=== PATIENT | male | born 1945 | race American Indian/Alaskan Native ===

== ENCOUNTER 2022-01-20 10:45 | Inpatient (IN) | payer MEDICARE ==
[2022-01-20] MEDS ORDERED: SODIUM CHLORIDE 0.9% 1000 ML 1,000 ML IV ONE ×2 (11:03→13:26)
[2022-01-20 11:51] LABS: Hematocrit 35.3 % (35.5-45.6); Hemoglobin 11.6 gm/dl (11.8-15.2); Mean Corpuscular HGB Conc 33 % (32-34); Mean Corpuscular Volume 98 fl (84-94); Red Blood Count 3.62 M/mm3 (3.65-5.03); Red Cell Distribution Width 15.1 % (13.2-15.2)
[2022-01-20 11:57] LABS: Platelet Count 82 K/mm3 (140-440)
--- NOTE | 2022-01-20 12:04 | Cat Scan Report ---
CT head/brain wo con INDICATION: altered mental status. TECHNIQUE: Routine CT head. All CT scans at this location are performed using CT dose reduction for A DIANE by means of automated exposure control. COMPARISON: None. FINDINGS: Intracranial: Cardenas-white matter differentiation is maintained. No intracranial hemorrhage. No extra a xial collection. No hydrocephalus. No herniation. Periventricular hypoattenuation, most likely relate d to sequela of chronic microvascular disease. Sinuses: Paranasal sinuses and mastoid air cells are essentially clear. Orbits: Globes are intact. Calvarium: No acute fracture. IMPRESSION: 1. No acute intracranial abnormality. Signer Name: Hiren Segura MD Signed: 01/20/2022 11:59 AM Workstation Name: [id number]
[2022-01-20 12:07] LABS: Albumin 3.5 g/dL (3.9-5); Calcium 8.5 mg/dL (8.4-10.2)
[2022-01-20 12:31] LABS: Basophils % (Manual) 0 % (0.0-1.8); Eosinophils % (Manual) 0 % (0.0-4.3); Total Cells Counted 100
[2022-01-20 12:32] LABS: Anisocytosis 1+; Burr Cells 1+; Platelet Estimate Consistent w Auto; Poikilocytosis 1+
--- NOTE | 2022-01-20 12:57 | XRay Report ---
CHEST 1 VIEW 01/20/2022 11:51 AM INDICATION / CLINICAL INFORMATION: weakness. COMPARISON: None available. FINDINGS: SUPPORT DEVICES: None. HEART / MEDIASTINUM: No significant abnormality. LUNGS / PLEURA: No significant pulmonary or pleural abnormality. No pneumothorax. ADDITIONAL FINDINGS: No significant additional findings. IMPRESSION: 1. No acute findings. Signer Name: Duc Anne DO Signed: 01/20/2022 12:53 PM Workstation Name: [id number]
--- NOTE | 2022-01-20 13:27 | Emergency Department Report ---
- General Chief complaint: Altered Mental Status Stated complaint: WEAKNESS Time Seen by Provider: 01/20/22 11:01 Source: patient, EMS Mode of arrival: Stretcher Limitations: Altered Mental Status - History of Present Illness Initial comments: Chief complaint: Weakness failure to thrive HPI: This 76-year-old male with unknown medical history who presents via EMS after roommate called. Patient has had decline over the last 2 weeks. He has not eaten food over the last several days. He has decreased responsiveness. He only said a few words to EMS. Right lower extremity swelling noted. History otherwise limited due to altered mental status. MD Complaint: generalized weakness -: week(s) (2 weeks) Location: generalized Severity: severe Severity scale (0 -10): 0 Consistency: constant Improves with: none Worsens with: none Associated Symptoms: other (Leg swelling) - Related Data Allergies Allergy/AdvReac Type Severity Reaction Status Date / Time No Known Allergies Allergy Unverified 01/20/22 10:47 ED Review of Systems ROS: Stated complaint: WEAKNESS Other details as noted in HPI Comment: Unobtainable due to pts medical conditions (Nonverbal altered) ED Past Medical Hx - Past Medical History Additional medical history: Unable to obtain - Surgical History Additional Surgical History: Unable to obtain - Family History Family history: other (Unable to obtain) - Social History Smoking Status: Unknown if ever smoked Substance Use Type: Other (Unable to obtain) ED Physical Exam - General Limitations: Altered Mental Status General appearance: in no apparent distress, lethargic - Head Head exam: Present: atraumatic, normocephalic - Eye Eye exam: Absent: scleral icterus, conjunctival injection - ENT ENT exam: Present: mucous membranes dry - Neck Neck exam: Present: normal inspection, full ROM - Respiratory Respiratory exam: Present: normal lung sounds bilaterally. Absent: respiratory distress, wheezes, rales, rhonchi - Cardiovascular Cardiovascular Exam: Present: regular rate, normal rhythm, normal heart sounds. Absent: systolic murmur, diastolic murmur, rubs, gallop - GI/Abdominal GI/Abdominal exam: Present: soft, distended, normal bowel sounds, other (Suprapubic distention). Absent: tenderness, guarding, rebound - Rectal Rectal exam: Present: deferred - Extremities Exam Extremities exam: Present: other (Right lower extremity swelling: Hyperpigmented flaky skin on both lower extremities) - Back Exam Back exam: Present: normal inspection - Neurological Exam Neurological exam: Present: altered - Psychiatric Psychiatric exam: Present: flat affect ED Course Vital Signs 01/20/22 10:47 Temperature 98.3 F Pulse Rate 56 L Respiratory 16 Rate Blood Pressure 142/88 [Left] O2 Sat by Pulse 99 Oximetry ED Medical Decision Making - Lab Data Result diagrams: 01/20/22 11:31 01/20/22 11:31 Laboratory Results - last 24 hr 01/20/22 01/20/22 01/20/22 11:31 11:31 11:31 WBC 2.6 L RBC 3.62 L Hgb 11.6 L Hct 35.3 L MCV 98 H MCH 32 MCHC 33 RDW 15.1 Plt Count 82 L Add Manual Diff Complete Total Counted 100 Seg Neutrophils % Manager Product Seg Neuts % (Manual) 96.0 H Band Neutrophils % 1.0 Lymphocytes % (Manual) 0 L Reactive Lymphs % (Man) 0 Monocytes % (Manual) 3.0 Eosinophils % (Manual) 0 Basophils % (Manual) 0 Metamyelocytes % 0 Myelocytes % 0 Promyelocytes % 0 Blast Cells % 0 Nucleated RBC % Not Reportable Seg Neutrophils # Man 2.5 Band Neutrophils # 0.0 Lymphocytes # (Manual) 0.0 L Abs React Lymphs (Man) 0.0 Monocytes # (Manual) 0.1 Eosinophils # (Manual) 0.0 Basophils # (Manual) 0.0 Metamyelocytes # 0.0 Myelocytes # 0.0 Promyelocytes # 0.0 Blast Cells # 0.0 WBC Morphology Not Reportable Hypersegmented Neuts Not Reportable Hyposegmented Neuts Not Reportable Hypogranular Neuts Not Reportable Smudge Cells Not Reportable Toxic Granulation Not Reportable Toxic Vacuolation Not Reportable Dohle Bodies Not Reportable Pelger-Huet Anomaly Not Reportable Giovana Rods Not Reportable Platelet Estimate Consistent w auto Clumped Platelets Not Reportable Plt Clumps, EDTA Not Reportable Large Platelets Not Reportable Giant Platelets Not Reportable Platelet Satelliting Not Reportable Plt Morphology Comment Not Reportable RBC Morphology Not Reportable Dimorphic RBCs Not Reportable Polychromasia Not Reportable Hypochromasia Not Reportable Poikilocytosis 1+ Anisocytosis 1+ Microcytosis Not Reportable Macrocytosis Not Reportable Spherocytes Not Reportable Pappenheimer Bodies Not Reportable Sickle Cells Not Reportable Target Cells Not Reportable Tear Drop Cells Not Reportable Ovalocytes Not Reportable Helmet Cells Not Reportable Ferris-Sims Bodies Not Reportable Dumas Rings Not Reportable Zenaida Cells 1+ Bite Cells Not Reportable Crenated Cell Not Reportable Elliptocytes Not Reportable Acanthocytes (Spur) Not Reportable Rouleaux Not Reportable Hemoglobin C Crystals Not Reportable Schistocytes Not Reportable Malaria parasites Not Reportable Kana Bodies Not Reportable Hem Pathologist Commnt No Sodium 140 Potassium 5.0 Chloride 110.3 H Carbon Dioxide 15 L Anion Gap 20 BUN 123 H Creatinine 5.1 H Estimated GFR 13 BUN/Creatinine Ratio 23 Glucose 84 Calcium 8.5 Phosphorus 5.30 H Magnesium 2.60 H Total Bilirubin 0.40 AST 147 H ALT 90 H Alkaline Phosphatase 107 Ammonia 10.0 L Total Protein 6.9 Albumin 3.5 L Albumin/Globulin Ratio 1.0 TSH 01/20/22 11:31 WBC RBC Hgb Hct MCV MCH MCHC RDW Plt Count Add Manual Diff Total Counted Seg Neutrophils % Seg Neuts % (Manual) Band Neutrophils % Lymphocytes % (Manual) Reactive Lymphs % (Man) Monocytes % (Manual) Eosinophils % (Manual) Basophils % (Manual) Metamyelocytes % Myelocytes % Promyelocytes % Blast Cells % Nucleated RBC % Seg Neutrophils # Man Band Neutrophils # Lymphocytes # (Manual) Abs React Lymphs (Man) Monocytes # (Manual) Eosinophils # (Manual) Basophils # (Manual) Metamyelocytes # Myelocytes # Promyelocytes # Blast Cells # WBC Morphology Hypersegmented Neuts Hyposegmented Neuts Hypogranular Neuts Smudge Cells Toxic Granulation Toxic Vacuolation Dohle Bodies Pelger-Huet Anomaly Giovana Rods Platelet Estimate Clumped Platelets Plt Clumps, EDTA Large Platelets Giant Platelets Platelet Satelliting Plt Morphology Comment RBC Morphology Dimorphic RBCs Polychromasia Hypochromasia Poikilocytosis Anisocytosis Microcytosis Macrocytosis Spherocytes Pappenheimer Bodies Sickle Cells Target Cells Tear Drop Cells Ovalocytes Helmet Cells Ferris-Sims Bodies Dumas Rings Zenaida Cells Bite Cells Crenated Cell Elliptocytes Acanthocytes (Spur) Rouleaux Hemoglobin C Crystals Schistocytes Malaria parasites Kana Bodies Hem Pathologist Commnt Sodium Potassium Chloride Carbon Dioxide Anion Gap BUN Creatinine Estimated GFR BUN/Creatinine Ratio Glucose Calcium Phosphorus Magnesium Total Bilirubin AST ALT Alkaline Phosphatase Ammonia Total Protein Albumin Albumin/Globulin Ratio TSH 2.730 - EKG Data -: EKG Interpreted by Me - EKG Data 01/20/22 13:45 EKG obtained 1113 EKG interpreted by me Sinus bradycardia rate 55 bpm normal axis normal intervals no ST elevation nonspecific T wave pattern QS complexes in anterior leads - Radiology Data Radiology results: report reviewed Patient Name: FABIAN CHAPARRO Gender: Male Date of : 1945 Referring Provider: FADUMO MCDONALD Organization: [facility] Accession Number: [id number] Requested Date: January 20, 2022 13:18 Report Status: Final Requested Procedure: 1 Procedure Description: VL venous duplex LE BILAT Modality: VL Findings Reporting MD: Laci Brown Dictation Time: January 20, 2022 13:28 Gambreler Helper: Not available Orthotic Practitioner Date: DUPLEX DOPPLER LOWER EXTREMITY VEINS, BILATERAL INDICATION: immobile right leg swelling. TECHNIQUE: Duplex doppler imaging was performed through the veins of both lower extremities using venous compression and other maneuvers. COMPARISON: No relevant prior imaging study available. FINDINGS: Right Common femoral vein: Negative. Right Superficial femoral vein: Negative. Right Popliteal vein: Negative. Right Calf veins: Negative. Left Common femoral vein: Negative. Left Superficial femoral vein: Negative. Left Popliteal vein: Negative. Left Calf veins: Negative. Additional findings: None. IMPRESSION: No sonographic evidence for DVT in either lower extremity. Signer Name: Laci Brown Jr, MD Signed: 01/20/2022 1:28 PM Workstation Name: [id number] Patient Name: FABIAN CHAPARRO Gender: Male Date of : 1945 Referring Provider: FADUMO MCDONALD Organization: [facility] Accession Number: [id number] Requested Date: January 20, 2022 11:04 Report Status: Final Requested Procedure: 1 Procedure Description: CT head/brain wo con Modality: CT Findings Reporting MD: Hiren Segura Dictation Time: January 20, 2022 10:59 Gambreler Helper: Not available Orthotic Practitioner Date: CT head/brain wo con INDICATION: altered mental status. TECHNIQUE: Routine CT head. All CT scans at this location are performed using CT dose reduction for ALARA by means of automated exposure control. COMPARISON: None. FINDINGS: Intracranial: Cardenas-white matter differentiation is maintained. No intracranial hemorrhage. No extra axial collection. No hydrocephalus. No herniation. Periventricular hypoattenuation, most likely related to sequela of chronic microvascular disease. Sinuses: Paranasal sinuses and mastoid air cells are essentially clear. Orbits: Globes are intact. Calvarium: No acute fracture. IMPRESSION: 1. No acute intracranial abnormality. Signer Name: Hiren Segura MD Signed: 01/20/2022 10:59 AM Workstation Name: [id number] Findings Reporting MD: Willi Law Dictation Time: January 20, 2022 13:53 Gambreler Helper: Not available Orthotic Practitioner Date: . CT ABDOMEN AND PELVIS WITHOUT CONTRAST HISTORY: Acute kidney injury altered mental status. COMPARISON: None. TECHNIQUE: CT images of the abdomen and pelvis were obtained without administration of intravenous contrast. All CT scans at this location are performed using CT dose reduction for ALARA by means of autom ated exposure control. FINDINGS: Lungs/bones: There is patchy airspace disease in the lungs greatest in the right lower lobe as well as superimposed tree-inbud airspace disease in all 3 lobes and the right lung. Minimal patchy left basilar airspace disease is also present. There are degenerative changes in the spine and the pelvis with no acute osseous abnormality identified. Abdomen/pelvis: The urinary bladder is grossly distended and there is a dependent stone measuring 1.5 cm on image 144 of series 2. The prostate is enlarged and indents the bladder base. No obvious bladder wall mass identified. Mild bilateral hydronephrosis is present in the kidneys likely related to the grossly distended urinary bladder. Simple bilateral renal cysts are present. No radiopaque stone disease. Multiple hypodensities are present throughout the liver which have the appearance of simple cysts although some are subcentimeter and therefore technically indeterminate. The gallbladder is mildly distended with tiny stones lying dependently. There is mild surrounding haziness and trace fluid. No biliary ductal dilatation. The spleen, pancreas, adrenals, and proximal GI tract appear unremarkable. No pelvic free fluid. There is colonic diverticulosis with no acute inflammatory change. IMPRESSION: 1. Grossly distended urinary bladder with internal stone disease suggesting urine stasis. Mild to moderate bilateral reflux hydronephrosis is present in the kidneys. 2. Pneumonia greatest in the right lung base with superimposed tree-in-bud airspace disease which may be seen with an atypical etiology such as mycobacterial disease. 3. Innumerable hypodensities in the liver, some of which have the appearance of cysts but others are indeterminate given subcentimeter size. 4. Distended gallbladder with surrounding haziness/trace fluid and questionable mild wall thickening. A few tiny layering stones are present but otherwise no gross obstructive stone disease. Correlate with exam findings. Signer Name: Willi Law MD Signed: 01/20/2022 1:53 PM Workstation Name: [id number] - Medical Decision Making 1. Acute metabolic encephalopathy due to uremia with acute kidney injury. CT abdomen pelvis revealed grossly distended bladder with bilateral hydronephrosis. Caregiver in room he was able to tell me that patient did have back pain. 2. Multifocal pneumonia with leukopenia. Concerning for COVID-19. Coronavirus PCR test ordered. IV dexamethasone IV ceftriaxone and IV azithromycin ordered. 3. Hepatic masses: Will need outpatient evaluation cyst versus tumor 4. Distended gallbladder without fever or leukocytosis. Will need observation with serial exams. Patient admitted to the hospital service. Critical care attestation.: If time is entered above; I have spent that time in minutes in the direct care of this critically ill patient, excluding procedure time. ED Disposition Clinical Impression: Acute metabolic encephalopathy, Acute kidney injury, Uremic encephalopathy, Acute urinary retention Disposition: ADMITTED INPATIENT Is pt being admited?: Yes Does the pt Need Aspirin: No Condition: Stable
--- NOTE | 2022-01-20 14:32 | Vascular Lab Report ---
DUPLEX DOPPLER LOWER EXTREMITY VEINS, BILATERAL INDICATION: immobile right leg swelling. TECHNIQUE: Duplex doppler imaging was performed through the veins of both lower extremities using ve nous compression and other maneuvers. COMPARISON: No relevant prior imaging study available. FINDINGS: Right Common femoral vein: Negative. Right Superficial femoral vein: Negative. Right Popliteal vein: Negative. Right Calf veins: Negative. Left Common femoral vein: Negative. Left Superficial femoral vein: Negative. Left Popliteal vein: Negative. Left Calf veins: Negative. Additional findings: None. IMPRESSION: No sonographic evidence for DVT in either lower extremity. Signer Name: Laci Brown Jr, MD Signed: 01/20/2022 2:28 PM Workstation Name: [id number]
--- NOTE | 2022-01-20 14:57 | Cat Scan Report ---
. CT ABDOMEN AND PELVIS WITHOUT CONTRAST HISTORY: Acute kidney injury altered mental status. COMPARISON: None. TECHNIQUE: CT images of the abdomen and pelvis were obtained without administration of intravenous co ntrast. All CT scans at this location are performed using CT dose reduction for ALARA by means of au tomated exposure control. FINDINGS: Lungs/bones: There is patchy airspace disease in the lungs greatest in the right lower lobe as well as superimposed tree-in-bud airspace disease in all 3 lobes and the right lung. Minimal patchy left b asilar airspace disease is also present. There are degenerative changes in the spine and the pelvis w ith no acute osseous abnormality identified. Abdomen/pelvis: The urinary bladder is grossly distended and there is a dependent stone measuring 1. 5 cm on image 144 of series 2. The prostate is enlarged and indents the bladder base. No obvious blad rosa wall mass identified. Mild bilateral hydronephrosis is present in the kidneys likely related to t he grossly distended urinary bladder. Simple bilateral renal cysts are present. No radiopaque stone d isease. Multiple hypodensities are present throughout the liver which have the appearance of simple cysts alt breezy some are subcentimeter and therefore technically indeterminate. The gallbladder is mildly diste nded with tiny stones lying dependently. There is mild surrounding haziness and trace fluid. No bilia ry ductal dilatation. The spleen, pancreas, adrenals, and proximal GI tract appear unremarkable. No pelvic free fluid. There is colonic diverticulosis with no acute inflammatory change. IMPRESSION: 1. Grossly distended urinary bladder with internal stone disease suggesting urine stasis. Mild to mod erate bilateral reflux hydronephrosis is present in the kidneys. 2. Pneumonia greatest in the right lung base with superimposed tree-in-bud airspace disease which may be seen with an atypical etiology such as mycobacterial disease. 3. Innumerable hypodensities in the liver, some of which have the appearance of cysts but others are indeterminate given subcentimeter size. 4. Distended gallbladder with surrounding haziness/trace fluid and questionable mild wall thickening. A few tiny layering stones are present but otherwise no gross obstructive stone disease. Correlate w ith exam findings. Signer Name: Willi Law MD Signed: 01/20/2022 2:53 PM Workstation Name: [id number]
[2022-01-20] MEDS ORDERED: AZITHROMYCIN/NS 500 MG/250 ML 500 MG/250 ML BAG IV ONE (15:02)
[2022-01-20] MEDS ORDERED: cefTRIAXone/NS 1 GM/50 ML 1 GM/50 ML BAG IV ONE (15:02)
[2022-01-20] MEDS ORDERED: dexAMETHasone 4 MG/ML VIAL IV STA (15:02)
[2022-01-20] MEDS ORDERED: ACETAMINOPHEN 325 MG TAB PO PRN (18:24)
[2022-01-20] MEDS ORDERED: ONDANSETRON 4 MG/2 ML INJ IV PRN (18:24)
[2022-01-20] MEDS ORDERED: MORPHINE 2 MG/1 ML INJ IV PRN (18:24)
--- NOTE | 2022-01-20 18:33 | History and Physical Report ---
History of Present Illness Date of examination: 01/20/22 Date of admission: January 20, 2022 Chief complaint: No p.o. intake for more than 1 week History of present illness: 76-year-old male sent by EMS by his roommate for 41 intake and decline in mental status for the last 2 weeks. Apparently patient is not in any food drinking fluids for the last 2 weeks. Decreased responsiveness. Patient is lethargic. Right lower extremity swelling. No fever or chills. Vaccination status not known. In summary patientfailure to thrive No p.o. intake. - Past Medical History Additional medical history: Unable to obtain - Surgical History Additional Surgical History: Unable to obtain - Family History Family history: other (Unable to obtain) - Social History Smoking Status: Unknown if ever smoked Substance Use Type: Other (Unable to obtain Review of Systems ROS: Stated complaint: WEAKNESS Other details as noted in HPI Comment: Unobtainable due to pts medical conditions (Nonverbal altered) ) Medications and Allergies Allergies Allergy/AdvReac Type Severity Reaction Status Date / Time No Known Allergies Allergy Unverified 01/20/22 10:47 Active Meds: Active Medications Acetaminophen (Acetaminophen 325 Mg Tab) 650 mg PO Q4H PRN PRN Reason: Pain MILD(1-3)/Fever >100.5/STODDARD Heparin Sodium (Porcine) (Heparin 5,000 Unit/1 Ml Vial) 5,000 unit SUB-Q Q12HR [facility] Sodium Chloride (Nacl 0.45% 1000 Ml) 1,000 mls @ 125 mls/hr IV DIRECT [facility] Morphine Sulfate (Morphine 2 Mg/1 Ml Inj) 2 mg IV Q4H PRN PRN Reason: Pain, Moderate (4-6) Ondansetron HCl (Ondansetron 4 Mg/2 Ml Inj) 4 mg IV Q8H PRN PRN Reason: Nausea And Vomiting Sodium Chloride (Sodium Chloride 0.9% 10 Ml Flush Syringe) 10 ml IV BID [facility] Sodium Chloride (Sodium Chloride 0.9% 10 Ml Flush Syringe) 10 ml IV PRN PRN PRN Reason: LINE FLUSH Exam - Constitutional Vitals: Temp Pulse Resp BP Pulse Ox 98.3 F 56 L 16 142/88 99 01/20/22 10:47 01/20/22 10:47 01/20/22 10:47 01/20/22 10:47 01/20/22 10:47 General appearance: Present: no acute distress, cachectic, other (Lethargic) - EENT Eyes: Present: PERRL ENT: hearing intact, clear oral mucosa - Neck Neck: Present: supple, normal ROM - Respiratory Respiratory effort: normal Respiratory: bilateral: CTA - Cardiovascular Heart rate: 78 Rhythm: regular Heart Sounds: Present: S1 & S2. Absent: rub, click - Extremities Extremities: pulses symmetrical, No edema Peripheral Pulses: within normal limits - Abdominal General gastrointestinal: Present: soft, non-tender, non-distended, normal bowel sounds Male genitourinary: Present: normal - Integumentary Integumentary: Present: clear, warm, dry - Musculoskeletal Musculoskeletal: generalized weakness - Psychiatric Psychiatric: depressed - Neurologic Neurologic: CNII-XII intact, other (Generalized weakness) - Allied Health Allied health notes reviewed: nursing, case management Results - Labs CBC & Chem 7: 01/21/22 04:00 01/21/22 04:00 Labs: Laboratory Last Values WBC 2.6 K/mm3 (4.5-11.0) L 01/20/22 11:31 RBC 3.62 M/mm3 (3.65-5.03) L 01/20/22 11:31 Hgb 11.6 gm/dl (11.8-15.2) L 01/20/22 11:31 Hct 35.3 % (35.5-45.6) L 01/20/22 11:31 MCV 98 fl (84-94) H 01/20/22 11:31 MCH 32 pg (28-32) 01/20/22 11:31 MCHC 33 % (32-34) 01/20/22 11:31 RDW 15.1 % (13.2-15.2) 01/20/22 11:31 Plt Count 82 K/mm3 (140-440) L 01/20/22 11:31 Add Manual Diff Complete 01/20/22 11:31 Total Counted 100 01/20/22 11:31 Seg Neutrophils % Contact Lens Curve Grinder 01/20/22 11:31 Seg Neuts % (Manual) 96.0 % (40.0-70.0) H 01/20/22 11:31 Band Neutrophils % 1.0 % 01/20/22 11:31 Lymphocytes % (Manual) 0 % (13.4-35.0) L 01/20/22 11:31 Reactive Lymphs % (Man) 0 % 01/20/22 11:31 Monocytes % (Manual) 3.0 % (0.0-7.3) 01/20/22 11:31 Eosinophils % (Manual) 0 % (0.0-4.3) 01/20/22 11:31 Basophils % (Manual) 0 % (0.0-1.8) 01/20/22 11:31 Metamyelocytes % 0 % 01/20/22 11:31 Myelocytes % 0 % 01/20/22 11:31 Promyelocytes % 0 % 01/20/22 11:31 Blast Cells % 0 % 01/20/22 11:31 Nucleated RBC % Not Reportable 01/20/22 11:31 Seg Neutrophils # Man 2.5 K/mm3 (1.8-7.7) 01/20/22 11:31 Band Neutrophils # 0.0 K/mm3 01/20/22 11:31 Lymphocytes # (Manual) 0.0 K/mm3 (1.2-5.4) L 01/20/22 11:31 Abs React Lymphs (Man) 0.0 K/mm3 01/20/22 11:31 Monocytes # (Manual) 0.1 K/mm3 (0.0-0.8) 01/20/22 11:31 Eosinophils # (Manual) 0.0 K/mm3 (0.0-0.4) 01/20/22 11:31 Basophils # (Manual) 0.0 K/mm3 (0.0-0.1) 01/20/22 11:31 Metamyelocytes # 0.0 K/mm3 01/20/22 11:31 Myelocytes # 0.0 K/mm3 01/20/22 11:31 Promyelocytes # 0.0 K/mm3 01/20/22 11:31 Blast Cells # 0.0 K/mm3 01/20/22 11:31 WBC Morphology Not Reportable 01/20/22 11:31 Hypersegmented Neuts Not Reportable 01/20/22 11:31 Hyposegmented Neuts Not Reportable 01/20/22 11:31 Hypogranular Neuts Not Reportable 01/20/22 11:31 Smudge Cells Not Reportable 01/20/22 11:31 Toxic Granulation Not Reportable 01/20/22 11:31 Toxic Vacuolation Not Reportable 01/20/22 11:31 Dohle Bodies Not Reportable 01/20/22 11:31 Pelger-Huet Anomaly Not Reportable 01/20/22 11:31 Giovana Rods Not Reportable 01/20/22 11:31 Platelet Estimate Consistent w auto 01/20/22 11:31 Clumped Platelets Not Reportable 01/20/22 11:31 Plt Clumps, EDTA Not Reportable 01/20/22 11:31 Large Platelets Not Reportable 01/20/22 11:31 Giant Platelets Not Reportable 01/20/22 11:31 Platelet Satelliting Not Reportable 01/20/22 11:31 Plt Morphology Comment Not Reportable 01/20/22 11:31 RBC Morphology Not Reportable 01/20/22 11:31 Dimorphic RBCs Not Reportable 01/20/22 11:31 Polychromasia Not Reportable 01/20/22 11:31 Hypochromasia Not Reportable 01/20/22 11:31 Poikilocytosis 1+ 01/20/22 11:31 Anisocytosis 1+ 01/20/22 11:31 Microcytosis Not Reportable 01/20/22 11:31 Macrocytosis Not Reportable 01/20/22 11:31 Spherocytes Not Reportable 01/20/22 11:31 Pappenheimer Bodies Not Reportable 01/20/22 11:31 Sickle Cells Not Reportable 01/20/22 11:31 Target Cells Not Reportable 01/20/22 11:31 Tear Drop Cells Not Reportable 01/20/22 11:31 Ovalocytes Not Reportable 01/20/22 11:31 Helmet Cells Not Reportable 01/20/22 11:31 [place] Bodies Not Reportable 01/20/22 11:31 [place] Rings Not Reportable 01/20/22 11:31 [place] Cells 1+ 01/20/22 11:31 Bite Cells Not Reportable 01/20/22 11:31 Crenated Cell Not Reportable 01/20/22 11:31 Elliptocytes Not Reportable 01/20/22 11:31 Acanthocytes (Spur) Not Reportable 01/20/22 11:31 Rouleaux Not Reportable 01/20/22 11:31 Hemoglobin C Crystals Not Reportable 01/20/22 11:31 Schistocytes Not Reportable 01/20/22 11:31 Malaria parasites Not Reportable 01/20/22 11:31 Kana Bodies Not Reportable 01/20/22 11:31 Hem Pathologist Commnt No 01/20/22 11:31 Sodium 140 mmol/L (137-145) 01/20/22 11:31 Potassium 5.0 mmol/L (3.6-5.0) 01/20/22 11:31 Chloride 110.3 mmol/L (98-107) H 01/20/22 11:31 Carbon Dioxide 15 mmol/L (22-30) L 01/20/22 11:31 Anion Gap 20 mmol/L 01/20/22 11:31 BUN 123 mg/dL (9-20) H 01/20/22 11:31 Creatinine 5.1 mg/dL (0.8-1.3) H 01/20/22 11:31 Estimated GFR 13 ml/min 01/20/22 11:31 BUN/Creatinine Ratio 23 % 01/20/22 11:31 Glucose 84 mg/dL (75-100) 01/20/22 11:31 Calcium 8.5 mg/dL (8.4-10.2) 01/20/22 11:31 Phosphorus 5.30 mg/dL (2.5-4.5) H 01/20/22 11:31 Magnesium 2.60 mg/dL (1.7-2.3) H 01/20/22 11:31 Total Bilirubin 0.40 mg/dL (0.1-1.2) 01/20/22 11:31 AST 147 units/L (5-40) H 01/20/22 11:31 ALT 90 units/L (7-56) H 01/20/22 11:31 Alkaline Phosphatase 107 units/L (35-129) 01/20/22 11:31 Ammonia 10.0 umol/L (25-60) L 01/20/22 11:31 Total Protein 6.9 g/dL (6.3-8.2) 01/20/22 11:31 Albumin 3.5 g/dL (3.9-5) L 01/20/22 11:31 Albumin/Globulin Ratio 1.0 % 01/20/22 11:31 TSH 2.730 mlU/mL (0.270-4.200) 01/20/22 11:31 Short CBC 01/20/22 01/21/22 Range/Units 11:31 04:00 WBC 2.6 L 2.8 L (4.5-11.0) K/mm3 Hgb 11.6 L 11.7 L (11.8-15.2) gm/dl Hct 35.3 L 35.7 (35.5-45.6) % Plt Count 82 L 43 L (140-440) K/mm3 BMP 01/20/22 01/21/22 11:31 04:00 Sodium 140 142 Potassium 5.0 5.5 H Chloride 110.3 H 113.3 H Carbon Dioxide 15 L 13 L BUN 123 H 104 H Creatinine 5.1 H 4.2 H Glucose 84 84 Calcium 8.5 8.1 L Liver Function 01/20/22 01/21/22 Range/Units 11:31 04:00 Total Bilirubin 0.40 0.30 (0.1-1.2) mg/dL AST 147 H 176 H (5-40) units/L ALT 90 H 109 H (7-56) units/L Alkaline Phosphatase 107 110 (35-129) units/L Albumin 3.5 L 3.3 L (3.9-5) g/dL - Imaging and Cardiology CT scan - abdomen: report reviewed Imaging and Cardiology: Head CT No acute intracranial abnormality Chest x-ray No acute findings duplex scan lower extremity Duplex scan both lower extremities No sonographic evidence for DVT in either lower extremity CT of the abdomen and pelvis Grossly distended urinary bladder with internal stone disease suggesting urine stasis Mild to moderate bilateral reflux hydronephrosis present on the kidneys Pneumonia greatest in the right lung base with superimposed tree-in-bud airspace disease which may be seen with atypical etiologies such as mycobacterial disease Innumerable hypodensities in the liver, some of which have the appearance of cysts but others are indeterminate given the subcentimeter size. Assessment and Plan Advance Directives: Yes (Full code) VTE prophylaxis?: Chemical Plan of care discussed with patient/family: Yes - Patient Problems (1) Acute metabolic encephalopathy Current Visit: Yes Status: Acute Plan to address problem: Secondary to uremia Secondary to dehydration IV fluids for now (2) Acute kidney injury Current Visit: Yes Status: Acute Plan to address problem: Secondary to obstructive uropathy and hydronephrosis Nephrology and urology consulted IV fluids for now (3) Acute urinary retention Current Visit: Yes Status: Acute Plan to address problem: Leal in place (4) Transaminitis Current Visit: Yes Status: Acute Plan to address problem: AST of 147 and ALT of 90 Etiology unclear Acute hepatitis profile requested (5) DVT prophylaxis Current Visit: Yes Status: Acute Plan to address problem: On anticoagulation GI prophylaxis (6) Advance care planning Current Visit: Yes Status: Acute Plan to address problem: Could not be done because of the patient's condition and no family member of a arrival
[2022-01-20] MEDS: HEPARIN 5,000 UNIT/1 ML VIAL SUB-Q SCH (22:24)
[2022-01-21 04:46] LABS: Hematocrit 35.7 % (35.5-45.6); Hemoglobin 11.7 gm/dl (11.8-15.2); Mean Corpuscular HGB Conc 33 % (32-34); Mean Corpuscular Volume 99 fl (84-94); Red Blood Count 3.63 M/mm3 (3.65-5.03); Red Cell Distribution Width 14.9 % (13.2-15.2)
[2022-01-21 04:58] LABS: Platelet Count 43 K/mm3 (140-440)
[2022-01-21 05:07] LABS: Albumin 3.3 g/dL (3.9-5); Calcium 8.1 mg/dL (8.4-10.2)
[2022-01-21 07:01] LABS: Basophils % (Manual) 0 % (0.0-1.8); Eosinophils % (Manual) 0 % (0.0-4.3); Total Cells Counted 100
[2022-01-21 07:02] LABS: Anisocytosis 1+; Burr Cells 1+; Platelet Estimate Consistent w Auto
--- NOTE | 2022-01-21 07:45 | Consultation ---
History of Present Illness - Reason for Consult Consult date: 01/21/22 acute renal failure - History of Present Illness 76-year-old man presents with decreased po intake, lethargy. Patient remains altered at time of consult and unable to provide any additional information. Denies any kidney issues but unclear if he comprehends questions. - Past Medical History Additional medical history: Unable to obtain - Surgical History Additional Surgical History: Unable to obtain - Family History Family history: other (Unable to obtain) - Social History Smoking Status: Unknown if ever smoked Substance Use Type: Other (Unable to obtain Medications and Allergies Allergies Allergy/AdvReac Type Severity Reaction Status Date / Time No Known Allergies Allergy Unverified 01/20/22 10:47 Home Medications Medication Instructions Recorded Confirmed Last Taken Type Unobtainable 01/21/22 01/21/22 Unknown History Active Meds: Active Medications Acetaminophen (Acetaminophen 325 Mg Tab) 650 mg PO Q4H PRN PRN Reason: Pain MILD(1-3)/Fever >100.5/STODDARD Heparin Sodium (Porcine) (Heparin 5,000 Unit/1 Ml Vial) 5,000 unit SUB-Q Q12HR [facility] Last Admin: 01/20/22 22:24 Dose: 5,000 unit Sodium Chloride (Nacl 0.45% 1000 Ml) 1,000 mls @ 125 mls/hr IV DIRECT [facility] Morphine Sulfate (Morphine 2 Mg/1 Ml Inj) 2 mg IV Q4H PRN PRN Reason: Pain, Moderate (4-6) Ondansetron HCl (Ondansetron 4 Mg/2 Ml Inj) 4 mg IV Q8H PRN PRN Reason: Nausea And Vomiting Pneumococcal Polyvalent Vaccine (Pneumococcal 23 Valent 0.5 Ml Vial) 0.5 ml IM .ONCE ONE Stop: 01/21/22 12:01 Sodium Chloride (Sodium Chloride 0.9% 10 Ml Flush Syringe) 10 ml IV BID [facility] Last Admin: 01/20/22 22:25 Dose: 10 ml Sodium Chloride (Sodium Chloride 0.9% 10 Ml Flush Syringe) 10 ml IV PRN PRN PRN Reason: LINE FLUSH Review of Systems ROS unobtainable: due to mental status Exam - Vital Signs Vital signs: Vital Signs Temp Pulse Resp BP Pulse Ox 98.3 F 56 L 16 142/88 99 01/20/22 10:47 01/20/22 10:47 01/20/22 10:47 01/20/22 10:47 01/20/22 10:47 - Physical Exam Narrative exam: General appearance: Present: no acute distress, cachectic, other (Lethargic) - EENT Eyes: Present: PERRL ENT: hearing intact, clear oral mucosa - Neck Neck: Present: supple, normal ROM - Respiratory Respiratory: bilateral: CTA - Cardiovascular Rhythm: regular - Extremities Extremities: pulses symmetrical, No edema Peripheral Pulses: within normal limits - Abdominal General gastrointestinal: Present: soft, non-tender, non-distended, normal bowel sounds Male genitourinary: Present: normal - Integumentary Integumentary: Present: clear, warm, dry - Musculoskeletal Musculoskeletal: generalized weakness - Psychiatric Psychiatric: depressed - Neurologic Neurologic: CNII-XII intact, other (Generalized weakness) Results - Lab Results 01/21/22 04:00 01/21/22 04:00 Most recent lab results Calcium 8.1 mg/dL (8.4-10.2) L 01/21/22 04:00 Phosphorus 5.30 mg/dL (2.5-4.5) H 01/20/22 11:31 Magnesium 2.60 mg/dL (1.7-2.3) H 01/20/22 11:31 Assessment and Plan # Acute Kidney Injury: JESSIKA likely related to obstructive uropathy, hydronephrosis and pre-renal injury given limited PO intake. Creatinine improving 5.1->4.2 with do placement - recommend IVF prn to match urine output, encourage po hydration - strict Is/Os - avoid nephrotoxins - renally dose medications - appreciate urology - imaging reviewed - maintain MAP>70 - hold further JESSIKA workup for now including urine, serologies - no immediate need for renal replacement therapy, renal prognosis guarded but hopeful given urine output # Acute Metabolic Encephalopathy: unclear baseline, continue IVF given azotemia, dehydration # Hyperkalemia, Metabolic Acidosis: start po NaHCO3 in setting of JESSIKA # Acute Urinary Retention # Hypotension: BP now stable # Transaminitis # Thrombocytopenia, Leukopenia
--- NOTE | 2022-01-21 08:01 | Event Note ---
Date: 01/21/22 After Leal catheter was inserted 2000 cc of urine was drained Possible urethral obstruction
--- NOTE | 2022-01-21 08:09 | Electrocardiograph Report ---
[facility] Test Date: 2022-01-20 Test Time: 11:13:08 Pat Name: FABIAN CHAPARRO Department: Room: A456 Gender: M Hand Candy Dipper: JENNIE : 1945 Requested By: FADUMO MCDONALD Order Number: [id number] Reading MD: Liang Bermudez Measurements Intervals [place] Rate: 56 P: 72 MD: 181 QRS: 68 QRSD: 147 T: 97 QT: 473 QTc: 459 Interpretive Statements Sinus bradycardia Nonspecific intraventricular conduction delay Anteroseptal infarct, old No previous ECG available for comparison Electronically Signed On 01-21-2022 8:09:02 EDT by Liang Bermudez
[2022-01-21] MEDS: HEPARIN 5,000 UNIT/1 ML VIAL SUB-Q SCH ×2 (09:50→21:12)
[2022-01-21] MEDS ORDERED: PNEUMOCOCCAL 23 Valent 0.5 ML VIAL IM ONE (12:00)
[2022-01-21] MEDS ORDERED: FLU VACC QUAD 2021-22(6MOS UP)/PF 60 MCG/0.5 ML SYRINGE IM ONE (12:00)
--- NOTE | 2022-01-21 12:06 | Consultation ---
History of Present Illness - Reason for Consult Consult date: 01/21/22 JESSIKA and urinary retention - History of Present Illness The patient presented with JESSIKA and a distended bladder. A Leal catheter was placed and drained 2000 ml of urine. Urine is clear. Serum Cr was 5.2. CT scan shows bilateral hydronephrosis and debris in bladder. Patient is poor historian and also has altered mental status. Past History Past Medical History: other (Patient is poor historian.) Social history: no significant social history Family history: no significant family history Medications and Allergies Allergies Allergy/AdvReac Type Severity Reaction Status Date / Time No Known Allergies Allergy Unverified 01/20/22 10:47 Home Medications Medication Instructions Recorded Confirmed Last Taken Type Unobtainable 01/21/22 01/21/22 Unknown History Active Meds: Active Medications Acetaminophen (Acetaminophen 325 Mg Tab) 650 mg PO Q4H PRN PRN Reason: Pain MILD(1-3)/Fever >100.5/STODDARD Heparin Sodium (Porcine) (Heparin 5,000 Unit/1 Ml Vial) 5,000 unit SUB-Q Q12HR [facility] Last Admin: 01/21/22 09:50 Dose: 5,000 unit Sodium Chloride (Nacl 0.45% 1000 Ml) 1,000 mls @ 125 mls/hr IV DIRECT [facility]ON Morphine Sulfate (Morphine 2 Mg/1 Ml Inj) 2 mg IV Q4H PRN PRN Reason: Pain, Moderate (4-6) Ondansetron HCl (Ondansetron 4 Mg/2 Ml Inj) 4 mg IV Q8H PRN PRN Reason: Nausea And Vomiting Sodium Chloride (Sodium Chloride 0.9% 10 Ml Flush Syringe) 10 ml IV BID [facility] Last Admin: 01/21/22 09:50 Dose: 10 ml Sodium Chloride (Sodium Chloride 0.9% 10 Ml Flush Syringe) 10 ml IV PRN PRN PRN Reason: LINE FLUSH Review of Systems All systems: negative Exam - Constitutional Vitals: Temp Pulse Resp BP Pulse Ox 98.6 F 56 L 16 150/94 98 01/21/22 07:54 01/21/22 07:54 01/21/22 07:54 01/21/22 07:54 01/21/22 07:54 General appearance: Present: no acute distress - EENT Eyes: Present: PERRL, EOM intact ENT: hearing intact - Neck Neck: Present: supple, normal ROM - Respiratory Respiratory effort: normal - Cardiovascular Rhythm: regular Heart Sounds: Present: S1 & S2 - Extremities Extremities: no ischemia - Abdominal General gastrointestinal: Present: soft Male genitourinary: Present: normal (Catheter in place draining clear urine.) - Rectal Rectal Exam: deferred - Integumentary Integumentary: Present: clear, warm, dry - Musculoskeletal Musculoskeletal: strength equal bilaterally - Psychiatric Psychiatric: other (Confused) Results - Labs CBC & Chem 7: 01/21/22 04:00 01/21/22 04:00 Labs: Abnormal lab results 01/20/22 01/20/22 01/20/22 Range/Units 11:31 11:31 11:31 WBC (4.5-11.0) K/mm3 RBC (3.65-5.03) M/mm3 Hgb (11.8-15.2) gm/dl MCV (84-94) fl Plt Count (140-440) K/mm3 Seg Neuts % (Manual) 96.0 H (40.0-70.0) % Lymphocytes % (Manual) 0 L (13.4-35.0) % Lymphocytes # (Manual) 0.0 L (1.2-5.4) K/mm3 Potassium (3.6-5.0) mmol/L Chloride 110.3 H (98-107) mmol/L Carbon Dioxide 15 L (22-30) mmol/L BUN 123 H (9-20) mg/dL Creatinine 5.1 H (0.8-1.3) mg/dL Calcium (8.4-10.2) mg/dL Phosphorus 5.30 H (2.5-4.5) mg/dL Magnesium 2.60 H (1.7-2.3) mg/dL AST 147 H (5-40) units/L ALT 90 H (7-56) units/L Ammonia 10.0 L (25-60) umol/L Albumin 3.5 L (3.9-5) g/dL 01/21/22 01/21/22 Range/Units 04:00 04:00 WBC 2.8 L (4.5-11.0) K/mm3 RBC 3.63 L (3.65-5.03) M/mm3 Hgb 11.7 L (11.8-15.2) gm/dl MCV 99 H (84-94) fl Plt Count 43 L (140-440) K/mm3 Seg Neuts % (Manual) 98.0 H (40.0-70.0) % Lymphocytes % (Manual) 1.0 L (13.4-35.0) % Lymphocytes # (Manual) 0.0 L (1.2-5.4) K/mm3 Potassium 5.5 H (3.6-5.0) mmol/L Chloride 113.3 H (98-107) mmol/L Carbon Dioxide 13 L (22-30) mmol/L BUN 104 H (9-20) mg/dL Creatinine 4.2 H (0.8-1.3) mg/dL Calcium 8.1 L (8.4-10.2) mg/dL Phosphorus (2.5-4.5) mg/dL Magnesium (1.7-2.3) mg/dL AST 176 H (5-40) units/L ALT 109 H (7-56) units/L Ammonia (25-60) umol/L Albumin 3.3 L (3.9-5) g/dL - Imaging and Cardiology CT scan - abdomen: report reviewed, image reviewed Assessment and Plan - Patient Problems (1) Acute urinary retention Current Visit: Yes Status: Acute Plan to address problem: Maintain catheter drainage until serum Cr nadirs and then perform renal ultrasound to reassess hydronephrosis. Plan for outpatient cystoscopy to determine need for outlet reduction and stone removal. (2) Acute kidney injury Current Visit: Yes Status: Acute Plan to address problem: Maintain catheter drainage and trend serum Creatinine.
[2022-01-21 17:27] LABS: Hepatitis B Surface Antigen Non-Reactive (Negative); Hepatitis C Virus Antibody Non-Reactive (NonReactive)
[2022-01-21] MEDS: SODIUM CHLORIDE 0.45% 1000 ML 1,000 ML IV SCH (21:14)
[2022-01-22] MEDS: SODIUM CHLORIDE 0.45% 1000 ML 1,000 ML IV SCH ×2 (04:35→20:49)
--- NOTE | 2022-01-22 05:52 | Progress Note ---
Assessment and Plan - Patient Problems (1) Acute metabolic encephalopathy Current Visit: Yes Status: Acute Plan to address problem: Secondary to uremia Secondary to dehydration IV fluids for now (2) Acute kidney injury Current Visit: Yes Status: Acute Plan to address problem: Secondary to obstructive uropathy and hydronephrosis Nephrology and urology consulted IV fluids for now (3) Acute urinary retention Current Visit: Yes Status: Acute Plan to address problem: Leal in place (4) Transaminitis Current Visit: Yes Status: Acute Plan to address problem: AST of 147 and ALT of 90 Etiology unclear Acute hepatitis profile requested (5) DVT prophylaxis Current Visit: Yes Status: Acute Plan to address problem: On anticoagulation GI prophylaxis (6) Advance care planning Current Visit: Yes Status: Acute Plan to address problem: Could not be done because of the patient's condition and no family member of a arrival Subjective Date of service: 01/21/22 Objective - Constitutional Vitals: Vital Signs - 12hr 01/21/22 01/21/22 01/21/22 19:15 20:00 20:24 Temperature 98.0 F Pulse Rate 59 L 52 L Respiratory 16 Rate Blood Pressure 130/76 O2 Sat by Pulse 99 98 Oximetry 01/21/22 01/22/22 23:43 04:29 Temperature 98.2 F 98.0 F Pulse Rate 58 L 67 Respiratory 16 16 Rate Blood Pressure 144/83 143/86 O2 Sat by Pulse 98 95 Oximetry General appearance: Present: no acute distress, well-nourished - EENT Eyes: PERRL, EOM intact ENT: hearing intact, clear oral mucosa Ears: bilateral: normal - Neck Neck: supple, normal ROM - Respiratory Respiratory effort: normal Respiratory: bilateral: CTA - Breasts Breasts: normal - Cardiovascular Rhythm: regular Heart Sounds: Present: S1 & S2. Absent: gallop, rub Extremities: pulses intact, No edema, normal color, Full ROM - Gastrointestinal General gastrointestinal: Present: soft, non-tender, non-distended, normal bowel sounds - Genitourinary Male genitourinary: normal - Integumentary Integumentary: clear, warm, dry - Musculoskeletal Musculoskeletal: 1, strength equal bilaterally - Neurologic Neurologic: moves all extremities - Psychiatric Psychiatric: memory intact, appropriate mood/affect, intact judgment & insight - Labs CBC & Chem 7: 01/21/22 04:00 01/21/22 04:00 Labs: Abnormal lab results 01/21/22 Range/Units 04:00 Seg Neuts % (Manual) 98.0 H (40.0-70.0) % Lymphocytes % (Manual) 1.0 L (13.4-35.0) % Lymphocytes # (Manual) 0.0 L (1.2-5.4) K/mm3
[2022-01-22 06:08] LABS: Hematocrit 32.7 % (35.5-45.6); Hemoglobin 10.8 gm/dl (11.8-15.2); Mean Corpuscular HGB Conc 33 % (32-34); Mean Corpuscular Volume 97 fl (84-94); Red Blood Count 3.36 M/mm3 (3.65-5.03); Red Cell Distribution Width 15.1 % (13.2-15.2)
[2022-01-22 06:10] LABS: Platelet Count 41 K/mm3 (140-440)
[2022-01-22] MEDS: HEPARIN 5,000 UNIT/1 ML VIAL SUB-Q SCH ×2 (09:54→21:24)
--- NOTE | 2022-01-22 13:02 | Progress Note ---
Assessment and Plan Impression: * Acute kidney injury secondary to obstructive uropathy/urinary retention * Urinary retention * Azotemia * Hyperkalemia, mild * Metabolic acidosis * Anemia Plan: * BMP not available for review today. SCr has been trending down * Start NaBicarb 1300mg TID * Continue IVF * Continue current management * Dose medications for renal function * Avoid potential nephrotoxins * BMP ordered for AM Subjective Date of service: 01/22/22 Interval history: Patient has on complaints. Reports decline in appetite. Objective - Vital Signs Vital signs: Vital Signs - 12hr 01/22/22 01/22/22 01/22/22 04:29 07:37 11:53 Temperature 98.0 F 98.4 F Pulse Rate 67 70 Respiratory 16 16 Rate Blood Pressure 143/86 112/64 O2 Sat by Pulse 95 97 97 Oximetry - General Appearance General appearance: well-developed, well-nourished EENT: ATNC Respiratory: Present: Clear to Ascultation Cardiology: regular, S1S2 Gastrointestinal: normal, no tenderness, no distended Integumentary: no rash, warm and dry Psychiatric: cooperative - Lab 01/22/22 05:27 01/21/22 04:00 Most recent lab results Calcium 8.1 mg/dL (8.4-10.2) L 01/21/22 04:00 Phosphorus 5.30 mg/dL (2.5-4.5) H 01/20/22 11:31 Magnesium 2.60 mg/dL (1.7-2.3) H 01/20/22 11:31 Medications & Allergies - Medications Allergies/Adverse Reactions: Allergies No Known Allergies Allergy (Unverified 01/20/22 10:47) Home Medications: Home Medications Medication Instructions Recorded Confirmed Last Taken Type Unobtainable 01/21/22 01/21/22 Unknown History Active Medications: Generic Name Dose Route Start Last Admin Trade Name Freq PRN Reason Stop Dose Admin Acetaminophen 650 mg 01/20/22 18:24 Acetaminophen 325 Mg Tab PO Q4H PRN Pain MILD(1-3)/Fever >100.5/STODDARD Heparin Sodium (Porcine) 5,000 unit 01/20/22 22:00 01/22/22 09:54 Heparin 5,000 Unit/1 Ml Vial SUB-Q 5,000 unit Q12HR [facility]ON Administration Sodium Chloride 1,000 mls @ 125 mls/hr 01/20/22 19:00 01/22/22 04:35 Nacl 0.45% 1000 Ml IV 125 mls/hr DIRECT MARLON Administration Morphine Sulfate 2 mg 01/20/22 18:24 Morphine 2 Mg/1 Ml Inj IV Q4H PRN Pain, Moderate (4-6) Ondansetron HCl 4 mg 01/20/22 18:24 Ondansetron 4 Mg/2 Ml Inj IV Q8H PRN Nausea And Vomiting Sodium Chloride 10 ml 01/20/22 22:00 01/22/22 09:54 Sodium Chloride 0.9% 10 Ml Flush Syringe IV 10 ml BID MAR[facility]ON Administration Sodium Chloride 10 ml 01/20/22 18:24 Sodium Chloride 0.9% 10 Ml Flush Syringe IV PRN PRN LINE FLUSH
[2022-01-22 20:35] LABS: Calcium 7.9 mg/dL (8.4-10.2)
[2022-01-22] MEDS: SODIUM BICARBONATE 650 MG TAB PO SCH (21:24)
--- NOTE | 2022-01-23 00:03 | Progress Note ---
Assessment and Plan - Patient Problems (1) Acute metabolic encephalopathy Current Visit: Yes Status: Acute Plan to address problem: Secondary to uremia Secondary to dehydration IV fluids for now (2) Acute kidney injury Current Visit: Yes Status: Acute Plan to address problem: Secondary to obstructive uropathy and hydronephrosis Nephrology and urology consulted IV fluids for now (3) Acute urinary retention Current Visit: Yes Status: Acute Plan to address problem: Leal in place (4) Transaminitis Current Visit: Yes Status: Acute Plan to address problem: AST of 147 and ALT of 90 Etiology unclear Acute hepatitis profile requested (5) DVT prophylaxis Current Visit: Yes Status: Acute Plan to address problem: On anticoagulation GI prophylaxis (6) Advance care planning Current Visit: Yes Status: Acute Subjective Date of service: 01/22/22 Objective - Constitutional Vitals: Vital Signs - 12hr 01/22/22 01/22/22 01/22/22 14:00 16:00 19:37 Temperature 98.0 F 97.7 F Pulse Rate 65 60 64 Respiratory 16 16 Rate Blood Pressure 116/64 138/77 O2 Sat by Pulse 97 99 Oximetry 01/22/22 01/22/22 01/22/22 20:34 22:00 23:24 Temperature 98.0 F Pulse Rate 61 62 Respiratory 16 Rate Blood Pressure 144/79 O2 Sat by Pulse 98 99 Oximetry General appearance: Present: no acute distress, well-nourished - EENT Eyes: PERRL, EOM intact ENT: hearing intact, clear oral mucosa Ears: bilateral: normal - Neck Neck: supple, normal ROM - Respiratory Respiratory effort: normal Respiratory: bilateral: CTA - Breasts Breasts: normal - Cardiovascular Rhythm: regular Heart Sounds: Present: S1 & S2. Absent: gallop, rub Extremities: pulses intact, No edema, normal color, Full ROM - Gastrointestinal General gastrointestinal: Present: soft, non-tender, non-distended, normal bowel sounds - Genitourinary Male genitourinary: normal - Integumentary Integumentary: clear, warm, dry - Musculoskeletal Musculoskeletal: 1, strength equal bilaterally - Neurologic Neurologic: moves all extremities - Psychiatric Psychiatric: memory intact, appropriate mood/affect, intact judgment & insight - Labs CBC & Chem 7: 01/22/22 05:27 01/22/22 19:47 Labs: Abnormal lab results 01/22/22 01/22/22 Range/Units 05:27 19:47 WBC 2.9 L (4.5-11.0) K/mm3 RBC 3.36 L (3.65-5.03) M/mm3 Hgb 10.8 L (11.8-15.2) gm/dl Hct 32.7 L (35.5-45.6) % MCV 97 H (84-94) fl Plt Count 41 L (140-440) K/mm3 Chloride 115.6 H (98-107) mmol/L Carbon Dioxide 14 L (22-30) mmol/L BUN 83 H (9-20) mg/dL Creatinine 3.2 H (0.8-1.3) mg/dL Glucose 60 L (75-100) mg/dL Calcium 7.9 L (8.4-10.2) mg/dL
[2022-01-23 06:33] LABS: Hematocrit 32.2 % (35.5-45.6); Hemoglobin 10.4 gm/dl (11.8-15.2); Mean Corpuscular HGB Conc 33 % (32-34); Mean Corpuscular Volume 98 fl (84-94); Red Blood Count 3.27 M/mm3 (3.65-5.03); Red Cell Distribution Width 15.3 % (13.2-15.2)
[2022-01-23 06:44] LABS: Platelet Count 36 K/mm3 (140-440)
[2022-01-23] MEDS: SODIUM BICARBONATE 650 MG TAB PO SCH ×3 (09:49→22:24)
[2022-01-23] MEDS: HEPARIN 5,000 UNIT/1 ML VIAL SUB-Q SCH ×2 (09:50→22:24)
[2022-01-23] MEDS: SODIUM CHLORIDE 0.45% 1000 ML 1,000 ML IV SCH ×2 (09:51→17:18)
[2022-01-23 13:23] LABS: Basophils % (Manual) 0 % (0.0-1.8); Burr Cells Few; Eosinophils % (Manual) 0 % (0.0-4.3); Total Cells Counted 100
[2022-01-23 13:24] LABS: Platelet Estimate Consistent w Auto
--- NOTE | 2022-01-23 17:02 | Progress Note ---
Assessment and Plan Impression: * Acute kidney injury secondary to obstructive uropathy/urinary retention * Urinary retention * Azotemia * Hyperkalemia, mild * Metabolic acidosis * Anemia * Hypertension Plan: * Renal function is stable - SCr plateaued * Continue NaBicarb 1300mg TID * Continue IVF * Start Amlodipine 5mg daily * Continue current management * Dose medications for renal function * Avoid potential nephrotoxins * BMP ordered for AM Subjective Date of service: 01/23/22 Objective - Vital Signs Vital signs: Vital Signs - 12hr 01/23/22 01/23/22 07:46 11:57 Temperature 98.0 F 98.6 F Pulse Rate 68 65 Respiratory 18 Rate Blood Pressure 167/92 146/81 O2 Sat by Pulse 97 99 Oximetry - Lab 01/23/22 05:07 01/23/22 05:07 Most recent lab results Calcium 8.0 mg/dL (8.4-10.2) L 01/23/22 05:07 Phosphorus 5.30 mg/dL (2.5-4.5) H 01/20/22 11:31 Magnesium 2.60 mg/dL (1.7-2.3) H 01/20/22 11:31 Medications & Allergies - Medications Allergies/Adverse Reactions: Allergies No Known Allergies Allergy (Unverified 01/20/22 10:47) Home Medications: Home Medications Medication Instructions Recorded Confirmed Last Taken Type Unobtainable 01/21/22 01/21/22 Unknown History Active Medications: Generic Name Dose Route Start Last Admin Trade Name Freq PRN Reason Stop Dose Admin Acetaminophen 650 mg 01/20/22 18:24 Acetaminophen 325 Mg Tab PO Q4H PRN Pain MILD(1-3)/Fever >100.5/STODDARD Heparin Sodium (Porcine) 5,000 unit 01/20/22 22:00 01/23/22 09:50 Heparin 5,000 Unit/1 Ml Vial SUB-Q 5,000 unit Q12HR MARLON Administration Sodium Chloride 1,000 mls @ 125 mls/hr 01/20/22 19:00 01/23/22 09:51 Nacl 0.45% 1000 Ml IV 125 mls/hr DIRECT MARLON Administration Morphine Sulfate 2 mg 01/20/22 18:24 Morphine 2 Mg/1 Ml Inj IV Q4H PRN Pain, Moderate (4-6) Ondansetron HCl 4 mg 01/20/22 18:24 Ondansetron 4 Mg/2 Ml Inj IV Q8H PRN Nausea And Vomiting Sodium Bicarbonate 1,300 mg 01/22/22 20:00 01/23/22 09:49 Sodium Bicarbonate 650 Mg Tab PO 1,300 mg TID MARLON Administration Sodium Chloride 10 ml 01/20/22 22:00 01/23/22 09:52 Sodium Chloride 0.9% 10 Ml Flush Syringe IV 10 ml BID MARLON Administration Sodium Chloride 10 ml 01/20/22 18:24 Sodium Chloride 0.9% 10 Ml Flush Syringe IV PRN PRN LINE FLUSH
--- NOTE | 2022-01-23 22:09 | Progress Note ---
Assessment and Plan - Patient Problems (1) Acute metabolic encephalopathy Current Visit: Yes Status: Acute Plan to address problem: Secondary to uremia Secondary to dehydration IV fluids for now (2) Acute kidney injury Current Visit: Yes Status: Acute Plan to address problem: Secondary to obstructive uropathy and hydronephrosis Nephrology and urology consulted IV fluids for now (3) Acute urinary retention Current Visit: Yes Status: Acute Plan to address problem: Leal in place (4) Transaminitis Current Visit: Yes Status: Acute Plan to address problem: AST of 147 and ALT of 90 Etiology unclear Acute hepatitis profile requested (5) DVT prophylaxis Current Visit: Yes Status: Acute Plan to address problem: On anticoagulation GI prophylaxis (6) Advance care planning Current Visit: Yes Status: Acute Plan to address problem: Could not be done because of the patient's condition and no family member of a arrival Subjective Date of service: 01/23/22 Objective - Constitutional Vitals: Vital Signs - 12hr 01/23/22 01/23/22 01/23/22 11:57 12:00 14:00 Temperature 98.6 F Pulse Rate 65 62 Respiratory 18 Rate Blood Pressure 146/81 O2 Sat by Pulse 99 98 Oximetry 01/23/22 01/23/22 01/23/22 15:48 18:00 19:28 Temperature 98.7 F 98.0 F Pulse Rate 63 67 69 Respiratory 20 18 Rate Blood Pressure 163/82 163/93 O2 Sat by Pulse 99 99 Oximetry General appearance: Present: no acute distress, well-nourished - EENT Eyes: PERRL, EOM intact ENT: hearing intact, clear oral mucosa Ears: bilateral: normal - Neck Neck: supple, normal ROM - Respiratory Respiratory effort: normal Respiratory: bilateral: CTA - Breasts Breasts: normal - Cardiovascular Rhythm: regular Heart Sounds: Present: S1 & S2. Absent: gallop, rub Extremities: pulses intact, No edema, normal color, Full ROM - Gastrointestinal General gastrointestinal: Present: soft, non-tender, non-distended, normal bowel sounds - Genitourinary Male genitourinary: normal - Integumentary Integumentary: clear, warm, dry - Musculoskeletal Musculoskeletal: 1, strength equal bilaterally - Neurologic Neurologic: moves all extremities - Psychiatric Psychiatric: memory intact, appropriate mood/affect, intact judgment & insight - Labs CBC & Chem 7: 01/23/22 05:07 01/23/22 05:07 Labs: Abnormal lab results 01/23/22 01/23/22 Range/Units 05:07 05:07 WBC 2.3 L (4.5-11.0) K/mm3 RBC 3.27 L (3.65-5.03) M/mm3 Hgb 10.4 L (11.8-15.2) gm/dl Hct 32.2 L (35.5-45.6) % MCV 98 H (84-94) fl RDW 15.3 H (13.2-15.2) % Plt Count 36 L (140-440) K/mm3 Seg Neuts % (Manual) 89.0 H (40.0-70.0) % Lymphocytes % (Manual) 2.0 L (13.4-35.0) % Lymphocytes # (Manual) 0.0 L (1.2-5.4) K/mm3 Chloride 114.9 H (98-107) mmol/L Carbon Dioxide 15 L (22-30) mmol/L BUN 75 H (9-20) mg/dL Creatinine 3.2 H (0.8-1.3) mg/dL Glucose 54 L (75-100) mg/dL Calcium 8.0 L (8.4-10.2) mg/dL
[2022-01-24 05:32] LABS: Calcium 8.3 mg/dL (8.4-10.2)
[2022-01-24] MEDS ORDERED: DEXTROSE 50% IN WATER (25GM) 50 ML SYRINGE IV ONE (06:02)
[2022-01-24] MEDS ORDERED: DEXTROSE 10% *Hypoglycemia IV ONE (06:15)
--- NOTE | 2022-01-24 09:36 | Progress Note ---
Assessment and Plan Impression: * Acute kidney injury secondary to obstructive uropathy/urinary retention * Urinary retention * Azotemia * Hyperkalemia, mild * Metabolic acidosis * Anemia * Hypertension Plan: * Renal function is stable -serum creatinine is slowly improving * Continue NaBicarb 1300mg TID * Continue IVF half-normal saline * Blood pressure still elevated. Increase amlodipine to 10 mg daily * Continue current management * Dose medications for renal function * Avoid potential nephrotoxins Subjective Date of service: 01/24/22 Interval history: Patient is comfortable today. Denies any shortness of breath. No nausea or vomiting. Indwelling Leal catheter in place. Objective - Vital Signs Vital signs: Vital Signs - 12hr 01/23/22 01/24/22 01/24/22 23:54 00:00 04:36 Temperature 97.8 F 97.5 F L Pulse Rate 64 69 Respiratory 16 16 Rate Blood Pressure 171/94 195/99 O2 Sat by Pulse 99 98 99 Oximetry 01/24/22 08:30 Temperature 98.0 F Pulse Rate 72 Respiratory 16 Rate Blood Pressure 184/97 O2 Sat by Pulse 99 Oximetry - General Appearance General appearance: other (Medium build pleasant -[place]ian male) EENT: ATNC, PERRL Neck: no JVD, no thyromegaly Respiratory: Present: Clear to Ascultation Cardiology: regular, normal heart rate Gastrointestinal: normal, normoactive bowel sounds Integumentary: other (1+ pitting edema especially around the ankles) - Lab 01/23/22 05:07 01/24/22 04:13 Most recent lab results Calcium 8.3 mg/dL (8.4-10.2) L 01/24/22 04:13 Phosphorus 5.30 mg/dL (2.5-4.5) H 01/20/22 11:31 Magnesium 2.60 mg/dL (1.7-2.3) H 01/20/22 11:31 Medications & Allergies - Medications Allergies/Adverse Reactions: Allergies No Known Allergies Allergy (Unverified 01/20/22 10:47) Home Medications: Home Medications Medication Instructions Recorded Confirmed Last Taken Type Unobtainable 01/21/22 01/21/22 Unknown History Active Medications: Generic Name Dose Route Start Last Admin Trade Name Freq PRN Reason Stop Dose Admin Acetaminophen 650 mg 01/20/22 18:24 Acetaminophen 325 Mg Tab PO Q4H PRN Pain MILD(1-3)/Fever >100.5/STODDARD Amlodipine Besylate 5 mg 01/24/22 10:00 Amlodipine 5 Mg Tab PO QDAY MARLON Heparin Sodium (Porcine) 5,000 unit 01/20/22 22:00 01/23/22 22:24 Heparin 5,000 Unit/1 Ml Vial SUB-Q 5,000 unit Q12HR MARLON Administration Sodium Chloride 1,000 mls @ 125 mls/hr 01/20/22 19:00 01/24/22 05:06 Nacl 0.45% 1000 Ml IV Infused DIRECT MARLON Infusion Morphine Sulfate 2 mg 01/20/22 18:24 Morphine 2 Mg/1 Ml Inj IV Q4H PRN Pain, Moderate (4-6) Ondansetron HCl 4 mg 01/20/22 18:24 Ondansetron 4 Mg/2 Ml Inj IV Q8H PRN Nausea And Vomiting Sodium Bicarbonate 1,300 mg 01/22/22 20:00 01/23/22 22:24 Sodium Bicarbonate 650 Mg Tab PO 1,300 mg TID MARLON Administration Sodium Chloride 10 ml 01/20/22 22:00 01/24/22 05:16 Sodium Chloride 0.9% 10 Ml Flush Syringe IV 10 ml BID MARLON Administration Sodium Chloride 10 ml 01/20/22 18:24 Sodium Chloride 0.9% 10 Ml Flush Syringe IV PRN PRN LINE FLUSH
[2022-01-24] MEDS: SODIUM BICARBONATE 650 MG TAB PO SCH ×3 (09:49→20:53)
[2022-01-24] MEDS: HEPARIN 5,000 UNIT/1 ML VIAL SUB-Q SCH (09:57)
[2022-01-24] MEDS ORDERED: amLODIPine 5 MG TAB PO SCH (10:00)
[2022-01-24] MEDS: amLODIPine 10 MG TAB PO SCH (11:45)
[2022-01-24] MEDS ORDERED: GLUCAGON (HUMAN RECOMBINANT) 1 MG/ML INJ IV ONE (12:58)
[2022-01-25 05:28] LABS: Calcium 8.6 mg/dL (8.4-10.2)
--- NOTE | 2022-01-25 06:24 | Progress Note ---
Assessment and Plan - Patient Problems (1) Acute metabolic encephalopathy Current Visit: Yes Status: Acute Plan to address problem: Secondary to uremia Secondary to dehydration IV fluids for now (2) Acute kidney injury Current Visit: Yes Status: Acute Plan to address problem: Secondary to obstructive uropathy and hydronephrosis Nephrology and urology consulted IV fluids for now (3) Acute urinary retention Current Visit: Yes Status: Acute Plan to address problem: Leal in place (4) Transaminitis Current Visit: Yes Status: Acute Plan to address problem: AST of 147 and ALT of 90 Etiology unclear Acute hepatitis profile requested (5) DVT prophylaxis Current Visit: Yes Status: Acute Plan to address problem: On anticoagulation GI prophylaxis (6) Advance care planning Current Visit: Yes Status: Acute Plan to address problem: Could not be done because of the patient's condition and no family member of a arrival Subjective Date of service: 01/24/22 Objective - Constitutional Vitals: Vital Signs - 12hr 01/24/22 01/24/22 01/25/22 19:48 23:40 04:04 Temperature 98.0 F 98.5 F 98.6 F Pulse Rate 77 76 75 Respiratory 18 18 18 Rate Blood Pressure 148/85 150/83 138/83 O2 Sat by Pulse 99 100 99 Oximetry General appearance: Present: no acute distress, well-nourished - EENT Eyes: PERRL, EOM intact ENT: hearing intact, clear oral mucosa Ears: bilateral: normal - Neck Neck: supple, normal ROM - Respiratory Respiratory effort: normal Respiratory: bilateral: CTA - Breasts Breasts: normal - Cardiovascular Rhythm: regular Heart Sounds: Present: S1 & S2. Absent: gallop, rub Extremities: pulses intact, No edema, normal color, Full ROM - Gastrointestinal General gastrointestinal: Present: soft, non-tender, non-distended, normal bowel sounds - Genitourinary Male genitourinary: normal - Integumentary Integumentary: clear, warm, dry - Musculoskeletal Musculoskeletal: 1, strength equal bilaterally - Neurologic Neurologic: moves all extremities - Psychiatric Psychiatric: memory intact, appropriate mood/affect, intact judgment & insight - Labs CBC & Chem 7: 01/23/22 05:07 01/25/22 04:31 Labs: Abnormal lab results 01/24/22 01/24/22 01/24/22 Range/Units 10:06 11:19 14:18 Chloride (98-107) mmol/L Carbon Dioxide (22-30) mmol/L BUN (9-20) mg/dL Creatinine (0.8-1.3) mg/dL POC Glucose 52 L 34 L 50 L (70-105) mg/dL 01/24/22 01/24/22 01/25/22 Range/Units 17:08 21:44 04:31 Chloride 112.8 H (98-107) mmol/L Carbon Dioxide 19 L (22-30) mmol/L BUN 48 H (9-20) mg/dL Creatinine 2.4 H (0.8-1.3) mg/dL POC Glucose 52 L 120 H (70-105) mg/dL
[2022-01-25] MEDS: SODIUM BICARBONATE 650 MG TAB PO SCH (08:50)
--- NOTE | 2022-01-25 09:15 | Progress Note ---
Assessment and Plan Impression: * Acute kidney injury secondary to obstructive uropathy/urinary retention * Urinary retention * Azotemia * Hyperkalemia, mild * Metabolic acidosis * Anemia * Hypertension Plan: * Renal function is stable -serum creatinine is slowly improving * Continue NaBicarb 1300mg TID * Patient does have some peripheral edema. Discontinue IV fluid for now * Blood pressure is better this morning. Continue current antihypertensive medications * Continue current management * Dose medications for renal function * Avoid potential nephrotoxins * Continue Leal catheter for now. Add tamsulosin. Further plan as per urology services Subjective Date of service: 01/25/22 Interval history: Patient is comfortable today. Denies any shortness of breath. No nausea or vomiting. Indwelling Leal catheter in place Objective - Vital Signs Vital signs: Vital Signs - 12hr 01/24/22 01/25/22 23:40 04:04 Temperature 98.5 F 98.6 F Pulse Rate 76 75 Respiratory 18 18 Rate Blood Pressure 150/83 138/83 O2 Sat by Pulse 100 99 Oximetry - General Appearance General appearance: well-developed, well-nourished, appears stated age EENT: PERRL, mucous membranes moist Neck: no JVD, no thyromegaly, no carotid bruit, supple Respiratory: Present: Clear to Ascultation Cardiology: regular, normal heart rate, S1S2, no murmurs Gastrointestinal: normal, normoactive bowel sounds Integumentary: other (1+ pitting edema) - Lab 01/23/22 05:07 01/25/22 04:31 Most recent lab results Calcium 8.6 mg/dL (8.4-10.2) 01/25/22 04:31 Phosphorus 5.30 mg/dL (2.5-4.5) H 01/20/22 11:31 Magnesium 2.60 mg/dL (1.7-2.3) H 01/20/22 11:31 Medications & Allergies - Medications Allergies/Adverse Reactions: Allergies No Known Allergies Allergy (Unverified 01/20/22 10:47) Home Medications: Home Medications Medication Instructions Recorded Confirmed Last Taken Type Unobtainable 01/21/22 01/21/22 Unknown History Active Medications: Generic Name Dose Route Start Last Admin Trade Name Freq PRN Reason Stop Dose Admin Acetaminophen 650 mg 01/20/22 18:24 Acetaminophen 325 Mg Tab PO Q4H PRN Pain MILD(1-3)/Fever >100.5/STODDARD Amlodipine Besylate 10 mg 01/24/22 10:00 01/24/22 11:45 Amlodipine 10 Mg Tab PO 10 mg QDAY MARLON Administration Sodium Chloride 1,000 mls @ 125 mls/hr 01/20/22 19:00 01/24/22 05:06 Nacl 0.45% 1000 Ml IV Infused DIRECT MARLON Infusion Morphine Sulfate 2 mg 01/20/22 18:24 Morphine 2 Mg/1 Ml Inj IV Q4H PRN Pain, Moderate (4-6) Ondansetron HCl 4 mg 01/20/22 18:24 Ondansetron 4 Mg/2 Ml Inj IV Q8H PRN Nausea And Vomiting Sodium Bicarbonate 1,300 mg 01/22/22 20:00 01/24/22 20:53 Sodium Bicarbonate 650 Mg Tab PO 1,300 mg TID AMRLON Administration Sodium Chloride 10 ml 01/20/22 22:00 01/24/22 21:23 Sodium Chloride 0.9% 10 Ml Flush Syringe IV 10 ml BID MARLON Administration Sodium Chloride 10 ml 01/20/22 18:24 Sodium Chloride 0.9% 10 Ml Flush Syringe IV PRN PRN LINE FLUSH
[2022-01-25] MEDS ORDERED: TAMSULOSIN 0.4 MG CAP PO SCH (10:00)
[2022-01-25] MEDS: amLODIPine 10 MG TAB PO SCH (10:50)
--- NOTE | 2022-01-25 14:54 | Discharge Summary ---
Providers - Providers Date of Admission: 01/20/22 18:24 Date of discharge: 01/25/22 Attending physician: EDIN REA 01/20/22 18:24 Consult to Physician [CONS] Routine Comment: Consulting Provider: RADHA WILD Physician Instructions: Reason For Exam: JESSIKA 01/21/22 07:20 Consult to Physician [CONS] Routine Comment: Consulting Provider: CAROLANN CARDENAS Physician Instructions: Reason For Exam: Acute hydronephrosis, urinary retention 01/21/22 17:36 Physical Therapy Evaluation and Treat [CONS] Routine Comment: Reason For Exam: Eval and treat 01/23/22 19:50 Speech Therapy Evaluation and Treat [CONS] Urgent Reason For Exam: speech eval Primary care physician: YOUTH PASTOR Hospitalization Condition: Stable Disposition: 01 HOME / SELF CARE / HOMELESS - Discharge Diagnoses (1) Acute metabolic encephalopathy Status: Acute (2) Acute kidney injury Status: Acute (3) Acute urinary retention Status: Acute (4) Transaminitis Status: Acute (5) DVT prophylaxis Status: Acute (6) Advance care planning Status: Acute Exam - Constitutional Vitals: Temp Pulse Resp BP Pulse Ox 98.4 F 78 16 145/85 100 01/25/22 11:51 01/25/22 11:51 01/25/22 11:51 01/25/22 11:51 01/25/22 11:51 Plan Follow up with: CAIO WICK MD [Primary Care Provider] - 7 Days RADHA WILD MD [Staff Physician] - 7 Days COCO GREGORIO MD [Staff Physician] - 7 Days
[2022-01-25 16:12] VITALS: BP 140/84
== END 2022-01-25 18:00 | disposition home health service (06) | DRG 682 ==
LOC: ED 10:45 → 3A 18:24 → 4A 20:40
PROVIDERS: ADMIT Internal Medicine; ATTEND Internal Medicine
DX: N17.9 Acute kidney failure, unspecified (principal); G93.41 Metabolic encephalopathy; N13.30 Unspecified hydronephrosis; R33.9 Retention of urine, unspecified; I10 Essential (primary) hypertension; D64.9 Anemia, unspecified; E87.5 Hyperkalemia; I95.9 Hypotension, unspecified; D69.6 Thrombocytopenia, unspecified; Z20.822 Contact with and (suspected) exposure to COVID-19
CPT/HCPCS: 36415; 70450; 71045; 74176; 80048; 80053; 80074; 82140; 82962; 83735; 84100; 84443; 85007; 85025; 85027; 90686; 90732; 93005; 93970; G0378; J3490; Q0162; J0456; J0696; J1100; J1610; J1644; J7030; U0003

== ENCOUNTER 2022-01-25 19:48 | Inpatient (IN) | payer MEDICARE ==
--- NOTE | 2022-01-25 20:09 | Emergency Department Report ---
ED General Adult HPI - General Chief complaint: Altered Mental Status Stated complaint: mental status changes Time Seen by Provider: 01/25/22 20:03 Source: patient, RN notes reviewed, old records reviewed Mode of arrival: Stretcher Limitations: Altered Mental Status, Physical Limitation - History of Present Illness Initial comments: The patient is a 76-year-old gentleman. Patient is recently admitted to this hospital for obstructive uropathy, urinary retention, anemia, metabolic acidosis, found to have thrombocytopenia, and leukopenia. He is reportedly discharged from the hospital at or around 19: 39 this afternoon. It is documented that he is discharged with mental status. He is brought to the hospital sometime later, apparently for altered mental status. Patient is altered and not able to describe the qualitative nature of symptoms, exa cerbating factors relieving factors or aggravating factors. Nursing staff endorses normal Accu-Chek. Patient is awake and breathing spontaneously. Code stroke is called overhead. Noncontrast CT scan of the brain shows no bleed. CT angiogram head and neck demonstrates nonspecific findings. Patient's mental status improves here in the emergency room. He is now awake but confused. He is seen in conjunction with stroke neurology, who advises that TPA is not indicated or appropriate given improvement in mental status. In addition, CT angiograms are reviewed by Dr. Melo, acute stroke attending at [facility], who advises that this patient does not meet criteria for transfer for endovascular therapy or intervention. She does advise work-up and evaluation of leukopenia and thrombocytopenia, for possible vasculitis, including MRI. She also advises medical work-up for chronic medical conditions such as hyperlipidemia, and diabetes. Patient currently awake, moving 4 extremities and is confused. -: This afternoon - Related Data Previous Rx's Medication Instructions Recorded Last Taken Type Sodium Bicarbonate 1,300 mg PO TID #90 tablet 01/25/22 Unknown Rx Tamsulosin [Flomax] 0.4 mg PO QDAY #30 capsule 01/25/22 Unknown Rx amLODIPine 10 mg PO QDAY #30 tablet 01/25/22 Unknown Rx Allergies Allergy/AdvReac Type Severity Reaction Status Date / Time No Known Allergies Allergy Unverified 01/20/22 10:47 ED Review of Systems ROS: Stated complaint: HYPOGLYCEMIC Other details as noted in HPI Comment: Unobtainable due to pts medical conditions ED Past Medical Hx - Past Medical History Additional medical history: Unable to obtain - Surgical History Additional Surgical History: Unable to obtain - Social History Smoking Status: Never Smoker - Medications Home Medications: Home Medications Medication Instructions Recorded Confirmed Last Taken Type Sodium Bicarbonate 1,300 mg PO TID #90 tablet 01/25/22 Unknown Rx Tamsulosin [Flomax] 0.4 mg PO QDAY #30 capsule 01/25/22 Unknown Rx amLODIPine 10 mg PO QDAY #30 tablet 01/25/22 Unknown Rx ED Physical Exam - General Limitations: Altered Mental Status, Physical Limitation General appearance: lethargic - Head Head exam: Present: atraumatic, normocephalic - Eye Eye exam: Present: normal appearance, PERRL, EOMI - ENT ENT exam: Present: normal exam, normal orophraynx, mucous membranes moist, normal external ear exam - Neck Neck exam: Present: normal inspection, full ROM. Absent: tenderness, meningismus - Respiratory Respiratory exam: Present: normal lung sounds bilaterally. Absent: respiratory distress, wheezes, rales, rhonchi, stridor, decreased breath sounds - Cardiovascular Cardiovascular Exam: Present: regular rate, normal rhythm, normal heart sounds. Absent: bradycardia, tachycardia, irregular rhythm, systolic murmur, diastolic murmur, rubs, gallop - GI/Abdominal GI/Abdominal exam: Present: soft. Absent: distended, tenderness, guarding, rebound, rigid, pulsatile mass - Rectal Rectal exam: Present: deferred - exam: Present: normal inspection External exam: Present: normal external exam, other (There is a Leal catheter in place draining clear yellow urine) - Extremities Exam Extremities exam: Present: normal inspection, full ROM, pedal edema, other (2+ pulses noted in the bilateral upper and lower extremities. There is no palpable cord. negative Homans sign. Muscular compartments are soft. The pelvis is stable.). Absent: calf tenderness - Back Exam Back exam: Present: normal inspection. Absent: tenderness, CVA tenderness (R), CVA tenderness (L), paraspinal tenderness, vertebral tenderness - Neurological Exam Neurological exam: Present: altered (Patient is initially awake but altered. He is not talking. Shortly thereafter, he starts moving 4 extremities) - Psychiatric Psychiatric exam: Present: flat affect - Skin Skin exam: Present: warm, dry, intact, normal color. Absent: rash ED Course Vital Signs 01/25/22 01/25/22 01/25/22 20:34 20:40 20:43 Temperature 97.9 F 97.9 F Pulse Rate 150 H 76 Respiratory 12 16 Rate Blood Pressure Blood Pressure 110/67 [Left] O2 Sat by Pulse 100 99 Oximetry 01/25/22 01/25/22 01/25/22 20:45 20:46 21:01 Temperature Pulse Rate 75 79 Respiratory 14 12 12 Rate Blood Pressure 110/67 111/64 Blood Pressure [Left] O2 Sat by Pulse 100 99 99 Oximetry 01/25/22 01/25/22 01/25/22 21:15 21:31 21:45 Temperature Pulse Rate 79 80 77 Respiratory 13 14 14 Rate Blood Pressure 127/64 118/64 110/68 Blood Pressure [Left] O2 Sat by Pulse 100 99 100 Oximetry 01/25/22 01/25/22 22:01 22:06 Temperature 97.9 F Pulse Rate 76 Respiratory 11 L Rate Blood Pressure 107/61 Blood Pressure [Left] O2 Sat by Pulse 99 Oximetry - Reevaluation(s) Reevaluation #1: 01/25/22 22:31 Differential diagnosis, including but not limited to: Toxic encephalopathy, metabolic encephalopathy, intracranial hemorrhage, pneumonia, urinary tract infection, stroke Assessment and plan: 76-year-old gentleman with acute alteration in mental status. His mental status has improved, and he is moving 4 extremities but he is still confused. He has no nuchal rigidity or meningeal signs. He is deemed not to be a TPA candidate by myself and consulting stroke neurology, please reference their note. His CT angiograms are reviewed and appreciated, they are specifically evaluated by [facility] stroke neurology attending, who advises that transfer for endovascular intervention is not indicated at this time. Contacted covering nephrology, Dr. Deluna, whose group has followed this patient in consultation previously. They will follow in consultation given familiarity with the patient, and recommend half-normal saline, at 75 cc/h. On patient's initial presentation, he was encephalopathic and not moving 4 extremities, code stroke was activated, and requires emergent CT angiogram to evaluate for potential large vessel occlusion, dissection, or time sensitive vascular emergency that require emergent endovascular intervention. Patient therefore emergently and administratively consented by myself for emergent CT angiogram head and neck. The patient's mental status and neurologic exam did not improve until after his CT angiogram. Neurology recommendations reviewed and appreciated. Nephrology will follow in consultation. Currently awaiting urinalysis. 01/25/22 22:34 urinalysis demonstrates 1+ bacteriuria. X-ray the chest suggestive of bibasilar pneumonia. Anemia is chronic. Antibiotics ordered. Hospital physician, Dr. Mohit Zuñiga to admit to IMS We will defer to inpatient team to further work-up manage and evaluate thrombocytopenia, and leukopenia Of note, bibasilar pneumonia reviewed and appreciated. Appropriate antibiotics ordered. Transaminitis is chronic, although worsening. Patient recently had a negative hepatitis panel. He had a CT scan of his abdomen pelvis a few days ago, which demonstrated nonspecific findings. He is not tender in his right upper quadrant. I will defer to the inpatient team to further evaluate manage his thrombocytopenia, leukopenia, and transaminitis. 01/25/22 23:14 Reevaluation #2: 01/25/22 23:16 Aspirin is held given thrombocytopenia and leukopenia. 01/25/22 23:17 Elevated troponin is likely a type II troponin leak ED Medical Decision Making - Lab Data Result diagrams: 01/25/22 20:12 01/25/22 20:12 Vital Signs 01/25/22 01/25/22 01/25/22 20:34 20:40 20:43 Temperature 97.9 F 97.9 F Pulse Rate 150 H 76 Respiratory 12 16 Rate Blood Pressure Blood Pressure 110/67 [Left] O2 Sat by Pulse 100 99 Oximetry 01/25/22 01/25/22 20:45 20:46 Temperature Pulse Rate 75 Respiratory 14 12 Rate Blood Pressure 110/67 Blood Pressure [Left] O2 Sat by Pulse 100 99 Oximetry Lab Results 01/25/22 01/25/22 01/25/22 Range/Units 20:12 20:12 20:12 WBC 2.0 L (4.5-11.0) K/mm3 RBC 2.72 L (3.65-5.03) M/mm3 Hgb 8.7 L (11.8-15.2) gm/dl Hct 26.5 L (35.5-45.6) % MCV 98 H (84-94) fl MCH 32 (28-32) pg MCHC 33 (32-34) % RDW 15.3 H (13.2-15.2) % Plt Count 32 L (140-440) K/mm3 PT 13.6 (12.2-14.9) Sec. INR 0.94 (0.87-1.13) APTT 41.1 H (24.2-36.6) Sec. Thrombin Time 17.5 (15.1-19.6) Sec. Sodium 142 (137-145) mmol/L Potassium 4.2 (3.6-5.0) mmol/L Chloride 113.0 H (98-107) mmol/L Carbon Dioxide 18 L (22-30) mmol/L Anion Gap 15 mmol/L BUN 40 H (9-20) mg/dL Creatinine 2.3 H (0.8-1.3) mg/dL Estimated GFR 34 ml/min BUN/Creatinine Ratio 17 % Glucose 113 H (75-100) mg/dL Calcium 8.5 (8.4-10.2) mg/dL Magnesium (1.7-2.3) mg/dL Total Bilirubin 0.60 (0.1-1.2) mg/dL AST 565 H (5-40) units/L ALT 379 H (7-56) units/L Alkaline Phosphatase 246 H (35-129) units/L Total Creatine Kinase 242 H (55-170) units/L CK-MB (CK-2) 10.0 H (0.0-4.0) ng/mL CK-MB (CK-2) Rel Index 4.1 H (0-4) Troponin T 0.094 H (0.00-0.029) ng/mL Total Protein 5.6 L (6.3-8.2) g/dL Albumin 2.6 L (3.9-5) g/dL Albumin/Globulin Ratio 0.9 % TSH (0.270-4.200) mlU/mL Salicylates (2.8-20.0) mg/dL Acetaminophen (10.0-30.0) ug/mL Plasma/Serum Alcohol (0-0.07) % 01/25/22 01/25/22 01/25/22 Range/Units 20:12 20:12 20:12 WBC (4.5-11.0) K/mm3 RBC (3.65-5.03) M/mm3 Hgb (11.8-15.2) gm/dl Hct (35.5-45.6) % MCV (84-94) fl MCH (28-32) pg MCHC (32-34) % RDW (13.2-15.2) % Plt Count (140-440) K/mm3 PT (12.2-14.9) Sec. INR (0.87-1.13) APTT (24.2-36.6) Sec. Thrombin Time (15.1-19.6) Sec. Sodium (137-145) mmol/L Potassium (3.6-5.0) mmol/L Chloride (98-107) mmol/L Carbon Dioxide (22-30) mmol/L Anion Gap mmol/L BUN (9-20) mg/dL Creatinine (0.8-1.3) mg/dL Estimated GFR ml/min BUN/Creatinine Ratio % Glucose (75-100) mg/dL Calcium (8.4-10.2) mg/dL Magnesium 1.80 (1.7-2.3) mg/dL Total Bilirubin (0.1-1.2) mg/dL AST (5-40) units/L ALT (7-56) units/L Alkaline Phosphatase (35-129) units/L Total Creatine Kinase (55-170) units/L CK-MB (CK-2) (0.0-4.0) ng/mL CK-MB (CK-2) Rel Index (0-4) Troponin T (0.00-0.029) ng/mL Total Protein (6.3-8.2) g/dL Albumin (3.9-5) g/dL Albumin/Globulin Ratio % TSH 3.180 (0.270-4.200) mlU/mL Salicylates (2.8-20.0) mg/dL Acetaminophen (10.0-30.0) ug/mL Plasma/Serum Alcohol < 0.01 (0-0.07) % 01/25/22 01/25/22 Range/Units 20:12 20:12 WBC (4.5-11.0) K/mm3 RBC (3.65-5.03) M/mm3 Hgb (11.8-15.2) gm/dl Hct (35.5-45.6) % MCV (84-94) fl MCH (28-32) pg MCHC (32-34) % RDW (13.2-15.2) % Plt Count (140-440) K/mm3 PT (12.2-14.9) Sec. INR (0.87-1.13) APTT (24.2-36.6) Sec. Thrombin Time (15.1-19.6) Sec. Sodium (137-145) mmol/L Potassium (3.6-5.0) mmol/L Chloride (98-107) mmol/L Carbon Dioxide (22-30) mmol/L Anion Gap mmol/L BUN (9-20) mg/dL Creatinine (0.8-1.3) mg/dL Estimated GFR ml/min BUN/Creatinine Ratio % Glucose (75-100) mg/dL Calcium (8.4-10.2) mg/dL Magnesium (1.7-2.3) mg/dL Total Bilirubin (0.1-1.2) mg/dL AST (5-40) units/L ALT (7-56) units/L Alkaline Phosphatase (35-129) units/L Total Creatine Kinase (55-170) units/L CK-MB (CK-2) (0.0-4.0) ng/mL CK-MB (CK-2) Rel Index (0-4) Troponin T (0.00-0.029) ng/mL Total Protein (6.3-8.2) g/dL Albumin (3.9-5) g/dL Albumin/Globulin Ratio % TSH (0.270-4.200) mlU/mL Salicylates < 0.3 L (2.8-20.0) mg/dL Acetaminophen 5.0 L (10.0-30.0) ug/mL Plasma/Serum Alcohol (0-0.07) % - EKG Data -: EKG Interpreted by Co EKG shows normal: sinus rhythm Rate: normal - EKG Data 01/25/22 23:17 The EKG is interpreted at 22: 35 Sinus rhythm, rate 76 bpm. Normal axis. Motion artifact. PVC. Normal P wave axis. QTC 4 4 3 ms. Abnormal EKG. Not a STEMI - Radiology Data Radiology results: pending, report reviewed, image reviewed CHEST 1 VIEW INDICATION: ams. COMPARISON: 5 days prior FINDINGS: Support devices: None. Heart: Normal. Lungs/Pleura: Lung volumes are decreased. Given this, mild bibasilar opacities may be atelectatic. No pleural abnormality. Gas- filled mildly dilated loops of colon are seen under the diaphragm. IMPRESSION: 1. Nonspecific bibasilar opacities greater on the right. These could be atelectatic given the low lung volumes; however, on the CT from 01/20/2022 there is patchy bibasilar airspace disease. This likely represents persistent bibasilar pneumonia. Signer Name: Rodrigo Fry MD Signed: 01/25/2022 7:45 PM Workstation Name: [id number] NONENHANCED CT SCAN OF THE HEAD: INDICATION / CLINICAL INFORMATION: 76 years Male; Acute encephalopathy/altered mental status. TECHNIQUE: Routine CT head without contrast. All CT scans at this location are performed using CT dose reduction for ALARA by means of automated exposure control. COMPARISON: CT scan of the head from 01/20/2022 FINDINGS: BRAIN / INTRACRANIAL CONTENTS: No acute hemorrhage, mass effect, midline shift, hydrocephalus, or acute, large territorial infarct. No chronic infarct or focal atrophy. Normal brain volume and ventricular/sulcal size for age. Periventricular low-attenuation areas in both cerebral hemispheres more on the right frontal lobe; unchanged; due to chronic small vessel disease; high convexity cortical sulci are normal; CT findings unchanged CRANIOCERVICAL JUNCTION: No significant abnormality. ORBITS: No significant abnormality of visualized orbits. SINUSES / MASTOIDS: Opacified left maxillary sinus, left anterior ethmoid air cells and left frontal sinus; unchanged ADDITIONAL FINDINGS: None. IMPRESSION: No focal parenchymal lesion CTA NECK WITH CONTRAST TECHNIQUE: Routine CTA of the neck was performed. 3- D/MIP reformats were postprocessed. Percentage stenosis is determined by direct quantitative measurements of diseased internal carotid artery diameter compared with normal distal internal carotid artery reference segments or by criteria similar to NASCET where applicable.All CT scans at this location are performed using CT dose reduction for ALARA by means of automated exposure control CONTRAST: 100 ml of Omnipaque 350 FINDINGS: Less than optimal opacification of the craniocervical arteries Ejection fraction normal Aortic arch: No significant abnormality. Cervical vertebral arteries: No significant abnormality. Left vertebral artery originating from aorta Common carotid arteries: No significant abnormality. Carotid bifurcations: Normal bilaterally Cervical internal carotid arteries: No significant abnormality. Additional findings: None. IMPRESSION: 1. No significant abnormality. CTA HEAD WITH CONTRAST FINDINGS: CTA Head: Less than optimal opacification of the intracranial blood vessels Is ejection fraction normal Intracranial vertebral arteries: No significant abnormality. Basilar artery: No significant abnormality. Posterior cerebral arteries: Right posterior cerebral artery: Normal Left posterior cerebral artery: Left P1 segment is normal; however, stenoses at the junction of P1 and P2 segments; left P2 segment stenotic Intracranial internal carotid arteries: No significant abnormality. Anterior cerebral arteries: No significant abnormality. Middle cerebral arteries: M1 segments are normal; however, middle cerebral artery branches in the sylvian fissures bilaterally appear to be very thin Dural venous sinuses:Not optimally opacified. No significant abnormality. Additional findings: None. IMPRESSION: Phleboliths and middle cerebral artery divisions normal; however, left posterior cerebral artery and its branches and both middle cerebral artery and its branches of the pericallosal artery branches are poorly seen; some of the branches may be occluded Signer Name: Jacqui Kumari MD Signed: 01/25/2022 7:54 PM Workstation Name: [id number] CTA HEAD WITH CONTRAST FINDINGS: CTA Head: Less than optimal opacification of the intracranial blood vessels Is ejection fraction normal Intracranial vertebral arteries: No significant abnormality. Basilar artery: No significant abnormality. Posterior cerebral arteries: Right posterior cerebral artery: Normal Left posterior cerebral artery: Left P1 segment is normal; however, stenoses at the junction of P1 and P2 segments; left P2 segment stenotic Intracranial internal carotid arteries: No significant abnormality. Anterior cerebral arteries: No significant abnormality. Middle cerebral arteries: M1 segments are normal; however, middle cerebral artery branches in the sylvian fissures bilaterally appear to be very thin Dural venous sinuses:Not optimally opacified. No significant abnormality. Additional findings: None. IMPRESSION: Phleboliths and middle cerebral artery divisions normal; however, left posterior cerebral artery and its branches and both middle cerebral artery and its branches of the pericallosal artery branches are poorly seen; some of the branches may be occluded Signer Name: Jacqui Kumari MD Signed: 01/25/2022 7:54 PM Workstation Name: [id number] Critical care attestation.: If time is entered above; I have spent that time in minutes in the direct care of this critically ill patient, excluding procedure time. ED Disposition Clinical Impression: Acute encephalopathy, Renal insufficiency, Transaminitis, Pulmonary infiltrate, Leukopenia, Thrombocytopenia Disposition: 09 ADMITTED INPATIENT Is pt being admited?: Yes Does the pt Need Aspirin: No Condition: Stable Referrals: VICTORINA LEBLANC MD [Primary Care Provider] - 3-5 Days - Level of Consciousness 1a. Level of Consciousness: arousable/minor stimuli - LOC Questions 1b. LOC Questions: answers 1 question correctly - LOC Command 1c. LOC Commands: performs tasks correctly - Best Gaze 2. Best Gaze: normal - Visual 3. Visual: no visual loss - Facial Palsy 4. Facial Palsy: normal symmetrical movement - Motor Arm 5a. Motor Arm Left: drift 5b. Motor Arm Right: drift - Motor Leg 6a. Motor Leg Left: drift 6b. Motor Leg Right: drift - Limb Ataxia 7. Limb Ataxia: absent - Sensory 8. Sensory: normal - Best Language 9. Best Language: no aphasia - Dysarthria 10. Dysarthria: normal - Extinction and Inattention 11. Extinction/Inattention: visual/tactile inattention - Scoring Total Score: 7 Stroke Severity: Moderate Stroke
[2022-01-25 20:29] LABS: Hematocrit 26.5 % (35.5-45.6); Hemoglobin 8.7 gm/dl (11.8-15.2); Mean Corpuscular HGB Conc 33 % (32-34); Mean Corpuscular Volume 98 fl (84-94); Red Blood Count 2.72 M/mm3 (3.65-5.03); Red Cell Distribution Width 15.3 % (13.2-15.2)
[2022-01-25 20:30] LABS: Platelet Count 32 K/mm3 (140-440)
[2022-01-25 20:40] LABS: INR 0.94 (0.87-1.13)
[2022-01-25 20:41] LABS: Partial Thromboplastin Time 41.1 Sec. (24.2-36.6)
[2022-01-25 20:43] LABS: Albumin 2.6 g/dL (3.9-5); Calcium 8.5 mg/dL (8.4-10.2)
[2022-01-25 20:49] LABS: Thrombin Time 17.5 Sec. (15.1-19.6)
--- NOTE | 2022-01-25 20:50 | XRay Report ---
CHEST 1 VIEW INDICATION: ams. COMPARISON: 5 days prior FINDINGS: Support devices: None. Heart: Normal. Lungs/Pleura: Lung volumes are decreased. Given this, mild bibasilar opacities may be atelectatic. No pleural abnormality. Gas-filled mildly dilated loops of colon are seen under the diaphragm. IMPRESSION: 1. Nonspecific bibasilar opacities greater on the right. These could be atelectatic given the low anyi g volumes; however, on the CT from 01/20/2022 there is patchy bibasilar airspace disease. This likely represents persistent bibasilar pneumonia. Signer Name: Rodrigo Fry MD Signed: 01/25/2022 8:45 PM Workstation Name: [id number]
--- NOTE | 2022-01-25 20:58 | Cat Scan Report ---
NONENHANCED CT SCAN OF THE HEAD: INDICATION / CLINICAL INFORMATION: 76 years Male; Acute encephalopathy/altered mental status. TECHNIQUE: Routine CT head without contrast. All CT scans at this location are performed using CT dos e reduction for ALARA by means of automated exposure control. COMPARISON: CT scan of the head from 01/20/2022 FINDINGS: BRAIN / INTRACRANIAL CONTENTS: No acute hemorrhage, mass effect, midline shift, hydrocephalus, or acu te, large territorial infarct. No chronic infarct or focal atrophy. Normal brain volume and ventricul ar/sulcal size for age. Periventricular low-attenuation areas in both cerebral hemispheres more on th e right frontal lobe; unchanged; due to chronic small vessel disease; high convexity cortical sulci a re normal; CT findings unchanged CRANIOCERVICAL JUNCTION: No significant abnormality. ORBITS: No significant abnormality of visualized orbits. SINUSES / MASTOIDS: Opacified left maxillary sinus, left anterior ethmoid air cells and left frontal sinus; unchanged ADDITIONAL FINDINGS: None. IMPRESSION: No focal parenchymal lesion CTA NECK WITH CONTRAST TECHNIQUE: Routine CTA of the neck was performed. 3-D/MIP reformats were postprocessed. Percentage s tenosis is determined by direct quantitative measurements of diseased internal carotid artery diamete r compared with normal distal internal carotid artery reference segments or by criteria similar to NA SCET where applicable.All CT scans at this location are performed using CT dose reduction for ALARA b y means of automated exposure control CONTRAST: 100 ml of Omnipaque 350 FINDINGS: Less than optimal opacification of the craniocervical arteries Ejection fraction normal Aortic arch: No significant abnormality. Cervical vertebral arteries: No significant abnormality. Left vertebral artery originating from aorta Common carotid arteries: No significant abnormality. Carotid bifurcations: Normal bilaterally Cervical internal carotid arteries: No significant abnormality. Additional findings: None. IMPRESSION: 1. No significant abnormality. CTA HEAD WITH CONTRAST FINDINGS: CTA Head: Less than optimal opacification of the intracranial blood vessels Is ejection fraction normal Intracranial vertebral arteries: No significant abnormality. Basilar artery: No significant abnormality. Posterior cerebral arteries: Right posterior cerebral artery: Normal Left posterior cerebral artery: Left P1 segment is normal; however, stenoses at the junction of P1 an d P2 segments; left P2 segment stenotic Intracranial internal carotid arteries: No significant abnormality. Anterior cerebral arteries: No significant abnormality. Middle cerebral arteries: M1 segments are normal; however, middle cerebral artery branches in the roselyn vian fissures bilaterally appear to be very thin Dural venous sinuses:Not optimally opacified. No significant abnormality. Additional findings: None. IMPRESSION: Phleboliths and middle cerebral artery divisions normal; however, left posterior cerebral artery and its branches and both middle cerebral artery and its branches of the pericallosal artery branches are poorly seen; some of the branches may be occluded Signer Name: Jacqui Kumari MD Signed: 01/25/2022 8:54 PM Workstation Name: [id number]
--- NOTE | 2022-01-25 21:37 | Emergency Department Report ---
Blank Doc - Documentation Documentation: [facility] Consult Note # Demographics Consult Type: Acute Stroke Level 1 (0-4.5 hrs) Patient Location: Emergency Room First Name: tyshawn Last Name: kash Date of : 1945 Age: 76 Gender: Male Facility: [facility] Time of Initial Page ( Time): 01/25/2022, 20:22 Time of Return Call ( Time): 01/25/2022, 20:22 # HPI History: 76 yo hx of renal insufficiency, anemia, HTN, metabolic acidosis, leukopenia/thrombocytopenia was being discharged earlier today and then returned to ER with unresponsiveness, patient apparently was pulled out of a car . Patient is now waking up after CT scan and starting to follow commands. # Scores Time of exam and NIHSS (): 01/25/2022, 20:26 Level of Consciousness 1a: [0] = Alert; keenly responsive LOC Questions 1b: [2] = Answers neither correctly LOC Commands 1c: [0] = Performs both tasks correctly Best Gaze 2: [0] = Normal Visual 3: [0] = No visual loss Facial Palsy 4: [0] = Normal symmetrical movements Motor Arm Left 5a: [0] = No drift Motor Arm Right 5b: [0] = No drift Motor Leg Left 6a: [2] = Some effort against gravity Motor Leg Right 6b: [2] = Some effort against gravity Limb Ataxia 7: [0] = Absent Sensory 8: [0] = Normal Best Language 9: [0] = No aphasia Dysarthria 10: [0] = Normal Extinction and Inattention 11: [0] = No abnormality NIHSS Total: 6 # Data Other Labs: multiple lab derangements. Low HGB, low platelets. AST /ALT elevated. Head CT: no bleed per radiologist read CTA Head: left p1/p2 stenosis, left p2 stenosis # Assessment Impression: unresponsiveness Suspect metabolic derangement and syncope. There is also suspicion of seizure. CTA with likely intracranial atherosclerosis Thrombocytopenia, would avoid aspirin for now. # Plan Thrombolytic/Intervention: NOT IV Thrombolysis or IA Intervention candidate Thrombolytic Exclusion: thrombocytopenia Intraarterial Exclusion: clinically not consistent with stroke other NIHSS is zero Target Blood Pressure: SBP < 220 Labs: CBC comprehensive metabolic panel lipid panel TSH ua Other: If patient has any neurological deterioration please call me back immediately I have discussed my recommendations with the referring provider Additional Recommendations: metabolic work up EEG mri brain wo contrast not a tpa candidate. Disposition: admit # Logistics Telemedicine: Interactive 2 way audio and visual telecommunication technology was utilized during this visit
[2022-01-25 21:43] LABS: Bacteria,Urine 1+ /HPF (Negative); Bilirubin,Urine NEG (Negative); Blood,Urine MOD (Negative); Color,Urine Yellow (Yellow); Mucus,Urine FEW /HPF; Urobilinogen,Urine < 2.0 mg/dL (<2.0)
[2022-01-25 21:59] LABS: Basophils % (Manual) 0 % (0.0-1.8); Total Cells Counted 100
[2022-01-25 22:00] LABS: Burr Cells Few; Large Platelets Rare; Platelet Estimate Consistent w Auto
[2022-01-25] MEDS ORDERED: AZITHROMYCIN/NS 500 MG/250 ML 500 MG/250 ML BAG IV ONE (22:34)
[2022-01-25] MEDS ORDERED: cefTRIAXone/NS 1 GM/50 ML 1 GM/50 ML BAG IV ONE (22:34)
[2022-01-25] MEDS ORDERED: LORazepam 2 MG/ML VIAL ONE (22:59)
[2022-01-25] MEDS ORDERED: ACETAMINOPHEN 325 MG TAB PO PRN (23:53)
[2022-01-25] MEDS ORDERED: ONDANSETRON 4 MG/2 ML INJ IV PRN (23:53)
[2022-01-25] MEDS ORDERED: MORPHINE 2 MG/1 ML INJ IV PRN (23:53)
[2022-01-25] MEDS ORDERED: MORPHINE 4 MG/1 ML INJ IV PRN (23:53)
--- NOTE | 2022-01-26 00:03 | History and Physical Report ---
History of Present Illness Date of examination: 01/25/22 Date of admission: 01/25/2022 Chief complaint: Altered Mental Status History of present illness: 76-year-old -Swiss male with known history of obstructive uropathy, urinary retention, metabolic acidosis, anemia with thrombocytopenia and leukopenia will discharge sometime this afternoon but later brought back to the emergency room because of changes in mental status. Patient was accompanied by his roommate who indicates that patient has had change in his mental status and was not able to communicate well since discharge from the hospital. There has been no fever or chills, no nausea vomiting and no abdominal pain. During the course of the stay in the emergency room, he became more alert but slightly confused. Patient was evaluated by the teleneurologist and was not deemed to be a TPA cand idate. Work-up in the emergency room today reveals thrombocytopenia of 32, BUN of 40 and creatinine of 2.3. Elevated AST and ALT of 565 and 379 respectively. Alkaline phos of 246 and creatinine kinase of 242. Troponin was elevated at 0.094. Urinalysis showed trace bacteria and trace leukocyte esterase. CTA head and neck did not show any significant findings. Chest x-ray shows possible persistent bibasilar pneumonia. Past History Past Medical History: other (Unable to obtain) Past Surgical History: Other (Unable to obtain) Social history: other (Unable to obtain) Family history: other (Unable to obtain) Medications and Allergies Allergies Allergy/AdvReac Type Severity Reaction Status Date / Time No Known Allergies Allergy Unverified 01/20/22 10:47 Home Medications Medication Instructions Recorded Confirmed Last Taken Type Sodium Bicarbonate 1,300 mg PO TID #90 tablet 01/25/22 01/26/22 Unknown Rx Tamsulosin [Flomax] 0.4 mg PO QDAY #30 capsule 01/25/22 01/26/22 Unknown Rx amLODIPine 10 mg PO QDAY #30 tablet 01/25/22 01/26/22 Unknown Rx Active Meds: Active Medications Acetaminophen (Acetaminophen 325 Mg Tab) 650 mg PO Q4H PRN PRN Reason: Pain MILD(1-3)/Fever >100.5/STODDARD Dextrose (Dextrose 10% *Hypoglycemia) 75 ml IV PRN PRN PRN Reason: Hypoglycemia Sodium Chloride (Nacl 0.45% 1000 Ml) 1,000 mls @ 75 mls/hr IV DIRECT MARLON Ceftriaxone Sodium (Rocephin/Ns 2 Gm/100 Ml) 2 gm in 100 mls @ 200 mls/hr IV Q24H MARLON; Protocol Morphine Sulfate (Morphine 2 Mg/1 Ml Inj) 2 mg IV Q4H PRN PRN Reason: Pain, Moderate (4-6) Morphine Sulfate (Morphine 4 Mg/1 Ml Inj) 4 mg IV Q4H PRN PRN Reason: Pain , Severe (7-10) Ondansetron HCl (Ondansetron 4 Mg/2 Ml Inj) 4 mg IV Q8H PRN PRN Reason: Nausea And Vomiting Sodium Chloride (Sodium Chloride 0.9% 10 Ml Flush Syringe) 10 ml IV BID MARLON Sodium Chloride (Sodium Chloride 0.9% 10 Ml Flush Syringe) 10 ml IV PRN PRN PRN Reason: LINE FLUSH Review of Systems ROS unobtainable: due to mental status Exam - Constitutional Vitals: Temp Pulse Resp BP Pulse Ox 98.8 F 66 10 L 102/62 99 01/25/22 23:30 01/25/22 23:15 01/25/22 23:15 01/25/22 23:15 01/25/22 23:15 General appearance: Present: no acute distress, cachectic, other (Dry oral mucosa) - EENT Eyes: Present: PERRL, EOM intact ENT: hearing intact, clear oral mucosa, dentition normal - Neck Neck: Present: supple, normal ROM - Respiratory Respiratory effort: normal Respiratory: bilateral: diminished - Cardiovascular Rhythm: regular Heart Sounds: Present: S1 & S2. Absent: gallop, systolic murmur, diastolic murmur, rub, click - Extremities Extremities: no ischemia, pulses intact, pulses symmetrical, No edema, normal temperature, normal color, Full ROM Peripheral Pulses: within normal limits - Abdominal General gastrointestinal: Present: soft, non-tender, non-distended, normal bowel sounds. Absent: mass Male genitourinary: Present: normal (Leal catheter in place) - Integumentary Integumentary: Present: clear, warm, dry, normal turgor. Absent: jaundice, rash - Musculoskeletal Musculoskeletal: strength equal bilaterally - Psychiatric Psychiatric: cooperative - Neurologic Neurologic: no focal deficits, other (Appears confused) HEART Score - HEART Score Troponin: Troponin T 0.094 ng/mL (0.00-0.029) H 01/25/22 20:12 Results - Labs CBC & Chem 7: 01/25/22 20:12 01/25/22 20:12 Labs: Abnormal lab results 01/25/22 01/25/22 01/25/22 Range/Units 19:53 20:12 20:12 WBC 2.0 L (4.5-11.0) K/mm3 RBC 2.72 L (3.65-5.03) M/mm3 Hgb 8.7 L (11.8-15.2) gm/dl Hct 26.5 L (35.5-45.6) % MCV 98 H (84-94) fl RDW 15.3 H (13.2-15.2) % Plt Count 32 L (140-440) K/mm3 Seg Neuts % (Manual) 84.0 H (40.0-70.0) % Nucleated RBC % 3.0 H (0.0-0.9) % Seg Neutrophils # Man 1.7 L (1.8-7.7) K/mm3 Lymphocytes # (Manual) 0.3 L (1.2-5.4) K/mm3 APTT 41.1 H (24.2-36.6) Sec. Chloride (98-107) mmol/L Carbon Dioxide (22-30) mmol/L BUN (9-20) mg/dL Creatinine (0.8-1.3) mg/dL Glucose (75-100) mg/dL POC Glucose 125 H (70-105) mg/dL AST (5-40) units/L ALT (7-56) units/L Alkaline Phosphatase (35-129) units/L Total Creatine Kinase (55-170) units/L CK-MB (CK-2) (0.0-4.0) ng/mL CK-MB (CK-2) Rel Index (0-4) Troponin T (0.00-0.029) ng/mL Total Protein (6.3-8.2) g/dL Albumin (3.9-5) g/dL Salicylates (2.8-20.0) mg/dL Acetaminophen (10.0-30.0) ug/mL 01/25/22 01/25/22 01/25/22 Range/Units 20:12 20:12 20:12 WBC (4.5-11.0) K/mm3 RBC (3.65-5.03) M/mm3 Hgb (11.8-15.2) gm/dl Hct (35.5-45.6) % MCV (84-94) fl RDW (13.2-15.2) % Plt Count (140-440) K/mm3 Seg Neuts % (Manual) (40.0-70.0) % Nucleated RBC % (0.0-0.9) % Seg Neutrophils # Man (1.8-7.7) K/mm3 Lymphocytes # (Manual) (1.2-5.4) K/mm3 APTT (24.2-36.6) Sec. Chloride 113.0 H (98-107) mmol/L Carbon Dioxide 18 L (22-30) mmol/L BUN 40 H (9-20) mg/dL Creatinine 2.3 H (0.8-1.3) mg/dL Glucose 113 H (75-100) mg/dL POC Glucose (70-105) mg/dL AST 565 H (5-40) units/L ALT 379 H (7-56) units/L Alkaline Phosphatase 246 H (35-129) units/L Total Creatine Kinase 242 H (55-170) units/L CK-MB (CK-2) 10.0 H (0.0-4.0) ng/mL CK-MB (CK-2) Rel Index 4.1 H (0-4) Troponin T 0.094 H (0.00-0.029) ng/mL Total Protein 5.6 L (6.3-8.2) g/dL Albumin 2.6 L (3.9-5) g/dL Salicylates < 0.3 L (2.8-20.0) mg/dL Acetaminophen 5.0 L (10.0-30.0) ug/mL Assessment and Plan - Patient Problems (1) Acute encephalopathy Current Visit: Yes Status: Acute Plan to address problem: We will continue to monitor mental status. CT scan of the head, CTA head and neck were nonspecific. (2) Pulmonary infiltrate Current Visit: Yes Status: Acute Plan to address problem: Patient will be placed on empiric IV antibiotics. We will consult infectious disease as needed. (3) Renal insufficiency Current Visit: Yes Status: Acute Plan to address problem: Consult placed to nephrology for evaluation. (4) Thrombocytopenia Current Visit: Yes Status: Acute Plan to address problem: We will monitor CBC. Consult will be placed to heme-onc for evaluation and recommendation. (5) Transaminitis Current Visit: Yes Status: Acute Plan to address problem: We will continue to monitor LFTs. We await gastroenterology evaluation and recommendations. (6) DVT prophylaxis Current Visit: No Status: Acute Plan to address problem: Patient will be placed on sequential compression device. (7) Full code status Current Visit: Yes Status: Acute Plan to address problem: Patient is full code.
[2022-01-26] MEDS: SODIUM CHLORIDE 0.45% 1000 ML 1,000 ML IV SCH (00:22)
[2022-01-26 05:40] LABS: Hematocrit 23.1 % (35.5-45.6); Hemoglobin 7.9 gm/dl (11.8-15.2); Mean Corpuscular HGB Conc 34 % (32-34); Mean Corpuscular Volume 96 fl (84-94); Red Blood Count 2.39 M/mm3 (3.65-5.03); Red Cell Distribution Width 15.5 % (13.2-15.2)
[2022-01-26 05:42] LABS: Platelet Count 27 K/mm3 (140-440)
[2022-01-26 05:54] LABS: Calcium 8.4 mg/dL (8.4-10.2)
[2022-01-26 06:31] LABS: Basophils % (Manual) 0 % (0.0-1.8); Eosinophils % (Manual) 0 % (0.0-4.3); Total Cells Counted 100
[2022-01-26 06:32] LABS: Burr Cells Few; Platelet Estimate Consistent w Auto
[2022-01-26] MEDS: DEXTROSE 10% *Hypoglycemia IV PRN (07:00)
--- NOTE | 2022-01-26 09:09 | Consultation ---
History of Present Illness - Reason for Consult Consult date: 01/26/22 acute renal failure Requesting physician: MIKEL COLLAZO - History of Present Illness The patient is a 76-year-old gentleman. Patient is recently admitted to this hospital for obstructive uropathy, urinary retention, anemia, metabolic acidosis, found to have thrombocytopenia, and leukopenia. He is was discharged from the hospital yesterday. He was fully awake and alert when I saw him yesterday morning. He is brought to the hospital sometime later, apparently for altered mental status. Nursing staff endorses normal Accu-Chek. Patient is awake and breathing spontaneously. Code stroke is called overhead. Noncontrast CT scan of the brain shows no bleed. CT angiogram head and neck de monstrates nonspecific findings. Patient is now admitted to the floor. Not answering any questions or following any commands. Lethargic at this time Past History Past Medical History: other (Unable to obtain) Past Surgical History: Other (Unable to obtain) Social history: other (Unable to obtain) Family history: other (Unable to obtain) Medications and Allergies Allergies Allergy/AdvReac Type Severity Reaction Status Date / Time No Known Allergies Allergy Unverified 01/20/22 10:47 Home Medications Medication Instructions Recorded Confirmed Last Taken Type Sodium Bicarbonate 1,300 mg PO TID #90 tablet 01/25/22 01/26/22 Unknown Rx Tamsulosin [Flomax] 0.4 mg PO QDAY #30 capsule 01/25/22 01/26/22 Unknown Rx amLODIPine 10 mg PO QDAY #30 tablet 01/25/22 01/26/22 Unknown Rx Active Meds: Active Medications Acetaminophen (Acetaminophen 325 Mg Tab) 650 mg PO Q4H PRN PRN Reason: Pain MILD(1-3)/Fever >100.5/STODDARD Dextrose (Dextrose 10% *Hypoglycemia) 75 ml IV PRN PRN PRN Reason: Hypoglycemia Last Admin: 01/26/22 07:00 Dose: 75 ml Sodium Chloride (Nacl 0.45% 1000 Ml) 1,000 mls @ 75 mls/hr IV DIRECT MARLON Last Admin: 01/26/22 00:22 Dose: 75 mls/hr Ceftriaxone Sodium (Rocephin/Ns 2 Gm/100 Ml) 2 gm in 100 mls @ 200 mls/hr IV Q24H MARLON; Protocol Lorazepam (Lorazepam 2 Mg/Ml Vial) 1 mg IV Q4HR PRN PRN Reason: Agitation Morphine Sulfate (Morphine 2 Mg/1 Ml Inj) 2 mg IV Q4H PRN PRN Reason: Pain, Moderate (4-6) Morphine Sulfate (Morphine 4 Mg/1 Ml Inj) 4 mg IV Q4H PRN PRN Reason: Pain , Severe (7-10) Ondansetron HCl (Ondansetron 4 Mg/2 Ml Inj) 4 mg IV Q8H PRN PRN Reason: Nausea And Vomiting Sodium Chloride (Sodium Chloride 0.9% 10 Ml Flush Syringe) 10 ml IV BID MARLON Sodium Chloride (Sodium Chloride 0.9% 10 Ml Flush Syringe) 10 ml IV PRN PRN PRN Reason: LINE FLUSH Review of Systems ROS unobtainable: due to mental status Exam - Vital Signs Vital signs: Vital Signs Temp 97.9 F 01/25/22 20:34 - General Appearance General appearance: other (Medium build pleasant -[place] male) EENT: PERRL, mucous membranes dry Neck: Present: neck supple, trachea midline. Absent: JVD/HJR, Masses Respiratory: Clear to Ascultation Heart: regular, normal heart rate Gastrointestinal: Present: normal, normoactive bowel sounds Integumentary: other (1+ edema. Leal catheter in place) Results - Lab Results 01/26/22 04:45 01/26/22 04:45 Most recent lab results Calcium 8.4 mg/dL (8.4-10.2) 01/26/22 04:45 Magnesium 1.80 mg/dL (1.7-2.3) 01/25/22 20:12 Assessment and Plan Impression: * Altered mental status * acute kidney injury secondary to obstructive uropathy/urinary retention * Urinary retention * Azotemia * Hyperkalemia, mild * Metabolic acidosis * Anemia * Hypertension * Pancytopenia * Proteinuria Plan: * Renal function is stable . No evidence of contrast nephropathy at this time * Continue NaBicarb * Blood pressure is under control. Continue current antihypertensive medications * Continue current management * Dose medications for renal function * Avoid potential nephrotoxins * Continue Leal catheter for now. Continue tamsulosin. Further plan as per urology services * Work-up for pancytopenia as per primary team * Continue gentle hydration * His urine shows 2+ dipstick protein and a few red cells and white cells. Patient however does have a indwelling Leal catheter in place. Shall check urine protein creatinine ratio * Thank you very much for the consultation. Shall follow along with you
--- NOTE | 2022-01-26 13:05 | Ultrasound Report ---
ULTRASOUND ABDOMEN, LIMITED (RIGHT UPPER QUADRANT) INDICATION / CLINICAL INFORMATION: Elevated liver function tests. COMPARISON: CT abdomen pelvis 01/20/22. FINDINGS: PANCREAS: Obscured by bowel gas. LIVER: 15.2 cm in length with mild generalized increased echogenicity and coarsening of the echotextu re. Scattered small cysts. Normal hepatopedal blood flow in the main portal vein. GALLBLADDER: Mildly distended with mild to moderate sludge. No visible gallstones. There is mild gall bladder wall thickening. There is a negative sonographic Whitten sign. BILE DUCTS: No significant abnormality. Common bile duct measures 5.6 mm. FREE FLUID: None. ADDITIONAL FINDINGS: 3.9 cm simple cyst in the upper pole of the right kidney. IMPRESSION: 1. Mild diffuse hepatocellular disease is most commonly related to fatty infiltration. 2. Mildly distended gallbladder with sludge and mild wall thickening. The findings may be related to acute cholecystitis, but are nonspecific. Signer Name: Bill Love MD Signed: 01/26/2022 1:00 PM Workstation Name: [email or web address]
--- NOTE | 2022-01-26 13:20 | Hem/Onc Consultation ---
History of Present Illness - Reason for Consult Consult date: 01/26/22 Thrombocytopenia, leukopenia - History of Present Illness Heme consult note Televisit via tsrd [id number] [id number] Dx thrombocytopenia, leukopenia This is a 76yo AA male with known history of obstructive uropathy, urinary retention, metabolic acidosis, anemia with thrombocytopenia and leukopenia Recent admission to [facility] and discharged yesterday 01/25/22; brought back to the ER because of changes in mental status Teleneurologist following. CTA head and neck did not show any significant findings. Chest x-ray shows possible persistent bibasilar pneumonia. Hematology was consulted for evaluation of low wbw and thrombocytopenia Previous admission, platelets trended between 82 on 01/20/22 - now 27 Patient examined at bedside, noted lethargic. As per RN, received Ativan in ER due to agitation. No bleeding noted or reported. 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 Liver dysfunction Heme malignancy is possible, although doubt PLAN: Labs to include spep with MORAIMA, pf4 ab, hgep, fibrinogen, vitamin B12, iron studies, retic, LDH Monitor CBC and plt count trend Transfuse 1 unit whenever hct <23 Transfuse 1 dose of plts whenever plt <20 Liver u/s Laboratory Last Values WBC 1.7 K/mm3 (4.5-11.0) L* 01/26/22 04:45 Hgb 7.9 gm/dl (11.8-15.2) L 01/26/22 04:45 Hct 23.1 % (35.5-45.6) L 01/26/22 04:45 MCV 96 fl (84-94) H 01/26/22 04:45 Plt Count 27 K/mm3 (140-440) L 01/26/22 04:45 Add Manual Diff Complete 01/26/22 04:45 Total Counted 100 01/26/22 04:45 Seg Neuts % (Manual) 95.0 % (40.0-70.0) H 01/26/22 04:45 Band Neutrophils % 0 % 01/26/22 04:45 Lymphocytes % (Manual) 4.0 % (13.4-35.0) L 01/26/22 04:45 Reactive Lymphs % (Man) 0 % 01/26/22 04:45 Monocytes % (Manual) 1.0 % (0.0-7.3) 01/26/22 04:45 Eosinophils % (Manual) 0 % (0.0-4.3) 01/26/22 04:45 Basophils % (Manual) 0 % (0.0-1.8) 01/26/22 04:45 Metamyelocytes % 0 % 01/26/22 04:45 Myelocytes % 0 % 01/26/22 04:45 Promyelocytes % 0 % 01/26/22 04:45 Blast Cells % 0 % 01/26/22 04:45 Nucleated RBC % 1.0 % (0.0-0.9) H 01/26/22 04:45 Seg Neutrophils # Man 1.6 K/mm3 (1.8-7.7) L 01/26/22 04:45 Band Neutrophils # 0.0 K/mm3 01/26/22 04:45 Lymphocytes # (Manual) 0.1 K/mm3 (1.2-5.4) L 01/26/22 04:45 Abs React Lymphs (Man) 0.0 K/mm3 01/26/22 04:45 Monocytes # (Manual) 0.0 K/mm3 (0.0-0.8) 01/26/22 04:45 Eosinophils # (Manual) 0.0 K/mm3 (0.0-0.4) 01/26/22 04:45 Basophils # (Manual) 0.0 K/mm3 (0.0-0.1) 01/26/22 04:45 Metamyelocytes # 0.0 K/mm3 01/26/22 04:45 Myelocytes # 0.0 K/mm3 01/26/22 04:45 Promyelocytes # 0.0 K/mm3 01/26/22 04:45 Blast Cells # 0.0 K/mm3 01/26/22 04:45 WBC Morphology Not Reportable 01/26/22 04:45 Hypersegmented Neuts Not Reportable 01/26/22 04:45 Hyposegmented Neuts Not Reportable 01/26/22 04:45 Hypogranular Neuts Not Reportable 01/26/22 04:45 Smudge Cells Not Reportable 01/26/22 04:45 Toxic Granulation Not Reportable 01/26/22 04:45 Toxic Vacuolation Not Reportable 01/26/22 04:45 Dohle Bodies Not Reportable 01/26/22 04:45 Pelger-Huet Anomaly Not Reportable 01/26/22 04:45 Giovana Rods Not Reportable 01/26/22 04:45 Platelet Estimate Consistent w auto 01/26/22 04:45 Clumped Platelets Not Reportable 01/26/22 04:45 Plt Clumps, EDTA Not Reportable 01/26/22 04:45 Large Platelets Not Reportable 01/26/22 04:45 Giant Platelets Not Reportable 01/26/22 04:45 Platelet Satelliting Not Reportable 01/26/22 04:45 Plt Morphology Comment Not Reportable 01/26/22 04:45 RBC Morphology Not Reportable 01/26/22 04:45 Dimorphic RBCs Not Reportable 01/26/22 04:45 Polychromasia Not Reportable 01/26/22 04:45 Hypochromasia Not Reportable 01/26/22 04:45 Poikilocytosis Not Reportable 01/26/22 04:45 Anisocytosis Not Reportable 01/26/22 04:45 Microcytosis Not Reportable 01/26/22 04:45 Macrocytosis Not Reportable 01/26/22 04:45 Spherocytes Not Reportable 01/26/22 04:45 Pappenheimer Bodies Not Reportable 01/26/22 04:45 Sickle Cells Not Reportable 01/26/22 04:45 Target Cells Not Reportable 01/26/22 04:45 Tear Drop Cells Not Reportable 01/26/22 04:45 Ovalocytes Not Reportable 01/26/22 04:45 Helmet Cells Not Reportable 01/26/22 04:45 Ferris-Duran Bodies Not Reportable 01/26/22 04:45 [place] Rings Not Reportable 01/26/22 04:45 [place] Cells Few 01/26/22 04:45 Bite Cells Not Reportable 01/26/22 04:45 Crenated Cell Not Reportable 01/26/22 04:45 Elliptocytes Not Reportable 01/26/22 04:45 Acanthocytes (Spur) Few 01/26/22 04:45 Rouleaux Not Reportable 01/26/22 04:45 Hemoglobin C Crystals Not Reportable 01/26/22 04:45 Schistocytes Not Reportable 01/26/22 04:45 Malaria parasites Not Reportable 01/26/22 04:45 Kana Bodies Not Reportable 01/26/22 04:45 Hem Pathologist Commnt No 01/26/22 04:45 PT 13.6 Sec. (12.2-14.9) 01/25/22 20:12 INR 0.94 (0.87-1.13) 01/25/22 20:12 APTT 41.1 Sec. (24.2-36.6) H 01/25/22 20:12 Thrombin Time 17.5 Sec. (15.1-19.6) 01/25/22 20:12 Creatinine 2.2 mg/dL (0.8-1.3) H 01/26/22 04:45 Ferritin 943.7 ng/mL (30.0-300.0) H 01/26/22 07:44 Total Bilirubin 0.60 mg/dL (0.1-1.2) 01/25/22 20:12 AST 565 units/L (5-40) H 01/25/22 20:12 ALT 379 units/L (7-56) H 01/25/22 20:12 Alkaline Phosphatase 246 units/L (35-129) H 01/25/22 20:12 Total Creatine Kinase 242 units/L (55-170) H 01/25/22 20:12 CK-MB (CK-2) 10.0 ng/mL (0.0-4.0) H 01/25/22 20:12 CK-MB (CK-2) Rel Index 4.1 (0-4) H 01/25/22 20:12 Past History Past Medical History: other (Unable to obtain) Past Surgical History: Other (Unable to obtain) Social history: other (Unable to obtain) Family history: other (Unable to obtain) Medications and Allergies Allergies Allergy/AdvReac Type Severity Reaction Status Date / Time No Known Allergies Allergy Unverified 01/20/22 10:47 Home Medications Medication Instructions Recorded Confirmed Last Taken Type Sodium Bicarbonate 1,300 mg PO TID #90 tablet 01/25/22 01/26/22 Unknown Rx Tamsulosin [Flomax] 0.4 mg PO QDAY #30 capsule 01/25/22 01/26/22 Unknown Rx amLODIPine 10 mg PO QDAY #30 tablet 01/25/22 01/26/22 Unknown Rx Active Meds: Active Medications Acetaminophen (Acetaminophen 325 Mg Tab) 650 mg PO Q4H PRN PRN Reason: Pain MILD(1-3)/Fever >100.5/STODDARD Azithromycin (Azithromycin 250 Mg Tab) 500 mg PO QDAY MARLON; Protocol Stop: 01/29/22 10:01 Dextrose (Dextrose 10% *Hypoglycemia) 75 ml IV PRN PRN PRN Reason: Hypoglycemia Last Admin: 01/26/22 07:00 Dose: 75 ml Sodium Chloride (Nacl 0.45% 1000 Ml) 1,000 mls @ 75 mls/hr IV DIRECT MARLON Last Admin: 01/26/22 00:22 Dose: 75 mls/hr Ceftriaxone Sodium (Rocephin/Ns 2 Gm/100 Ml) 2 gm in 100 mls @ 200 mls/hr IV Q24H MARLON; Protocol Lorazepam (Lorazepam 2 Mg/Ml Vial) 1 mg IV Q4HR PRN PRN Reason: Agitation Morphine Sulfate (Morphine 2 Mg/1 Ml Inj) 2 mg IV Q4H PRN PRN Reason: Pain, Moderate (4-6) Morphine Sulfate (Morphine 4 Mg/1 Ml Inj) 4 mg IV Q4H PRN PRN Reason: Pain , Severe (7-10) Ondansetron HCl (Ondansetron 4 Mg/2 Ml Inj) 4 mg IV Q8H PRN PRN Reason: Nausea And Vomiting Sodium Chloride (Sodium Chloride 0.9% 10 Ml Flush Syringe) 10 ml IV BID MARLON Sodium Chloride (Sodium Chloride 0.9% 10 Ml Flush Syringe) 10 ml IV PRN PRN PRN Reason: LINE FLUSH Exam - Constitutional Vitals: Last Vital Signs Temp 97.2 F L 01/26/22 08:34 Pulse 49 L 01/26/22 08:34 Resp 18 01/26/22 08:34 BP 144/79 01/26/22 08:34 Pulse Ox 100 01/26/22 08:36 Results - Labs lab Results: Laboratory Results - last 24 hr 01/25/22 01/25/22 01/25/22 19:53 20:12 20:12 WBC 2.0 L RBC 2.72 L Hgb 8.7 L Hct 26.5 L MCV 98 H MCH 32 MCHC 33 RDW 15.3 H Plt Count 32 L Add Manual Diff Complete Total Counted 100 Seg Neuts % (Manual) 84.0 H Band Neutrophils % 0 Lymphocytes % (Manual) 14.0 Reactive Lymphs % (Man) 0 Monocytes % (Manual) 1.0 Eosinophils % (Manual) 1.0 Basophils % (Manual) 0 Metamyelocytes % 0 Myelocytes % 0 Promyelocytes % 0 Blast Cells % 0 Nucleated RBC % 3.0 H Seg Neutrophils # Man 1.7 L Band Neutrophils # 0.0 Lymphocytes # (Manual) 0.3 L Abs React Lymphs (Man) 0.0 Monocytes # (Manual) 0.0 Eosinophils # (Manual) 0.0 Basophils # (Manual) 0.0 Metamyelocytes # 0.0 Myelocytes # 0.0 Promyelocytes # 0.0 Blast Cells # 0.0 WBC Morphology Not Reportable Hypersegmented Neuts Not Reportable Hyposegmented Neuts Not Reportable Hypogranular Neuts Not Reportable Smudge Cells Not Reportable Toxic Granulation Not Reportable Toxic Vacuolation Not Reportable Dohle Bodies Not Reportable Pelger-Huet Anomaly Not Reportable Giovana Rods Not Reportable Platelet Estimate Consistent w auto Clumped Platelets Not Reportable Plt Clumps, EDTA Not Reportable Large Platelets Rare Giant Platelets Not Reportable Platelet Satelliting Not Reportable Plt Morphology Comment Not Reportable RBC Morphology Not Reportable Dimorphic RBCs Not Reportable Polychromasia Not Reportable Hypochromasia Not Reportable Poikilocytosis Not Reportable Anisocytosis Not Reportable Microcytosis Not Reportable Macrocytosis Not Reportable Spherocytes Not Reportable Pappenheimer Bodies Not Reportable Sickle Cells Not Reportable Target Cells Not Reportable Tear Drop Cells Not Reportable Ovalocytes Not Reportable Helmet Cells Not Reportable Ferris-Duran Bodies Not Reportable [place] Rings Not Reportable Zenaida Cells Few Bite Cells Not Reportable Crenated Cell Not Reportable Elliptocytes Not Reportable Acanthocytes (Spur) Few Rouleaux Not Reportable Hemoglobin C Crystals Not Reportable Schistocytes Not Reportable Malaria parasites Not Reportable Kana Bodies Not Reportable Hem Pathologist Commnt No PT 13.6 INR 0.94 APTT 41.1 H Thrombin Time 17.5 Sodium Potassium Chloride Carbon Dioxide Anion Gap BUN Creatinine Estimated GFR BUN/Creatinine Ratio Glucose POC Glucose 125 H Calcium Magnesium Ferritin Total Bilirubin AST ALT Alkaline Phosphatase Total Creatine Kinase CK-MB (CK-2) CK-MB (CK-2) Rel Index Troponin T Total Protein Albumin Albumin/Globulin Ratio TSH Urine Color Urine Turbidity Urine pH Ur Specific [place] Urine Protein Urine Glucose (UA) Urine Ketones Urine Blood Urine Nitrite Urine Bilirubin Urine Urobilinogen Ur Leukocyte Esterase Urine WBC (Auto) Urine RBC (Auto) U Epithel Cells (Auto) Urine Bacteria (Auto) Urine Mucus Urine Yeast (Budding) Salicylates Acetaminophen Plasma/Serum Alcohol 01/25/22 01/25/22 01/25/22 20:12 20:12 20:12 WBC RBC Hgb Hct MCV MCH MCHC RDW Plt Count Add Manual Diff Total Counted Seg Neuts % (Manual) Band Neutrophils % Lymphocytes % (Manual) Reactive Lymphs % (Man) Monocytes % (Manual) Eosinophils % (Manual) Basophils % (Manual) Metamyelocytes % Myelocytes % Promyelocytes % Blast Cells % Nucleated RBC % Seg Neutrophils # Man Band Neutrophils # Lymphocytes # (Manual) Abs React Lymphs (Man) Monocytes # (Manual) Eosinophils # (Manual) Basophils # (Manual) Metamyelocytes # Myelocytes # Promyelocytes # Blast Cells # WBC Morphology Hypersegmented Neuts Hyposegmented Neuts Hypogranular Neuts Smudge Cells Toxic Granulation Toxic Vacuolation Dohle Bodies Pelger-Huet Anomaly Giovana Rods Platelet Estimate Clumped Platelets Plt Clumps, EDTA Large Platelets Giant Platelets Platelet Satelliting Plt Morphology Comment RBC Morphology Dimorphic RBCs Polychromasia Hypochromasia Poikilocytosis Anisocytosis Microcytosis Macrocytosis Spherocytes Pappenheimer Bodies Sickle Cells Target Cells Tear Drop Cells Ovalocytes Helmet Cells Ferris-Duran Bodies [place] Rings [place] Cells Bite Cells Crenated Cell Elliptocytes Acanthocytes (Spur) Rouleaux Hemoglobin C Crystals Schistocytes Malaria parasites Kana Bodies Hem Pathologist Commnt PT INR APTT Thrombin Time Sodium 142 Potassium 4.2 Chloride 113.0 H Carbon Dioxide 18 L Anion Gap 15 BUN 40 H Creatinine 2.3 H Estimated GFR 34 BUN/Creatinine Ratio 17 Glucose 113 H POC Glucose Calcium 8.5 Magnesium 1.80 Ferritin Total Bilirubin 0.60 AST 565 H ALT 379 H Alkaline Phosphatase 246 H Total Creatine Kinase 242 H CK-MB (CK-2) 10.0 H CK-MB (CK-2) Rel Index 4.1 H Troponin T 0.094 H Total Protein 5.6 L Albumin 2.6 L Albumin/Globulin Ratio 0.9 TSH Urine Color Urine Turbidity Urine pH Ur Specific [place] Urine Protein Urine Glucose (UA) Urine Ketones Urine Blood Urine Nitrite Urine Bilirubin Urine Urobilinogen Ur Leukocyte Esterase Urine WBC (Auto) Urine RBC (Auto) U Epithel Cells (Auto) Urine Bacteria (Auto) Urine Mucus Urine Yeast (Budding) Salicylates Acetaminophen Plasma/Serum Alcohol < 0.01 01/25/22 01/25/22 01/25/22 20:12 20:12 20:12 WBC RBC Hgb Hct MCV MCH MCHC RDW Plt Count Add Manual Diff Total Counted Seg Neuts % (Manual) Band Neutrophils % Lymphocytes % (Manual) Reactive Lymphs % (Man) Monocytes % (Manual) Eosinophils % (Manual) Basophils % (Manual) Metamyelocytes % Myelocytes % Promyelocytes % Blast Cells % Nucleated RBC % Seg Neutrophils # Man Band Neutrophils # Lymphocytes # (Manual) Abs React Lymphs (Man) Monocytes # (Manual) Eosinophils # (Manual) Basophils # (Manual) Metamyelocytes # Myelocytes # Promyelocytes # Blast Cells # WBC Morphology Hypersegmented Neuts Hyposegmented Neuts Hypogranular Neuts Smudge Cells Toxic Granulation Toxic Vacuolation Dohle Bodies Pelger-Huet Anomaly Giovana Rods Platelet Estimate Clumped Platelets Plt Clumps, EDTA Large Platelets Giant Platelets Platelet Satelliting Plt Morphology Comment RBC Morphology Dimorphic RBCs Polychromasia Hypochromasia Poikilocytosis Anisocytosis Microcytosis Macrocytosis Spherocytes Pappenheimer Bodies Sickle Cells Target Cells Tear Drop Cells Ovalocytes Helmet Cells Ferris-Duran Bodies [place] Rings [place] Cells Bite Cells Crenated Cell Elliptocytes Acanthocytes (Spur) Rouleaux Hemoglobin C Crystals Schistocytes Malaria parasites Kana Bodies Hem Pathologist Commnt PT INR APTT Thrombin Time Sodium Potassium Chloride Carbon Dioxide Anion Gap BUN Creatinine Estimated GFR BUN/Creatinine Ratio Glucose POC Glucose Calcium Magnesium Ferritin Total Bilirubin AST ALT Alkaline Phosphatase Total Creatine Kinase CK-MB (CK-2) CK-MB (CK-2) Rel Index Troponin T Total Protein Albumin Albumin/Globulin Ratio TSH 3.180 Urine Color Urine Turbidity Urine pH Ur Specific [place] Urine Protein Urine Glucose (UA) Urine Ketones Urine Blood Urine Nitrite Urine Bilirubin Urine Urobilinogen Ur Leukocyte Esterase Urine WBC (Auto) Urine RBC (Auto) U Epithel Cells (Auto) Urine Bacteria (Auto) Urine Mucus Urine Yeast (Budding) Salicylates < 0.3 L Acetaminophen 5.0 L Plasma/Serum Alcohol 01/25/22 01/26/22 01/26/22 21:26 02:09 04:45 WBC 1.7 L* RBC 2.39 L Hgb 7.9 L Hct 23.1 L MCV 96 H MCH 33 H MCHC 34 RDW 15.5 H Plt Count 27 L Add Manual Diff Complete Total Counted 100 Seg Neuts % (Manual) 95.0 H Band Neutrophils % 0 Lymphocytes % (Manual) 4.0 L Reactive Lymphs % (Man) 0 Monocytes % (Manual) 1.0 Eosinophils % (Manual) 0 Basophils % (Manual) 0 Metamyelocytes % 0 Myelocytes % 0 Promyelocytes % 0 Blast Cells % 0 Nucleated RBC % 1.0 H Seg Neutrophils # Man 1.6 L Band Neutrophils # 0.0 Lymphocytes # (Manual) 0.1 L Abs React Lymphs (Man) 0.0 Monocytes # (Manual) 0.0 Eosinophils # (Manual) 0.0 Basophils # (Manual) 0.0 Metamyelocytes # 0.0 Myelocytes # 0.0 Promyelocytes # 0.0 Blast Cells # 0.0 WBC Morphology Not Reportable Hypersegmented Neuts Not Reportable Hyposegmented Neuts Not Reportable Hypogranular Neuts Not Reportable Smudge Cells Not Reportable Toxic Granulation Not Reportable Toxic Vacuolation Not Reportable Dohle Bodies Not Reportable Pelger-Huet Anomaly Not Reportable Giovana Rods Not Reportable Platelet Estimate Consistent w auto Clumped Platelets Not Reportable Plt Clumps, EDTA Not Reportable Large Platelets Not Reportable Giant Platelets Not Reportable Platelet Satelliting Not Reportable Plt Morphology Comment Not Reportable RBC Morphology Not Reportable Dimorphic RBCs Not Reportable Polychromasia Not Reportable Hypochromasia Not Reportable Poikilocytosis Not Reportable Anisocytosis Not Reportable Microcytosis Not Reportable Macrocytosis Not Reportable Spherocytes Not Reportable Pappenheimer Bodies Not Reportable Sickle Cells Not Reportable Target Cells Not Reportable Tear Drop Cells Not Reportable Ovalocytes Not Reportable Helmet Cells Not Reportable Ferris-Duran Bodies Not Reportable [place] Rings Not Reportable Zenaida Cells Few Bite Cells Not Reportable Crenated Cell Not Reportable Elliptocytes Not Reportable Acanthocytes (Spur) Few Rouleaux Not Reportable Hemoglobin C Crystals Not Reportable Schistocytes Not Reportable Malaria parasites Not Reportable Kana Bodies Not Reportable Hem Pathologist Commnt No PT INR APTT Thrombin Time Sodium Potassium Chloride Carbon Dioxide Anion Gap BUN Creatinine Estimated GFR BUN/Creatinine Ratio Glucose POC Glucose 69 L Calcium Magnesium Ferritin Total Bilirubin AST ALT Alkaline Phosphatase Total Creatine Kinase CK-MB (CK-2) CK-MB (CK-2) Rel Index Troponin T Total Protein Albumin Albumin/Globulin Ratio TSH Urine Color Yellow Urine Turbidity Slightly-cloudy Urine pH 5.0 Ur Specific [place] 1.028 Urine Protein 100 mg/dl Urine Glucose (UA) Neg Urine Ketones Neg Urine Blood Mod Urine Nitrite Neg Urine Bilirubin Neg Urine Urobilinogen < 2.0 Ur Leukocyte Esterase Tr Urine WBC (Auto) 4.0 Urine RBC (Auto) 5.0 U Epithel Cells (Auto) < 1.0 Urine Bacteria (Auto) 1+ Urine Mucus Few Urine Yeast (Budding) 1+ Salicylates Acetaminophen Plasma/Serum Alcohol 01/26/22 01/26/22 01/26/22 04:45 07:44 07:44 WBC RBC Hgb Hct MCV MCH MCHC RDW Plt Count Add Manual Diff Total Counted Seg Neuts % (Manual) Band Neutrophils % Lymphocytes % (Manual) Reactive Lymphs % (Man) Monocytes % (Manual) Eosinophils % (Manual) Basophils % (Manual) Metamyelocytes % Myelocytes % Promyelocytes % Blast Cells % Nucleated RBC % Seg Neutrophils # Man Band Neutrophils # Lymphocytes # (Manual) Abs React Lymphs (Man) Monocytes # (Manual) Eosinophils # (Manual) Basophils # (Manual) Metamyelocytes # Myelocytes # Promyelocytes # Blast Cells # WBC Morphology Hypersegmented Neuts Hyposegmented Neuts Hypogranular Neuts Smudge Cells Toxic Granulation Toxic Vacuolation Dohle Bodies Pelger-Huet Anomaly Giovana Rods Platelet Estimate Clumped Platelets Plt Clumps, EDTA Large Platelets Giant Platelets Platelet Satelliting Plt Morphology Comment RBC Morphology Dimorphic RBCs Polychromasia Hypochromasia Poikilocytosis Anisocytosis Microcytosis Macrocytosis Spherocytes Pappenheimer Bodies Sickle Cells Target Cells Tear Drop Cells Ovalocytes Helmet Cells Ferris-Duran Bodies [place] Rings Zenaida Cells Bite Cells Crenated Cell Elliptocytes Acanthocytes (Spur) Rouleaux Hemoglobin C Crystals Schistocytes Malaria parasites Kana Bodies Hem Pathologist Commnt PT INR APTT Thrombin Time Sodium 144 Potassium 4.5 Chloride 116.0 H Carbon Dioxide 20 L Anion Gap 13 BUN 38 H Creatinine 2.2 H Estimated GFR 35 BUN/Creatinine Ratio 17 Glucose 73 L POC Glucose Calcium 8.4 Magnesium Ferritin 943.7 H Total Bilirubin AST ALT Alkaline Phosphatase Total Creatine Kinase CK-MB (CK-2) CK-MB (CK-2) Rel Index Troponin T Total Protein Albumin Albumin/Globulin Ratio TSH 2.670 Urine Color Urine Turbidity Urine pH Ur Specific [place] Urine Protein Urine Glucose (UA) Urine Ketones Urine Blood Urine Nitrite Urine Bilirubin Urine Urobilinogen Ur Leukocyte Esterase Urine WBC (Auto) Urine RBC (Auto) U Epithel Cells (Auto) Urine Bacteria (Auto) Urine Mucus Urine Yeast (Budding) Salicylates Acetaminophen Plasma/Serum Alcohol
--- NOTE | 2022-01-26 14:28 | Electrocardiograph Report ---
[facility] Test Date: 2022-01-25 Test Time: 22:34:06 Pat Name: FABIAN CHAPARRO Department: Room: A456 1 Gender: M Varnish Blender: YUN[birth year] : 1945 Requested By: MIKEL COLLAZO Order Number: [id number] Reading MD: Raffy Jain Measurements Intervals [place] Rate: 77 P: 48 MI: 195 QRS: -2 QRSD: 92 T: 109 QT: 406 QTc: 461 Interpretive Statements Sinus rhythm Consider old anterior infarct Nonspecific T abnormalities, lateral leads Compared to ECG 01/20/2022 11:13:08 No significant change Electronically Signed On 01-26-2022 14:28:19 EDT by Raffy Jain
[2022-01-26] MEDS: AZITHROMYCIN 250 MG TAB PO SCH (15:19)
[2022-01-26 15:57] LABS: Iron 127 ug/dL (49-181); Total Iron Binding Capacity 147 mcg/dL (250-450)
--- NOTE | 2022-01-26 16:26 | Progress Note ---
Assessment and Plan 76-year-old -Maldivian male with known history of obstructive uropathy, urinary retention, metabolic acidosis, anemia with thrombocytopenia and leukopenia who was discharge sometime in the afternoon but later brought back to the emergency room same day because of changes in mental status. Patient was accompanied by his roommate who indicates that patient has had change in his mental status and was not able to communicate well since discharge from the hospital.Patient was evaluated by the teleneurologist and was not deemed to be a TPA candidate. Work-up in the emergency room reveals thrombocytopenia of 32, BUN of 40 and creatinine of 2.3. Elevated AST and ALT of 565 and 379 respectively. Alkaline phos of 246 and creatinine kinase of 242. Troponin was elevated at 0.094. Urinalysis showed trace bacteria and trace leukocyte esterase. CTA head and neck did not show any significant findings. Chest x-ray shows possible persistent bibasilar pneumonia. Patient was admitted for further evaluation management Assessment and plan: --Acute metabolic encephalopathy We will continue to monitor mental status. CT scan of the head, CTA head and neck were nonspecific. Follow clinically with frequent neuro exam -- Pulmonary infiltrate/possible aspiration pneumonia Patient will be placed on empiric IV antibiotics. We will consult infectious disease as needed. --Renal insufficiency/JESSIKA on possible CKD Continue IV fluid Consult placed to nephrology for evaluation. --Thrombocytopenia We will monitor CBC. Consult will be placed to heme-onc for evaluation and recommendation. -- Transaminitis, likely shock liver We will continue to monitor LFTs. We await gastroenterology evaluation and recommendations. -- DVT prophylaxis Patient will be placed on sequential compression device. -- Full code status Disposition: Follow renal function, follow LFT., Wait for consultants recommen dation. Subjective Date of service: 01/26/22 Interval history: Patient seen and examined. Medical records and medication list reviewed. No acute event overnight noted by the RN. Patient patient appears very lethargic on the bed Discussed plan of care at bedside with patient's RN. Objective - Exam Narrative Exam: General appearance: Present: no acute distress, cachectic, other (Dry oral mucosa) - EENT Eyes: Present: PERRL, EOM intact ENT: hearing intact, clear oral mucosa, dentition normal - Neck Neck: Present: supple, normal ROM - Respiratory Respiratory effort: normal Respiratory: bilateral: diminished - Cardiovascular Rhythm: regular Heart Sounds: Present: S1 & S2. Absent: gallop, systolic murmur, diastolic murmur, rub, click - Extremities Extremities: no ischemia, pulses intact, pulses symmetrical, No edema, normal temperature, normal color, Full ROM Peripheral Pulses: within normal limits - Abdominal General gastrointestinal: Present: soft, non-tender, non-distended, normal bowel sounds. Absent: mass Male genitourinary: Present: normal (Leal catheter in place) - Integumentary Integumentary: Present: clear, warm, dry, normal turgor. Absent: jaundice, rash - Musculoskeletal Musculoskeletal: strength equal bilaterally - Psychiatric Psychiatric: cooperative - Neurologic Neurologic: no focal deficits, other (Appears confused) - Constitutional Vitals: Vital Signs - 12hr 01/26/22 01/26/22 01/26/22 08:34 08:36 15:17 Temperature 97.2 F L 98.6 F Pulse Rate 49 L 48 L Respiratory 18 Rate Blood Pressure 144/79 137/57 O2 Sat by Pulse 100 100 100 Oximetry - Labs CBC & Chem 7: 01/28/22 08:08 01/28/22 08:08 Labs: Abnormal lab results 01/25/22 01/25/22 01/25/22 Range/Units 19:53 20:12 20:12 WBC 2.0 L (4.5-11.0) K/mm3 RBC 2.72 L (3.65-5.03) M/mm3 Hgb 8.7 L (11.8-15.2) gm/dl Hct 26.5 L (35.5-45.6) % MCV 98 H (84-94) fl MCH (28-32) pg RDW 15.3 H (13.2-15.2) % Plt Count 32 L (140-440) K/mm3 Seg Neuts % (Manual) 84.0 H (40.0-70.0) % Lymphocytes % (Manual) (13.4-35.0) % Nucleated RBC % 3.0 H (0.0-0.9) % Seg Neutrophils # Man 1.7 L (1.8-7.7) K/mm3 Lymphocytes # (Manual) 0.3 L (1.2-5.4) K/mm3 Percent Retic (0.78-2.58) % APTT 41.1 H (24.2-36.6) Sec. Fibrinogen (211-480) mg/dl Chloride (98-107) mmol/L Carbon Dioxide (22-30) mmol/L BUN (9-20) mg/dL Creatinine (0.8-1.3) mg/dL Glucose (75-100) mg/dL POC Glucose 125 H (70-105) mg/dL TIBC (250-450) mcg/dL Ferritin (30.0-300.0) ng/mL AST (5-40) units/L ALT (7-56) units/L Alkaline Phosphatase (35-129) units/L Lactate Dehydrogenase (91-180) units/L Total Creatine Kinase (55-170) units/L CK-MB (CK-2) (0.0-4.0) ng/mL CK-MB (CK-2) Rel Index (0-4) Troponin T (0.00-0.029) ng/mL Total Protein (6.3-8.2) g/dL Albumin (3.9-5) g/dL Folate (7.3-26.0) ng/mL Salicylates (2.8-20.0) mg/dL Acetaminophen (10.0-30.0) ug/mL 01/25/22 01/25/22 01/25/22 Range/Units 20:12 20:12 20:12 WBC (4.5-11.0) K/mm3 RBC (3.65-5.03) M/mm3 Hgb (11.8-15.2) gm/dl Hct (35.5-45.6) % MCV (84-94) fl MCH (28-32) pg RDW (13.2-15.2) % Plt Count (140-440) K/mm3 Seg Neuts % (Manual) (40.0-70.0) % Lymphocytes % (Manual) (13.4-35.0) % Nucleated RBC % (0.0-0.9) % Seg Neutrophils # Man (1.8-7.7) K/mm3 Lymphocytes # (Manual) (1.2-5.4) K/mm3 Percent Retic (0.78-2.58) % APTT (24.2-36.6) Sec. Fibrinogen (211-480) mg/dl Chloride 113.0 H (98-107) mmol/L Carbon Dioxide 18 L (22-30) mmol/L BUN 40 H (9-20) mg/dL Creatinine 2.3 H (0.8-1.3) mg/dL Glucose 113 H (75-100) mg/dL POC Glucose (70-105) mg/dL TIBC (250-450) mcg/dL Ferritin (30.0-300.0) ng/mL AST 565 H (5-40) units/L ALT 379 H (7-56) units/L Alkaline Phosphatase 246 H (35-129) units/L Lactate Dehydrogenase (91-180) units/L Total Creatine Kinase 242 H (55-170) units/L CK-MB (CK-2) 10.0 H (0.0-4.0) ng/mL CK-MB (CK-2) Rel Index 4.1 H (0-4) Troponin T 0.094 H (0.00-0.029) ng/mL Total Protein 5.6 L (6.3-8.2) g/dL Albumin 2.6 L (3.9-5) g/dL Folate (7.3-26.0) ng/mL Salicylates < 0.3 L (2.8-20.0) mg/dL Acetaminophen 5.0 L (10.0-30.0) ug/mL 01/26/22 01/26/22 01/26/22 Range/Units 02:09 04:45 04:45 WBC 1.7 L* (4.5-11.0) K/mm3 RBC 2.39 L (3.65-5.03) M/mm3 Hgb 7.9 L (11.8-15.2) gm/dl Hct 23.1 L (35.5-45.6) % MCV 96 H (84-94) fl MCH 33 H (28-32) pg RDW 15.5 H (13.2-15.2) % Plt Count 27 L (140-440) K/mm3 Seg Neuts % (Manual) 95.0 H (40.0-70.0) % Lymphocytes % (Manual) 4.0 L (13.4-35.0) % Nucleated RBC % 1.0 H (0.0-0.9) % Seg Neutrophils # Man 1.6 L (1.8-7.7) K/mm3 Lymphocytes # (Manual) 0.1 L (1.2-5.4) K/mm3 Percent Retic (0.78-2.58) % APTT (24.2-36.6) Sec. Fibrinogen (211-480) mg/dl Chloride 116.0 H (98-107) mmol/L Carbon Dioxide 20 L (22-30) mmol/L BUN 38 H (9-20) mg/dL Creatinine 2.2 H (0.8-1.3) mg/dL Glucose 73 L (75-100) mg/dL POC Glucose 69 L (70-105) mg/dL TIBC (250-450) mcg/dL Ferritin (30.0-300.0) ng/mL AST (5-40) units/L ALT (7-56) units/L Alkaline Phosphatase (35-129) units/L Lactate Dehydrogenase (91-180) units/L Total Creatine Kinase (55-170) units/L CK-MB (CK-2) (0.0-4.0) ng/mL CK-MB (CK-2) Rel Index (0-4) Troponin T (0.00-0.029) ng/mL Total Protein (6.3-8.2) g/dL Albumin (3.9-5) g/dL Folate (7.3-26.0) ng/mL Salicylates (2.8-20.0) mg/dL Acetaminophen (10.0-30.0) ug/mL 01/26/22 01/26/22 01/26/22 Range/Units 07:44 14:35 14:35 WBC (4.5-11.0) K/mm3 RBC (3.65-5.03) M/mm3 Hgb (11.8-15.2) gm/dl Hct (35.5-45.6) % MCV (84-94) fl MCH (28-32) pg RDW (13.2-15.2) % Plt Count (140-440) K/mm3 Seg Neuts % (Manual) (40.0-70.0) % Lymphocytes % (Manual) (13.4-35.0) % Nucleated RBC % (0.0-0.9) % Seg Neutrophils # Man (1.8-7.7) K/mm3 Lymphocytes # (Manual) (1.2-5.4) K/mm3 Percent Retic 0.22 L (0.78-2.58) % APTT (24.2-36.6) Sec. Fibrinogen 665 H (211-480) mg/dl Chloride (98-107) mmol/L Carbon Dioxide (22-30) mmol/L BUN (9-20) mg/dL Creatinine (0.8-1.3) mg/dL Glucose (75-100) mg/dL POC Glucose (70-105) mg/dL TIBC (250-450) mcg/dL Ferritin 943.7 H (30.0-300.0) ng/mL AST (5-40) units/L ALT (7-56) units/L Alkaline Phosphatase (35-129) units/L Lactate Dehydrogenase (91-180) units/L Total Creatine Kinase (55-170) units/L CK-MB (CK-2) (0.0-4.0) ng/mL CK-MB (CK-2) Rel Index (0-4) Troponin T (0.00-0.029) ng/mL Total Protein (6.3-8.2) g/dL Albumin (3.9-5) g/dL Folate (7.3-26.0) ng/mL Salicylates (2.8-20.0) mg/dL Acetaminophen (10.0-30.0) ug/mL 01/26/22 01/26/22 Range/Units 14:35 14:35 WBC (4.5-11.0) K/mm3 RBC (3.65-5.03) M/mm3 Hgb (11.8-15.2) gm/dl Hct (35.5-45.6) % MCV (84-94) fl MCH (28-32) pg RDW (13.2-15.2) % Plt Count (140-440) K/mm3 Seg Neuts % (Manual) (40.0-70.0) % Lymphocytes % (Manual) (13.4-35.0) % Nucleated RBC % (0.0-0.9) % Seg Neutrophils # Man (1.8-7.7) K/mm3 Lymphocytes # (Manual) (1.2-5.4) K/mm3 Percent Retic (0.78-2.58) % APTT (24.2-36.6) Sec. Fibrinogen (211-480) mg/dl Chloride (98-107) mmol/L Carbon Dioxide (22-30) mmol/L BUN (9-20) mg/dL Creatinine (0.8-1.3) mg/dL Glucose (75-100) mg/dL POC Glucose (70-105) mg/dL TIBC 147 L (250-450) mcg/dL Ferritin (30.0-300.0) ng/mL AST (5-40) units/L ALT (7-56) units/L Alkaline Phosphatase (35-129) units/L Lactate Dehydrogenase 529 H (91-180) units/L Total Creatine Kinase (55-170) units/L CK-MB (CK-2) (0.0-4.0) ng/mL CK-MB (CK-2) Rel Index (0-4) Troponin T (0.00-0.029) ng/mL Total Protein (6.3-8.2) g/dL Albumin (3.9-5) g/dL Folate 4.90 L (7.3-26.0) ng/mL Salicylates (2.8-20.0) mg/dL Acetaminophen (10.0-30.0) ug/mL HEART Score - HEART Score Troponin: Troponin T 0.094 ng/mL (0.00-0.029) H 01/25/22 20:12
[2022-01-26 19:51] LABS: Creatinine,Urine 49.1 mg/dL (0.1-20.0); Protein/Creatinine Ratio,Urine 0.49
[2022-01-26] MEDS: cefTRIAXone/NS 2 GM/100 ML 2 GM/100 ML BAG IV SCH (23:12)
[2022-01-27] MEDS: DEXTROSE 10% *Hypoglycemia IV PRN (04:14)
[2022-01-27] MEDS: SODIUM CHLORIDE 0.45% 1000 ML 1,000 ML IV SCH (04:15)
[2022-01-27 06:42] LABS: Calcium 8.5 mg/dL (8.4-10.2)
--- NOTE | 2022-01-27 07:08 | Consultation ---
DATE OF CONSULTATION: 01/26/2022 REFERRING PHYSICIAN: Dr. Janee Schmidt INDICATION: Increased liver function tests. HISTORY OF PRESENT ILLNESS: The patient is a 76-year-old black male with history of urinary retention and anemia as well as thrombocytopenia, being seen for increased liver function test. The patient was recently discharged earlier today, the day of admission, which was yesterday, but then represented after he was noted by his roommate to have mental status change. The patient was unable to communicate since he has been discharged. Some reported weakness. No other specific complaints including nausea, vomiting, diarrhea, constipation. The patient subsequently was brought to the Emergency Room where he was noted to have increased liver function tests and GI consulted. No other specific known history of liver disease in the past. No other specific complaints. PAST MEDICAL HISTORY: 1. Hypertension. 2. Urinary retention. MEDICATIONS: Reviewed and updated in chart. ALLERGIES: No known drug allergies. SOCIAL HISTORY: No alcohol, tobacco or drug abuse. FAMILY HISTORY: Negative for colon cancer, IBD, or liver disease. REVIEW OF SYSTEMS: GENERAL: Reports some weakness. HEENT: Denies visual complaints or tinnitus. PULMONARY: No shortness of breath, chest pain. GASTROINTESTINAL: No specific diarrhea, constipation. All points of 13-point review of system otherwise negative. PHYSICAL EXAMINATION: VITAL SIGNS: Temperature of 97.2, pulse 109, respirations 18, blood pressure 144/79. GENERAL: Fairly thin, in no acute distress. HEENT: Pupils round, reactive. PULMONARY: Rhonchi. CARDIOVASCULAR: Regular rate and rhythm. Normal S1, S2. ABDOMEN: Positive bowel sounds, soft. SKIN: No obvious rashes. LABORATORY DATA: Pertinent for white count of 1.7, hemoglobin and hematocrit of 7.9 and 23.1, platelet count of 27. Chem-7: Sodium of 144, potassium 4.5, chloride 116, CO2 of 20, BUN and creatinine of 38 and 2.2, AST and ALT of 565 and 379 with a total bilirubin of 0.6 and an alkaline phosphatase of 246. ASSESSMENT: A 76-year-old male with past medical history noted above, who was recently discharged with some urinary retention, now presented with mental status change, was noted to have increased liver function test with no history of liver disease in the past. Possibility of shock liver versus acute hepatitis versus other. PLAN: 1. We will get liver ultrasound for liver evaluation. 2. Acute hepatitis and other liver labs. 3. Avoid hepatotoxic drugs. 4. Follow LFTs. 5. Suspect most likely etiology of shock liver and so hemodynamic stability best treatment. 6. No need for liver biopsy or other invasive interventions. 7. We will follow further recommendation based on progress. TID: [id number] RECEIPT: [id number] [facility]
[2022-01-27 09:11] LABS: Alanine Aminotransferase 400 units/L (7-56); Albumin 2.4 g/dL (3.9-5)
[2022-01-27 09:12] LABS: Bilirubin,Direct < 0.2 mg/dL (0-0.2)
--- NOTE | 2022-01-27 09:35 | Progress Note ---
Assessment and Plan Impression: * Altered mental status * acute kidney injury secondary to obstructive uropathy/urinary retention * Urinary retention * Azotemia * Hyperkalemia, mild * Metabolic acidosis * Anemia * Hypertension * Pancytopenia * Proteinuria * Abnormal LFT Plan: * Renal function is stable . Serum creatinine is trending down. No evidence of contrast nephropathy at this time * Continue NaBicarb * Blood pressure is under control. Continue current antihypertensive medications * Continue current management * Dose medications for renal function * Avoid potential nephrotoxins * Continue Leal catheter for now. Continue tamsulosin. Further plan as per urology services * Work-up for pancytopenia as per primary team * Discontinue IV fluid for now * Hematology consultation appreciated. * His urine shows 2+ dipstick protein and a few red cells and white cells. Urine protein creatinine ratio is approximately 0.5 g/g. Hold off on adding MAXI or ARB at this time until his renal function stabilizes * Check ammonia level as well Subjective Date of service: 01/27/22 Interval history: Patient appears more alert today. Denies any shortness of breath. No nausea or vomiting. Objective - Vital Signs Vital signs: Vital Signs - 12hr 01/26/22 01/26/22 01/27/22 22:52 23:30 04:07 Temperature 97.6 F 97.8 F Pulse Rate 52 L 63 Respiratory 16 16 Rate Blood Pressure 170/93 150/86 O2 Sat by Pulse 99 100 100 Oximetry 01/27/22 07:33 Temperature 98.3 F Pulse Rate 62 Respiratory 18 Rate Blood Pressure 143/83 O2 Sat by Pulse 99 Oximetry - General Appearance General appearance: other (Medium build pleasant -Japanese male) EENT: PERRL, mucous membranes moist Neck: no JVD, no thyromegaly, no carotid bruit, supple Respiratory: Present: Clear to Ascultation Cardiology: regular, normal heart rate, S1S2, no murmurs Gastrointestinal: normal, normoactive bowel sounds Integumentary: no rash, other (1+ edema) - Lab 01/26/22 04:45 01/27/22 05:46 Most recent lab results Calcium 8.5 mg/dL (8.4-10.2) 01/27/22 05:46 Magnesium 1.80 mg/dL (1.7-2.3) 01/25/22 20:12 Urine Creatinine 49.1 mg/dL (0.1-20.0) H 01/26/22 09:17 Urine Total Protein 24 mg/dL (5-11.8) H 01/26/22 09:17 Medications & Allergies - Medications Allergies/Adverse Reactions: Allergies No Known Allergies Allergy (Unverified 01/20/22 10:47) Home Medications: Home Medications Medication Instructions Recorded Confirmed Last Taken Type Sodium Bicarbonate 1,300 mg PO TID #90 tablet 01/25/22 01/26/22 Unknown Rx Tamsulosin [Flomax] 0.4 mg PO QDAY #30 capsule 01/25/22 01/26/22 Unknown Rx amLODIPine 10 mg PO QDAY #30 tablet 01/25/22 01/26/22 Unknown Rx Active Medications: Generic Name Dose Route Start Last Admin Trade Name Freq PRN Reason Stop Dose Admin Acetaminophen 650 mg 01/25/22 23:53 Acetaminophen 325 Mg Tab PO Q4H PRN Pain MILD(1-3)/Fever >100.5/STODDARD Azithromycin 500 mg 01/26/22 12:00 01/26/22 15:19 Azithromycin 250 Mg Tab PO 01/29/22 10:01 500 mg QDAY MARLON Administration Protocol Dextrose 75 ml 01/25/22 20:36 01/27/22 04:14 Dextrose 10% *Hypoglycemia IV 75 ml PRN PRN Administration Hypoglycemia Sodium Chloride 1,000 mls @ 75 mls/hr 01/25/22 22:00 01/27/22 04:15 Nacl 0.45% 1000 Ml IV 75 mls/hr DIRECT MARLON Administration Ceftriaxone Sodium 2 gm in 100 mls @ 200 mls/hr 01/26/22 22:00 01/27/22 04:12 Rocephin/Ns 2 Gm/100 Ml IV Infused Q24H MARLON Infusion Protocol Lorazepam 1 mg 01/26/22 00:23 Lorazepam 2 Mg/Ml Vial IV Q4HR PRN Agitation Morphine Sulfate 2 mg 01/25/22 23:53 Morphine 2 Mg/1 Ml Inj IV Q4H PRN Pain, Moderate (4-6) Morphine Sulfate 4 mg 01/25/22 23:53 Morphine 4 Mg/1 Ml Inj IV Q4H PRN Pain , Severe (7-10) Ondansetron HCl 4 mg 01/25/22 23:53 Ondansetron 4 Mg/2 Ml Inj IV Q8H PRN Nausea And Vomiting Sodium Chloride 10 ml 01/26/22 10:00 01/27/22 04:13 Sodium Chloride 0.9% 10 Ml Flush Syringe IV 10 ml BID MARLON Administration Sodium Chloride 10 ml 01/25/22 23:53 Sodium Chloride 0.9% 10 Ml Flush Syringe IV PRN PRN LINE FLUSH
[2022-01-27] MEDS: AZITHROMYCIN 250 MG TAB PO SCH (09:51)
[2022-01-27 10:34] LABS: Hematocrit 28.1 % (35.5-45.6); Hemoglobin 9.5 gm/dl (11.8-15.2); Mean Corpuscular HGB Conc 34 % (32-34); Mean Corpuscular Volume 97 fl (84-94); Red Blood Count 2.91 M/mm3 (3.65-5.03); Red Cell Distribution Width 15.2 % (13.2-15.2)
[2022-01-27 10:35] LABS: Platelet Count 29 K/mm3 (140-440)
[2022-01-27 11:10] LABS: Basophils % (Manual) 0 % (0.0-1.8); Total Cells Counted 100
[2022-01-27 11:11] LABS: Burr Cells 1+; Platelet Estimate Consistent w Auto; Poikilocytosis 1+
--- NOTE | 2022-01-27 12:32 | Gastroenterology Progress Note ---
Assessment and Plan 1. Liver: pt presented w/ acute increased in transaminases most likely due to shock liver - pt labs improving - hepatitis serologies negative today - liver ultrasound benign - continue to follow labs - avoid hepatotoxic drugs - other issues per primary team - will follow Subjective Date of service: 01/27/22 Interval history: - no GI or liver complaints overnight Objective - Constitutional Vitals: Temp Pulse Resp BP Pulse Ox 98.3 F 60 18 156/86 100 01/27/22 11:10 01/27/22 11:10 01/27/22 07:33 01/27/22 11:10 01/27/22 11:10 General appearance: no acute distress - EENT Eyes: PERRL - Respiratory Respiratory: bilateral: CTA - Cardiovascular Rhythm: regular Heart Sounds: Present: S1 & S2 - Gastrointestinal General gastrointestinal: Present: soft, non-tender, non-distended - Labs CBC & Chem 7: 01/27/22 09:52 01/27/22 05:46 Labs: Laboratory Results - last 24 hr 01/26/22 01/26/22 01/26/22 06:03 07:28 09:17 WBC RBC Hgb Hct MCV MCH MCHC RDW Plt Count Add Manual Diff Total Counted Seg Neuts % (Manual) Band Neutrophils % Lymphocytes % (Manual) Reactive Lymphs % (Man) Monocytes % (Manual) Eosinophils % (Manual) Basophils % (Manual) Metamyelocytes % Myelocytes % Promyelocytes % Blast Cells % Nucleated RBC % Seg Neutrophils # Man Band Neutrophils # Lymphocytes # (Manual) Abs React Lymphs (Man) Monocytes # (Manual) Eosinophils # (Manual) Basophils # (Manual) Metamyelocytes # Myelocytes # Promyelocytes # Blast Cells # WBC Morphology Hypersegmented Neuts Hyposegmented Neuts Hypogranular Neuts Smudge Cells Toxic Granulation Toxic Vacuolation Dohle Bodies Pelger-Huet Anomaly Giovana Rods Platelet Estimate Clumped Platelets Plt Clumps, EDTA Large Platelets Giant Platelets Platelet Satelliting Plt Morphology Comment RBC Morphology Dimorphic RBCs Polychromasia Hypochromasia Poikilocytosis Anisocytosis Microcytosis Macrocytosis Spherocytes Pappenheimer Bodies Sickle Cells Target Cells Tear Drop Cells Ovalocytes Helmet Cells [place] Bodies [place] Rings [place] Cells Bite Cells Crenated Cell Elliptocytes Acanthocytes (Spur) Rouleaux Hemoglobin C Crystals Schistocytes Malaria parasites Percent Retic Kana Bodies Hem Pathologist Commnt Fibrinogen Sodium Potassium Chloride Carbon Dioxide Anion Gap BUN Creatinine Estimated GFR BUN/Creatinine Ratio Glucose POC Glucose 66 L 96 Calcium Iron TIBC Total Bilirubin Direct Bilirubin Indirect Bilirubin AST ALT Alkaline Phosphatase Ammonia Lactate Dehydrogenase Total Protein Albumin Albumin/Globulin Ratio Vitamin B12 Folate Urine Creatinine 49.1 H Protein/Creatinin Ratio 0.49 Urine Total Protein 24 H 01/26/22 01/26/22 01/26/22 11:33 14:35 14:35 WBC RBC Hgb Hct MCV MCH MCHC RDW Plt Count Add Manual Diff Total Counted Seg Neuts % (Manual) Band Neutrophils % Lymphocytes % (Manual) Reactive Lymphs % (Man) Monocytes % (Manual) Eosinophils % (Manual) Basophils % (Manual) Metamyelocytes % Myelocytes % Promyelocytes % Blast Cells % Nucleated RBC % Seg Neutrophils # Man Band Neutrophils # Lymphocytes # (Manual) Abs React Lymphs (Man) Monocytes # (Manual) Eosinophils # (Manual) Basophils # (Manual) Metamyelocytes # Myelocytes # Promyelocytes # Blast Cells # WBC Morphology Hypersegmented Neuts Hyposegmented Neuts Hypogranular Neuts Smudge Cells Toxic Granulation Toxic Vacuolation Dohle Bodies Pelger-Huet Anomaly Giovana Rods Platelet Estimate Clumped Platelets Plt Clumps, EDTA Large Platelets Giant Platelets Platelet Satelliting Plt Morphology Comment RBC Morphology Dimorphic RBCs Polychromasia Hypochromasia Poikilocytosis Anisocytosis Microcytosis Macrocytosis Spherocytes Pappenheimer Bodies Sickle Cells Target Cells Tear Drop Cells Ovalocytes Helmet Cells [place] Bodies [place] Rings [place] Cells Bite Cells Crenated Cell Elliptocytes Acanthocytes (Spur) Rouleaux Hemoglobin C Crystals Schistocytes Malaria parasites Percent Retic 0.22 L Kana Bodies Hem Pathologist Commnt Fibrinogen 665 H Sodium Potassium Chloride Carbon Dioxide Anion Gap BUN Creatinine Estimated GFR BUN/Creatinine Ratio Glucose POC Glucose 76 Calcium Iron TIBC Total Bilirubin Direct Bilirubin Indirect Bilirubin AST ALT Alkaline Phosphatase Ammonia Lactate Dehydrogenase Total Protein Albumin Albumin/Globulin Ratio Vitamin B12 Folate Urine Creatinine Protein/Creatinin Ratio Urine Total Protein 01/26/22 01/26/22 01/26/22 14:35 14:35 14:35 WBC RBC Hgb Hct MCV MCH MCHC RDW Plt Count Add Manual Diff Total Counted Seg Neuts % (Manual) Band Neutrophils % Lymphocytes % (Manual) Reactive Lymphs % (Man) Monocytes % (Manual) Eosinophils % (Manual) Basophils % (Manual) Metamyelocytes % Myelocytes % Promyelocytes % Blast Cells % Nucleated RBC % Seg Neutrophils # Man Band Neutrophils # Lymphocytes # (Manual) Abs React Lymphs (Man) Monocytes # (Manual) Eosinophils # (Manual) Basophils # (Manual) Metamyelocytes # Myelocytes # Promyelocytes # Blast Cells # WBC Morphology Hypersegmented Neuts Hyposegmented Neuts Hypogranular Neuts Smudge Cells Toxic Granulation Toxic Vacuolation Dohle Bodies Pelger-Huet Anomaly Giovana Rods Platelet Estimate Clumped Platelets Plt Clumps, EDTA Large Platelets Giant Platelets Platelet Satelliting Plt Morphology Comment RBC Morphology Dimorphic RBCs Polychromasia Hypochromasia Poikilocytosis Anisocytosis Microcytosis Macrocytosis Spherocytes Pappenheimer Bodies Sickle Cells Target Cells Tear Drop Cells Ovalocytes Helmet Cells [place] Bodies [place] Rings [place] Cells Bite Cells Crenated Cell Elliptocytes Acanthocytes (Spur) Rouleaux Hemoglobin C Crystals Schistocytes Malaria parasites Percent Retic Kana Bodies Hem Pathologist Commnt Fibrinogen Sodium Potassium Chloride Carbon Dioxide Anion Gap BUN Creatinine Estimated GFR BUN/Creatinine Ratio Glucose POC Glucose Calcium Iron 127 TIBC 147 L Total Bilirubin Direct Bilirubin Indirect Bilirubin AST ALT Alkaline Phosphatase Ammonia Lactate Dehydrogenase 529 H Total Protein Albumin Albumin/Globulin Ratio Vitamin B12 > 2000 H Folate 4.90 L Urine Creatinine Protein/Creatinin Ratio Urine Total Protein 01/26/22 01/26/22 01/27/22 16:57 20:32 05:46 WBC RBC Hgb Hct MCV MCH MCHC RDW Plt Count Add Manual Diff Total Counted Seg Neuts % (Manual) Band Neutrophils % Lymphocytes % (Manual) Reactive Lymphs % (Man) Monocytes % (Manual) Eosinophils % (Manual) Basophils % (Manual) Metamyelocytes % Myelocytes % Promyelocytes % Blast Cells % Nucleated RBC % Seg Neutrophils # Man Band Neutrophils # Lymphocytes # (Manual) Abs React Lymphs (Man) Monocytes # (Manual) Eosinophils # (Manual) Basophils # (Manual) Metamyelocytes # Myelocytes # Promyelocytes # Blast Cells # WBC Morphology Hypersegmented Neuts Hyposegmented Neuts Hypogranular Neuts Smudge Cells Toxic Granulation Toxic Vacuolation Dohle Bodies Pelger-Huet Anomaly Giovana Rods Platelet Estimate Clumped Platelets Plt Clumps, EDTA Large Platelets Giant Platelets Platelet Satelliting Plt Morphology Comment RBC Morphology Dimorphic RBCs Polychromasia Hypochromasia Poikilocytosis Anisocytosis Microcytosis Macrocytosis Spherocytes Pappenheimer Bodies Sickle Cells Target Cells Tear Drop Cells Ovalocytes Helmet Cells [place] Bodies [place] Rings [place] Cells Bite Cells Crenated Cell Elliptocytes Acanthocytes (Spur) Rouleaux Hemoglobin C Crystals Schistocytes Malaria parasites Percent Retic Kana Bodies Hem Pathologist Commnt Fibrinogen Sodium 142 Potassium 4.7 Chloride 114.2 H Carbon Dioxide 19 L Anion Gap 14 BUN 30 H Creatinine 1.8 H Estimated GFR 45 BUN/Creatinine Ratio 17 Glucose 103 H POC Glucose 87 68 L Calcium 8.5 Iron TIBC Total Bilirubin Direct Bilirubin Indirect Bilirubin AST ALT Alkaline Phosphatase Ammonia Lactate Dehydrogenase Total Protein Albumin Albumin/Globulin Ratio Vitamin B12 Folate Urine Creatinine Protein/Creatinin Ratio Urine Total Protein 01/27/22 01/27/22 01/27/22 05:46 09:52 09:52 WBC 2.1 L RBC 2.91 L Hgb 9.5 L Hct 28.1 L MCV 97 H MCH 33 H MCHC 34 RDW 15.2 Plt Count 29 L Add Manual Diff Complete Total Counted 100 Seg Neuts % (Manual) 92.0 H Band Neutrophils % 0 Lymphocytes % (Manual) 1.0 L Reactive Lymphs % (Man) 0 Monocytes % (Manual) 4.0 Eosinophils % (Manual) 3.0 Basophils % (Manual) 0 Metamyelocytes % 0 Myelocytes % 0 Promyelocytes % 0 Blast Cells % 0 Nucleated RBC % 2.0 H Seg Neutrophils # Man 1.9 Band Neutrophils # 0.0 Lymphocytes # (Manual) 0.0 L Abs React Lymphs (Man) 0.0 Monocytes # (Manual) 0.1 Eosinophils # (Manual) 0.1 Basophils # (Manual) 0.0 Metamyelocytes # 0.0 Myelocytes # 0.0 Promyelocytes # 0.0 Blast Cells # 0.0 WBC Morphology Not Reportable Hypersegmented Neuts Not Reportable Hyposegmented Neuts Not Reportable Hypogranular Neuts Not Reportable Smudge Cells Not Reportable Toxic Granulation Not Reportable Toxic Vacuolation Not Reportable Dohle Bodies Not Reportable Pelger-Huet Anomaly Not Reportable Giovana Rods Not Reportable Platelet Estimate Consistent w auto Clumped Platelets Not Reportable Plt Clumps, EDTA Not Reportable Large Platelets Not Reportable Giant Platelets Not Reportable Platelet Satelliting Not Reportable Plt Morphology Comment Not Reportable RBC Morphology Not Reportable Dimorphic RBCs Not Reportable Polychromasia Not Reportable Hypochromasia Not Reportable Poikilocytosis 1+ Anisocytosis Not Reportable Microcytosis Not Reportable Macrocytosis Not Reportable Spherocytes Not Reportable Pappenheimer Bodies Not Reportable Sickle Cells Not Reportable Target Cells Not Reportable Tear Drop Cells Not Reportable Ovalocytes Not Reportable Helmet Cells Not Reportable [place] Bodies Not Reportable [place] Rings Not Reportable [place] Cells 1+ Bite Cells Not Reportable Crenated Cell Not Reportable Elliptocytes Not Reportable Acanthocytes (Spur) Few Rouleaux Not Reportable Hemoglobin C Crystals Not Reportable Schistocytes Not Reportable Malaria parasites Not Reportable Percent Retic Kana Bodies Not Reportable Hem Pathologist Commnt No Fibrinogen Sodium Potassium Chloride Carbon Dioxide Anion Gap BUN Creatinine Estimated GFR BUN/Creatinine Ratio Glucose POC Glucose Calcium Iron TIBC Total Bilirubin 0.30 Direct Bilirubin < 0.2 Indirect Bilirubin 0.1 AST 560 H ALT 400 H Alkaline Phosphatase 226 H Ammonia 25.0 Lactate Dehydrogenase Total Protein 5.2 L Albumin 2.4 L Albumin/Globulin Ratio 0.9 Vitamin B12 Folate Urine Creatinine Protein/Creatinin Ratio Urine Total Protein
--- NOTE | 2022-01-27 15:34 | Hem/Onc Progress Note ---
<JULES MCMULLEN - Last Filed: 01/27/22 16:49> Subjective Date of service: 01/27/22 Interval history: Heme progress note Televisit via [facility] [place] [id number] Dx thrombocytopenia, leukopenia This is a 76yo AA male with known history of obstructive uropathy, urinary retention, metabolic acidosis, anemia with thrombocytopenia and leukopenia Recent admission to [facility] and discharged yesterday 01/25/22; brought back to the ER because of changes in mental status Teleneurologist following. CTA head and neck did not show any significant findings. Chest x-ray shows possible persistent bibasilar pneumonia. 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 Heme malignancy is possible, although doubt PLAN: Labs to include soheila Pending spep with MORAIMA, pf4 ab, hgep Monitor CBC and plt count trend Transfuse 1 unit whenever hct <23 Transfuse 1 dose of plts whenever plt <20 Laboratory Last Values WBC 2.1 K/mm3 (4.5-11.0) L 01/27/22 09:52 Hgb 9.5 gm/dl (11.8-15.2) L 01/27/22 09:52 Hct 28.1 % (35.5-45.6) L 01/27/22 09:52 MCV 97 fl (84-94) H 01/27/22 09:52 Plt Count 29 K/mm3 (140-440) L 01/27/22 09:52 Add Manual Diff Complete 01/27/22 09:52 Total Counted 100 01/27/22 09:52 Seg Neuts % (Manual) 92.0 % (40.0-70.0) H 01/27/22 09:52 Band Neutrophils % 0 % 01/27/22 09:52 Lymphocytes % (Manual) 1.0 % (13.4-35.0) L 01/27/22 09:52 Reactive Lymphs % (Man) 0 % 01/27/22 09:52 Monocytes % (Manual) 4.0 % (0.0-7.3) 01/27/22 09:52 Eosinophils % (Manual) 3.0 % (0.0-4.3) 01/27/22 09:52 Basophils % (Manual) 0 % (0.0-1.8) 01/27/22 09:52 Metamyelocytes % 0 % 01/27/22 09:52 Myelocytes % 0 % 01/27/22 09:52 Promyelocytes % 0 % 01/27/22 09:52 Blast Cells % 0 % 01/27/22 09:52 Nucleated RBC % 2.0 % (0.0-0.9) H 01/27/22 09:52 Seg Neutrophils # Man 1.9 K/mm3 (1.8-7.7) 01/27/22 09:52 Band Neutrophils # 0.0 K/mm3 01/27/22 09:52 Lymphocytes # (Manual) 0.0 K/mm3 (1.2-5.4) L 01/27/22 09:52 Abs React Lymphs (Man) 0.0 K/mm3 01/27/22 09:52 Monocytes # (Manual) 0.1 K/mm3 (0.0-0.8) 01/27/22 09:52 Eosinophils # (Manual) 0.1 K/mm3 (0.0-0.4) 01/27/22 09:52 Basophils # (Manual) 0.0 K/mm3 (0.0-0.1) 01/27/22 09:52 Metamyelocytes # 0.0 K/mm3 01/27/22 09:52 Myelocytes # 0.0 K/mm3 01/27/22 09:52 Promyelocytes # 0.0 K/mm3 01/27/22 09:52 Blast Cells # 0.0 K/mm3 01/27/22 09:52 WBC Morphology Not Reportable 01/27/22 09:52 Hypersegmented Neuts Not Reportable 01/27/22 09:52 Hyposegmented Neuts Not Reportable 01/27/22 09:52 Hypogranular Neuts Not Reportable 01/27/22 09:52 Smudge Cells Not Reportable 01/27/22 09:52 Toxic Granulation Not Reportable 01/27/22 09:52 Toxic Vacuolation Not Reportable 01/27/22 09:52 Dohle Bodies Not Reportable 01/27/22 09:52 Pelger-Huet Anomaly Not Reportable 01/27/22 09:52 Giovana Rods Not Reportable 01/27/22 09:52 Platelet Estimate Consistent w auto 01/27/22 09:52 Clumped Platelets Not Reportable 01/27/22 09:52 Plt Clumps, EDTA Not Reportable 01/27/22 09:52 Large Platelets Not Reportable 01/27/22 09:52 Giant Platelets Not Reportable 01/27/22 09:52 Platelet Satelliting Not Reportable 01/27/22 09:52 Plt Morphology Comment Not Reportable 01/27/22 09:52 RBC Morphology Not Reportable 01/27/22 09:52 Dimorphic RBCs Not Reportable 01/27/22 09:52 Polychromasia Not Reportable 01/27/22 09:52 Hypochromasia Not Reportable 01/27/22 09:52 Poikilocytosis 1+ 01/27/22 09:52 Anisocytosis Not Reportable 01/27/22 09:52 Microcytosis Not Reportable 01/27/22 09:52 Macrocytosis Not Reportable 01/27/22 09:52 Spherocytes Not Reportable 01/27/22 09:52 Pappenheimer Bodies Not Reportable 01/27/22 09:52 Sickle Cells Not Reportable 01/27/22 09:52 Target Cells Not Reportable 01/27/22 09:52 Tear Drop Cells Not Reportable 01/27/22 09:52 Ovalocytes Not Reportable 01/27/22 09:52 Helmet Cells Not Reportable 01/27/22 09:52 [place] Bodies Not Reportable 01/27/22 09:52 [place] Rings Not Reportable 01/27/22 09:52 Zenaida Cells 1+ 01/27/22 09:52 Bite Cells Not Reportable 01/27/22 09:52 Crenated Cell Not Reportable 01/27/22 09:52 Elliptocytes Not Reportable 01/27/22 09:52 Acanthocytes (Spur) Few 01/27/22 09:52 Rouleaux Not Reportable 01/27/22 09:52 Hemoglobin C Crystals Not Reportable 01/27/22 09:52 Schistocytes Not Reportable 01/27/22 09:52 Malaria parasites Not Reportable 01/27/22 09:52 Percent Retic 0.22 % (0.78-2.58) L 01/26/22 14:35 Kana Bodies Not Reportable 01/27/22 09:52 Hem Pathologist Commnt No 01/27/22 09:52 PT 13.6 Sec. (12.2-14.9) 01/25/22 20:12 INR 0.94 (0.87-1.13) 01/25/22 20:12 APTT 41.1 Sec. (24.2-36.6) H 01/25/22 20:12 Thrombin Time 17.5 Sec. (15.1-19.6) 01/25/22 20:12 Fibrinogen 665 mg/dl (211-480) H 01/26/22 14:35 Creatinine 1.8 mg/dL (0.8-1.3) H 01/27/22 05:46 Iron 127 ug/dL (49-181) 01/26/22 14:35 TIBC 147 mcg/dL (250-450) L 01/26/22 14:35 Ferritin 943.7 ng/mL (30.0-300.0) H 01/26/22 07:44 AST 560 units/L (5-40) H 01/27/22 05:46 ALT 400 units/L (7-56) H 01/27/22 05:46 Alkaline Phosphatase 226 units/L (35-129) H 01/27/22 05:46 Ammonia 25.0 umol/L (25-60) 01/27/22 09:52 Lactate Dehydrogenase 529 units/L (91-180) H 01/26/22 14:35 Vitamin B12 > 2000 pg/mL (211-911) H 01/26/22 14:35 Folate 4.90 ng/mL (7.3-26.0) L 01/26/22 14:35 TSH 2.670 mlU/mL (0.270-4.200) 01/26/22 07:44 Objective - Constitutional Vitals: Last Vital Signs Temp 98.3 F 01/27/22 11:10 Pulse 60 01/27/22 11:10 Resp 18 01/27/22 07:33 BP 156/86 01/27/22 11:10 Pulse Ox 100 01/27/22 11:10 - Labs Lab Results: Laboratory Results - last 24 hr 01/26/22 01/26/22 01/26/22 06:03 07:28 09:17 WBC RBC Hgb Hct MCV MCH MCHC RDW Plt Count Add Manual Diff Total Counted Seg Neuts % (Manual) Band Neutrophils % Lymphocytes % (Manual) Reactive Lymphs % (Man) Monocytes % (Manual) Eosinophils % (Manual) Basophils % (Manual) Metamyelocytes % Myelocytes % Promyelocytes % Blast Cells % Nucleated RBC % Seg Neutrophils # Man Band Neutrophils # Lymphocytes # (Manual) Abs React Lymphs (Man) Monocytes # (Manual) Eosinophils # (Manual) Basophils # (Manual) Metamyelocytes # Myelocytes # Promyelocytes # Blast Cells # WBC Morphology Hypersegmented Neuts Hyposegmented Neuts Hypogranular Neuts Smudge Cells Toxic Granulation Toxic Vacuolation Dohle Bodies Pelger-Huet Anomaly Giovana Rods Platelet Estimate Clumped Platelets Plt Clumps, EDTA Large Platelets Giant Platelets Platelet Satelliting Plt Morphology Comment RBC Morphology Dimorphic RBCs Polychromasia Hypochromasia Poikilocytosis Anisocytosis Microcytosis Macrocytosis Spherocytes Pappenheimer Bodies Sickle Cells Target Cells Tear Drop Cells Ovalocytes Helmet Cells [place] Bodies [place] Rings Zenaida Cells Bite Cells Crenated Cell Elliptocytes Acanthocytes (Spur) Rouleaux Hemoglobin C Crystals Schistocytes Malaria parasites Kana Bodies Hem Pathologist Commnt Fibrinogen Sodium Potassium Chloride Carbon Dioxide Anion Gap BUN Creatinine Estimated GFR BUN/Creatinine Ratio Glucose POC Glucose 66 L 96 Calcium Iron TIBC Total Bilirubin Direct Bilirubin Indirect Bilirubin AST ALT Alkaline Phosphatase Ammonia Lactate Dehydrogenase Total Protein Albumin Albumin/Globulin Ratio Vitamin B12 Folate Urine Creatinine 49.1 H Protein/Creatinin Ratio 0.49 Urine Total Protein 24 H 01/26/22 01/26/22 01/26/22 11:33 14:35 14:35 WBC RBC Hgb Hct MCV MCH MCHC RDW Plt Count Add Manual Diff Total Counted Seg Neuts % (Manual) Band Neutrophils % Lymphocytes % (Manual) Reactive Lymphs % (Man) Monocytes % (Manual) Eosinophils % (Manual) Basophils % (Manual) Metamyelocytes % Myelocytes % Promyelocytes % Blast Cells % Nucleated RBC % Seg Neutrophils # Man Band Neutrophils # Lymphocytes # (Manual) Abs React Lymphs (Man) Monocytes # (Manual) Eosinophils # (Manual) Basophils # (Manual) Metamyelocytes # Myelocytes # Promyelocytes # Blast Cells # WBC Morphology Hypersegmented Neuts Hyposegmented Neuts Hypogranular Neuts Smudge Cells Toxic Granulation Toxic Vacuolation Dohle Bodies Pelger-Huet Anomaly Giovana Rods Platelet Estimate Clumped Platelets Plt Clumps, EDTA Large Platelets Giant Platelets Platelet Satelliting Plt Morphology Comment RBC Morphology Dimorphic RBCs Polychromasia Hypochromasia Poikilocytosis Anisocytosis Microcytosis Macrocytosis Spherocytes Pappenheimer Bodies Sickle Cells Target Cells Tear Drop Cells Ovalocytes Helmet Cells [place] Bodies [place] Cells Bite Cells Crenated Cell Elliptocytes Acanthocytes (Spur) Rouleaux Hemoglobin C Crystals Schistocytes Malaria parasites Kana Bodies Hem Pathologist Commnt Fibrinogen 665 H Sodium Potassium Chloride Carbon Dioxide Anion Gap BUN Creatinine Estimated GFR BUN/Creatinine Ratio Glucose POC Glucose 76 Calcium Iron 127 TIBC 147 L Total Bilirubin Direct Bilirubin Indirect Bilirubin AST ALT Alkaline Phosphatase Ammonia Lactate Dehydrogenase 529 H Total Protein Albumin Albumin/Globulin Ratio Vitamin B12 Folate Urine Creatinine Protein/Creatinin Ratio Urine Total Protein 01/26/22 01/26/22 01/26/22 14:35 14:35 16:57 WBC RBC Hgb Hct MCV MCH MCHC RDW Plt Count Add Manual Diff Total Counted Seg Neuts % (Manual) Band Neutrophils % Lymphocytes % (Manual) Reactive Lymphs % (Man) Monocytes % (Manual) Eosinophils % (Manual) Basophils % (Manual) Metamyelocytes % Myelocytes % Promyelocytes % Blast Cells % Nucleated RBC % Seg Neutrophils # Man Band Neutrophils # Lymphocytes # (Manual) Abs React Lymphs (Man) Monocytes # (Manual) Eosinophils # (Manual) Basophils # (Manual) Metamyelocytes # Myelocytes # Promyelocytes # Blast Cells # WBC Morphology Hypersegmented Neuts Hyposegmented Neuts Hypogranular Neuts Smudge Cells Toxic Granulation Toxic Vacuolation Dohle Bodies Pelger-Huet Anomaly Giovana Rods Platelet Estimate Clumped Platelets Plt Clumps, EDTA Large Platelets Giant Platelets Platelet Satelliting Plt Morphology Comment RBC Morphology Dimorphic RBCs Polychromasia Hypochromasia Poikilocytosis Anisocytosis Microcytosis Macrocytosis Spherocytes Pappenheimer Bodies Sickle Cells Target Cells Tear Drop Cells Ovalocytes Helmet Cells [place] Bodies [place] Cells Bite Cells Crenated Cell Elliptocytes Acanthocytes (Spur) Rouleaux Hemoglobin C Crystals Schistocytes Malaria parasites Kana Bodies Hem Pathologist Commnt Fibrinogen Sodium Potassium Chloride Carbon Dioxide Anion Gap BUN Creatinine Estimated GFR BUN/Creatinine Ratio Glucose POC Glucose 87 Calcium Iron TIBC Total Bilirubin Direct Bilirubin Indirect Bilirubin AST ALT Alkaline Phosphatase Ammonia Lactate Dehydrogenase Total Protein Albumin Albumin/Globulin Ratio Vitamin B12 > 2000 H Folate 4.90 L Urine Creatinine Protein/Creatinin Ratio Urine Total Protein 01/26/22 01/27/22 01/27/22 20:32 05:46 05:46 WBC RBC Hgb Hct MCV MCH MCHC RDW Plt Count Add Manual Diff Total Counted Seg Neuts % (Manual) Band Neutrophils % Lymphocytes % (Manual) Reactive Lymphs % (Man) Monocytes % (Manual) Eosinophils % (Manual) Basophils % (Manual) Metamyelocytes % Myelocytes % Promyelocytes % Blast Cells % Nucleated RBC % Seg Neutrophils # Man Band Neutrophils # Lymphocytes # (Manual) Abs React Lymphs (Man) Monocytes # (Manual) Eosinophils # (Manual) Basophils # (Manual) Metamyelocytes # Myelocytes # Promyelocytes # Blast Cells # WBC Morphology Hypersegmented Neuts Hyposegmented Neuts Hypogranular Neuts Smudge Cells Toxic Granulation Toxic Vacuolation Dohle Bodies Pelger-Huet Anomaly Giovana Rods Platelet Estimate Clumped Platelets Plt Clumps, EDTA Large Platelets Giant Platelets Platelet Satelliting Plt Morphology Comment RBC Morphology Dimorphic RBCs Polychromasia Hypochromasia Poikilocytosis Anisocytosis Microcytosis Macrocytosis Spherocytes Pappenheimer Bodies Sickle Cells Target Cells Tear Drop Cells Ovalocytes Helmet Cells [place] Bodies [place] Rings Zenaida Cells Bite Cells Crenated Cell Elliptocytes Acanthocytes (Spur) Rouleaux Hemoglobin C Crystals Schistocytes Malaria parasites Kana Bodies Hem Pathologist Commnt Fibrinogen Sodium 142 Potassium 4.7 Chloride 114.2 H Carbon Dioxide 19 L Anion Gap 14 BUN 30 H Creatinine 1.8 H Estimated GFR 45 BUN/Creatinine Ratio 17 Glucose 103 H POC Glucose 68 L Calcium 8.5 Iron TIBC Total Bilirubin 0.30 Direct Bilirubin < 0.2 Indirect Bilirubin 0.1 AST 560 H ALT 400 H Alkaline Phosphatase 226 H Ammonia Lactate Dehydrogenase Total Protein 5.2 L Albumin 2.4 L Albumin/Globulin Ratio 0.9 Vitamin B12 Folate Urine Creatinine Protein/Creatinin Ratio Urine Total Protein 01/27/22 01/27/22 09:52 09:52 WBC 2.1 L RBC 2.91 L Hgb 9.5 L Hct 28.1 L MCV 97 H MCH 33 H MCHC 34 RDW 15.2 Plt Count 29 L Add Manual Diff Complete Total Counted 100 Seg Neuts % (Manual) 92.0 H Band Neutrophils % 0 Lymphocytes % (Manual) 1.0 L Reactive Lymphs % (Man) 0 Monocytes % (Manual) 4.0 Eosinophils % (Manual) 3.0 Basophils % (Manual) 0 Metamyelocytes % 0 Myelocytes % 0 Promyelocytes % 0 Blast Cells % 0 Nucleated RBC % 2.0 H Seg Neutrophils # Man 1.9 Band Neutrophils # 0.0 Lymphocytes # (Manual) 0.0 L Abs React Lymphs (Man) 0.0 Monocytes # (Manual) 0.1 Eosinophils # (Manual) 0.1 Basophils # (Manual) 0.0 Metamyelocytes # 0.0 Myelocytes # 0.0 Promyelocytes # 0.0 Blast Cells # 0.0 WBC Morphology Not Reportable Hypersegmented Neuts Not Reportable Hyposegmented Neuts Not Reportable Hypogranular Neuts Not Reportable Smudge Cells Not Reportable Toxic Granulation Not Reportable Toxic Vacuolation Not Reportable Dohle Bodies Not Reportable Pelger-Huet Anomaly Not Reportable Giovana Rods Not Reportable Platelet Estimate Consistent w auto Clumped Platelets Not Reportable Plt Clumps, EDTA Not Reportable Large Platelets Not Reportable Giant Platelets Not Reportable Platelet Satelliting Not Reportable Plt Morphology Comment Not Reportable RBC Morphology Not Reportable Dimorphic RBCs Not Reportable Polychromasia Not Reportable Hypochromasia Not Reportable Poikilocytosis 1+ Anisocytosis Not Reportable Microcytosis Not Reportable Macrocytosis Not Reportable Spherocytes Not Reportable Pappenheimer Bodies Not Reportable Sickle Cells Not Reportable Target Cells Not Reportable Tear Drop Cells Not Reportable Ovalocytes Not Reportable Helmet Cells Not Reportable [place] Bodies Not Reportable [place] Rings Not Reportable [place] Cells 1+ Bite Cells Not Reportable Crenated Cell Not Reportable Elliptocytes Not Reportable Acanthocytes (Spur) Few Rouleaux Not Reportable Hemoglobin C Crystals Not Reportable Schistocytes Not Reportable Malaria parasites Not Reportable Kana Bodies Not Reportable Hem Pathologist Commnt No Fibrinogen Sodium Potassium Chloride Carbon Dioxide Anion Gap BUN Creatinine Estimated GFR BUN/Creatinine Ratio Glucose POC Glucose Calcium Iron TIBC Total Bilirubin Direct Bilirubin Indirect Bilirubin AST ALT Alkaline Phosphatase Ammonia 25.0 Lactate Dehydrogenase Total Protein Albumin Albumin/Globulin Ratio Vitamin B12 Folate Urine Creatinine Protein/Creatinin Ratio Urine Total Protein Medications & Allergies - Medications Allergies/Adverse Reactions: Allergies No Known Allergies Allergy (Unverified 01/20/22 10:47) Home Medications: Home Medications Medication Instructions Recorded Confirmed Last Taken Type Sodium Bicarbonate 1,300 mg PO TID #90 tablet 01/25/22 01/26/22 Unknown Rx Tamsulosin [Flomax] 0.4 mg PO QDAY #30 capsule 01/25/22 01/26/22 Unknown Rx amLODIPine 10 mg PO QDAY #30 tablet 01/25/22 01/26/22 Unknown Rx Active Medications: Generic Name Dose Route Start Last Admin Trade Name Freq PRN Reason Stop Dose Admin Acetaminophen 650 mg 01/25/22 23:53 Acetaminophen 325 Mg Tab PO Q4H PRN Pain MILD(1-3)/Fever >100.5/STODDARD Amlodipine Besylate 10 mg 01/27/22 11:00 Amlodipine 10 Mg Tab PO QDAY MARLON Azithromycin 500 mg 01/26/22 12:00 01/27/22 09:51 Azithromycin 250 Mg Tab PO 01/29/22 10:01 500 mg QDAY MARLON Administration Protocol Dextrose 75 ml 01/25/22 20:36 01/27/22 04:14 Dextrose 10% *Hypoglycemia IV 75 ml PRN PRN Administration Hypoglycemia Folic Acid 1 mg 01/27/22 11:00 Folic Acid 1 Mg Tab PO QDAY MARLON Sodium Chloride 1,000 mls @ 75 mls/hr 01/25/22 22:00 01/27/22 04:15 Nacl 0.45% 1000 Ml IV 75 mls/hr DIRECT MARLON Administration Ceftriaxone Sodium 2 gm in 100 mls @ 200 mls/hr 01/26/22 22:00 01/27/22 04:12 Rocephin/Ns 2 Gm/100 Ml IV Infused Q24H MARLON Infusion Protocol Lorazepam 1 mg 01/26/22 00:23 Lorazepam 2 Mg/Ml Vial IV Q4HR PRN Agitation Morphine Sulfate 2 mg 01/25/22 23:53 Morphine 2 Mg/1 Ml Inj IV Q4H PRN Pain, Moderate (4-6) Morphine Sulfate 4 mg 01/25/22 23:53 Morphine 4 Mg/1 Ml Inj IV Q4H PRN Pain , Severe (7-10) Ondansetron HCl 4 mg 01/25/22 23:53 Ondansetron 4 Mg/2 Ml Inj IV Q8H PRN Nausea And Vomiting Sodium Bicarbonate 1,300 mg 01/27/22 14:00 Sodium Bicarbonate 650 Mg Tab PO TID MARLON Sodium Chloride 10 ml 01/26/22 10:00 01/27/22 09:45 Sodium Chloride 0.9% 10 Ml Flush Syringe IV 10 ml BID MARLON Administration Sodium Chloride 10 ml 01/25/22 23:53 Sodium Chloride 0.9% 10 Ml Flush Syringe IV PRN PRN LINE FLUSH Tamsulosin HCl 0.4 mg 01/27/22 11:00 Tamsulosin 0.4 Mg Cap PO QDAY [facility] <JOSELUIS DURHAM - Last Filed: 01/31/22 23:21> Subjective Date of service: 01/27/22 Objective - Constitutional Vitals: Last Vital Signs Temp 97.9 F 01/28/22 04:23 Pulse 61 01/28/22 04:23 Resp 17 01/28/22 04:23 BP 133/79 01/28/22 04:23 Pulse Ox 96 01/28/22 04:23 - Labs Lab Results: Laboratory Results - last 24 hr 01/27/22 01/27/22 01/27/22 05:46 07:33 09:52 WBC 2.1 L RBC 2.91 L Hgb 9.5 L Hct 28.1 L MCV 97 H MCH 33 H MCHC 34 RDW 15.2 Plt Count 29 L Add Manual Diff Complete Total Counted 100 Seg Neuts % (Manual) 92.0 H Band Neutrophils % 0 Lymphocytes % (Manual) 1.0 L Reactive Lymphs % (Man) 0 Monocytes % (Manual) 4.0 Eosinophils % (Manual) 3.0 Basophils % (Manual) 0 Metamyelocytes % 0 Myelocytes % 0 Promyelocytes % 0 Blast Cells % 0 Nucleated RBC % 2.0 H Seg Neutrophils # Man 1.9 Band Neutrophils # 0.0 Lymphocytes # (Manual) 0.0 L Abs React Lymphs (Man) 0.0 Monocytes # (Manual) 0.1 Eosinophils # (Manual) 0.1 Basophils # (Manual) 0.0 Metamyelocytes # 0.0 Myelocytes # 0.0 Promyelocytes # 0.0 Blast Cells # 0.0 WBC Morphology Not Reportable Hypersegmented Neuts Not Reportable Hyposegmented Neuts Not Reportable Hypogranular Neuts Not Reportable Smudge Cells Not Reportable Toxic Granulation Not Reportable Toxic Vacuolation Not Reportable Dohle Bodies Not Reportable Pelger-Huet Anomaly Not Reportable Giovana Rods Not Reportable Platelet Estimate Consistent w auto Clumped Platelets Not Reportable Plt Clumps, EDTA Not Reportable Large Platelets Not Reportable Giant Platelets Not Reportable Platelet Satelliting Not Reportable Plt Morphology Comment Not Reportable RBC Morphology Not Reportable Dimorphic RBCs Not Reportable Polychromasia Not Reportable Hypochromasia Not Reportable Poikilocytosis 1+ Anisocytosis Not Reportable Microcytosis Not Reportable Macrocytosis Not Reportable Spherocytes Not Reportable Pappenheimer Bodies Not Reportable Sickle Cells Not Reportable Target Cells Not Reportable Tear Drop Cells Not Reportable Ovalocytes Not Reportable Helmet Cells Not Reportable [place] Bodies Not Reportable [place] Rings Not Reportable Zenaida Cells 1+ Bite Cells Not Reportable Crenated Cell Not Reportable Elliptocytes Not Reportable Acanthocytes (Spur) Few Rouleaux Not Reportable Hemoglobin C Crystals Not Reportable Schistocytes Not Reportable Malaria parasites Not Reportable Kana Bodies Not Reportable Hem Pathologist Commnt No POC Glucose 93 Total Bilirubin 0.30 Direct Bilirubin < 0.2 Indirect Bilirubin 0.1 AST 560 H ALT 400 H Alkaline Phosphatase 226 H Ammonia Total Protein 5.2 L Albumin 2.4 L Albumin/Globulin Ratio 0.9 01/27/22 01/27/22 01/27/22 09:52 11:34 16:22 WBC RBC Hgb Hct MCV MCH MCHC RDW Plt Count Add Manual Diff Total Counted Seg Neuts % (Manual) Band Neutrophils % Lymphocytes % (Manual) Reactive Lymphs % (Man) Monocytes % (Manual) Eosinophils % (Manual) Basophils % (Manual) Metamyelocytes % Myelocytes % Promyelocytes % Blast Cells % Nucleated RBC % Seg Neutrophils # Man Band Neutrophils # Lymphocytes # (Manual) Abs React Lymphs (Man) Monocytes # (Manual) Eosinophils # (Manual) Basophils # (Manual) Metamyelocytes # Myelocytes # Promyelocytes # Blast Cells # WBC Morphology Hypersegmented Neuts Hyposegmented Neuts Hypogranular Neuts Smudge Cells Toxic Granulation Toxic Vacuolation Dohle Bodies Pelger-Huet Anomaly Giovana Rods Platelet Estimate Clumped Platelets Plt Clumps, EDTA Large Platelets Giant Platelets Platelet Satelliting Plt Morphology Comment RBC Morphology Dimorphic RBCs Polychromasia Hypochromasia Poikilocytosis Anisocytosis Microcytosis Macrocytosis Spherocytes Pappenheimer Bodies Sickle Cells Target Cells Tear Drop Cells Ovalocytes Helmet Cells [place] Bodies [place] Cells Bite Cells Crenated Cell Elliptocytes Acanthocytes (Spur) Rouleaux Hemoglobin C Crystals Schistocytes Malaria parasites Kana Bodies Hem Pathologist Commnt POC Glucose 76 89 Total Bilirubin Direct Bilirubin Indirect Bilirubin AST ALT Alkaline Phosphatase Ammonia 25.0 Total Protein Albumin Albumin/Globulin Ratio Medications & Allergies - Medications Active Medications: Generic Name Dose Route Start Last Admin Trade Name Freq PRN Reason Stop Dose Admin Acetaminophen 650 mg 01/25/22 23:53 Acetaminophen 325 Mg Tab PO Q4H PRN Pain MILD(1-3)/Fever >100.5/STODDARD Amlodipine Besylate 10 mg 01/27/22 11:00 01/27/22 21:07 Amlodipine 10 Mg Tab PO Not Given QDAY MARLON Azithromycin 500 mg 01/26/22 12:00 01/27/22 09:51 Azithromycin 250 Mg Tab PO 01/29/22 10:01 500 mg QDAY MARLON Administration Protocol Dextrose 75 ml 01/25/22 20:36 01/28/22 06:13 Dextrose 10% *Hypoglycemia IV 75 ml PRN PRN Administration Hypoglycemia Folic Acid 1 mg 01/27/22 11:00 01/27/22 21:08 Folic Acid 1 Mg Tab PO Not Given QDAY MARLON Sodium Chloride 1,000 mls @ 75 mls/hr 01/25/22 22:00 01/27/22 21:06 Nacl 0.45% 1000 Ml IV Infused DIRECT MARLON Infusion Ceftriaxone Sodium 2 gm in 100 mls @ 200 mls/hr 01/26/22 22:00 01/27/22 22:02 Rocephin/Ns 2 Gm/100 Ml IV 200 mls/hr Q24H MARLON Administration Protocol Lorazepam 1 mg 01/26/22 00:23 01/27/22 22:03 Lorazepam 2 Mg/Ml Vial IV 1 mg Q4HR PRN Administration Agitation Morphine Sulfate 2 mg 01/25/22 23:53 Morphine 2 Mg/1 Ml Inj IV Q4H PRN Pain, Moderate (4-6) Morphine Sulfate 4 mg 01/25/22 23:53 Morphine 4 Mg/1 Ml Inj IV Q4H PRN Pain , Severe (7-10) Ondansetron HCl 4 mg 01/25/22 23:53 Ondansetron 4 Mg/2 Ml Inj IV Q8H PRN Nausea And Vomiting Sodium Bicarbonate 1,300 mg 01/27/22 14:00 01/27/22 22:02 Sodium Bicarbonate 650 Mg Tab PO 1,300 mg TID MARLON Administration Sodium Chloride 10 ml 01/26/22 10:00 01/27/22 22:03 Sodium Chloride 0.9% 10 Ml Flush Syringe IV 10 ml BID MARLON Administration Sodium Chloride 10 ml 01/25/22 23:53 Sodium Chloride 0.9% 10 Ml Flush Syringe IV PRN PRN LINE FLUSH Tamsulosin HCl 0.4 mg 01/27/22 11:00 01/27/22 21:07 Tamsulosin 0.4 Mg Cap PO Not Given QDAY MARLON - Addendum Note: reviewed by me This could be heme malignancy will consider requesting BMBx
--- NOTE | 2022-01-27 17:57 | Progress Note ---
Assessment and Plan 76-year-old -[place] male with known history of obstructive uropathy, urinary retention, metabolic acidosis, anemia with thrombocytopenia and leukopenia who was discharge sometime in the afternoon but later brought back to the emergency room same day because of changes in mental status. Patient was accompanied by his roommate who indicates that patient has had change in his mental status and was not able to communicate well since discharge from the hospital.Patient was evaluated by the teleneurologist and was not deemed to be a TPA candidate. Work-up in the emergency room reveals thrombocytopenia of 32, BUN of 40 and creatinine of 2.3. Elevated AST and ALT of 565 and 379 respectively. Alkaline phos of 246 and creatinine kinase of 242. Troponin was elevated at 0.094. Urinalysis showed trace bacteria and trace leukocyte esterase. CTA head and neck did not show any significant findings. Chest x-ray shows possible persistent bibasilar pneumonia. Patient was admitted for further evaluation management Assessment and plan: --Acute metabolic encephalopathy We will continue to monitor mental status. CT scan of the head, CTA head and neck were nonspecific. Follow clinically with frequent neuro exam -- Pulmonary infiltrate/possible aspiration pneumonia Patient will be placed on empiric IV antibiotics. We will consult infectious disease as needed. --Renal insufficiency/JESSIKA on possible CKD Continue IV fluid Consult placed to nephrology for evaluation. --Thrombocytopenia and leukopenia We will monitor CBC. Consult will be placed to heme-onc for evaluation and recommendation. Pending BM biopsy results Monitor CBC Labs to include cardiolipin ab and PTT mixing study Pending spep with MORAIMA, pf4 ab, hgep, soheila Transfuse 1 unit whenever hct <23 Transfuse 1 dose of plts whenever plt <20 -- Transaminitis, likely shock liver We will continue to monitor LFTs. We await gastroenterology evaluation and recommendations. -- DVT prophylaxis Patient will be placed on sequential compression device. -- Full code status Disposition: Medically not stable for discharge 01/26: Patient remains confused, continue antibiotics. follow renal function, follow LFT., Wait for consultants recommendation. 01/27: Creatinine slightly improved, patient mental status improving, tolerating diet. Hematology nephrology and GI following. Hematology recommended bone marrow biopsy for leukopenia and thrombocytopenia. Subjective Date of service: 01/27/22 Interval history: Patient seen and examined. Medical records and medication list reviewed. No acute event overnight noted by the RN. Patient appears more alert and oriented today Patient tolerating diet, renal function improving Discussed plan of care at bedside with patient's RN. Objective - Exam Narrative Exam: General appearance: Present: no acute distress, cachectic, other (Dry oral mucosa) - EENT Eyes: Present: PERRL, EOM intact ENT: hearing intact, clear oral mucosa, dentition normal - Neck Neck: Present: supple, normal ROM - Respiratory Respiratory effort: normal Respiratory: bilateral: diminished - Cardiovascular Rhythm: regular Heart Sounds: Present: S1 & S2. Absent: gallop, systolic murmur, diastolic murmur, rub, click - Extremities Extremities: no ischemia, pulses intact, pulses symmetrical, No edema, normal temperature, normal color, Full ROM Peripheral Pulses: within normal limits - Abdominal General gastrointestinal: Present: soft, non-tender, non-distended, normal bowel sounds. Absent: mass Male genitourinary: Present: normal (Leal catheter in place) - Integumentary Integumentary: Present: clear, warm, dry, normal turgor. Absent: jaundice, rash - Musculoskeletal Musculoskeletal: strength equal bilaterally - Psychiatric Psychiatric: cooperative - Neurologic Neurologic: no focal deficits, follow commands - Constitutional Vitals: Vital Signs - 12hr 01/27/22 01/27/22 01/27/22 07:33 10:00 11:10 Temperature 98.3 F 98.3 F Pulse Rate 62 60 Respiratory 18 Rate Blood Pressure 143/83 156/86 O2 Sat by Pulse 99 98 100 Oximetry 01/27/22 16:18 Temperature 98.3 F Pulse Rate 73 Respiratory 18 Rate Blood Pressure 131/77 O2 Sat by Pulse 100 Oximetry - Labs CBC & Chem 7: 01/28/22 08:08 01/28/22 08:08 Labs: Abnormal lab results 01/26/22 01/26/22 01/26/22 Range/Units 06:03 09:17 20:32 WBC (4.5-11.0) K/mm3 RBC (3.65-5.03) M/mm3 Hgb (11.8-15.2) gm/dl Hct (35.5-45.6) % MCV (84-94) fl MCH (28-32) pg Plt Count (140-440) K/mm3 Seg Neuts % (Manual) (40.0-70.0) % Lymphocytes % (Manual) (13.4-35.0) % Nucleated RBC % (0.0-0.9) % Lymphocytes # (Manual) (1.2-5.4) K/mm3 Chloride (98-107) mmol/L Carbon Dioxide (22-30) mmol/L BUN (9-20) mg/dL Creatinine (0.8-1.3) mg/dL Glucose (75-100) mg/dL POC Glucose 66 L 68 L (70-105) mg/dL AST (5-40) units/L ALT (7-56) units/L Alkaline Phosphatase (35-129) units/L Total Protein (6.3-8.2) g/dL Albumin (3.9-5) g/dL Urine Creatinine 49.1 H (0.1-20.0) mg/dL Urine Total Protein 24 H (5-11.8) mg/dL 01/27/22 01/27/22 01/27/22 Range/Units 05:46 05:46 09:52 WBC 2.1 L (4.5-11.0) K/mm3 RBC 2.91 L (3.65-5.03) M/mm3 Hgb 9.5 L (11.8-15.2) gm/dl Hct 28.1 L (35.5-45.6) % MCV 97 H (84-94) fl MCH 33 H (28-32) pg Plt Count 29 L (140-440) K/mm3 Seg Neuts % (Manual) 92.0 H (40.0-70.0) % Lymphocytes % (Manual) 1.0 L (13.4-35.0) % Nucleated RBC % 2.0 H (0.0-0.9) % Lymphocytes # (Manual) 0.0 L (1.2-5.4) K/mm3 Chloride 114.2 H (98-107) mmol/L Carbon Dioxide 19 L (22-30) mmol/L BUN 30 H (9-20) mg/dL Creatinine 1.8 H (0.8-1.3) mg/dL Glucose 103 H (75-100) mg/dL POC Glucose (70-105) mg/dL AST 560 H (5-40) units/L ALT 400 H (7-56) units/L Alkaline Phosphatase 226 H (35-129) units/L Total Protein 5.2 L (6.3-8.2) g/dL Albumin 2.4 L (3.9-5) g/dL Urine Creatinine (0.1-20.0) mg/dL Urine Total Protein (5-11.8) mg/dL HEART Score - HEART Score Troponin: Troponin T 0.094 ng/mL (0.00-0.029) H 01/25/22 20:12
[2022-01-27] MEDS: amLODIPine 10 MG TAB PO SCH (21:07)
[2022-01-27] MEDS: TAMSULOSIN 0.4 MG CAP PO SCH (21:07)
[2022-01-27] MEDS: SODIUM BICARBONATE 650 MG TAB PO SCH ×2 (21:08→22:02)
[2022-01-27] MEDS: FOLIC ACID 1 MG TAB PO SCH (21:08)
[2022-01-27] MEDS: cefTRIAXone/NS 2 GM/100 ML 2 GM/100 ML BAG IV SCH (22:02)
[2022-01-27] MEDS: LORazepam 2 MG/ML VIAL IV PRN (22:03)
[2022-01-28] MEDS: DEXTROSE 10% *Hypoglycemia IV PRN (06:13)
[2022-01-28] MEDS: SODIUM BICARBONATE 650 MG TAB PO SCH ×3 (08:00→20:40)
[2022-01-28] MEDS ORDERED: ONDANSETRON 4 MG/2 ML INJ IV NR (08:42)
[2022-01-28] MEDS ORDERED: HYDROmorphone 1 MG/1 ML INJ ONE (08:47)
[2022-01-28] MEDS ORDERED: SODIUM CHLORIDE 0.9% 500 ML 0 ML ONE (08:50)
[2022-01-28 08:51] LABS: Hematocrit 26.5 % (35.5-45.6); Mean Corpuscular HGB Conc 34 % (32-34); Mean Corpuscular Volume 96 fl (84-94); Red Blood Count 2.75 M/mm3 (3.65-5.03); Red Cell Distribution Width 15.2 % (13.2-15.2)
[2022-01-28 09:00] LABS: Platelet Count 33 K/mm3 (140-440)
[2022-01-28] MEDS ORDERED: HYDROmorphone 1 MG/1 ML INJ IV PRN (09:00)
--- NOTE | 2022-01-28 09:53 | Hem/Onc Progress Note ---
Subjective Date of service: 01/28/22 Interval history: Heme progress note televisit cart unavailable--discussed with RN CPT 03658 Dx Pancytopenia This is a 76yo AA male with known history of obstructive uropathy, urinary retention, metabolic acidosis, anemia with thrombocytopenia and leukopenia Recent admission to [facility] and discharged yesterday 01/25/22; brought back to the ER because of changes in mental status Teleneurologist following. CTA head and neck did not show any significant findings. Chest x-ray shows possible persistent bibasilar pneumonia. Hematology was consulted for evaluation of low wbc and thrombocytopenia Previous admission, platelets trended between 82 on 01/20/22 - now 33 As per RN, patient is currently having BM biopsy Continues AAOx1 No bleeding reported DATA REVIEWED BELOW retic 0.22 ldh 529 IMP: Pancytopenia, heme malignancy is possible with retic 0.22 ldh 529 BM biopsy today 01/28/22 Thrombocytopenia Cirrhosis, liver dysfunction Elevated PTT, r/o lupus anticoagulant PLAN: Pending BM biopsy results Monitor CBC Labs to include cardiolipin ab and PTT mixing study Pending spep with MORAIMA, pf4 ab, hgep, soheila Transfuse 1 unit whenever hct <23 Transfuse 1 dose of plts whenever plt <20 Laboratory Last Values WBC 2.2 K/mm3 (4.5-11.0) L 01/28/22 08:08 Hgb 9.0 gm/dl (11.8-15.2) L 01/28/22 08:08 Hct 26.5 % (35.5-45.6) L 01/28/22 08:08 MCV 96 fl (84-94) H 01/28/22 08:08 Plt Count 33 K/mm3 (140-440) L 01/28/22 08:08 Add Manual Diff Complete 01/27/22 09:52 Total Counted 100 01/27/22 09:52 Seg Neuts % (Manual) 92.0 % (40.0-70.0) H 01/27/22 09:52 Band Neutrophils % 0 % 01/27/22 09:52 Lymphocytes % (Manual) 1.0 % (13.4-35.0) L 01/27/22 09:52 Reactive Lymphs % (Man) 0 % 01/27/22 09:52 Monocytes % (Manual) 4.0 % (0.0-7.3) 01/27/22 09:52 Eosinophils % (Manual) 3.0 % (0.0-4.3) 01/27/22 09:52 Basophils % (Manual) 0 % (0.0-1.8) 01/27/22 09:52 Metamyelocytes % 0 % 01/27/22 09:52 Myelocytes % 0 % 01/27/22 09:52 Promyelocytes % 0 % 01/27/22 09:52 Blast Cells % 0 % 01/27/22 09:52 Nucleated RBC % 2.0 % (0.0-0.9) H 01/27/22 09:52 Seg Neutrophils # Man 1.9 K/mm3 (1.8-7.7) 01/27/22 09:52 Band Neutrophils # 0.0 K/mm3 01/27/22 09:52 Lymphocytes # (Manual) 0.0 K/mm3 (1.2-5.4) L 01/27/22 09:52 Abs React Lymphs (Man) 0.0 K/mm3 01/27/22 09:52 Monocytes # (Manual) 0.1 K/mm3 (0.0-0.8) 01/27/22 09:52 Eosinophils # (Manual) 0.1 K/mm3 (0.0-0.4) 01/27/22 09:52 Basophils # (Manual) 0.0 K/mm3 (0.0-0.1) 01/27/22 09:52 Metamyelocytes # 0.0 K/mm3 01/27/22 09:52 Myelocytes # 0.0 K/mm3 01/27/22 09:52 Promyelocytes # 0.0 K/mm3 01/27/22 09:52 Blast Cells # 0.0 K/mm3 01/27/22 09:52 WBC Morphology Not Reportable 01/27/22 09:52 Hypersegmented Neuts Not Reportable 01/27/22 09:52 Hyposegmented Neuts Not Reportable 01/27/22 09:52 Hypogranular Neuts Not Reportable 01/27/22 09:52 Smudge Cells Not Reportable 01/27/22 09:52 Toxic Granulation Not Reportable 01/27/22 09:52 Toxic Vacuolation Not Reportable 01/27/22 09:52 Dohle Bodies Not Reportable 01/27/22 09:52 Pelger-Huet Anomaly Not Reportable 01/27/22 09:52 Giovana Rods Not Reportable 01/27/22 09:52 Platelet Estimate Consistent w auto 01/27/22 09:52 Clumped Platelets Not Reportable 01/27/22 09:52 Plt Clumps, EDTA Not Reportable 01/27/22 09:52 Large Platelets Not Reportable 01/27/22 09:52 Giant Platelets Not Reportable 01/27/22 09:52 Platelet Satelliting Not Reportable 01/27/22 09:52 Plt Morphology Comment Not Reportable 01/27/22 09:52 RBC Morphology Not Reportable 01/27/22 09:52 Dimorphic RBCs Not Reportable 01/27/22 09:52 Polychromasia Not Reportable 01/27/22 09:52 Hypochromasia Not Reportable 01/27/22 09:52 Poikilocytosis 1+ 01/27/22 09:52 Anisocytosis Not Reportable 01/27/22 09:52 Microcytosis Not Reportable 01/27/22 09:52 Macrocytosis Not Reportable 01/27/22 09:52 Spherocytes Not Reportable 01/27/22 09:52 Pappenheimer Bodies Not Reportable 01/27/22 09:52 Sickle Cells Not Reportable 01/27/22 09:52 Target Cells Not Reportable 01/27/22 09:52 Tear Drop Cells Not Reportable 01/27/22 09:52 Ovalocytes Not Reportable 01/27/22 09:52 Helmet Cells Not Reportable 01/27/22 09:52 [place] Bodies Not Reportable 01/27/22 09:52 [place] Rings Not Reportable 01/27/22 09:52 Zenaida Cells 1+ 01/27/22 09:52 Bite Cells Not Reportable 01/27/22 09:52 Crenated Cell Not Reportable 01/27/22 09:52 Elliptocytes Not Reportable 01/27/22 09:52 Acanthocytes (Spur) Few 01/27/22 09:52 Rouleaux Not Reportable 01/27/22 09:52 Hemoglobin C Crystals Not Reportable 01/27/22 09:52 Schistocytes Not Reportable 01/27/22 09:52 Malaria parasites Not Reportable 01/27/22 09:52 Percent Retic 0.22 % (0.78-2.58) L 01/26/22 14:35 Kana Bodies Not Reportable 01/27/22 09:52 Hem Pathologist Commnt No 01/27/22 09:52 PT 13.6 Sec. (12.2-14.9) 01/25/22 20:12 INR 0.94 (0.87-1.13) 01/25/22 20:12 APTT 41.1 Sec. (24.2-36.6) H 01/25/22 20:12 Thrombin Time 17.5 Sec. (15.1-19.6) 01/25/22 20:12 Fibrinogen 665 mg/dl (211-480) H 01/26/22 14:35 Creatinine 1.8 mg/dL (0.8-1.3) H 01/27/22 05:46 Uric Acid 7.1 mg/dL (3.5-7.6) 01/28/22 08:08 Calcium 8.5 mg/dL (8.4-10.2) 01/27/22 05:46 Magnesium 1.80 mg/dL (1.7-2.3) 01/25/22 20:12 Iron 127 ug/dL (49-181) 01/26/22 14:35 TIBC 147 mcg/dL (250-450) L 01/26/22 14:35 Ferritin 943.7 ng/mL (30.0-300.0) H 01/26/22 07:44 AST 560 units/L (5-40) H 01/27/22 05:46 ALT 400 units/L (7-56) H 01/27/22 05:46 Alkaline Phosphatase 226 units/L (35-129) H 01/27/22 05:46 Ammonia 25.0 umol/L (25-60) 01/27/22 09:52 Lactate Dehydrogenase 529 units/L (91-180) H 01/26/22 14:35 Total Creatine Kinase 242 units/L (55-170) H 01/25/22 20:12 CK-MB (CK-2) 10.0 ng/mL (0.0-4.0) H 01/25/22 20:12 CK-MB (CK-2) Rel Index 4.1 (0-4) H 01/25/22 20:12 Troponin T 0.094 ng/mL (0.00-0.029) H 01/25/22 20:12 Total Protein 5.2 g/dL (6.3-8.2) L 01/27/22 05:46 Albumin 2.4 g/dL (3.9-5) L 01/27/22 05:46 Albumin/Globulin Ratio 0.9 % 01/27/22 05:46 Vitamin B12 > 2000 pg/mL (211-911) H 01/26/22 14:35 Folate 4.90 ng/mL (7.3-26.0) L 01/26/22 14:35 TSH 2.670 mlU/mL (0.270-4.200) 01/26/22 07:44 Objective - Constitutional Vitals: Last Vital Signs Temp 98.6 F 01/28/22 07:57 Pulse 67 01/28/22 07:57 Resp 18 01/28/22 07:57 BP 154/89 01/28/22 07:57 Pulse Ox 99 01/28/22 07:57 - Labs Lab Results: Laboratory Results - last 24 hr 01/27/22 01/27/22 01/27/22 07:33 09:52 09:52 WBC 2.1 L RBC 2.91 L Hgb 9.5 L Hct 28.1 L MCV 97 H MCH 33 H MCHC 34 RDW 15.2 Plt Count 29 L Add Manual Diff Complete Total Counted 100 Seg Neuts % (Manual) 92.0 H Band Neutrophils % 0 Lymphocytes % (Manual) 1.0 L Reactive Lymphs % (Man) 0 Monocytes % (Manual) 4.0 Eosinophils % (Manual) 3.0 Basophils % (Manual) 0 Metamyelocytes % 0 Myelocytes % 0 Promyelocytes % 0 Blast Cells % 0 Nucleated RBC % 2.0 H Seg Neutrophils # Man 1.9 Band Neutrophils # 0.0 Lymphocytes # (Manual) 0.0 L Abs React Lymphs (Man) 0.0 Monocytes # (Manual) 0.1 Eosinophils # (Manual) 0.1 Basophils # (Manual) 0.0 Metamyelocytes # 0.0 Myelocytes # 0.0 Promyelocytes # 0.0 Blast Cells # 0.0 WBC Morphology Not Reportable Hypersegmented Neuts Not Reportable Hyposegmented Neuts Not Reportable Hypogranular Neuts Not Reportable Smudge Cells Not Reportable Toxic Granulation Not Reportable Toxic Vacuolation Not Reportable Dohle Bodies Not Reportable Pelger-Huet Anomaly Not Reportable Giovana Rods Not Reportable Platelet Estimate Consistent w auto Clumped Platelets Not Reportable Plt Clumps, EDTA Not Reportable Large Platelets Not Reportable Giant Platelets Not Reportable Platelet Satelliting Not Reportable Plt Morphology Comment Not Reportable RBC Morphology Not Reportable Dimorphic RBCs Not Reportable Polychromasia Not Reportable Hypochromasia Not Reportable Poikilocytosis 1+ Anisocytosis Not Reportable Microcytosis Not Reportable Macrocytosis Not Reportable Spherocytes Not Reportable Pappenheimer Bodies Not Reportable Sickle Cells Not Reportable Target Cells Not Reportable Tear Drop Cells Not Reportable Ovalocytes Not Reportable Helmet Cells Not Reportable [place] Bodies Not Reportable [place] Rings Not Reportable [place] Cells 1+ Bite Cells Not Reportable Crenated Cell Not Reportable Elliptocytes Not Reportable Acanthocytes (Spur) Few Rouleaux Not Reportable Hemoglobin C Crystals Not Reportable Schistocytes Not Reportable Malaria parasites Not Reportable Kana Bodies Not Reportable Hem Pathologist Commnt No POC Glucose 93 Uric Acid Ammonia 25.0 01/27/22 01/27/22 01/28/22 11:34 16:22 08:08 WBC RBC Hgb Hct MCV MCH MCHC RDW Plt Count Add Manual Diff Total Counted Seg Neuts % (Manual) Band Neutrophils % Lymphocytes % (Manual) Reactive Lymphs % (Man) Monocytes % (Manual) Eosinophils % (Manual) Basophils % (Manual) Metamyelocytes % Myelocytes % Promyelocytes % Blast Cells % Nucleated RBC % Seg Neutrophils # Man Band Neutrophils # Lymphocytes # (Manual) Abs React Lymphs (Man) Monocytes # (Manual) Eosinophils # (Manual) Basophils # (Manual) Metamyelocytes # Myelocytes # Promyelocytes # Blast Cells # WBC Morphology Hypersegmented Neuts Hyposegmented Neuts Hypogranular Neuts Smudge Cells Toxic Granulation Toxic Vacuolation Dohle Bodies Pelger-Huet Anomaly Giovana Rods Platelet Estimate Clumped Platelets Plt Clumps, EDTA Large Platelets Giant Platelets Platelet Satelliting Plt Morphology Comment RBC Morphology Dimorphic RBCs Polychromasia Hypochromasia Poikilocytosis Anisocytosis Microcytosis Macrocytosis Spherocytes Pappenheimer Bodies Sickle Cells Target Cells Tear Drop Cells Ovalocytes Helmet Cells [place]is-[place] Bodies [place] Rings Zenaida Cells Bite Cells Crenated Cell Elliptocytes Acanthocytes (Spur) Rouleaux Hemoglobin C Crystals Schistocytes Malaria parasites Kana Bodies Hem Pathologist Commnt POC Glucose 76 89 Uric Acid 7.1 Ammonia 01/28/22 08:08 WBC 2.2 L RBC 2.75 L Hgb 9.0 L Hct 26.5 L MCV 96 H MCH 33 H MCHC 34 RDW 15.2 Plt Count 33 L Add Manual Diff Total Counted Seg Neuts % (Manual) Band Neutrophils % Lymphocytes % (Manual) Reactive Lymphs % (Man) Monocytes % (Manual) Eosinophils % (Manual) Basophils % (Manual) Metamyelocytes % Myelocytes % Promyelocytes % Blast Cells % Nucleated RBC % Seg Neutrophils # Man Band Neutrophils # Lymphocytes # (Manual) Abs React Lymphs (Man) Monocytes # (Manual) Eosinophils # (Manual) Basophils # (Manual) Metamyelocytes # Myelocytes # Promyelocytes # Blast Cells # WBC Morphology Hypersegmented Neuts Hyposegmented Neuts Hypogranular Neuts Smudge Cells Toxic Granulation Toxic Vacuolation Dohle Bodies Pelger-Huet Anomaly Giovana Rods Platelet Estimate Clumped Platelets Plt Clumps, EDTA Large Platelets Giant Platelets Platelet Satelliting Plt Morphology Comment RBC Morphology Dimorphic RBCs Polychromasia Hypochromasia Poikilocytosis Anisocytosis Microcytosis Macrocytosis Spherocytes Pappenheimer Bodies Sickle Cells Target Cells Tear Drop Cells Ovalocytes Helmet Cells Ferr[place] Bodies [place] Rings [place] Cells Bite Cells Crenated Cell Elliptocytes Acanthocytes (Spur) Rouleaux Hemoglobin C Crystals Schistocytes Malaria parasites Kana Bodies Hem Pathologist Commnt POC Glucose Uric Acid Ammonia Medications & Allergies - Medications Allergies/Adverse Reactions: Allergies No Known Allergies Allergy (Unverified 01/20/22 10:47) Home Medications: Home Medications Medication Instructions Recorded Confirmed Last Taken Type Sodium Bicarbonate 1,300 mg PO TID #90 tablet 01/25/22 01/26/22 Unknown Rx Tamsulosin [Flomax] 0.4 mg PO QDAY #30 capsule 01/25/22 01/26/22 Unknown Rx amLODIPine 10 mg PO QDAY #30 tablet 01/25/22 01/26/22 Unknown Rx Active Medications: Generic Name Dose Route Start Last Admin Trade Name Freq PRN Reason Stop Dose Admin Acetaminophen 650 mg 01/25/22 23:53 Acetaminophen 325 Mg Tab PO Q4H PRN Pain MILD(1-3)/Fever >100.5/STODDARD Amlodipine Besylate 10 mg 01/27/22 11:00 01/27/22 21:07 Amlodipine 10 Mg Tab PO Not Given QDAY MARLON Azithromycin 500 mg 01/26/22 12:00 01/27/22 09:51 Azithromycin 250 Mg Tab PO 01/29/22 10:01 500 mg QDAY MARLON Administration Protocol Dextrose 75 ml 01/25/22 20:36 01/28/22 06:13 Dextrose 10% *Hypoglycemia IV 75 ml PRN PRN Administration Hypoglycemia Folic Acid 1 mg 01/27/22 11:00 01/27/22 21:08 Folic Acid 1 Mg Tab PO Not Given QDAY MARLON Hydromorphone HCl 1 mg 01/28/22 09:00 Hydromorphone 1 Mg/1 Ml Inj IV 01/28/22 20:00 Q2H PRN Pain , Severe (7-10) Sodium Chloride 1,000 mls @ 75 mls/hr 01/25/22 22:00 01/27/22 21:06 Nacl 0.45% 1000 Ml IV Infused DIRECT MARLON Infusion Ceftriaxone Sodium 2 gm in 100 mls @ 200 mls/hr 01/26/22 22:00 01/27/22 22:02 Rocephin/Ns 2 Gm/100 Ml IV 200 mls/hr Q24H MARLON Administration Protocol Lorazepam 1 mg 01/26/22 00:23 01/27/22 22:03 Lorazepam 2 Mg/Ml Vial IV 1 mg Q4HR PRN Administration Agitation Morphine Sulfate 2 mg 01/25/22 23:53 Morphine 2 Mg/1 Ml Inj IV Q4H PRN Pain, Moderate (4-6) Morphine Sulfate 4 mg 01/25/22 23:53 Morphine 4 Mg/1 Ml Inj IV Q4H PRN Pain , Severe (7-10) Ondansetron HCl 4 mg 01/25/22 23:53 Ondansetron 4 Mg/2 Ml Inj IV Q8H PRN Nausea And Vomiting Sodium Bicarbonate 1,300 mg 01/27/22 14:00 01/27/22 22:02 Sodium Bicarbonate 650 Mg Tab PO 1,300 mg TID MARLON Administration Sodium Chloride 10 ml 01/26/22 10:00 01/27/22 22:03 Sodium Chloride 0.9% 10 Ml Flush Syringe IV 10 ml BID MARLON Administration Sodium Chloride 10 ml 01/25/22 23:53 Sodium Chloride 0.9% 10 Ml Flush Syringe IV PRN PRN LINE FLUSH Tamsulosin HCl 0.4 mg 01/27/22 11:00 01/27/22 21:07 Tamsulosin 0.4 Mg Cap PO Not Given QDAY MARLON
[2022-01-28 10:01] LABS: Albumin 2.6 g/dL (3.9-5); Calcium 8.8 mg/dL (8.4-10.2)
[2022-01-28 11:03] LABS: Basophils % (Manual) 0 % (0.0-1.8); Total Cells Counted 100
[2022-01-28 11:05] LABS: Burr Cells 1+; Poikilocytosis 1+; Schistocytes Rare
[2022-01-28 11:06] LABS: Large Platelets Few; Platelet Estimate Cons; Toxic Granulation Few; Toxic Vacuolation Few
--- NOTE | 2022-01-28 11:47 | Cat Scan Report ---
CT-GUIDED BONE MARROW ASPIRATION AND BIOPSY INDICATION : Pancytopenia PROCEDURE: The risks (including but not limited to bleeding and infection) and benefits were explain ed to the patient's sister and informed consent was obtained. The patient was deemed incompetent. All CT examinations performed at this facility utilize dose modulation, iterative reconstruction or weig ht-based dosing, when appropriate, to reduce radiation dose to as low as reasonably achievable. A ti me out procedure was performed. The procedure site was prepped and draped in the usual sterile fashi on and lidocaine was used for local anesthesia. Under CT guidance, the right posterior iliac wing was selected for biopsy. An 11 gauge needle was ad vanced to the posterior margin of the iliac wing, cortex breached, and 4.5 mL bone marrow aspirate ob tained. The needle was then advanced and a bone marrow biopsy was obtained measuring approximately 2 cm. Samples were given directly to the radiochemical technician who was present during the exam. The patient tolerated the procedure well with no complications. IMPRESSION: Technically successful bone marrow aspirate and biopsy. Signer Name: Laci Brown Jr, MD Signed: 01/28/2022 11:34 AM Workstation Name: [id number]
--- NOTE | 2022-01-28 13:10 | Progress Note ---
Assessment and Plan Impression: * Altered mental status * acute kidney injury secondary to obstructive uropathy/urinary retention * Urinary retention * Azotemia * Hyperkalemia, mild * Metabolic acidosis * Anemia * Hypertension * Pancytopenia * Proteinuria * Abnormal LFT Plan: * Renal function is stable . Serum creatinine seems to be plateauing . No evidence of contrast nephropathy at this time * Continue NaBicarb * Blood pressure is under control. Continue current antihypertensive medications * Continue current management * Dose medications for renal function * Avoid potential nephrotoxins * Continue Leal catheter for now. Continue tamsulosin. Further plan as per urology services * Work-up for pancytopenia as per primary team * Okay to discontinue IV fluid if patient has adequate oral intake * Hematology consultation appreciated. * His urine shows 2+ dipstick protein and a few red cells and white cells. Urine protein creatinine ratio is approximately 0.5 g/g. Hold off on adding MAXI or ARB at this time until his renal function stabilizes * Ammonia level is normal at 25. GI consultation appreciated Subjective Date of service: 01/28/22 Interval history: Patient is comfortable today. Denies any shortness of breath. Objective - Vital Signs Vital signs: Vital Signs - 12hr 01/28/22 01/28/22 01/28/22 04:23 07:57 10:25 Temperature 97.9 F 98.6 F Pulse Rate 61 67 Pulse Rate [ Intra-Procedure ] Pulse Rate [ Post-Procedure] Pulse Rate [Pre 66 -Procedure] Respiratory 17 18 Rate Respiratory Rate [Intra- Procedure] Respiratory Rate [Post- Procedure] Respiratory 11 L Rate [Pre- Procedure] Blood Pressure 133/79 154/89 Blood Pressure [Intra- Procedure] Blood Pressure [Post-Procedure ] Blood Pressure 170/89 [Pre-Procedure] O2 Sat by Pulse 96 99 Oximetry O2 Sat by Pulse Oximetry [Post -Procedure] O2 Sat by Pulse 98 Oximetry [Pre- Procedure] 01/28/22 01/28/22 01/28/22 10:37 10:40 10:45 Temperature Pulse Rate Pulse Rate [ 64 65 Intra-Procedure ] Pulse Rate [ Post-Procedure] Pulse Rate [Pre -Procedure] Respiratory 12 Rate Respiratory 12 12 Rate [Intra- Procedure] Respiratory Rate [Post- Procedure] Respiratory Rate [Pre- Procedure] Blood Pressure Blood Pressure 161/84 166/90 [Intra- Procedure] Blood Pressure [Post-Procedure ] Blood Pressure [Pre-Procedure] O2 Sat by Pulse Oximetry O2 Sat by Pulse Oximetry [Post -Procedure] O2 Sat by Pulse Oximetry [Pre- Procedure] 01/28/22 01/28/22 01/28/22 10:50 10:52 11:59 Temperature 97.5 F L Pulse Rate 61 Pulse Rate [ 64 Intra-Procedure ] Pulse Rate [ 65 Post-Procedure] Pulse Rate [Pre -Procedure] Respiratory 18 Rate Respiratory 12 Rate [Intra- Procedure] Respiratory 13 Rate [Post- Procedure] Respiratory Rate [Pre- Procedure] Blood Pressure 165/98 Blood Pressure 168/90 [Intra- Procedure] Blood Pressure 164/86 [Post-Procedure ] Blood Pressure [Pre-Procedure] O2 Sat by Pulse 100 Oximetry O2 Sat by Pulse 100 Oximetry [Post -Procedure] O2 Sat by Pulse Oximetry [Pre- Procedure] - General Appearance General appearance: well-developed, well-nourished, appears stated age EENT: PERRL, mucous membranes moist Neck: no JVD, no thyromegaly, no carotid bruit, supple Respiratory: Present: Clear to Ascultation Cardiology: regular, normal heart rate, S1S2, no murmurs Gastrointestinal: normal, normoactive bowel sounds Integumentary: other (1+ edema) - Lab 01/28/22 08:08 01/28/22 08:08 Most recent lab results Calcium 8.8 mg/dL (8.4-10.2) 01/28/22 08:08 Magnesium 1.80 mg/dL (1.7-2.3) 01/25/22 20:12 Urine Creatinine 49.1 mg/dL (0.1-20.0) H 01/26/22 09:17 Urine Total Protein 24 mg/dL (5-11.8) H 01/26/22 09:17 Medications & Allergies - Medications Allergies/Adverse Reactions: Allergies No Known Allergies Allergy (Unverified 01/20/22 10:47) Home Medications: Home Medications Medication Instructions Recorded Confirmed Last Taken Type Sodium Bicarbonate 1,300 mg PO TID #90 tablet 01/25/22 01/26/22 Unknown Rx Tamsulosin [Flomax] 0.4 mg PO QDAY #30 capsule 01/25/22 01/26/22 Unknown Rx amLODIPine 10 mg PO QDAY #30 tablet 01/25/22 01/26/22 Unknown Rx Active Medications: Generic Name Dose Route Start Last Admin Trade Name Freq PRN Reason Stop Dose Admin Acetaminophen 650 mg 01/25/22 23:53 Acetaminophen 325 Mg Tab PO Q4H PRN Pain MILD(1-3)/Fever >100.5/STODDARD Amlodipine Besylate 10 mg 01/27/22 11:00 01/27/22 21:07 Amlodipine 10 Mg Tab PO Not Given QDAY MARLON Azithromycin 500 mg 01/26/22 12:00 01/27/22 09:51 Azithromycin 250 Mg Tab PO 01/29/22 10:01 500 mg QDAY MARLON Administration Protocol Dextrose 75 ml 01/25/22 20:36 01/28/22 06:13 Dextrose 10% *Hypoglycemia IV 75 ml PRN PRN Administration Hypoglycemia Folic Acid 1 mg 01/27/22 11:00 01/27/22 21:08 Folic Acid 1 Mg Tab PO Not Given QDAY MARLON Hydromorphone HCl 1 mg 01/28/22 09:00 01/28/22 10:37 Hydromorphone 1 Mg/1 Ml Inj IV 01/28/22 20:00 0.5 mg Q2H PRN Administration Pain , Severe (7-10) Sodium Chloride 1,000 mls @ 75 mls/hr 01/25/22 22:00 01/27/22 21:06 Nacl 0.45% 1000 Ml IV Infused DIRECT MARLON Infusion Ceftriaxone Sodium 2 gm in 100 mls @ 200 mls/hr 01/26/22 22:00 01/27/22 22:02 Rocephin/Ns 2 Gm/100 Ml IV 200 mls/hr Q24H MARLON Administration Protocol Lorazepam 1 mg 01/26/22 00:23 01/27/22 22:03 Lorazepam 2 Mg/Ml Vial IV 1 mg Q4HR PRN Administration Agitation Morphine Sulfate 2 mg 01/25/22 23:53 Morphine 2 Mg/1 Ml Inj IV Q4H PRN Pain, Moderate (4-6) Morphine Sulfate 4 mg 01/25/22 23:53 Morphine 4 Mg/1 Ml Inj IV Q4H PRN Pain , Severe (7-10) Ondansetron HCl 4 mg 01/25/22 23:53 Ondansetron 4 Mg/2 Ml Inj IV Q8H PRN Nausea And Vomiting Sodium Bicarbonate 1,300 mg 01/27/22 14:00 01/27/22 22:02 Sodium Bicarbonate 650 Mg Tab PO 1,300 mg TID MARLON Administration Sodium Chloride 10 ml 01/26/22 10:00 01/27/22 22:03 Sodium Chloride 0.9% 10 Ml Flush Syringe IV 10 ml BID MARLON Administration Sodium Chloride 10 ml 01/25/22 23:53 Sodium Chloride 0.9% 10 Ml Flush Syringe IV PRN PRN LINE FLUSH Tamsulosin HCl 0.4 mg 01/27/22 11:00 01/27/22 21:07 Tamsulosin 0.4 Mg Cap PO Not Given QDAY MARLON
[2022-01-28] MEDS: AZITHROMYCIN 250 MG TAB PO SCH (15:19)
[2022-01-28] MEDS: FOLIC ACID 1 MG TAB PO SCH (15:20)
[2022-01-28] MEDS: TAMSULOSIN 0.4 MG CAP PO SCH (15:20)
[2022-01-28] MEDS: amLODIPine 10 MG TAB PO SCH (15:21)
--- NOTE | 2022-01-28 15:24 | Progress Note ---
Assessment and Plan 76-year-old -[place]iqu[place] male with known history of obstructive uropathy, urinary retention, metabolic acidosis, anemia with thrombocytopenia and leukopenia who was discharge sometime in the afternoon but later brought back to the emergency room same day because of changes in mental status. Patient was accompanied by his roommate who indicates that patient has had change in his mental status and was not able to communicate well since discharge from the hospital.Patient was evaluated by the teleneurologist and was not deemed to be a TPA candidate. Work-up in the emergency room reveals thrombocytopenia of 32, BUN of 40 and creatinine of 2.3. Elevated AST and ALT of 565 and 379 respectively. Alkaline phos of 246 and creatinine kinase of 242. Troponin was elevated at 0.094. Urinalysis showed trace bacteria and trace leukocyte esterase. CTA head and neck did not show any significant findings. Chest x-ray shows possible persistent bibasilar pneumonia. Patient was admitted for further evaluation management Assessment and plan: --Acute metabolic encephalopathy We will continue to monitor mental status. CT scan of the head, CTA head and neck were nonspecific. Follow clinically with frequent neuro exam -- Pulmonary infiltrate/possible aspiration pneumonia Patient will be placed on empiric IV antibiotics. We will consult infectious disease as needed. --Renal insufficiency/JESSIKA on possible CKD Continue IV fluid Consult placed to nephrology for evaluation. --Thrombocytopenia and leukopenia We will monitor CBC. Consult will be placed to heme-onc for evaluation and recommendation. Pending BM biopsy results Monitor CBC Labs to include cardiolipin ab and PTT mixing study Pending spep with MORAIMA, pf4 ab, hgep, soheila Transfuse 1 unit whenever hct <23 Transfuse 1 dose of plts whenever plt <20 -- Transaminitis, likely shock liver We will continue to monitor LFTs. We await gastroenterology evaluation and recommendations. -- DVT prophylaxis Patient will be placed on sequential compression device. -- Full code status Disposition: Medically not stable for discharge 01/26: Patient remains confused, continue antibiotics. follow renal function, follow LFT., Wait for consultants recommendation. 01/27: Creatinine slightly improved, patient mental status improving, tolerating diet. Hematology nephrology and GI following. Hematology recommended bone marrow biopsy for leukopenia and thrombocytopenia. 01/28: s/p bonemarrow biopsy today, follow am labs. Cr still elevated, speech recommended pureed diet. If renal function continues to improve possible DC soon. Subjective Date of service: 01/28/22 Interval history: Patient seen and examined. Medical records and medication list reviewed. No acute event overnight noted by the RN. Patient appears more alert and oriented today Patient tolerating diet, renal function improving Discussed plan of care at bedside with patient's RN. Objective - Exam Narrative Exam: General appearance: Present: no acute distress, cachectic, other (Dry oral mucosa) - EENT Eyes: Present: PERRL, EOM intact ENT: hearing intact, clear oral mucosa, dentition normal - Neck Neck: Present: supple, normal ROM - Respiratory Respiratory effort: normal Respiratory: bilateral: diminished - Cardiovascular Rhythm: regular Heart Sounds: Present: S1 & S2. Absent: gallop, systolic murmur, diastolic murmur, rub, click - Extremities Extremities: no ischemia, pulses intact, pulses symmetrical, No edema, normal temperature, normal color, Full ROM Peripheral Pulses: within normal limits - Abdominal General gastrointestinal: Present: soft, non-tender, non-distended, normal bowel sounds. Absent: mass Male genitourinary: Present: normal (Leal catheter in place) - Integumentary Integumentary: Present: clear, warm, dry, normal turgor. Absent: jaundice, rash - Musculoskeletal Musculoskeletal: strength equal bilaterally - Psychiatric Psychiatric: cooperative - Neurologic Neurologic: no focal deficits, follow commands - Constitutional Vitals: Vital Signs - 12hr 01/28/22 01/28/22 01/28/22 04:23 07:57 09:28 Temperature 97.9 F 98.6 F Pulse Rate 61 67 Pulse Rate [ Intra-Procedure ] Pulse Rate [ Post-Procedure] Pulse Rate [Pre -Procedure] Respiratory 17 18 Rate Respiratory Rate [Intra- Procedure] Respiratory Rate [Post- Procedure] Respiratory Rate [Pre- Procedure] Blood Pressure 133/79 154/89 Blood Pressure [Intra- Procedure] Blood Pressure [Post-Procedure ] Blood Pressure [Pre-Procedure] O2 Sat by Pulse 96 99 97 Oximetry O2 Sat by Pulse Oximetry [Post -Procedure] O2 Sat by Pulse Oximetry [Pre- Procedure] 01/28/22 01/28/22 01/28/22 10:25 10:37 10:40 Temperature Pulse Rate Pulse Rate [ 64 Intra-Procedure ] Pulse Rate [ Post-Procedure] Pulse Rate [Pre 66 -Procedure] Respiratory 12 Rate Respiratory 12 Rate [Intra- Procedure] Respiratory Rate [Post- Procedure] Respiratory 11 L Rate [Pre- Procedure] Blood Pressure Blood Pressure 161/84 [Intra- Procedure] Blood Pressure [Post-Procedure ] Blood Pressure 170/89 [Pre-Procedure] O2 Sat by Pulse Oximetry O2 Sat by Pulse Oximetry [Post -Procedure] O2 Sat by Pulse 98 Oximetry [Pre- Procedure] 01/28/22 01/28/22 01/28/22 10:45 10:50 10:52 Temperature Pulse Rate Pulse Rate [ 65 64 Intra-Procedure ] Pulse Rate [ 65 Post-Procedure] Pulse Rate [Pre -Procedure] Respiratory Rate Respiratory 12 12 Rate [Intra- Procedure] Respiratory 13 Rate [Post- Procedure] Respiratory Rate [Pre- Procedure] Blood Pressure Blood Pressure 166/90 168/90 [Intra- Procedure] Blood Pressure 164/86 [Post-Procedure ] Blood Pressure [Pre-Procedure] O2 Sat by Pulse Oximetry O2 Sat by Pulse 100 Oximetry [Post -Procedure] O2 Sat by Pulse Oximetry [Pre- Procedure] 01/28/22 11:59 Temperature 97.5 F L Pulse Rate 61 Pulse Rate [ Intra-Procedure ] Pulse Rate [ Post-Procedure] Pulse Rate [Pre -Procedure] Respiratory 18 Rate Respiratory Rate [Intra- Procedure] Respiratory Rate [Post- Procedure] Respiratory Rate [Pre- Procedure] Blood Pressure 165/98 Blood Pressure [Intra- Procedure] Blood Pressure [Post-Procedure ] Blood Pressure [Pre-Procedure] O2 Sat by Pulse 100 Oximetry O2 Sat by Pulse Oximetry [Post -Procedure] O2 Sat by Pulse Oximetry [Pre- Procedure] - Labs CBC & Chem 7: 01/31/22 05:04 01/31/22 05:04 Labs: Abnormal lab results 01/28/22 01/28/22 01/28/22 Range/Units 08:08 08:08 11:57 WBC 2.2 L (4.5-11.0) K/mm3 RBC 2.75 L (3.65-5.03) M/mm3 Hgb 9.0 L (11.8-15.2) gm/dl Hct 26.5 L (35.5-45.6) % MCV 96 H (84-94) fl MCH 33 H (28-32) pg Plt Count 33 L (140-440) K/mm3 Seg Neuts % (Manual) 86.0 H (40.0-70.0) % Lymphocytes % (Manual) 4.0 L (13.4-35.0) % Nucleated RBC % 4.0 H (0.0-0.9) % Lymphocytes # (Manual) 0.1 L (1.2-5.4) K/mm3 Chloride 114.4 H (98-107) mmol/L Carbon Dioxide 20 L (22-30) mmol/L BUN 27 H (9-20) mg/dL Creatinine 2.0 H (0.8-1.3) mg/dL POC Glucose 116 H (70-105) mg/dL AST 472 H (5-40) units/L ALT 375 H (7-56) units/L Alkaline Phosphatase 239 H (35-129) units/L Total Protein 5.3 L (6.3-8.2) g/dL Albumin 2.6 L (3.9-5) g/dL HEART Score - HEART Score Troponin: Troponin T 0.094 ng/mL (0.00-0.029) H 01/25/22 20:12
--- NOTE | 2022-01-28 16:04 | Gastroenterology Progress Note ---
Assessment and Plan 1. Liver: increased lft's most likely due to shock liver - liver serologies and ultrasound benign - LFt's improving, continue to follow - no indication for liver bx or other intervention - avoid hepatotoxic drugs - other issues per primary team - will sign off, call if needed Subjective Date of service: 01/28/22 Interval history: - no GI/liver complaints overnight Objective - Constitutional Vitals: Temp Pulse Resp BP Pulse Ox 97.5 F L 61 18 165/98 100 01/28/22 11:59 01/28/22 11:59 01/28/22 11:59 01/28/22 11:59 01/28/22 11:59 General appearance: no acute distress - EENT Eyes: PERRL - Respiratory Respiratory: bilateral: CTA - Cardiovascular Rhythm: regular Heart Sounds: Present: S1 & S2 - Gastrointestinal General gastrointestinal: Present: soft, non-tender, non-distended - Labs CBC & Chem 7: 01/28/22 08:08 01/28/22 08:08 Labs: Laboratory Results - last 24 hr 01/27/22 01/28/22 01/28/22 16:22 07:48 08:08 WBC RBC Hgb Hct MCV MCH MCHC RDW Plt Count Add Manual Diff Total Counted Seg Neuts % (Manual) Band Neutrophils % Lymphocytes % (Manual) Reactive Lymphs % (Man) Monocytes % (Manual) Eosinophils % (Manual) Basophils % (Manual) Metamyelocytes % Myelocytes % Promyelocytes % Blast Cells % Nucleated RBC % Seg Neutrophils # Man Band Neutrophils # Lymphocytes # (Manual) Abs React Lymphs (Man) Monocytes # (Manual) Eosinophils # (Manual) Basophils # (Manual) Metamyelocytes # Myelocytes # Promyelocytes # Blast Cells # WBC Morphology Hypersegmented Neuts Hyposegmented Neuts Hypogranular Neuts Smudge Cells Toxic Granulation Toxic Vacuolation Dohle Bodies Pelger-Huet Anomaly Giovana Rods Platelet Estimate Clumped Platelets Plt Clumps, EDTA Large Platelets Giant Platelets Platelet Satelliting Plt Morphology Comment RBC Morphology Dimorphic RBCs Polychromasia Hypochromasia Poikilocytosis Anisocytosis Microcytosis Macrocytosis Spherocytes Pappenheimer Bodies Sickle Cells Target Cells Tear Drop Cells Ovalocytes Helmet Cells [place] Bodies [place] Cells Bite Cells Crenated Cell Elliptocytes Acanthocytes (Spur) Rouleaux Hemoglobin C Crystals Schistocytes Malaria parasites Kana Bodies Hem Pathologist Commnt APTT Sodium Potassium Chloride Carbon Dioxide Anion Gap BUN Creatinine Estimated GFR BUN/Creatinine Ratio Glucose POC Glucose 89 73 Uric Acid 7.1 Calcium Total Bilirubin AST ALT Alkaline Phosphatase Total Protein Albumin Albumin/Globulin Ratio 01/28/22 01/28/22 01/28/22 08:08 08:08 11:57 WBC 2.2 L RBC 2.75 L Hgb 9.0 L Hct 26.5 L MCV 96 H MCH 33 H MCHC 34 RDW 15.2 Plt Count 33 L Add Manual Diff Complete Total Counted 100 Seg Neuts % (Manual) 86.0 H Band Neutrophils % 2.0 Lymphocytes % (Manual) 4.0 L Reactive Lymphs % (Man) 0 Monocytes % (Manual) 5.0 Eosinophils % (Manual) 1.0 Basophils % (Manual) 0 Metamyelocytes % 0 Myelocytes % 2.0 Promyelocytes % 0 Blast Cells % 0 Nucleated RBC % 4.0 H Seg Neutrophils # Man 1.9 Band Neutrophils # 0.0 Lymphocytes # (Manual) 0.1 L Abs React Lymphs (Man) 0.0 Monocytes # (Manual) 0.1 Eosinophils # (Manual) 0.0 Basophils # (Manual) 0.0 Metamyelocytes # 0.0 Myelocytes # 0.0 Promyelocytes # 0.0 Blast Cells # 0.0 WBC Morphology Not Reportable Hypersegmented Neuts Not Reportable Hyposegmented Neuts Few Hypogranular Neuts Not Reportable Smudge Cells Not Reportable Toxic Granulation Few Toxic Vacuolation Few Dohle Bodies Not Reportable Pelger-Huet Anomaly Not Reportable Giovana Rods Not Reportable Platelet Estimate Cons Clumped Platelets Not Reportable Plt Clumps, EDTA Not Reportable Large Platelets Few Giant Platelets Not Reportable Platelet Satelliting Not Reportable Plt Morphology Comment Not Reportable RBC Morphology Not Reportable Dimorphic RBCs Not Reportable Polychromasia Not Reportable Hypochromasia Not Reportable Poikilocytosis 1+ Anisocytosis Not Reportable Microcytosis Not Reportable Macrocytosis Not Reportable Spherocytes Not Reportable Pappenheimer Bodies Not Reportable Sickle Cells Not Reportable Target Cells Not Reportable Tear Drop Cells Not Reportable Ovalocytes Not Reportable Helmet Cells Not Reportable [place] Bodies Not Reportable [place] Rings Not Reportable [place] Cells 1+ Bite Cells Not Reportable Crenated Cell Not Reportable Elliptocytes 1+ Acanthocytes (Spur) Few Rouleaux Not Reportable Hemoglobin C Crystals Not Reportable Schistocytes Rare Malaria parasites Not Reportable Kana Bodies Not Reportable Hem Pathologist Commnt No APTT Sodium 143 Potassium 4.6 Chloride 114.4 H Carbon Dioxide 20 L Anion Gap 13 BUN 27 H Creatinine 2.0 H Estimated GFR 40 BUN/Creatinine Ratio 14 Glucose 99 POC Glucose 116 H Uric Acid Calcium 8.8 Total Bilirubin 0.30 AST 472 H ALT 375 H Alkaline Phosphatase 239 H Total Protein 5.3 L Albumin 2.6 L Albumin/Globulin Ratio 1.0 01/28/22 14:27 WBC RBC Hgb Hct MCV MCH MCHC RDW Plt Count Add Manual Diff Total Counted Seg Neuts % (Manual) Band Neutrophils % Lymphocytes % (Manual) Reactive Lymphs % (Man) Monocytes % (Manual) Eosinophils % (Manual) Basophils % (Manual) Metamyelocytes % Myelocytes % Promyelocytes % Blast Cells % Nucleated RBC % Seg Neutrophils # Man Band Neutrophils # Lymphocytes # (Manual) Abs React Lymphs (Man) Monocytes # (Manual) Eosinophils # (Manual) Basophils # (Manual) Metamyelocytes # Myelocytes # Promyelocytes # Blast Cells # WBC Morphology Hypersegmented Neuts Hyposegmented Neuts Hypogranular Neuts Smudge Cells Toxic Granulation Toxic Vacuolation Dohle Bodies Pelger-Huet Anomaly Giovana Rods Platelet Estimate Clumped Platelets Plt Clumps, EDTA Large Platelets Giant Platelets Platelet Satelliting Plt Morphology Comment RBC Morphology Dimorphic RBCs Polychromasia Hypochromasia Poikilocytosis Anisocytosis Microcytosis Macrocytosis Spherocytes Pappenheimer Bodies Sickle Cells Target Cells Tear Drop Cells Ovalocytes Helmet Cells [place] Bodies [place] Rings [place] Cells Bite Cells Crenated Cell Elliptocytes Acanthocytes (Spur) Rouleaux Hemoglobin C Crystals Schistocytes Malaria parasites Kana Bodies Hem Pathologist Commnt APTT 34.4 Sodium Potassium Chloride Carbon Dioxide Anion Gap BUN Creatinine Estimated GFR BUN/Creatinine Ratio Glucose POC Glucose Uric Acid Calcium Total Bilirubin AST ALT Alkaline Phosphatase Total Protein Albumin Albumin/Globulin Ratio
[2022-01-28] MEDS: hydrALAZINE 10 MG TAB PO SCH (22:00)
[2022-01-28] MEDS: cefTRIAXone/NS 2 GM/100 ML 2 GM/100 ML BAG IV SCH (22:44)
[2022-01-29] MEDS ORDERED: GLUCAGON (HUMAN RECOMBINANT) 1 MG/ML INJ IV ONE (03:43)
[2022-01-29] MEDS: hydrALAZINE 10 MG TAB PO SCH ×3 (06:30→23:16)
[2022-01-29] MEDS: SODIUM BICARBONATE 650 MG TAB PO SCH ×2 (08:10→15:00)
[2022-01-29 09:12] LABS: Hematocrit 25.5 % (35.5-45.6); Hemoglobin 8.7 gm/dl (11.8-15.2); Mean Corpuscular HGB Conc 34 % (32-34); Mean Corpuscular Volume 96 fl (84-94); Platelet Count 33 K/mm3 (140-440); Red Blood Count 2.65 M/mm3 (3.65-5.03); Red Cell Distribution Width 15.1 % (13.2-15.2)
[2022-01-29 09:34] LABS: Albumin 2.8 g/dL (3.9-5)
[2022-01-29] MEDS: AZITHROMYCIN 250 MG TAB PO SCH (09:38)
[2022-01-29] MEDS: amLODIPine 10 MG TAB PO SCH (09:38)
[2022-01-29] MEDS: TAMSULOSIN 0.4 MG CAP PO SCH (09:38)
[2022-01-29] MEDS: FOLIC ACID 1 MG TAB PO SCH (09:38)
--- NOTE | 2022-01-29 10:59 | Progress Note ---
Assessment and Plan Impression: * Altered mental status * acute kidney injury secondary to obstructive uropathy/urinary retention * Urinary retention * Azotemia * Hyperkalemia, mild * Metabolic acidosis * Anemia * Hypertension * Pancytopenia * Proteinuria * Abnormal LFT Plan: * Renal function is stable . Serum creatinine seems to be plateauing . No evidence of contrast nephropathy at this time * Continue NaBicarb * Blood pressure is under control. Continue current antihypertensive medications * Continue current management * Dose medications for renal function * Avoid potential nephrotoxins * Continue Leal catheter for now. Continue tamsulosin. Further plan as per urology services * Work-up for pancytopenia as per primary team * Okay to discontinue IV fluid if patient has adequate oral intake * Hematology consultation appreciated. * His urine shows 2+ dipstick protein and a few red cells and white cells. Urine protein creatinine ratio is approximately 0.5 g/g. Hold off on adding MAXI or ARB at this time until his renal function stabilizes * Ammonia level is normal at 25. GI consultation appreciated Subjective Date of service: 01/29/22 Interval history: Patient is awake and alert. Denies any shortness of breath. Objective - Vital Signs Vital signs: Vital Signs - 12hr 01/28/22 01/29/22 01/29/22 23:07 04:46 08:20 Temperature 97.9 F 98.2 F 98.0 F Pulse Rate 67 75 71 Respiratory 18 18 16 Rate Blood Pressure 137/80 134/83 142/90 O2 Sat by Pulse 100 100 100 Oximetry - General Appearance General appearance: well-developed, well-nourished, appears stated age EENT: ATNC Neck: no JVD, no thyromegaly, no carotid bruit, supple Respiratory: Present: Clear to Ascultation Cardiology: regular, normal heart rate, S1S2, no murmurs Gastrointestinal: normal, normoactive bowel sounds Integumentary: no rash, other (1+ edema) - Lab 01/29/22 08:36 01/29/22 08:36 Most recent lab results Calcium 9.0 mg/dL (8.4-10.2) 01/29/22 08:36 Magnesium 1.80 mg/dL (1.7-2.3) 01/25/22 20:12 Urine Creatinine 49.1 mg/dL (0.1-20.0) H 01/26/22 09:17 Urine Total Protein 24 mg/dL (5-11.8) H 01/26/22 09:17 Medications & Allergies - Medications Allergies/Adverse Reactions: Allergies No Known Allergies Allergy (Unverified 01/20/22 10:47) Home Medications: Home Medications Medication Instructions Recorded Confirmed Last Taken Type Sodium Bicarbonate 1,300 mg PO TID #90 tablet 01/25/22 01/26/22 Unknown Rx Tamsulosin [Flomax] 0.4 mg PO QDAY #30 capsule 01/25/22 01/26/22 Unknown Rx amLODIPine 10 mg PO QDAY #30 tablet 01/25/22 01/26/22 Unknown Rx Active Medications: Generic Name Dose Route Start Last Admin Trade Name Freq PRN Reason Stop Dose Admin Acetaminophen 650 mg 01/25/22 23:53 Acetaminophen 325 Mg Tab PO Q4H PRN Pain MILD(1-3)/Fever >100.5/STODDARD Amlodipine Besylate 10 mg 01/27/22 11:00 01/29/22 09:38 Amlodipine 10 Mg Tab PO 10 mg QDAY MARLON Administration Dextrose 75 ml 01/25/22 20:36 01/28/22 06:13 Dextrose 10% *Hypoglycemia IV 75 ml PRN PRN Administration Hypoglycemia Folic Acid 1 mg 01/27/22 11:00 01/29/22 09:38 Folic Acid 1 Mg Tab PO 1 mg QDAY MARLON Administration Hydralazine HCl 10 mg 01/28/22 22:00 01/29/22 06:30 Hydralazine 10 Mg Tab PO 10 mg Q8HR MARLON Administration Sodium Chloride 1,000 mls @ 75 mls/hr 01/25/22 22:00 01/27/22 21:06 Nacl 0.45% 1000 Ml IV Infused DIRECT MARLON Infusion Ceftriaxone Sodium 2 gm in 100 mls @ 200 mls/hr 01/26/22 22:00 01/28/22 22:44 Rocephin/Ns 2 Gm/100 Ml IV 200 mls/hr Q24H MARLON Administration Protocol Lorazepam 1 mg 01/26/22 00:23 01/27/22 22:03 Lorazepam 2 Mg/Ml Vial IV 1 mg Q4HR PRN Administration Agitation Morphine Sulfate 2 mg 01/25/22 23:53 Morphine 2 Mg/1 Ml Inj IV Q4H PRN Pain, Moderate (4-6) Morphine Sulfate 4 mg 01/25/22 23:53 Morphine 4 Mg/1 Ml Inj IV Q4H PRN Pain , Severe (7-10) Ondansetron HCl 4 mg 01/25/22 23:53 Ondansetron 4 Mg/2 Ml Inj IV Q8H PRN Nausea And Vomiting Sodium Bicarbonate 1,300 mg 01/27/22 14:00 01/29/22 08:10 Sodium Bicarbonate 650 Mg Tab PO 1,300 mg TID MARLON Administration Sodium Chloride 10 ml 01/26/22 10:00 01/29/22 09:39 Sodium Chloride 0.9% 10 Ml Flush Syringe IV 10 ml BID MARLON Administration Sodium Chloride 10 ml 01/25/22 23:53 Sodium Chloride 0.9% 10 Ml Flush Syringe IV PRN PRN LINE FLUSH Tamsulosin HCl 0.4 mg 01/27/22 11:00 01/29/22 09:38 Tamsulosin 0.4 Mg Cap PO 0.4 mg QDAY MARLON Administration
[2022-01-29] MEDS: LORazepam 2 MG/ML VIAL IV PRN ×2 (11:35→18:16)
--- NOTE | 2022-01-29 14:20 | Progress Note ---
Assessment and Plan 76-year-old -[place] male with known history of obstructive uropathy, urinary retention, metabolic acidosis, anemia with thrombocytopenia and leukopenia who was discharge sometime in the afternoon but later brought back to the emergency room same day because of changes in mental status. Patient was accompanied by his roommate who indicates that patient has had change in his mental status and was not able to communicate well since discharge from the hospital.Patient was evaluated by the teleneurologist and was not deemed to be a TPA candidate. Work-up in the emergency room reveals thrombocytopenia of 32, BUN of 40 and creatinine of 2.3. Elevated AST and ALT of 565 and 379 respectively. Alkaline phos of 246 and creatinine kinase of 242. Troponin was elevated at 0.094. Urinalysis showed trace bacteria and trace leukocyte esterase. CTA head and neck did not show any significant findings. Chest x-ray shows possible persistent bibasilar pneumonia. Patient was admitted for further evaluation management Assessment and plan: --Acute metabolic encephalopathy We will continue to monitor mental status. CT scan of the head, CTA head and neck were nonspecific. Follow clinically with frequent neuro exam -- Pulmonary infiltrate/possible aspiration pneumonia Patient will be placed on empiric IV antibiotics. We will consult infectious disease as needed. --Renal insufficiency/JESSIKA on possible CKD Continue IV fluid Consult placed to nephrology for evaluation. --Thrombocytopenia and leukopenia We will monitor CBC. Consult will be placed to heme-onc for evaluation and recommendation. Pending BM biopsy results Monitor CBC Labs to include cardiolipin ab and PTT mixing study Pending spep with MORAIMA, pf4 ab, hgep, soheila Transfuse 1 unit whenever hct <23 Transfuse 1 dose of plts whenever plt <20 -- Transaminitis, likely shock liver We will continue to monitor LFTs. We await gastroenterology evaluation and recommendations. -- DVT prophylaxis Patient will be placed on sequential compression device. -- Full code status Disposition: Medically not stable for discharge 01/26: Patient remains confused, continue antibiotics. follow renal function, follow LFT., Wait for consultants recommendation. 01/27: Creatinine slightly improved, patient mental status improving, tolerating diet. Hematology nephrology and GI following. Hematology recommended bone marrow biopsy for leukopenia and thrombocytopenia. 01/28: s/p bonemarrow biopsy today, follow am labs. Cr still elevated, speech recommended pureed diet. If renal function continues to improve possible DC soon. 01/29: patient restraint overnight, today appears to be very confused. Will order repeat LFT, ammonia level. Continue to monitor renal function. Subjective Date of service: 01/29/22 Interval history: Patient seen and examined. Medical records and medication list reviewed. Status post bone marrow biopsy yesterday Overnight patient became very confused and agitated Placed on restraint Discussed plan of care at bedside with RN Objective - Exam Narrative Exam: General appearance: Present: Restrained, cachectic, other (Dry oral mucosa) - EENT Eyes: Present: PERRL, EOM intact ENT: hearing intact, clear oral mucosa, dentition normal - Neck Neck: Present: supple, normal ROM - Respiratory Respiratory effort: normal Respiratory: bilateral: diminished - Cardiovascular Rhythm: regular Heart Sounds: Present: S1 & S2. Absent: gallop, systolic murmur, diastolic murmur, rub, click - Extremities Extremities: no ischemia, pulses intact, pulses symmetrical, No edema, normal temperature, normal color, Full ROM Peripheral Pulses: within normal limits - Abdominal General gastrointestinal: Present: soft, non-tender, non-distended, normal bowel sounds. Absent: mass Male genitourinary: Present: normal (Leal catheter in place) - Integumentary Integumentary: Present: clear, warm, dry, normal turgor. Absent: jaundice, rash - Musculoskeletal Musculoskeletal: strength equal bilaterally - Psychiatric Psychiatric: Confused - Neurologic Neurologic: no focal deficits, patient is restrained, confused does not follow command - Constitutional Vitals: Vital Signs - 12hr 01/29/22 01/29/22 04:46 08:20 Temperature 98.2 F 98.0 F Pulse Rate 75 71 Respiratory 18 16 Rate Blood Pressure 134/83 142/90 O2 Sat by Pulse 100 100 Oximetry - Labs CBC & Chem 7: 01/31/22 05:04 01/31/22 05:04 Labs: Abnormal lab results 01/28/22 01/29/22 01/29/22 Range/Units 11:57 08:36 08:36 WBC 2.9 L (4.5-11.0) K/mm3 RBC 2.65 L (3.65-5.03) M/mm3 Hgb 8.7 L (11.8-15.2) gm/dl Hct 25.5 L (35.5-45.6) % MCV 96 H (84-94) fl MCH 33 H (28-32) pg Plt Count 33 L (140-440) K/mm3 Chloride 113.2 H (98-107) mmol/L Carbon Dioxide 21 L (22-30) mmol/L BUN 25 H (9-20) mg/dL Creatinine 2.1 H (0.8-1.3) mg/dL Glucose 71 L (75-100) mg/dL POC Glucose 116 H (70-105) mg/dL AST 594 H (5-40) units/L ALT 448 H (7-56) units/L Alkaline Phosphatase 248 H (35-129) units/L Total Protein 5.7 L (6.3-8.2) g/dL Albumin 2.8 L (3.9-5) g/dL HEART Score - HEART Score Troponin: Troponin T 0.094 ng/mL (0.00-0.029) H 01/25/22 20:12
[2022-01-29] MEDS: DEXTROSE 10% *Hypoglycemia IV PRN ×2 (21:58→22:55)
[2022-01-29] MEDS: cefTRIAXone/NS 2 GM/100 ML 2 GM/100 ML BAG IV SCH (22:04)
[2022-01-29] MEDS: DEXTROSE 10% IN WATER 1,000 ML IV SCH (23:43)
[2022-01-30] MEDS: SODIUM BICARBONATE 650 MG TAB PO SCH ×4 (00:21→21:59)
[2022-01-30] MEDS: hydrALAZINE 10 MG TAB PO SCH ×3 (06:20→21:59)
[2022-01-30 06:36] LABS: Albumin 2.5 g/dL (3.8-4.8); Gamma Globulin 0.8 g/dL (0.8-1.7)
[2022-01-30] MEDS: TAMSULOSIN 0.4 MG CAP PO SCH (10:27)
[2022-01-30] MEDS: FOLIC ACID 1 MG TAB PO SCH (10:27)
[2022-01-30] MEDS: amLODIPine 10 MG TAB PO SCH (10:27)
[2022-01-30] MEDS: LORazepam 2 MG/ML VIAL IV PRN ×2 (10:30→22:05)
[2022-01-30 11:54] LABS: Hematocrit 23.2 % (35.5-45.6); Hemoglobin 7.9 gm/dl (11.8-15.2); Mean Corpuscular HGB Conc 34 % (32-34); Mean Corpuscular Volume 97 fl (84-94); Red Blood Count 2.38 M/mm3 (3.65-5.03); Red Cell Distribution Width 14.9 % (13.2-15.2)
[2022-01-30 11:58] LABS: Calcium 8.7 mg/dL (8.4-10.2)
--- NOTE | 2022-01-30 12:18 | Progress Note ---
Assessment and Plan Impression: * Altered mental status * acute kidney injury secondary to obstructive uropathy/urinary retention * Urinary retention * Azotemia * Hyperkalemia, mild * Metabolic acidosis * Anemia * Hypertension * Pancytopenia * Proteinuria * Abnormal LFT Plan: * Renal function is stable . Serum creatinine seems to be plateauing . No evidence of contrast nephropathy at this time * Continue NaBicarb * Blood pressure is under control. Continue current antihypertensive medications * Continue current management * Dose medications for renal function * Avoid potential nephrotoxins * Continue Leal catheter for now. Continue tamsulosin. Further plan as per urology services * Work-up for pancytopenia as per primary team * Okay to discontinue IV fluid if patient has adequate oral intake * Hematology consultation appreciated. * His urine shows 2+ dipstick protein and a few red cells and white cells. Urine protein creatinine ratio is approximately 0.5 g/g. Hold off on adding MAXI or ARB at this time until his renal function stabilizes * Ammonia level is normal at 25. GI consultation appreciated Subjective Date of service: 01/30/22 Interval history: patient is currently on D10 drip . Comfortable . Denies SOB Objective - Vital Signs Vital signs: Vital Signs - 12hr 01/30/22 01/30/22 01/30/22 02:30 03:53 06:20 Temperature Pulse Rate 51 L 60 Respiratory 18 Rate Blood Pressure 137/75 137/75 O2 Sat by Pulse Oximetry 01/30/22 01/30/22 01/30/22 07:32 07:39 11:47 Temperature 98.4 F 98.2 F Pulse Rate 50 L 46 L Respiratory 16 16 Rate Blood Pressure 128/72 94/58 O2 Sat by Pulse 98 100 98 Oximetry - General Appearance General appearance: well-developed, well-nourished, appears stated age EENT: PERRL, mucous membranes moist Neck: no JVD, no thyromegaly, no carotid bruit, supple Respiratory: Present: Clear to Ascultation Cardiology: regular, normal heart rate Gastrointestinal: normal, normoactive bowel sounds Integumentary: no rash, other (1+ edema ) - Lab 01/30/22 10:54 01/30/22 10:54 Most recent lab results Calcium 8.7 mg/dL (8.4-10.2) 01/30/22 10:54 Magnesium 1.80 mg/dL (1.7-2.3) 01/25/22 20:12 Urine Creatinine 49.1 mg/dL (0.1-20.0) H 01/26/22 09:17 Urine Total Protein 24 mg/dL (5-11.8) H 01/26/22 09:17 Medications & Allergies - Medications Allergies/Adverse Reactions: Allergies No Known Allergies Allergy (Unverified 01/20/22 10:47) Home Medications: Home Medications Medication Instructions Recorded Confirmed Last Taken Type Sodium Bicarbonate 1,300 mg PO TID #90 tablet 01/25/22 01/26/22 Unknown Rx Tamsulosin [Flomax] 0.4 mg PO QDAY #30 capsule 01/25/22 01/26/22 Unknown Rx amLODIPine 10 mg PO QDAY #30 tablet 01/25/22 01/26/22 Unknown Rx Active Medications: Generic Name Dose Route Start Last Admin Trade Name Freq PRN Reason Stop Dose Admin Acetaminophen 650 mg 01/25/22 23:53 Acetaminophen 325 Mg Tab PO Q4H PRN Pain MILD(1-3)/Fever >100.5/STODDARD Amlodipine Besylate 10 mg 01/27/22 11:00 01/30/22 10:27 Amlodipine 10 Mg Tab PO 10 mg QDAY MARLON Administration Dextrose 75 ml 01/25/22 20:36 01/29/22 22:55 Dextrose 10% *Hypoglycemia IV 75 ml PRN PRN Administration Hypoglycemia Folic Acid 1 mg 01/27/22 11:00 01/30/22 10:27 Folic Acid 1 Mg Tab PO 1 mg QDAY MARLON Administration Hydralazine HCl 10 mg 01/28/22 22:00 01/30/22 06:20 Hydralazine 10 Mg Tab PO 10 mg Q8HR MARLON Administration Ceftriaxone Sodium 2 gm in 100 mls @ 200 mls/hr 01/26/22 22:00 01/29/22 22:04 Rocephin/Ns 2 Gm/100 Ml IV 200 mls/hr Q24H MARLON Administration Protocol Dextrose 1,000 mls @ 100 mls/hr 01/29/22 23:45 01/29/22 23:43 D10w IV 100 mls/hr DIRECT MARLON Administration Lorazepam 1 mg 01/26/22 00:23 01/30/22 10:30 Lorazepam 2 Mg/Ml Vial IV 1 mg Q4HR PRN Administration Agitation Morphine Sulfate 2 mg 01/25/22 23:53 Morphine 2 Mg/1 Ml Inj IV Q4H PRN Pain, Moderate (4-6) Morphine Sulfate 4 mg 01/25/22 23:53 Morphine 4 Mg/1 Ml Inj IV Q4H PRN Pain , Severe (7-10) Ondansetron HCl 4 mg 01/25/22 23:53 Ondansetron 4 Mg/2 Ml Inj IV Q8H PRN Nausea And Vomiting Sodium Bicarbonate 1,300 mg 01/27/22 14:00 01/30/22 08:26 Sodium Bicarbonate 650 Mg Tab PO 1,300 mg TID MARLON Administration Sodium Chloride 10 ml 01/26/22 10:00 01/30/22 10:27 Sodium Chloride 0.9% 10 Ml Flush Syringe IV 10 ml BID MARLON Administration Sodium Chloride 10 ml 01/25/22 23:53 Sodium Chloride 0.9% 10 Ml Flush Syringe IV PRN PRN LINE FLUSH Tamsulosin HCl 0.4 mg 01/27/22 11:00 01/30/22 10:27 Tamsulosin 0.4 Mg Cap PO 0.4 mg QDAY MARLON Administration
[2022-01-30 12:26] LABS: Platelet Count 24 K/mm3 (140-440)
--- NOTE | 2022-01-30 12:37 | Progress Note ---
Assessment and Plan 76-year-old -[place] male with known history of obstructive uropathy, urinary retention, metabolic acidosis, anemia with thrombocytopenia and leukopenia who was discharge sometime in the afternoon but later brought back to the emergency room same day because of changes in mental status. Patient was accompanied by his roommate who indicates that patient has had change in his mental status and was not able to communicate well since discharge from the hospital.Patient was evaluated by the teleneurologist and was not deemed to be a TPA candidate. Work-up in the emergency room reveals thrombocytopenia of 32, BUN of 40 and creatinine of 2.3. Elevated AST and ALT of 565 and 379 respectively. Alkaline phos of 246 and creatinine kinase of 242. Troponin was elevated at 0.094. Urinalysis showed trace bacteria and trace leukocyte esterase. CTA head and neck did not show any significant findings. Chest x-ray shows possible persistent bibasilar pneumonia. Patient was admitted for further evaluation management Assessment and plan: --Acute metabolic encephalopathy We will continue to monitor mental status. CT scan of the head, CTA head and neck were nonspecific. Follow clinically with frequent neuro exam -- Pulmonary infiltrate/possible aspiration pneumonia Patient will be placed on empiric IV antibiotics. We will consult infectious disease as needed. --Renal insufficiency/JESSIKA on possible CKD Continue IV fluid Consult placed to nephrology for evaluation. --Thrombocytopenia and leukopenia We will monitor CBC. Consult will be placed to heme-onc for evaluation and recommendation. Pending BM biopsy results Monitor CBC Labs to include cardiolipin ab and PTT mixing study Pending spep with MORAIMA, pf4 ab, hgep, soheila Transfuse 1 unit whenever hct <23 Transfuse 1 dose of plts whenever plt <20 -- Transaminitis, likely shock liver We will continue to monitor LFTs. GI following -- DVT prophylaxis Patient will be placed on sequential compression device. -- Full code status Disposition: Medically not stable for discharge 01/26: Patient remains confused, continue antibiotics. follow renal function, follow LFT., Wait for consultants recommendation. 01/27: Creatinine slightly improved, patient mental status improving, tolerating diet. Hematology nephrology and GI following. Hematology recommended bone marrow biopsy for leukopenia and thrombocytopenia. 01/28: s/p bonemarrow biopsy today, follow am labs. Cr still elevated, speech recommended pureed diet. If renal function continues to improve possible DC soon. 01/29: patient restraint overnight, today appears to be very confused. Will order repeat LFT, ammonia level. Continue to monitor renal function. 01/30: LFT trending down, ammonia level lower than normal. Patient continued to be confused and restrained. Will consult psych. Order for repeat CT head Continue to follow clinically. Subjective Date of service: 01/30/22 Interval history: Patient seen and examined. Medical records and medication list reviewed. Patient remains very confused agitated Remains on restraint Discussed plan of care at bedside with RN Objective - Exam Narrative Exam: General appearance: Present: Restrained, cachectic, other (Dry oral mucosa) - EENT Eyes: Present: PERRL, EOM intact ENT: hearing intact, clear oral mucosa, dentition normal - Neck Neck: Present: supple, normal ROM - Respiratory Respiratory effort: normal Respiratory: bilateral: diminished - Cardiovascular Rhythm: regular Heart Sounds: Present: S1 & S2. Absent: gallop, systolic murmur, diastolic murmur, rub, click - Extremities Extremities: no ischemia, pulses intact, pulses symmetrical, No edema, normal temperature, normal color, Full ROM Peripheral Pulses: within normal limits - Abdominal General gastrointestinal: Present: soft, non-tender, non-distended, normal bowel sounds. Absent: mass Male genitourinary: Present: normal (Leal catheter in place) - Integumentary Integumentary: Present: clear, warm, dry, normal turgor. Absent: jaundice, rash - Musculoskeletal Musculoskeletal: strength equal bilaterally - Psychiatric Psychiatric: Confused - Neurologic Neurologic: no focal deficits, patient is restrained, confused does not follow command - Constitutional Vitals: Vital Signs - 12hr 01/30/22 01/30/22 01/30/22 02:30 03:53 06:20 Temperature Pulse Rate 51 L 60 Respiratory 18 Rate Blood Pressure 137/75 137/75 O2 Sat by Pulse Oximetry 01/30/22 01/30/22 01/30/22 07:32 07:39 11:47 Temperature 98.4 F 98.2 F Pulse Rate 50 L 46 L Respiratory 16 16 Rate Blood Pressure 128/72 94/58 O2 Sat by Pulse 98 100 98 Oximetry - Labs CBC & Chem 7: 01/31/22 05:04 01/31/22 05:04 Labs: Abnormal lab results 01/26/22 01/29/22 01/30/22 Range/Units 14:35 21:37 10:54 WBC (4.5-11.0) K/mm3 RBC (3.65-5.03) M/mm3 Hgb (11.8-15.2) gm/dl Hct (35.5-45.6) % MCV (84-94) fl MCH (28-32) pg Plt Count (140-440) K/mm3 Chloride 110.9 H (98-107) mmol/L Carbon Dioxide 21 L (22-30) mmol/L Creatinine 1.9 H (0.8-1.3) mg/dL POC Glucose 55 L (70-105) mg/dL Ammonia (25-60) umol/L Serum Total Protein 5.1 L (6.1-8.1) g/dL Albumin 2.5 L (3.8-4.8) g/dL [id number]-[id number] 0.4 H (0.2-0.3) g/dL PEP Interpretation see below H 01/30/22 01/30/22 Range/Units 10:54 10:54 WBC 1.4 L* (4.5-11.0) K/mm3 RBC 2.38 L (3.65-5.03) M/mm3 Hgb 7.9 L (11.8-15.2) gm/dl Hct 23.2 L (35.5-45.6) % MCV 97 H (84-94) fl MCH 33 H (28-32) pg Plt Count 24 L (140-440) K/mm3 Chloride (98-107) mmol/L Carbon Dioxide (22-30) mmol/L Creatinine (0.8-1.3) mg/dL POC Glucose (70-105) mg/dL Ammonia 20.0 L (25-60) umol/L Serum Total Protein (6.1-8.1) g/dL Albumin (3.8-4.8) g/dL Epybt-6-Grntttdmb (0.2-0.3) g/dL PEP Interpretation HEART Score - HEART Score Troponin: Troponin T 0.094 ng/mL (0.00-0.029) H 01/25/22 20:12
[2022-01-30] MEDS: DEXTROSE 10% IN WATER 1,000 ML IV SCH (13:36)
[2022-01-30 17:17] LABS: Heparin-Induced Platelet Antib Negative (Negative); Unfractionated Heparin Negative (Negative)
[2022-01-30] MEDS: cefTRIAXone/NS 2 GM/100 ML 2 GM/100 ML BAG IV SCH (21:59)
[2022-01-31] MEDS: DEXTROSE 10% IN WATER 1,000 ML IV SCH ×2 (01:59→05:30)
[2022-01-31] MEDS: hydrALAZINE 10 MG TAB PO SCH (05:29)
[2022-01-31 06:18] LABS: Basophils % (Auto) 0.3 % (0.0-1.8); Hematocrit 24.4 % (35.5-45.6); Hemoglobin 8.4 gm/dl (11.8-15.2); Lymphocytes # (Auto) 0.3 K/mm3 (1.2-5.4); Mean Corpuscular HGB Conc 35 % (32-34); Mean Corpuscular Volume 96 fl (84-94); Monocytes # (Auto) 0.1 K/mm3 (0.0-0.8); Monocytes % (Auto) 3.6 % (0.0-7.3); Red Blood Count 2.53 M/mm3 (3.65-5.03); Red Cell Distribution Width 14.9 % (13.2-15.2)
[2022-01-31 06:26] LABS: Platelet Count 24 K/mm3 (140-440)
[2022-01-31 06:27] LABS: Albumin 2.4 g/dL (3.9-5); Calcium 8.4 mg/dL (8.4-10.2)
[2022-01-31] MEDS ORDERED: hydrALAZINE 10 MG TAB PO SCH (08:26)
--- NOTE | 2022-01-31 10:45 | Cat Scan Report ---
CT HEAD WITHOUT CONTRAST INDICATION / CLINICAL INFORMATION: ams. TECHNIQUE: All CT scans at this location are performed using CT dose reduction for ALARA by means of automated e xposure control. COMPARISON: Head CT 01/25/2022 and 01/20/2022 FINDINGS: HEMORRHAGE: No evidence of intracranial hemorrhage or extra-axial fluid collection. EXTRA-AXIAL SPACES: Cortical sulci and sylvian fissures are enlarged reflecting a degree of parenchym al volume loss which is within normal limits for the patient's age of 76 years. Basilar cisterns have an unremarkable appearance. VENTRICULAR SYSTEM: The third and lateral ventricles are enlarged reflecting presence of age related parenchymal volume loss. CEREBRAL PARENCHYMA: Periventricular and deep white matter lucency is observed. This is probably seco ndary to microvascular ischemic change. There is no indication of recent infarction. No areas of ence phalomalacia are identified. MIDLINE SHIFT OR HERNIATION: There is no mass effect. CEREBELLUM / BRAINSTEM: Brainstem has an unremarkable appearance. Age related cerebellar atrophy is n oted. MIDLINE STRUCTURES:Pituitary gland has an unremarkable appearance. No abnormalities are seen in the p ineal region. INTRACRANIAL VESSELS:Calcified atherosclerotic plaque is present along the course of the cavernous se gments of both internal carotid arteries. Similar findings are seen at the distal vertebral arteries. CRANIOCERVICAL JUNCTION:No significant abnormality. ORBITS: visualized portions of the orbits have an unremarkable appearance. SOFT TISSUES of HEAD: No significant abnormality. CALVARIUM: Evaluation of bone windows reveals no abnormalities. PARANASAL SINUSES / MASTOID AIR CELLS: There is complete opacification of the left maxillary sinus. A bnormal material extends into the adjacent left nasal cavity. Possibility of intracranial or polyp is considered. Correlation with ENT evaluation is suggested. Inflammatory mucosal disease is present wi thin anterior ethmoid air cells on the left frontal sinuses bilaterally. IMPRESSION: 1. Age-related involutional changes of parenchymal volume loss and microvascular ischemia. 2. No acute intracranial abnormality. No detrimental interval change since recent previous study 01/25. 3. Inflammatory changes paranasal sinuses as described above. Consider possible left antrochoanal maryann yp. Signer Name: Stan Grijalva MD Signed: 01/31/2022 10:35 AM Workstation Name: [id number]
[2022-01-31] MEDS: SODIUM BICARBONATE 650 MG TAB PO SCH (11:03)
[2022-01-31] MEDS: amLODIPine 10 MG TAB PO SCH (11:04)
[2022-01-31] MEDS: TAMSULOSIN 0.4 MG CAP PO SCH (11:04)
[2022-01-31] MEDS: FOLIC ACID 1 MG TAB PO SCH (11:04)
[2022-01-31] MEDS: hydrALAZINE 25 MG TAB PO SCH ×2 (11:04→22:39)
--- NOTE | 2022-01-31 11:58 | Progress Note ---
Subjective Date of service: 01/31/22 Interval history: Impression: * Altered mental status * acute kidney injury secondary to obstructive uropathy/urinary retention * Urinary retention * Azotemia * Hyperkalemia, mild * Metabolic acidosis * Anemia * Hypertension * Pancytopenia * Proteinuria * Abnormal LFT Plan: * Renal function is stable . Serum creatinine seems to be plateauing . No evidence of contrast nephropathy at this time * Continue NaBicarb * Blood pressure is under control. Continue current antihypertensive medica tions * Continue current management * Dose medications for renal function * Avoid potential nephrotoxins * Continue Leal catheter for now. Continue tamsulosin. Further plan as per urology services * Work-up for pancytopenia as per primary team * Okay to discontinue IV fluid if patient has adequate oral intake * Hematology consultation appreciated. * His urine shows 2+ dipstick protein and a few red cells and white cells. Urine protein creatinine ratio is approximately 0.5 g/g. Hold off on adding MAXI or ARB at this time until his renal function stabilizes * Ammonia level is normal at 25. GI consultation appreciated * ok to dc from renal standpoint Subjective resting in bed . Comfortable . Denies SOB Objective - General Appearance General appearance: well-developed, well-nourished, appears stated age EENT: PERRL, mucous membranes moist Neck: no JVD, no thyromegaly, no carotid bruit, supple Respiratory: Present: Clear to Ascultation Cardiology: regular, normal heart rate Gastrointestinal: normal, normoactive bowel sounds Integumentary: no rash, other (1+ edema ) Objective - Vital Signs Vital signs: Vital Signs - 12hr 01/31/22 01/31/22 01/31/22 00:13 04:42 08:05 Temperature 98.9 F Pulse Rate 52 L 63 75 Respiratory 12 12 16 Rate Blood Pressure 98/60 158/84 162/85 O2 Sat by Pulse 100 100 99 Oximetry - Lab 01/31/22 05:04 01/31/22 05:04 Most recent lab results Calcium 8.4 mg/dL (8.4-10.2) 01/31/22 05:04 Magnesium 1.80 mg/dL (1.7-2.3) 01/25/22 20:12 Urine Creatinine 49.1 mg/dL (0.1-20.0) H 01/26/22 09:17 Urine Total Protein 24 mg/dL (5-11.8) H 01/26/22 09:17 Medications & Allergies - Medications Allergies/Adverse Reactions: Allergies No Known Allergies Allergy (Unverified 01/20/22 10:47) Home Medications: Home Medications Medication Instructions Recorded Confirmed Last Taken Type Sodium Bicarbonate 1,300 mg PO TID #90 tablet 01/25/22 01/26/22 Unknown Rx Tamsulosin [Flomax] 0.4 mg PO QDAY #30 capsule 01/25/22 01/26/22 Unknown Rx amLODIPine 10 mg PO QDAY #30 tablet 01/25/22 01/26/22 Unknown Rx Active Medications: Generic Name Dose Route Start Last Admin Trade Name Freq PRN Reason Stop Dose Admin Acetaminophen 650 mg 01/25/22 23:53 Acetaminophen 325 Mg Tab PO Q4H PRN Pain MILD(1-3)/Fever >100.5/STODDARD Amlodipine Besylate 10 mg 01/27/22 11:00 01/31/22 11:04 Amlodipine 10 Mg Tab PO 10 mg QDAY MARLON Administration Dextrose 75 ml 01/25/22 20:36 01/29/22 22:55 Dextrose 10% *Hypoglycemia IV 75 ml PRN PRN Administration Hypoglycemia Folic Acid 1 mg 01/27/22 11:00 01/31/22 11:04 Folic Acid 1 Mg Tab PO 1 mg QDAY MARLON Administration Hydralazine HCl 50 mg 01/31/22 09:00 01/31/22 11:04 Hydralazine 25 Mg Tab PO 50 mg Q8HR MARLON Administration Ceftriaxone Sodium 2 gm in 100 mls @ 200 mls/hr 01/26/22 22:00 01/31/22 01:50 Rocephin/Ns 2 Gm/100 Ml IV Infused Q24H MARLON Infusion Protocol Dextrose 1,000 mls @ 100 mls/hr 01/29/22 23:45 01/31/22 05:30 D10w IV 100 mls/hr DIRECT MARLON Administration Lorazepam 1 mg 01/26/22 00:23 01/30/22 22:05 Lorazepam 2 Mg/Ml Vial IV 1 mg Q4HR PRN Administration Agitation Morphine Sulfate 2 mg 01/25/22 23:53 Morphine 2 Mg/1 Ml Inj IV Q4H PRN Pain, Moderate (4-6) Morphine Sulfate 4 mg 01/25/22 23:53 Morphine 4 Mg/1 Ml Inj IV Q4H PRN Pain , Severe (7-10) Ondansetron HCl 4 mg 01/25/22 23:53 Ondansetron 4 Mg/2 Ml Inj IV Q8H PRN Nausea And Vomiting Sodium Bicarbonate 1,300 mg 01/27/22 14:00 01/31/22 11:03 Sodium Bicarbonate 650 Mg Tab PO 1,300 mg TID MARLON Administration Sodium Chloride 10 ml 01/26/22 10:00 01/31/22 11:03 Sodium Chloride 0.9% 10 Ml Flush Syringe IV 10 ml BID MARLON Administration Sodium Chloride 10 ml 01/25/22 23:53 Sodium Chloride 0.9% 10 Ml Flush Syringe IV PRN PRN LINE FLUSH Tamsulosin HCl 0.4 mg 01/27/22 11:00 01/31/22 11:04 Tamsulosin 0.4 Mg Cap PO 0.4 mg QDAY MARLON Administration
--- NOTE | 2022-01-31 14:09 | Consultation ---
History of Present Illness - Reason for Consult Consult date: 01/31/22 Reason for consult: Delirium - Chief Complaint Chief complaint: Altered Mental Status - History of Present Psychiatric Illness The patient is a 76 year old male with unknown psychiatric history who was consulted for delirium. per note, the patient was discharged from the hospital and readmitted for altered mental status. In my encounter with the patient, he is alert. The patient is resting in the bed with the nurse at bedside; he is mumbling inaudible words. PAST PSYCHIATRIC HISTORY PAST MEDICAL HISTORY: None reported Family Psychiatric History: None reported or documented SOCIAL HISTORY REVIEW OF SYSTEMS MENTAL STATUS EXAMINATION Assessment and Plan (1) Delirium TREATMENT Zyprexa 2.5mg po QHS Continue previously prescribed medications Risks, benefits and alternatives of medications discussed with the patient, questions answered and consent obtained from patient. PSYCHOTHERAPY: Supportive psychotherapy provided MEDICAL: Per primary team DELIRIUM PRECAUTIONS: Please re-orient patient frequently, keep lights on during the day, and minimize benzodiazepines and opiates as these medications could worsen patient's confusion. [employer]: defer to primary DISPOSITION: Do not Recommend acute inpatient psychiatric hospitalization at this time. FOLLOW-UP: Will follow for medication management. Thank you for the consult. Please contact with any questions and/or concerns. Medications and Allergies Medications and Allergies Allergies Allergy/AdvReac Type Severity Reaction Status Date / Time No Known Allergies Allergy Unverified 01/20/22 10:47 Home Medications Medication Instructions Recorded Confirmed Last Taken Type Sodium Bicarbonate 1,300 mg PO TID #90 tablet 01/25/22 01/26/22 Unknown Rx Tamsulosin [Flomax] 0.4 mg PO QDAY #30 capsule 01/25/22 01/26/22 Unknown Rx amLODIPine 10 mg PO QDAY #30 tablet 01/25/22 01/26/22 Unknown Rx Active Meds: Active Medications Acetaminophen (Acetaminophen 325 Mg Tab) 650 mg PO Q4H PRN PRN Reason: Pain MILD(1-3)/Fever >100.5/STODDARD Amlodipine Besylate (Amlodipine 10 Mg Tab) 10 mg PO QDAY [facility] Last Admin: 01/31/22 11:04 Dose: 10 mg Dextrose (Dextrose 10% *Hypoglycemia) 75 ml IV PRN PRN PRN Reason: Hypoglycemia Last Admin: 01/29/22 22:55 Dose: 75 ml Folic Acid (Folic Acid 1 Mg Tab) 1 mg PO QDAY [facility] Last Admin: 01/31/22 11:04 Dose: 1 mg Hydralazine HCl (Hydralazine 25 Mg Tab) 50 mg PO Q8HR [facility] Last Admin: 01/31/22 11:04 Dose: 50 mg Ceftriaxone Sodium (Rocephin/Ns 2 Gm/100 Ml) 2 gm in 100 mls @ 200 mls/hr IV Q24H [facility]; Protocol Stop: 02/01/22 23:59 Last Infusion: 01/31/22 01:50 Dose: Infused Dextrose (D10w) 1,000 mls @ 100 mls/hr IV DIRECT [facility] Last Admin: 01/31/22 05:30 Dose: 100 mls/hr Lorazepam (Lorazepam 2 Mg/Ml Vial) 1 mg IV Q4HR PRN PRN Reason: Agitation Last Admin: 01/30/22 22:05 Dose: 1 mg Morphine Sulfate (Morphine 2 Mg/1 Ml Inj) 2 mg IV Q4H PRN PRN Reason: Pain, Moderate (4-6) Morphine Sulfate (Morphine 4 Mg/1 Ml Inj) 4 mg IV Q4H PRN PRN Reason: Pain , Severe (7-10) Ondansetron HCl (Ondansetron 4 Mg/2 Ml Inj) 4 mg IV Q8H PRN PRN Reason: Nausea And Vomiting Sodium Bicarbonate (Sodium Bicarbonate 650 Mg Tab) 1,300 mg PO TID [facility] Last Admin: 01/31/22 11:03 Dose: 1,300 mg Sodium Chloride (Sodium Chloride 0.9% 10 Ml Flush Syringe) 10 ml IV BID [facility] Last Admin: 01/31/22 11:03 Dose: 10 ml Sodium Chloride (Sodium Chloride 0.9% 10 Ml Flush Syringe) 10 ml IV PRN PRN PRN Reason: LINE FLUSH Tamsulosin HCl (Tamsulosin 0.4 Mg Cap) 0.4 mg PO QDAY [facility] Last Admin: 01/31/22 11:04 Dose: 0.4 mg Mental Status Exam - Vital signs Last Vital Signs Temp 98.9 F 01/31/22 08:05 Pulse 50 L 01/31/22 11:53 Resp 18 01/31/22 11:53 BP 154/84 01/31/22 11:53 Pulse Ox 97 01/31/22 11:53 Results Result Diagrams: 01/31/22 05:04 01/31/22 05:04 Abnormal lab results 01/31/22 01/31/22 01/31/22 Range/Units 05:04 05:04 08:03 WBC 2.6 L (4.5-11.0) K/mm3 RBC 2.53 L (3.65-5.03) M/mm3 Hgb 8.4 L (11.8-15.2) gm/dl Hct 24.4 L (35.5-45.6) % MCV 96 H (84-94) fl MCH 33 H (28-32) pg MCHC 35 H (32-34) % Plt Count 24 L (140-440) K/mm3 Lymph % (Auto) 10.0 L (13.4-35.0) % Lymph # (Auto) 0.3 L (1.2-5.4) K/mm3 Seg Neutrophils % 85.1 H (40.0-70.0) % Chloride 107.9 H (98-107) mmol/L Carbon Dioxide 21 L (22-30) mmol/L Creatinine 1.9 H (0.8-1.3) mg/dL Glucose 57 L (75-100) mg/dL POC Glucose 60 L (70-105) mg/dL AST 404 H (5-40) units/L ALT 362 H (7-56) units/L Alkaline Phosphatase 228 H (35-129) units/L Total Protein 5.3 L (6.3-8.2) g/dL Albumin 2.4 L (3.9-5) g/dL All other labs normal.
--- NOTE | 2022-01-31 16:27 | Progress Note ---
Assessment and Plan 76-year-old -[place] Citizen male with known history of obstructive uropathy, urinary retention, metabolic acidosis, anemia with thrombocytopenia and leukopenia who was discharge sometime in the afternoon but later brought back to the emergency room same day because of changes in mental status. Patient was accompanied by his roommate who indicates that patient has had change in his mental status and was not able to communicate well since discharge from the hospital.Patient was evaluated by the teleneurologist and was not deemed to be a TPA candidate. Work-up in the emergency room reveals thrombocytopenia of 32, BUN of 40 and creatinine of 2.3. Elevated AST and ALT of 565 and 379 respectively. Alkaline phos of 246 and creatinine kinase of 242. Troponin was elevated at 0.094. Urinalysis showed trace bacteria and trace leukocyte esterase. CTA head and neck did not show any significant findings. Chest x-ray shows possible persistent bibasilar pneumonia. Patient was admitted for further evaluation management Assessment and plan: --Acute metabolic encephalopathy We will continue to monitor mental status. CT scan of the head, CTA head and neck were nonspecific. Follow clinically with frequent neuro exam -- Pulmonary infiltrate/possible aspiration pneumonia Patient will be placed on empiric IV antibiotics. We will consult infectious disease as needed. --Renal insufficiency/JESSIKA on possible CKD Continue IV fluid Consult placed to nephrology for evaluation. --Thrombocytopenia and leukopenia We will monitor CBC. Consult will be placed to heme-onc for evaluation and recommendation. Pending BM biopsy results Monitor CBC Labs to include cardiolipin ab and PTT mixing study Pending spep with MORAIMA, pf4 ab, hgep, soheila Transfuse 1 unit whenever hct <23 Transfuse 1 dose of plts whenever plt <20 -- Transaminitis, likely shock liver We will continue to monitor LFTs. GI following -- DVT prophylaxis Patient will be placed on sequential compression device. -- Full code status Disposition: Medically not stable for discharge 01/26: Patient remains confused, continue antibiotics. follow renal function, follow LFT., Wait for consultants recommendation. 01/27: Creatinine slightly improved, patient mental status improving, tolerating diet. Hematology nephrology and GI following. Hematology recommended bone marrow biopsy for leukopenia and thrombocytopenia. 01/28: s/p bonemarrow biopsy today, follow am labs. Cr still elevated, speech recommended pureed diet. If renal function continues to improve possible DC soon. 01/29: patient restraint overnight, today appears to be very confused. Will order repeat LFT, ammonia level. Continue to monitor renal function. 01/30: LFT trending down, ammonia level lower than normal. Patient continued to be confused and restrained. Will consult psych. Order for repeat CT head Continue to follow clinically. 01/31: discussed plan of care with significant other. pending BM biopsy, autoimmune workup panel. Remains confused, psych following. initiated zyprexa at bedtime. Subjective Date of service: 01/31/22 Interval history: Patient seen and examined. Medical records and medication list reviewed. Patient remains very confused agitated Remains on restraint Discussed plan of care at bedside with RN Objective - Exam Narrative Exam: General appearance: Present: Restrained, cachectic, other (Dry oral mucosa) - EENT Eyes: Present: PERRL, EOM intact ENT: hearing intact, clear oral mucosa, dentition normal - Neck Neck: Present: supple, normal ROM - Respiratory Respiratory effort: normal Respiratory: bilateral: diminished - Cardiovascular Rhythm: regular Heart Sounds: Present: S1 & S2. Absent: gallop, systolic murmur, diastolic murmur, rub, click - Extremities Extremities: no ischemia, pulses intact, pulses symmetrical, No edema, normal temperature, normal color, Full ROM Peripheral Pulses: within normal limits - Abdominal General gastrointestinal: Present: soft, non-tender, non-distended, normal bowel sounds. Absent: mass Male genitourinary: Present: normal (Leal catheter in place) - Integumentary Integumentary: Present: clear, warm, dry, normal turgor. Absent: jaundice, rash - Musculoskeletal Musculoskeletal: strength equal bilaterally - Psychiatric Psychiatric: Confused - Neurologic Neurologic: no focal deficits, patient is restrained, confused does not follow command - Constitutional Vitals: Vital Signs - 12hr 01/31/22 01/31/22 01/31/22 04:42 08:00 08:05 Temperature 98.9 F Pulse Rate 63 89 75 Respiratory 12 16 Rate Blood Pressure 158/84 162/85 Blood Pressure [Left] O2 Sat by Pulse 100 96 99 Oximetry 01/31/22 01/31/22 01/31/22 11:53 15:51 16:00 Temperature 98.6 F Pulse Rate 50 L 89 89 Respiratory 18 16 Rate Blood Pressure 134/63 Blood Pressure 154/84 [Left] O2 Sat by Pulse 97 93 Oximetry - Labs CBC & Chem 7: 01/31/22 05:04 01/31/22 05:04 Labs: Abnormal lab results 01/31/22 01/31/22 01/31/22 Range/Units 05:04 05:04 08:03 WBC 2.6 L (4.5-11.0) K/mm3 RBC 2.53 L (3.65-5.03) M/mm3 Hgb 8.4 L (11.8-15.2) gm/dl Hct 24.4 L (35.5-45.6) % MCV 96 H (84-94) fl MCH 33 H (28-32) pg MCHC 35 H (32-34) % Plt Count 24 L (140-440) K/mm3 Lymph % (Auto) 10.0 L (13.4-35.0) % Lymph # (Auto) 0.3 L (1.2-5.4) K/mm3 Seg Neutrophils % 85.1 H (40.0-70.0) % Chloride 107.9 H (98-107) mmol/L Carbon Dioxide 21 L (22-30) mmol/L Creatinine 1.9 H (0.8-1.3) mg/dL Glucose 57 L (75-100) mg/dL POC Glucose 60 L (70-105) mg/dL AST 404 H (5-40) units/L ALT 362 H (7-56) units/L Alkaline Phosphatase 228 H (35-129) units/L Total Protein 5.3 L (6.3-8.2) g/dL Albumin 2.4 L (3.9-5) g/dL 01/31/22 Range/Units 11:15 WBC (4.5-11.0) K/mm3 RBC (3.65-5.03) M/mm3 Hgb (11.8-15.2) gm/dl Hct (35.5-45.6) % MCV (84-94) fl MCH (28-32) pg MCHC (32-34) % Plt Count (140-440) K/mm3 Lymph % (Auto) (13.4-35.0) % Lymph # (Auto) (1.2-5.4) K/mm3 Seg Neutrophils % (40.0-70.0) % Chloride (98-107) mmol/L Carbon Dioxide (22-30) mmol/L Creatinine (0.8-1.3) mg/dL Glucose (75-100) mg/dL POC Glucose 68 L (70-105) mg/dL AST (5-40) units/L ALT (7-56) units/L Alkaline Phosphatase (35-129) units/L Total Protein (6.3-8.2) g/dL Albumin (3.9-5) g/dL HEART Score - HEART Score Troponin: Troponin T 0.094 ng/mL (0.00-0.029) H 01/25/22 20:12
[2022-01-31 22:00] LABS: ANA Screen, IFA Negative (Negative)
[2022-01-31] MEDS: cefTRIAXone/NS 2 GM/100 ML 2 GM/100 ML BAG IV SCH (22:37)
[2022-02-01] MEDS: DEXTROSE 10% IN WATER 1,000 ML IV SCH ×2 (02:01→13:13)
[2022-02-01 05:40] LABS: Cardiolipin Ab IgA <2.0 APL-U/mL (<20.0); Cardiolipin Ab IgG <2.0 GPL-U/mL (<20.0); Cardiolipin Ab IgM <2.0 MPL-U/mL (<20.0)
[2022-02-01] MEDS: hydrALAZINE 25 MG TAB PO SCH ×4 (06:52→21:16)
[2022-02-01 08:51] LABS: Albumin 2.4 g/dL (3.9-5); Calcium 8.6 mg/dL (8.4-10.2); Hematocrit 26.1 % (35.5-45.6); Hemoglobin 8.5 gm/dl (11.8-15.2); Mean Corpuscular HGB Conc 33 % (32-34); Mean Corpuscular Volume 97 fl (84-94); Red Blood Count 2.69 M/mm3 (3.65-5.03); Red Cell Distribution Width 14.7 % (13.2-15.2)
[2022-02-01 08:59] LABS: Platelet Count 33 K/mm3 (140-440)
[2022-02-01] MEDS: SODIUM BICARBONATE 650 MG TAB PO SCH ×5 (09:05→21:14)
[2022-02-01] MEDS: FOLIC ACID 1 MG TAB PO SCH (10:00)
[2022-02-01] MEDS: TAMSULOSIN 0.4 MG CAP PO SCH (10:00)
[2022-02-01] MEDS: amLODIPine 10 MG TAB PO SCH (10:00)
--- NOTE | 2022-02-01 11:50 | Cat Scan Report ---
CT head/brain wo con INDICATION / CLINICAL INFORMATION: 76 years Male; Acute decline in mental status- rule out stroke. TECHNIQUE: Routine CT head without contrast. All CT scans at this location are performed using CT dos e reduction for ALARA by means of automated exposure control. COMPARISON: 01/31/2022 FINDINGS: BRAIN / INTRACRANIAL CONTENTS: Small lacunar infarcts seen in the thalamic regions bilaterally, as we ll as the right putamen - age-indeterminate. However, similar type findings are seen on studies datin g back to 01/25/2022. There are moderate to marked, confluent areas of decreased attenuation in the white matter of the cer ebral hemispheres. These are nonspecific findings and may be related to microangiopathy (hypertension , diabetes, atherosclerosis), given the patient's age. No acute hemorrhage, mass effect, midline shif t, hydrocephalus, or acute, large territorial infarct. Mild, diffuse cerebral atrophy. There may be a small arachnoid cyst along the superolateral margin of the right cerebellar hemisphere - of no clinical significance. There are moderate to marked, confluent areas of decreased attenuation in the white matter of the cer ebral hemispheres. These are nonspecific findings and may be related to microangiopathy (hypertension , diabetes, atherosclerosis), given the patient's age. It might be difficult to evaluate for small ar eas of ischemia without diffusion imaging by MRI. CRANIOCERVICAL JUNCTION: No significant abnormality. ORBITS: No significant abnormality of visualized orbits. SINUSES / MASTOIDS: There is opacification of the left maxillary antrum by a large mucous retention c yst or antrochoanal polyp is mentioned on recent report. Mild to moderate opacification of the ethmoi d seen on the left. Moderate opacification of the frontal sinuses noted. Small mucous retention cyst/ polyp is seen in the right sphenoid sinus. ADDITIONAL FINDINGS: Mild atherosclerotic disease is seen in the anterior circulation. IMPRESSION: 1. No focal mass, hemorrhage, hydrocephalus, or acute, large territorial infarct. Follow-up with diff usion imaging by MRI, as clinically warranted. 2. Sinus disease as described above, which is not significantly changed from priors. Signer Name: Jan Jackman MD, III Signed: 02/01/2022 11:45 AM Workstation Name: [id number]
--- NOTE | 2022-02-01 12:50 | Progress Note ---
Subjective Date of service: 02/01/22 Interval history: Impression: * Altered mental status * acute kidney injury secondary to obstructive uropathy/urinary retention * Urinary retention * Azotemia * Hyperkalemia, mild * Metabolic acidosis * Anemia * Hypertension * Pancytopenia * Proteinuria * Abnormal LFT Plan: * Renal function is stable . Serum creatinine seems to be plateauing . No evidence of contrast nephropathy at this time * Continue NaBicarb * Blood pressure is under control. Continue current antihypertensive medica tions * Continue current management * Dose medications for renal function * Avoid potential nephrotoxins * Continue Leal catheter for now. Continue tamsulosin. Further plan as per urology services * Work-up for pancytopenia as per primary team * Okay to discontinue IV fluid if patient has adequate oral intake * Hematology consultation appreciated. * His urine shows 2+ dipstick protein and a few red cells and white cells. Urine protein creatinine ratio is approximately 0.5 g/g. Hold off on adding MAXI or ARB at this time until his renal function stabilizes * Ammonia level is normal at 25. GI consultation appreciated * ok to dc from renal standpoint Subjective resting in bed . Comfortable . Denies SOB Objective - General Appearance General appearance: well-developed, well-nourished, appears stated age EENT: PERRL, mucous membranes moist Neck: no JVD, no thyromegaly, no carotid bruit, supple Respiratory: Present: Clear to Ascultation Cardiology: regular, normal heart rate Gastrointestinal: normal, normoactive bowel sounds Integumentary: no rash, other (1+ edema ) Objective - Vital Signs Vital signs: Vital Signs - 12hr 02/01/22 02/01/22 02/01/22 03:00 04:00 06:52 Temperature 97.3 F L Pulse Rate 79 56 L 56 L Respiratory 16 Rate Blood Pressure 140/76 140/76 O2 Sat by Pulse 100 Oximetry 02/01/22 02/01/22 07:58 11:13 Temperature 98.5 F 96.5 F L Pulse Rate 77 67 Respiratory 16 14 Rate Blood Pressure 111/68 142/80 O2 Sat by Pulse 98 100 Oximetry - Lab 02/01/22 07:54 02/01/22 07:54 Most recent lab results Calcium 8.6 mg/dL (8.4-10.2) 02/01/22 07:54 Magnesium 1.80 mg/dL (1.7-2.3) 01/25/22 20:12 Urine Creatinine 49.1 mg/dL (0.1-20.0) H 01/26/22 09:17 Urine Total Protein 24 mg/dL (5-11.8) H 01/26/22 09:17 Medications & Allergies - Medications Allergies/Adverse Reactions: Allergies No Known Allergies Allergy (Unverified 01/20/22 10:47) Home Medications: Home Medications Medication Instructions Recorded Confirmed Last Taken Type Sodium Bicarbonate 1,300 mg PO TID #90 tablet 01/25/22 01/26/22 Unknown Rx Tamsulosin [Flomax] 0.4 mg PO QDAY #30 capsule 01/25/22 01/26/22 Unknown Rx amLODIPine 10 mg PO QDAY #30 tablet 01/25/22 01/26/22 Unknown Rx Active Medications: Generic Name Dose Route Start Last Admin Trade Name Freq PRN Reason Stop Dose Admin Acetaminophen 650 mg 01/25/22 23:53 Acetaminophen 325 Mg Tab PO Q4H PRN Pain MILD(1-3)/Fever >100.5/STODDARD Amlodipine Besylate 10 mg 01/27/22 11:00 01/31/22 11:04 Amlodipine 10 Mg Tab PO 10 mg QDAY [facility] Administration Dextrose 75 ml 01/25/22 20:36 01/29/22 22:55 Dextrose 10% *Hypoglycemia IV 75 ml PRN PRN Administration Hypoglycemia Folic Acid 1 mg 01/27/22 11:00 01/31/22 11:04 Folic Acid 1 Mg Tab PO 1 mg QDAY [facility]ON Administration Hydralazine HCl 50 mg 01/31/22 09:00 02/01/22 06:52 Hydralazine 25 Mg Tab PO 50 mg Q8HR [facility] Administration Ceftriaxone Sodium 2 gm in 100 mls @ 200 mls/hr 01/26/22 22:00 01/31/22 22:37 Rocephin/Ns 2 Gm/100 Ml IV 02/01/22 23:59 200 mls/hr Q24H [facility] Administration Protocol Dextrose 1,000 mls @ 100 mls/hr 01/29/22 23:45 02/01/22 02:01 D10w IV 100 mls/hr DIRECT [facility] Administration Lorazepam 1 mg 01/26/22 00:23 01/30/22 22:05 Lorazepam 2 Mg/Ml Vial IV 1 mg Q4HR PRN Administration Agitation Morphine Sulfate 2 mg 01/25/22 23:53 Morphine 2 Mg/1 Ml Inj IV Q4H PRN Pain, Moderate (4-6) Morphine Sulfate 4 mg 01/25/22 23:53 Morphine 4 Mg/1 Ml Inj IV Q4H PRN Pain , Severe (7-10) Olanzapine 2.5 mg 01/31/22 22:00 01/31/22 22:39 Olanzapine 2.5 Mg Tab PO 2.5 mg QHS [facility] Administration Ondansetron HCl 4 mg 01/25/22 23:53 Ondansetron 4 Mg/2 Ml Inj IV Q8H PRN Nausea And Vomiting Sodium Bicarbonate 1,300 mg 01/27/22 14:00 01/31/22 11:03 Sodium Bicarbonate 650 Mg Tab PO 1,300 mg TID [facility] Administration Sodium Chloride 10 ml 01/26/22 10:00 01/31/22 22:40 Sodium Chloride 0.9% 10 Ml Flush Syringe IV 10 ml BID [facility] Administration Sodium Chloride 10 ml 01/25/22 23:53 Sodium Chloride 0.9% 10 Ml Flush Syringe IV PRN PRN LINE FLUSH Tamsulosin HCl 0.4 mg 01/27/22 11:00 01/31/22 11:04 Tamsulosin 0.4 Mg Cap PO 0.4 mg QDAY [facility] Administration
--- NOTE | 2022-02-01 13:52 | Progress Note ---
Assessment and Plan Assessment and plan: 76-year-old -[place] male with known history of obstructive uropathy, urinary retention, metabolic acidosis, anemia with thrombocytopenia and leukopenia who was discharge sometime in the afternoon but later brought back to the emergency room same day because of changes in mental status. Patient was accompanied by his roommate who indicates that patient has had change in his mental status and was not able to communicate well since discharge from the hospital.Patient was evaluated by the teleneurologist and was not deemed to be a TPA candidate. Work-up in the emergency room reveals thrombocytopenia of 32, BUN of 40 and creatinine of 2.3. Elevated AST and ALT of 565 and 379 respectively. Alkaline phos of 246 and creatinine kinase of 242. Troponin was elevated at 0.094. Urinalysis showed trace bacteria and trace leukocyte esterase. CTA head and neck did not show any significant findings. Chest x-ray shows possible persistent bibasilar pneumonia. Patient was admitted for further evaluation management Assessment and plan: #Acute metabolic encephalopathy- worsened -CT scan of the head, CTA head and neck were nonspecific. -Repeat CT head noncontrast due to marked encephalopathy with decreased response. CT head unremarkable. Following up with MRI brain. Possibly iatrogenic etiologyrecently started on Zyprexa last night. Discontinued Zyprexa. Will continue to monitor #Pulmonary infiltrate/possible aspiration pneumonia -Completing 7-day course of Rocephin 2 g daily today. #JESSIKA on possible CKD- resolved -Discontinue IV fluid -Nephrology consulted; appreciate recs #Thrombocytopenia #Leukopenia -Consult will be placed to heme-onc for evaluation and recommendation. -Pending BM biopsy results -Labs to include cardiolipin ab and PTT mixing study -Pending spep with MORAIMA, pf4 ab, hgep, soheila -Transfuse 1 unit whenever hct <23 -Transfuse 1 dose of plts whenever plt <20 #Elevated transaminases - likely secondary to shock liver We will continue to monitor LFTs. Gastroenterology consulted; appreciate recs. No intervention at this time. #Advanced care planning -Disease education conducted, care plan discussed, diagnoses discussed, prognosis discussed, and patient acknowledges understanding with care plan -Time: +30 min Disposition: Medically not stable for discharge 01/26: Patient remains confused, continue antibiotics. follow renal function, follow LFT., Wait for consultants recommendation. 3/31: Creatinine slightly improved, patient mental status improving, tolerating diet. Hematology nephrology and GI following. Hematology recommended bone marrow biopsy for leukopenia and thrombocytopenia. 01/28: s/p bonemarrow biopsy today, follow am labs. Cr still elevated, speech recommended pureed diet. If renal function continues to improve possible DC soon. 01/29: patient restraint overnight, today appears to be very confused. Will order repeat LFT, ammonia level. Continue to monitor renal function. 01/30: LFT trending down, ammonia level lower than normal. Patient continued to be confused and restrained. Will consult psych. Order for repeat CT head Continue to follow clinically. 01/31: discussed plan of care with significant other. pending BM biopsy, autoimmune workup panel. Remains confused, psych following. initiated zyprexa at bedtime. 02/01: CT head noncontrast unremarkable for acute hemorrhagic stroke. Pending MRI brain. Discontinued Zyprexa due to possible iatrogenic etiology for worsened metabolic encephalopathy. Continue to monitor. Disposition Plan: Continue medical management Total Time Spent with Patient (Minutes): 45 minutes History Interval history: No acute events overnight. Hospitalist Physical - Constitutional Vitals: Temp Pulse Resp BP Pulse Ox 96.5 F L 67 14 142/80 100 02/01/22 11:13 02/01/22 11:13 02/01/22 11:13 02/01/22 11:13 02/01/22 11:13 General appearance: Present: no acute distress, cachectic - EENT Eyes: Present: PERRL, EOM intact ENT: hearing intact, clear oral mucosa - Neck Neck: Present: supple, normal ROM - Respiratory Respiratory effort: normal Respiratory: bilateral: CTA - Cardiovascular Rhythm: regular Heart Sounds: Present: S1 & S2 - Extremities Extremities: no ischemia, pulses intact, pulses symmetrical, No edema, normal temperature, normal color Peripheral Pulses: within normal limits - Abdominal General gastrointestinal: soft, non-tender, non-distended, normal bowel sounds - Integumentary Integumentary: Present: clear, warm, dry - Psychiatric Psychiatric: other (Unresponsive to prompts) - Neurologic Neurologic: CNII-XII intact, other (Unresponsive to sternal rub or painful stimuli) - Allied Health Allied health notes reviewed: nursing HEART Score - HEART Score Troponin: Troponin T 0.094 ng/mL (0.00-0.029) H 01/25/22 20:12 Results - Labs CBC & Chem 7: 02/01/22 07:54 02/01/22 07:54 Labs: Laboratory Last Values WBC 2.2 K/mm3 (4.5-11.0) L 02/01/22 07:54 RBC 2.69 M/mm3 (3.65-5.03) L 02/01/22 07:54 Hgb 8.5 gm/dl (11.8-15.2) L 02/01/22 07:54 Hct 26.1 % (35.5-45.6) L 02/01/22 07:54 MCV 97 fl (84-94) H 02/01/22 07:54 MCH 32 pg (28-32) 02/01/22 07:54 MCHC 33 % (32-34) 02/01/22 07:54 RDW 14.7 % (13.2-15.2) 02/01/22 07:54 Plt Count 33 K/mm3 (140-440) L 02/01/22 07:54 Lymph % (Auto) 10.0 % (13.4-35.0) L 01/31/22 05:04 [place] % (Auto) 3.6 % (0.0-7.3) 01/31/22 05:04 Eos % (Auto) 1.0 % (0.0-4.3) 01/31/22 05:04 Baso % (Auto) 0.3 % (0.0-1.8) 01/31/22 05:04 Lymph # (Auto) 0.3 K/mm3 (1.2-5.4) L 01/31/22 05:04 [place] # (Auto) 0.1 K/mm3 (0.0-0.8) 01/31/22 05:04 Eos # (Auto) 0.0 K/mm3 (0.0-0.4) 01/31/22 05:04 Baso # (Auto) 0.0 K/mm3 (0.0-0.1) 01/31/22 05:04 Add Manual Diff Complete 01/28/22 08:08 Total Counted 100 01/28/22 08:08 Seg Neutrophils % 85.1 % (40.0-70.0) H 01/31/22 05:04 Seg Neuts % (Manual) 86.0 % (40.0-70.0) H 01/28/22 08:08 Band Neutrophils % 2.0 % 01/28/22 08:08 Lymphocytes % (Manual) 4.0 % (13.4-35.0) L 01/28/22 08:08 Reactive Lymphs % (Man) 0 % 01/28/22 08:08 Monocytes % (Manual) 5.0 % (0.0-7.3) 01/28/22 08:08 Eosinophils % (Manual) 1.0 % (0.0-4.3) 01/28/22 08:08 Basophils % (Manual) 0 % (0.0-1.8) 01/28/22 08:08 Metamyelocytes % 0 % 01/28/22 08:08 Myelocytes % 2.0 % 01/28/22 08:08 Promyelocytes % 0 % 01/28/22 08:08 Blast Cells % 0 % 01/28/22 08:08 Nucleated RBC % 4.0 % (0.0-0.9) H 01/28/22 08:08 Seg Neutrophils # 2.2 K/mm3 (1.8-7.7) 01/31/22 05:04 Seg Neutrophils # Man 1.9 K/mm3 (1.8-7.7) 01/28/22 08:08 Band Neutrophils # 0.0 K/mm3 01/28/22 08:08 Lymphocytes # (Manual) 0.1 K/mm3 (1.2-5.4) L 01/28/22 08:08 Abs React Lymphs (Man) 0.0 K/mm3 01/28/22 08:08 Monocytes # (Manual) 0.1 K/mm3 (0.0-0.8) 01/28/22 08:08 Eosinophils # (Manual) 0.0 K/mm3 (0.0-0.4) 01/28/22 08:08 Basophils # (Manual) 0.0 K/mm3 (0.0-0.1) 01/28/22 08:08 Metamyelocytes # 0.0 K/mm3 01/28/22 08:08 Myelocytes # 0.0 K/mm3 01/28/22 08:08 Promyelocytes # 0.0 K/mm3 01/28/22 08:08 Blast Cells # 0.0 K/mm3 01/28/22 08:08 WBC Morphology Not Reportable 01/28/22 08:08 Hypersegmented Neuts Not Reportable 01/28/22 08:08 Hyposegmented Neuts Few 01/28/22 08:08 Hypogranular Neuts Not Reportable 01/28/22 08:08 Smudge Cells Not Reportable 01/28/22 08:08 Toxic Granulation Few 01/28/22 08:08 Toxic Vacuolation Few 01/28/22 08:08 Dohle Bodies Not Reportable 01/28/22 08:08 Pelger-Huet Anomaly Not Reportable 01/28/22 08:08 Giovana Rods Not Reportable 01/28/22 08:08 Platelet Estimate Cons 01/28/22 08:08 Clumped Platelets Not Reportable 01/28/22 08:08 Plt Clumps, EDTA Not Reportable 01/28/22 08:08 Large Platelets Few 01/28/22 08:08 Giant Platelets Not Reportable 01/28/22 08:08 Platelet Satelliting Not Reportable 01/28/22 08:08 Plt Morphology Comment Not Reportable 01/28/22 08:08 RBC Morphology Not Reportable 01/28/22 08:08 Dimorphic RBCs Not Reportable 01/28/22 08:08 Polychromasia Not Reportable 01/28/22 08:08 Hypochromasia Not Reportable 01/28/22 08:08 Poikilocytosis 1+ 01/28/22 08:08 Anisocytosis Not Reportable 01/28/22 08:08 Microcytosis Not Reportable 01/28/22 08:08 Macrocytosis Not Reportable 01/28/22 08:08 Spherocytes Not Reportable 01/28/22 08:08 Pappenheimer Bodies Not Reportable 01/28/22 08:08 Sickle Cells Not Reportable 01/28/22 08:08 Target Cells Not Reportable 01/28/22 08:08 Tear Drop Cells Not Reportable 01/28/22 08:08 Ovalocytes Not Reportable 01/28/22 08:08 Helmet Cells Not Reportable 01/28/22 08:08 [place] Bodies Not Reportable 01/28/22 08:08 [place] Rings Not Reportable 01/28/22 08:08 [place] Cells 1+ 01/28/22 08:08 Bite Cells Not Reportable 01/28/22 08:08 Crenated Cell Not Reportable 01/28/22 08:08 Elliptocytes 1+ 01/28/22 08:08 Acanthocytes (Spur) Few 01/28/22 08:08 Rouleaux Not Reportable 01/28/22 08:08 Hemoglobin C Crystals Not Reportable 01/28/22 08:08 Schistocytes Rare 01/28/22 08:08 Malaria parasites Not Reportable 01/28/22 08:08 Percent Retic 0.22 % (0.78-2.58) L 01/26/22 14:35 Kana Bodies Not Reportable 01/28/22 08:08 Hem Pathologist Commnt No 01/28/22 08:08 PT Cancelled 01/28/22 14:27 INR 0.94 (0.87-1.13) 01/25/22 20:12 INR Cancelled 01/28/22 14:27 APTT 34.4 Sec. (24.2-36.6) 01/28/22 14:27 PT Patient/Control Mix Cancelled 01/28/22 14:27 PT Pat/Norm 1:1 5 min Cancelled 01/28/22 14:27 PT Pat/Norm 1:1 1 Hr Cancelled 01/28/22 14:27 Thrombin Time 17.5 Sec. (15.1-19.6) 01/25/22 20:12 Fibrinogen 665 mg/dl (211-480) H 01/26/22 14:35 Heparin Anti-Xa, Unfract Negative (Negative) 01/26/22 14:35 Sodium 139 mmol/L (137-145) 02/01/22 07:54 Potassium 4.3 mmol/L (3.6-5.0) 02/01/22 07:54 Chloride 109.3 mmol/L (98-107) H 02/01/22 07:54 Carbon Dioxide 23 mmol/L (22-30) 02/01/22 07:54 Anion Gap 11 mmol/L 02/01/22 07:54 BUN 15 mg/dL (9-20) 02/01/22 07:54 Creatinine 2.2 mg/dL (0.8-1.3) H 02/01/22 07:54 Estimated GFR 35 ml/min 02/01/22 07:54 BUN/Creatinine Ratio 7 % 02/01/22 07:54 Glucose 109 mg/dL (75-100) H 02/01/22 07:54 POC Glucose 102 mg/dL (70-105) 02/01/22 11:19 Uric Acid 7.1 mg/dL (3.5-7.6) 01/28/22 08:08 Calcium 8.6 mg/dL (8.4-10.2) 02/01/22 07:54 Magnesium 1.80 mg/dL (1.7-2.3) 01/25/22 20:12 Iron 127 ug/dL (49-181) 01/26/22 14:35 TIBC 147 mcg/dL (250-450) L 01/26/22 14:35 Ferritin 943.7 ng/mL (30.0-300.0) H 01/26/22 07:44 Total Bilirubin 0.20 mg/dL (0.1-1.2) 02/01/22 07:54 Direct Bilirubin < 0.2 mg/dL (0-0.2) 01/27/22 05:46 Indirect Bilirubin 0.1 mg/dL 01/27/22 05:46 AST 291 units/L (5-40) H 02/01/22 07:54 ALT 300 units/L (7-56) H 02/01/22 07:54 Alkaline Phosphatase 215 units/L (35-129) H 02/01/22 07:54 Ammonia 20.0 umol/L (25-60) L 01/30/22 10:54 Lactate Dehydrogenase 529 units/L (91-180) H 01/26/22 14:35 Total Creatine Kinase 242 units/L (55-170) H 01/25/22 20:12 CK-MB (CK-2) 10.0 ng/mL (0.0-4.0) H 01/25/22 20:12 CK-MB (CK-2) Rel Index 4.1 (0-4) H 01/25/22 20:12 Troponin T 0.094 ng/mL (0.00-0.029) H 01/25/22 20:12 Serum Total Protein 5.1 g/dL (6.1-8.1) L 01/26/22 14:35 Total Protein 5.2 g/dL (6.3-8.2) L 02/01/22 07:54 Albumin 2.4 g/dL (3.9-5) L 02/01/22 07:54 Albumin/Globulin Ratio 0.9 % 02/01/22 07:54 Yedrf-3-Ymhlsjfla 0.4 g/dL (0.2-0.3) H 01/26/22 14:35 Ikgaf-0-Wznnggfhu 0.8 g/dL (0.5-0.9) 01/26/22 14:35 Beta Globulins 0.3 g/dL (0.2-0.5) 01/26/22 14:35 Gamma Globulins 0.8 g/dL (0.8-1.7) 01/26/22 14:35 Abnorm Protein Band 1 see below 01/26/22 14:35 PEP Interpretation see below H 01/26/22 14:35 Vitamin B12 > 2000 pg/mL (211-911) H 01/26/22 14:35 Folate 4.90 ng/mL (7.3-26.0) L 01/26/22 14:35 TSH 2.670 mlU/mL (0.270-4.200) 01/26/22 07:44 Urine Color Yellow (Yellow) 01/25/22 21: Urine Turbidity Slightly-cloudy (Clear) 01/25/22 21: Urine pH 5.0 (5.0-7.0) 01/25/22 21: Ur Specific [place] 1.028 (1.003-1.030) 01/25/22 21:26 Urine Protein 100 mg/dl mg/dL (Negative) 01/25/22 21: Urine Glucose (UA) Neg mg/dL (Negative) 01/25/22 21: Urine Ketones Neg mg/dL (Negative) 01/25/22 21: Urine Blood Mod (Negative) 01/25/22 21: Urine Nitrite Neg (Negative) 01/25/22 21: Urine Bilirubin Neg (Negative) 01/25/22 21: Urine Urobilinogen < 2.0 mg/dL (<2.0) 01/25/22 21:26 Ur Leukocyte Esterase Tr (Negative) 01/25/22 21:26 Urine WBC (Auto) 4.0 /HPF (0.0-6.0) 01/25/22 21:26 Urine RBC (Auto) 5.0 /HPF (0.0-6.0) 01/25/22 21:26 U Epithel Cells (Auto) < 1.0 /HPF (0-13.0) 01/25/22 21:26 Urine Bacteria (Auto) 1+ /HPF (Negative) 01/25/22 21: Urine Mucus Few /HPF 01/25/22 21:26 Urine Yeast (Budding) 1+ /HPF 01/25/22 21:26 Urine Creatinine 49.1 mg/dL (0.1-20.0) H 01/26/22 09:17 Protein/Creatinin Ratio 0.49 01/26/22 09:17 Urine Total Protein 24 mg/dL (5-11.8) H 01/26/22 09:17 Salicylates < 0.3 mg/dL (2.8-20.0) L 01/25/22 20:12 Acetaminophen 5.0 ug/mL (10.0-30.0) L 01/25/22 20:12 Plasma/Serum Alcohol < 0.01 % (0-0.07) 01/25/22 20:12 TWIN Screen Negative (Negative) 01/26/22 07:44 Heparin-induced Plt Ab Negative (Negative) 01/26/22 14:35 UF Heparin High Dose 0 % Release 01/26/22 14:35 ARUNA UFH Low Dose 0.1 0 % Release 01/26/22 14:35 ARUNA UFH Low Dose 0.5 0 % Release 01/26/22 14:35 Cardiolipid IgG Ab <2.0 GPL-U/mL (<20.0) 01/28/22 Unknown Cardiolipid IgA Ab <2.0 APL-U/mL (<20.0) 01/28/22 Unknown Cardiolipid IgM Ab <2.0 MPL-U/mL (<20.0) 01/28/22 Unknown Leal/IV: Voiding Method Indwelling Catheter Active Medications - Current Medications Current Medications: Generic Name Dose Route Start Last Admin Trade Name Freq PRN Reason Stop Dose Admin Acetaminophen 650 mg 01/25/22 23:53 Acetaminophen 325 Mg Tab PO Q4H PRN Pain MILD(1-3)/Fever >100.5/STODDARD Amlodipine Besylate 10 mg 01/27/22 11:00 01/31/22 11:04 Amlodipine 10 Mg Tab PO 10 mg QDAY MARLON Administration Dextrose 75 ml 01/25/22 20:36 01/29/22 22:55 Dextrose 10% *Hypoglycemia IV 75 ml PRN PRN Administration Hypoglycemia Folic Acid 1 mg 01/27/22 11:00 01/31/22 11:04 Folic Acid 1 Mg Tab PO 1 mg QDAY MARLON Administration Hydralazine HCl 50 mg 01/31/22 09:00 02/01/22 06:52 Hydralazine 25 Mg Tab PO 50 mg Q8HR MARLON Administration Ceftriaxone Sodium 2 gm in 100 mls @ 200 mls/hr 01/26/22 22:00 01/31/22 22:37 Rocephin/Ns 2 Gm/100 Ml IV 02/01/22 23:59 200 mls/hr Q24H MARLON Administration Protocol Lorazepam 1 mg 01/26/22 00:23 01/30/22 22:05 Lorazepam 2 Mg/Ml Vial IV 1 mg Q4HR PRN Administration Agitation Morphine Sulfate 2 mg 01/25/22 23:53 Morphine 2 Mg/1 Ml Inj IV Q4H PRN Pain, Moderate (4-6) Morphine Sulfate 4 mg 01/25/22 23:53 Morphine 4 Mg/1 Ml Inj IV Q4H PRN Pain , Severe (7-10) Olanzapine 2.5 mg 01/31/22 22:00 01/31/22 22:39 Olanzapine 2.5 Mg Tab PO 2.5 mg QHS MARLON Administration Ondansetron HCl 4 mg 01/25/22 23:53 Ondansetron 4 Mg/2 Ml Inj IV Q8H PRN Nausea And Vomiting Sodium Bicarbonate 1,300 mg 01/27/22 14:00 01/31/22 11:03 Sodium Bicarbonate 650 Mg Tab PO 1,300 mg TID MARLON Administration Sodium Chloride 10 ml 01/26/22 10:00 01/31/22 22:40 Sodium Chloride 0.9% 10 Ml Flush Syringe IV 10 ml BID MARLON Administration Sodium Chloride 10 ml 01/25/22 23:53 Sodium Chloride 0.9% 10 Ml Flush Syringe IV PRN PRN LINE FLUSH Tamsulosin HCl 0.4 mg 01/27/22 11:00 01/31/22 11:04 Tamsulosin 0.4 Mg Cap PO 0.4 mg QDAY MARLON Administration Nutrition/Malnutrition Assess - Dietary Evaluation Nutrition/Malnutrition Findings: Nutrition Notes Start: 01/26/22 17:13 Freq: Status: Active Protocol: Document 01/31/22 14:08 MARNI (Rec: 01/31/22 14:30 MARNI [id number]) Nutrition Notes Initial or Follow up Brief Note Current Diagnosis Acute Kidney Injury, Hypertension Other Pertinent Diagnosis AMS, Urinary retention, Metabolic Acidosis, Pancytopenia, Anemia, Azotemia . Current Diet Pureed Diet (since D 01/28). Labs/Tests 01/31: Cl 107.9, CO2 21, Crea 1.9, Glu 57. Pertinent Medications 01/31: Folic Acid, D10w 1000 ml @ 100 ml/hr, others nutritionally unremarkable. Height 6 ft Weight 64.3 kg [place] Body Weight (kg) 80.90 BMI 19.2 Weight change and time frame No body weight change reported in 5 days. Weight Status Appropriate Subjective/Other Information RD consult for routine F/U on dietary advancement. Diet advanced to PO modified. No reports available on Pt's PO intake of meals at the time , will assess at F'U. COMPUTING CONSULTANT note on 01/28/22 14:09: Swallowing function has been assessed. Patient demonstrates significantly prolonged oral transit with semi solids. Therefore, a pureed diet with thins are recommended. Will follow for 1 week to ensure continued safety. Informed Nurse Mary. Discharge pending on renal stabilization, according to Progress notes. Percent of energy/protein needs met: Prescribed Pureed Diet provides for energy/protein needs (1,804 Kcal/77 g) during LOS. Is patient on ventilator? No Is Patient Ambulatory and/or Out of Bed No REE-([facility]-confined to bed) 1699.728 Kcal/Kg value to use for calculation 31 Approximate Energy Requirements Using 1993 kcal/Kg Calculation Used for Recommendations Kcal/kg Additional Notes Protein: 0.8-1.2 g/Kg IBW; 65- 97 g/day. Fluids: 1 ml/Kcal, or as per MD. Nutrition Intervention Follow-Up By: 02/03/22 Additional Comments Continue monitoring food tolerance, %PO intake of meals , and BM.
[2022-02-01] MEDS: cefTRIAXone/NS 2 GM/100 ML 2 GM/100 ML BAG IV SCH (21:13)
[2022-02-02] MEDS ORDERED: DEXTROSE 50% IN WATER (25GM) 50 ML SYRINGE IV ONE (03:30)
[2022-02-02] MEDS: hydrALAZINE 25 MG TAB PO SCH ×3 (05:24→21:27)
[2022-02-02 06:23] LABS: Hematocrit 27.2 % (35.5-45.6); Mean Corpuscular HGB Conc 33 % (32-34); Mean Corpuscular Volume 97 fl (84-94); Red Cell Distribution Width 14.9 % (13.2-15.2)
[2022-02-02 06:29] LABS: Platelet Count 33 K/mm3 (140-440)
[2022-02-02 06:46] LABS: Albumin 2.4 g/dL (3.9-5); Calcium 8.6 mg/dL (8.4-10.2)
--- NOTE | 2022-02-02 09:58 | Magnetic Resonance Report ---
MR brain wo con INDICATION / CLINICAL INFORMATION: 76 years Male; Concern for possible CVA- acute AMS. TECHNIQUE: Multiplanar, multisequence MR images of the brain were obtained. COMPARISON: None available. FINDINGS: BRAIN / INTRACRANIAL CONTENTS: There is extensive cerebral and pontine white matter disease most cons istent with microvascular angiopathy at. The motion degrades image quality. However, there appears to be subtle somewhat linear increased diffusion signal along the medial left frontal cortex at. There appears be associated decreased signal in this region along the left sacral gyrus on ADC map and this finding would be indicative of small acute infarct at. The diffusion imaging otherwise appears unrem arkable. There is mild cerebral atrophy with associated mild prominence of the ventricular system. No extra-ax ial fluid collections or significant mass effect is identified. There are multiple old small lacunar infarcts involving basal ganglia and thalami. CRANIOCERVICAL JUNCTION: No significant abnormality. VASCULAR FLOW-VOIDS: No significant abnormality. ORBITS: No significant abnormality of visualized orbits. SINUSES / MASTOIDS: There is near complete opacification and prominent air-fluid level involving the frontal and left maxillary sinuses. Milder findings are noted within the ethmoid air cells are greate r on the left. ADDITIONAL FINDINGS: None. IMPRESSION: 1. There is extensive microvascular angiopathy. The findings a indicative of small acute infarct mic g the medial left frontal cortex as detailed above. 2. There is inflammatory disease as detailed above. Signer Name: Armando Bertrand MD Signed: 02/02/2022 9:53 AM Workstation Name: [id number]
--- NOTE | 2022-02-02 09:59 | Progress Note ---
Subjective Date of service: 02/02/22 Interval history: Impression: * Altered mental status * acute kidney injury secondary to obstructive uropathy/urinary retention * Urinary retention * Azotemia * Hyperkalemia, mild * Metabolic acidosis * Anemia * Hypertension * Pancytopenia * Proteinuria * Abnormal LFT Plan: * Renal function is stable . Serum creatinine seems to be plateauing . No evidence of contrast nephropathy at this time * Continue NaBicarb * Blood pressure is under control. Continue current antihypertensive medica tions * Continue current management * Dose medications for renal function * Avoid potential nephrotoxins * Continue Leal catheter for now. Continue tamsulosin. Further plan as per urology services * Work-up for pancytopenia as per primary team * Okay to discontinue IV fluid if patient has adequate oral intake * Hematology consultation appreciated. * His urine shows 2+ dipstick protein and a few red cells and white cells. Urine protein creatinine ratio is approximately 0.5 g/g. Hold off on adding MAXI or ARB at this time until his renal function stabilizes * Ammonia level is normal at 25. GI consultation appreciated * ok to dc from renal standpoint Subjective resting in bed . Comfortable . Denies SOB Objective - General Appearance General appearance: well-developed, well-nourished, appears stated age EENT: PERRL, mucous membranes moist Neck: no JVD, no thyromegaly, no carotid bruit, supple Respiratory: Present: Clear to Ascultation Cardiology: regular, normal heart rate Gastrointestinal: normal, normoactive bowel sounds Integumentary: no rash, other (1+ edema ) Objective - Vital Signs Vital signs: Vital Signs - 12hr 02/01/22 02/02/22 02/02/22 22:49 03:00 07:41 Temperature 98.2 F 97.0 F L Pulse Rate 67 65 56 L Respiratory 16 16 Rate Blood Pressure 157/88 156/86 O2 Sat by Pulse 100 98 100 Oximetry - Lab 02/02/22 05:33 02/02/22 05:33 Most recent lab results Calcium 8.6 mg/dL (8.4-10.2) 02/02/22 05:33 Magnesium 1.80 mg/dL (1.7-2.3) 01/25/22 20:12 Urine Creatinine 49.1 mg/dL (0.1-20.0) H 01/26/22 09:17 Urine Total Protein 24 mg/dL (5-11.8) H 01/26/22 09:17 Medications & Allergies - Medications Allergies/Adverse Reactions: Allergies No Known Allergies Allergy (Unverified 01/20/22 10:47) Home Medications: Home Medications Medication Instructions Recorded Confirmed Last Taken Type Sodium Bicarbonate 1,300 mg PO TID #90 tablet 01/25/22 01/26/22 Unknown Rx Tamsulosin [Flomax] 0.4 mg PO QDAY #30 capsule 01/25/22 01/26/22 Unknown Rx amLODIPine 10 mg PO QDAY #30 tablet 01/25/22 01/26/22 Unknown Rx Active Medications: Generic Name Dose Route Start Last Admin Trade Name Freq PRN Reason Stop Dose Admin Acetaminophen 650 mg 01/25/22 23:53 Acetaminophen 325 Mg Tab PO Q4H PRN Pain MILD(1-3)/Fever >100.5/STODDARD Amlodipine Besylate 10 mg 01/27/22 11:00 02/01/22 10:00 Amlodipine 10 Mg Tab PO Not Given QDAY [facility] Dextrose 75 ml 01/25/22 20:36 01/29/22 22:55 Dextrose 10% *Hypoglycemia IV 75 ml PRN PRN Administration Hypoglycemia Folic Acid 1 mg 01/27/22 11:00 02/01/22 10:00 Folic Acid 1 Mg Tab PO Not Given QDAY [facility] Hydralazine HCl 50 mg 01/31/22 09:00 02/02/22 05:24 Hydralazine 25 Mg Tab PO Not Given Q8HR [facility] Morphine Sulfate 2 mg 01/25/22 23:53 Morphine 2 Mg/1 Ml Inj IV Q4H PRN Pain, Moderate (4-6) Morphine Sulfate 4 mg 01/25/22 23:53 Morphine 4 Mg/1 Ml Inj IV Q4H PRN Pain , Severe (7-10) Ondansetron HCl 4 mg 01/25/22 23:53 Ondansetron 4 Mg/2 Ml Inj IV Q8H PRN Nausea And Vomiting Sodium Bicarbonate 1,300 mg 01/27/22 14:00 02/01/22 21:14 Sodium Bicarbonate 650 Mg Tab PO Not Given TID MARLON Sodium Chloride 10 ml 01/26/22 10:00 02/01/22 21:14 Sodium Chloride 0.9% 10 Ml Flush Syringe IV 10 ml BID MARLON Administration Sodium Chloride 10 ml 01/25/22 23:53 Sodium Chloride 0.9% 10 Ml Flush Syringe IV PRN PRN LINE FLUSH Tamsulosin HCl 0.4 mg 01/27/22 11:00 02/01/22 10:00 Tamsulosin 0.4 Mg Cap PO Not Given QDAY MARLON
[2022-02-02] MEDS: amLODIPine 10 MG TAB PO SCH (10:21)
[2022-02-02] MEDS: TAMSULOSIN 0.4 MG CAP PO SCH (10:21)
[2022-02-02 11:26] LABS: Band Neutrophils # (Manual) 0.1 K/mm3; Basophils % (Manual) 0 % (0.0-1.8); Total Cells Counted 100
[2022-02-02 11:27] LABS: Burr Cells 1+; Platelet Estimate Appears Decreased
--- NOTE | 2022-02-02 11:55 | Progress Note ---
Assessment and Plan Assessment and plan: 76-year-old -[place] male with known history of obstructive uropathy, urinary retention, metabolic acidosis, anemia with thrombocytopenia and leukopenia who was discharge sometime in the afternoon but later brought back to the emergency room same day because of changes in mental status. Patient was accompanied by his roommate who indicates that patient has had change in his mental status and was not able to communicate well since discharge from the hospital.Patient was evaluated by the teleneurologist and was not deemed to be a TPA candidate. Work-up in the emergency room reveals thrombocytopenia of 32, BUN of 40 and creatinine of 2.3. Elevated AST and ALT of 565 and 379 respectively. Alkaline phos of 246 and creatinine kinase of 242. Troponin was elevated at 0.094. Urinalysis showed trace bacteria and trace leukocyte esterase. CTA head and neck did not show any significant findings. Chest x-ray shows possible persistent bibasilar pneumonia. Patient was admitted for further evaluation management Assessment and plan: #Acute metabolic encephalopathy- worsened #Acute cerebral infarct/CVA -CT scan of the head, CTA head and neck were nonspecific. -Repeat CT head noncontrast (02/01/2022) due to marked encephalopathy with decreased response. CT head unremarkable. 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 Neurology consulted; pending recs. It will be difficult to medically manage patient with aspirin (+/-) or Plavix as the patient has significant thrombocytopenia (platelets today 33). Will look to neurology and heme/oncology for recommendations. Ordering TTE to evaluate for possible PFO. Possibly iatrogenic etiologyrecently started on Zyprexa last night. Discontinued Zyprexa. Will continue to monitor #Pulmonary infiltrate/possible aspiration pneumoniaresolved -Completing 7-day course of Rocephin 2 g daily today. #JESSIKA on possible CKD-stable -Discontinue IV fluid -Nephrology consulted; appreciate recs #Thrombocytopenia #Leukopenia -Consult will be placed to heme-onc for evaluation and recommendation. -Pending BM biopsy results -Labs to include cardiolipin ab and PTT mixing study -Pending spep with MORAIMA, pf4 ab, hgep, soheila -Transfuse 1 unit whenever hct <23 -Transfuse 1 dose of plts whenever plt <20 #Elevated transaminasesimproving - likely secondary to shock liver We will continue to monitor LFTs. Gastroenterology consulted; appreciate recs. No intervention at this time. #Advanced care planning -Disease education conducted, care plan discussed, diagnoses discussed, prognosis discussed, and patient acknowledges understanding with care plan -Time: +30 min Disposition: Medically not stable for discharge 01/26: Patient remains confused, continue antibiotics. follow renal function, follow LFT., Wait for consultants recommendation. 01/27: Creatinine slightly improved, patient mental status improving, tolerating diet. Hematology nephrology and GI following. Hematology recommended bone marrow biopsy for leukopenia and thrombocytopenia. 01/28: s/p bonemarrow biopsy today, follow am labs. Cr still elevated, speech recommended pureed diet. If renal function continues to improve possible DC soon. 01/29: patient restraint overnight, today appears to be very confused. Will order repeat LFT, ammonia level. Continue to monitor renal function. 01/30: LFT trending down, ammonia level lower than normal. Patient continued to be confused and restrained. Will consult psych. Order for repeat CT head Continue to follow clinically. 01/31: discussed plan of care with significant other. pending BM biopsy, autoimmune workup panel. Remains confused, psych following. initiated zyprexa at bedtime. 02/01: CT head noncontrast unremarkable for acute hemorrhagic stroke. Pending MRI brain. Discontinued Zyprexa due to possible iatrogenic etiology for worsened metabolic encephalopathy. Continue to monitor. 02/02: MRI brain unremarkable for acute ischemic infarct along the medial left frontal cortex. Neurology consulted. Pending TTE to evaluate for PFO. Disposition Plan: Continue medical management Total Time Spent with Patient (Minutes): 45 minutes History Interval history: The patient continues to have unresponsiveness to sternal rub and painful stimuli. Hospitalist Physical - Constitutional Vitals: Temp Pulse Resp BP Pulse Ox 97.0 F L 56 L 16 156/86 100 02/02/22 07:41 02/02/22 07:41 02/02/22 07:41 02/02/22 07:41 02/02/22 07:41 General appearance: Present: no acute distress, cachectic - EENT Eyes: Present: PERRL, EOM intact ENT: hearing intact, clear oral mucosa - Neck Neck: Present: supple, normal ROM - Respiratory Respiratory effort: normal Respiratory: bilateral: CTA - Cardiovascular Rhythm: regular Heart Sounds: Present: S1 & S2 - Extremities Extremities: no ischemia, pulses intact, pulses symmetrical, normal temperature, normal color Peripheral Pulses: within normal limits - Abdominal General gastrointestinal: soft, non-tender, non-distended, normal bowel sounds - Integumentary Integumentary: Present: clear, warm, dry - Psychiatric Psychiatric: other (Unable to assess given severe obtundedness/encephalopathy) - Neurologic Neurologic: other (Patient unresponsive to sternal rub or painful stimuli) - Allied Health Allied health notes reviewed: nursing HEART Score - HEART Score Troponin: Troponin T 0.094 ng/mL (0.00-0.029) H 01/25/22 20:12 Results - Labs CBC & Chem 7: 02/02/22 05:33 02/02/22 05:33 Labs: Laboratory Last Values WBC 2.0 K/mm3 (4.5-11.0) L 02/02/22 05:33 RBC 2.80 M/mm3 (3.65-5.03) L 02/02/22 05:33 Hgb 9.0 gm/dl (11.8-15.2) L 02/02/22 05:33 Hct 27.2 % (35.5-45.6) L 02/02/22 05:33 MCV 97 fl (84-94) H 02/02/22 05:33 MCH 32 pg (28-32) 02/02/22 05:33 MCHC 33 % (32-34) 02/02/22 05:33 RDW 14.9 % (13.2-15.2) 02/02/22 05:33 Plt Count 33 K/mm3 (140-440) L 02/02/22 05:33 Lymph % (Auto) 10.0 % (13.4-35.0) L 01/31/22 05:04 [place] % (Auto) 3.6 % (0.0-7.3) 01/31/22 05:04 Eos % (Auto) 1.0 % (0.0-4.3) 01/31/22 05:04 Baso % (Auto) 0.3 % (0.0-1.8) 01/31/22 05:04 Lymph # (Auto) 0.3 K/mm3 (1.2-5.4) L 01/31/22 05:04 [place] # (Auto) 0.1 K/mm3 (0.0-0.8) 01/31/22 05:04 Eos # (Auto) 0.0 K/mm3 (0.0-0.4) 01/31/22 05:04 Baso # (Auto) 0.0 K/mm3 (0.0-0.1) 01/31/22 05:04 Add Manual Diff Complete 02/02/22 05:33 Total Counted 100 02/02/22 05:33 Seg Neutrophils % 85.1 % (40.0-70.0) H 01/31/22 05:04 Seg Neuts % (Manual) 85.0 % (40.0-70.0) H 02/02/22 05:33 Band Neutrophils % 4.0 % 02/02/22 05:33 Lymphocytes % (Manual) 4.0 % (13.4-35.0) L 02/02/22 05:33 Reactive Lymphs % (Man) 0 % 02/02/22 05:33 Monocytes % (Manual) 5.0 % (0.0-7.3) 02/02/22 05:33 Eosinophils % (Manual) 2.0 % (0.0-4.3) 02/02/22 05:33 Basophils % (Manual) 0 % (0.0-1.8) 02/02/22 05:33 Metamyelocytes % 0 % 02/02/22 05:33 Myelocytes % 0 % 02/02/22 05:33 Promyelocytes % 0 % 02/02/22 05:33 Blast Cells % 0 % 02/02/22 05:33 Nucleated RBC % Not Reportable 02/02/22 05:33 Seg Neutrophils # 2.2 K/mm3 (1.8-7.7) 01/31/22 05:04 Seg Neutrophils # Man 1.7 K/mm3 (1.8-7.7) L 02/02/22 05:33 Band Neutrophils # 0.1 K/mm3 02/02/22 05:33 Lymphocytes # (Manual) 0.1 K/mm3 (1.2-5.4) L 02/02/22 05:33 Abs React Lymphs (Man) 0.0 K/mm3 02/02/22 05:33 Monocytes # (Manual) 0.1 K/mm3 (0.0-0.8) 02/02/22 05:33 Eosinophils # (Manual) 0.0 K/mm3 (0.0-0.4) 02/02/22 05:33 Basophils # (Manual) 0.0 K/mm3 (0.0-0.1) 02/02/22 05:33 Metamyelocytes # 0.0 K/mm3 02/02/22 05:33 Myelocytes # 0.0 K/mm3 02/02/22 05:33 Promyelocytes # 0.0 K/mm3 02/02/22 05:33 Blast Cells # 0.0 K/mm3 02/02/22 05:33 WBC Morphology Not Reportable 02/02/22 05:33 Hypersegmented Neuts Not Reportable 02/02/22 05:33 Hyposegmented Neuts Not Reportable 02/02/22 05:33 Hypogranular Neuts Not Reportable 02/02/22 05:33 Smudge Cells Not Reportable 02/02/22 05:33 Toxic Granulation Not Reportable 02/02/22 05:33 Toxic Vacuolation Not Reportable 02/02/22 05:33 Dohle Bodies Not Reportable 02/02/22 05:33 Pelger-Huet Anomaly Not Reportable 02/02/22 05:33 Giovana Rods Not Reportable 02/02/22 05:33 Platelet Estimate Appears decreased 02/02/22 05:33 Clumped Platelets Not Reportable 02/02/22 05:33 Plt Clumps, EDTA Not Reportable 02/02/22 05:33 Large Platelets Not Reportable 02/02/22 05:33 Giant Platelets Not Reportable 02/02/22 05:33 Platelet Satelliting Not Reportable 02/02/22 05:33 Plt Morphology Comment Not Reportable 02/02/22 05:33 RBC Morphology Not Reportable 02/02/22 05:33 Dimorphic RBCs Not Reportable 02/02/22 05:33 Polychromasia Not Reportable 02/02/22 05:33 Hypochromasia Not Reportable 02/02/22 05:33 Poikilocytosis Not Reportable 02/02/22 05:33 Anisocytosis Not Reportable 02/02/22 05:33 Microcytosis Not Reportable 02/02/22 05:33 Macrocytosis Not Reportable 02/02/22 05:33 Spherocytes Not Reportable 02/02/22 05:33 Pappenheimer Bodies Not Reportable 02/02/22 05:33 Sickle Cells Not Reportable 02/02/22 05:33 Target Cells Not Reportable 02/02/22 05:33 Tear Drop Cells Not Reportable 02/02/22 05:33 Ovalocytes Not Reportable 02/02/22 05:33 Helmet Cells Not Reportable 02/02/22 05:33 [place] Bodies Not Reportable 02/02/22 05:33 [place] Rings Not Reportable 02/02/22 05:33 [place] Cells 1+ 02/02/22 05:33 Bite Cells Not Reportable 02/02/22 05:33 Crenated Cell Not Reportable 02/02/22 05:33 Elliptocytes Not Reportable 02/02/22 05:33 Acanthocytes (Spur) Few 02/02/22 05:33 Rouleaux Not Reportable 02/02/22 05:33 Hemoglobin C Crystals Not Reportable 02/02/22 05:33 Schistocytes Not Reportable 02/02/22 05:33 Malaria parasites Not Reportable 02/02/22 05:33 Percent Retic 0.22 % (0.78-2.58) L 01/26/22 14:35 [place] Bodies Not Reportable 02/02/22 05:33 Hem Pathologist Commnt No 02/02/22 05:33 PT Cancelled 01/28/22 14:27 INR 0.94 (0.87-1.13) 01/25/22 20:12 INR Cancelled 01/28/22 14:27 APTT 34.4 Sec. (24.2-36.6) 01/28/22 14:27 PT Patient/Control Mix Cancelled 01/28/22 14:27 PT Pat/Norm 1:1 5 min Cancelled 01/28/22 14:27 PT Pat/Norm 1:1 1 Hr Cancelled 01/28/22 14:27 Thrombin Time 17.5 Sec. (15.1-19.6) 01/25/22 20:12 Fibrinogen 665 mg/dl (211-480) H 01/26/22 14:35 Heparin Anti-Xa, Unfract Negative (Negative) 01/26/22 14:35 Sodium 143 mmol/L (137-145) 02/02/22 05:33 Potassium 4.5 mmol/L (3.6-5.0) 02/02/22 05:33 Chloride 111.5 mmol/L (98-107) H 02/02/22 05:33 Carbon Dioxide 21 mmol/L (22-30) L 02/02/22 05:33 Anion Gap 15 mmol/L 02/02/22 05:33 BUN 15 mg/dL (9-20) 02/02/22 05:33 Creatinine 2.2 mg/dL (0.8-1.3) H 02/02/22 05:33 Estimated GFR 35 ml/min 02/02/22 05:33 BUN/Creatinine Ratio 7 % 02/02/22 05:33 Glucose 140 mg/dL (75-100) H 02/02/22 05:33 POC Glucose 158 mg/dL (70-105) H 02/02/22 04:21 Uric Acid 7.1 mg/dL (3.5-7.6) 01/28/22 08:08 Calcium 8.6 mg/dL (8.4-10.2) 02/02/22 05:33 Magnesium 1.80 mg/dL (1.7-2.3) 01/25/22 20:12 Iron 127 ug/dL (49-181) 01/26/22 14:35 TIBC 147 mcg/dL (250-450) L 01/26/22 14:35 Ferritin 943.7 ng/mL (30.0-300.0) H 01/26/22 07:44 Total Bilirubin 0.30 mg/dL (0.1-1.2) 02/02/22 05:33 Direct Bilirubin < 0.2 mg/dL (0-0.2) 01/27/22 05:46 Indirect Bilirubin 0.1 mg/dL 01/27/22 05:46 AST 287 units/L (5-40) H 02/02/22 05:33 ALT 290 units/L (7-56) H 02/02/22 05:33 Alkaline Phosphatase 231 units/L (35-129) H 02/02/22 05:33 Ammonia 20.0 umol/L (25-60) L 01/30/22 10:54 Lactate Dehydrogenase 529 units/L (91-180) H 01/26/22 14:35 Total Creatine Kinase 242 units/L (55-170) H 01/25/22 20:12 CK-MB (CK-2) 10.0 ng/mL (0.0-4.0) H 01/25/22 20:12 CK-MB (CK-2) Rel Index 4.1 (0-4) H 01/25/22 20:12 Troponin T 0.094 ng/mL (0.00-0.029) H 01/25/22 20:12 Serum Total Protein 5.1 g/dL (6.1-8.1) L 01/26/22 14:35 Total Protein 5.5 g/dL (6.3-8.2) L 02/02/22 05:33 Albumin 2.4 g/dL (3.9-5) L 02/02/22 05:33 Albumin/Globulin Ratio 0.8 % 02/02/22 05:33 Nwbiy-7-Vujfbtzks 0.4 g/dL (0.2-0.3) H 01/26/22 14:35 Zyeqq-4-Infyxzbxy 0.8 g/dL (0.5-0.9) 01/26/22 14:35 Beta Globulins 0.3 g/dL (0.2-0.5) 01/26/22 14:35 Gamma Globulins 0.8 g/dL (0.8-1.7) 01/26/22 14:35 Abnorm Protein Band 1 see below 01/26/22 14:35 PEP Interpretation see below H 01/26/22 14:35 Vitamin B12 > 2000 pg/mL (211-911) H 01/26/22 14:35 Folate 4.90 ng/mL (7.3-26.0) L 01/26/22 14:35 TSH 2.670 mlU/mL (0.270-4.200) 01/26/22 07:44 Urine Color Yellow (Yellow) 01/25/22 21: Urine Turbidity Slightly-cloudy (Clear) 01/25/22 21: Urine pH 5.0 (5.0-7.0) 01/25/22 21: Ur Specific [place] 1.028 (1.003-1.030) 01/25/22 21: Urine Protein 100 mg/dl mg/dL (Negative) 01/25/22: Urine Glucose (UA) Neg mg/dL (Negative) 01/25/22 21: Urine Ketones Neg mg/dL (Negative) 01/25/22 21: Urine Blood Mod (Negative) 01/25/22 21:26 Urine Nitrite Neg (Negative) 01/25/22 21: Urine Bilirubin Neg (Negative) 01/25/22 21: Urine Urobilinogen < 2.0 mg/dL (<2.0) 01/25/22 21:26 Ur Leukocyte Esterase Tr (Negative) 01/25/22 21: Urine WBC (Auto) 4.0 /HPF (0.0-6.0) 01/25/22 21: Urine RBC (Auto) 5.0 /HPF (0.0-6.0) 01/25/22 21: U Epithel Cells (Auto) < 1.0 /HPF (0-13.0) 01/25/22 21: Urine Bacteria (Auto) 1+ /HPF (Negative) 01/25/22 21: Urine Mucus Few /HPF 01/25/22 21: Urine Yeast (Budding) 1+ /HPF 01/25/22 21: Urine Creatinine 49.1 mg/dL (0.1-20.0) H 01/26/22 09:17 Protein/Creatinin Ratio 0.49 01/26/22 09:17 Urine Total Protein 24 mg/dL (5-11.8) H 01/26/22 09:17 Salicylates < 0.3 mg/dL (2.8-20.0) L 01/25/22 20:12 Acetaminophen 5.0 ug/mL (10.0-30.0) L 01/25/22 20:12 Plasma/Serum Alcohol < 0.01 % (0-0.07) 01/25/22 20:12 Immunofix Electrophor see below 01/26/22 14:35 TWIN Screen Negative (Negative) 01/26/22 07:44 Heparin-induced Plt Ab Negative (Negative) 01/26/22 14:35 UF Heparin High Dose 0 % Release 01/26/22 14:35 ARUNA UFH Low Dose 0.1 0 % Release 01/26/22 14:35 ARUNA UFH Low Dose 0.5 0 % Release 01/26/22 14:35 Cardiolipid IgG Ab <2.0 GPL-U/mL (<20.0) 01/28/22 Unknown Cardiolipid IgA Ab <2.0 APL-U/mL (<20.0) 01/28/22 Unknown Cardiolipid IgM Ab <2.0 MPL-U/mL (<20.0) 01/28/22 Unknown Leal/IV: Voiding Method Indwelling Catheter Active Medications - Current Medications Current Medications: Generic Name Dose Route Start Last Admin Trade Name Freq PRN Reason Stop Dose Admin Acetaminophen 650 mg 01/25/22 23:53 Acetaminophen 325 Mg Tab PO Q4H PRN Pain MILD(1-3)/Fever >100.5/STODDARD Amlodipine Besylate 10 mg 01/27/22 11:00 02/01/22 10:00 Amlodipine 10 Mg Tab PO Not Given QDAY [facility] Dextrose 75 ml 01/25/22 20:36 01/29/22 22:55 Dextrose 10% *Hypoglycemia IV 75 ml PRN PRN Administration Hypoglycemia Folic Acid 1 mg 01/27/22 11:00 02/01/22 10:00 Folic Acid 1 Mg Tab PO Not Given QDAY [facility] Hydralazine HCl 50 mg 01/31/22 09:00 02/02/22 05:24 Hydralazine 25 Mg Tab PO Not Given Q8HR [facility] Morphine Sulfate 2 mg 01/25/22 23:53 Morphine 2 Mg/1 Ml Inj IV Q4H PRN Pain, Moderate (4-6) Morphine Sulfate 4 mg 01/25/22 23:53 Morphine 4 Mg/1 Ml Inj IV Q4H PRN Pain , Severe (7-10) Ondansetron HCl 4 mg 01/25/22 23:53 Ondansetron 4 Mg/2 Ml Inj IV Q8H PRN Nausea And Vomiting Sodium Bicarbonate 1,300 mg 01/27/22 14:00 02/01/22 21:14 Sodium Bicarbonate 650 Mg Tab PO Not Given TID MARLON Sodium Chloride 10 ml 01/26/22 10:00 02/01/22 21:14 Sodium Chloride 0.9% 10 Ml Flush Syringe IV 10 ml BID MARLON Administration Sodium Chloride 10 ml 01/25/22 23:53 Sodium Chloride 0.9% 10 Ml Flush Syringe IV PRN PRN LINE FLUSH Tamsulosin HCl 0.4 mg 01/27/22 11:00 02/01/22 10:00 Tamsulosin 0.4 Mg Cap PO Not Given QDAY [facility] Nutrition/Malnutrition Assess - Dietary Evaluation Nutrition/Malnutrition Findings: Nutrition Notes Start: 01/26/22 17:13 Freq: Status: Active Protocol: Document 01/31/22 14:08 MARNI (Rec: 01/31/22 14:30 MARNI [id number]) Nutrition Notes Initial or Follow up Brief Note Current Diagnosis Acute Kidney Injury, Hypertension Other Pertinent Diagnosis AMS, Urinary retention, Metabolic Acidosis, Pancytopenia, Anemia, Azotemia . Current Diet Pureed Diet (since D 01/28). Labs/Tests 01/31: Cl 107.9, CO2 21, Crea 1.9, Glu 57. Pertinent Medications 01/31: Folic Acid, D10w 1000 ml @ 100 ml/hr, others nutritionally unremarkable. Height 6 ft Weight 64.3 kg [place] Body Weight (kg) 80.90 BMI 19.2 Weight change and time frame No body weight change reported in 5 days. Weight Status Appropriate Subjective/Other Information RD consult for routine F/U on dietary advancement. Diet advanced to PO modified. No reports available on Pt's PO intake of meals at the time , will assess at F'U. [employer] note on 01/28/22 14:09: Swallowing function has been assessed. Patient demonstrates significantly prolonged oral transit with semi solids. Therefore, a pureed diet with thins are recommended. Will follow for 1 week to ensure continued safety. Informed Nurse Mary. Discharge pending on renal stabilization, according to Progress notes. Percent of energy/protein needs met: Prescribed Pureed Diet provides for energy/protein needs (1,804 Kcal/77 g) during LOS. Is patient on ventilator? No Is Patient Ambulatory and/or Out of Bed No [facility] 1699.728 Kcal/Kg value to use for calculation 31 Approximate Energy Requirements Using 1993 kcal/Kg Calculation Used for Recommendations Kcal/kg Additional Notes Protein: 0.8-1.2 g/Kg IBW; 65- 97 g/day. Fluids: 1 ml/Kcal, or as per MD. Nutrition Intervention Follow-Up By: 02/03/22 Additional Comments Continue monitoring food tolerance, %PO intake of meals , and BM.
[2022-02-02] MEDS: FOLIC ACID 1 MG TAB PO SCH (13:20)
--- NOTE | 2022-02-02 15:11 | Hem/Onc Progress Note ---
Subjective Date of service: 02/02/22 Interval history: Heme progress note Televisit via [facility] CPT [id number] Dx Pancytopenia This is a 76yo AA male with known history of obstructive uropathy, urinary retention, metabolic acidosis, anemia with thrombocytopenia and leukopenia Recent admission to [facility] and discharged yesterday 01/25/22; brought back to the ER because of changes in mental status Teleneurologist following. CTA head and neck did not show any significant findings. Chest x-ray shows possible persistent bibasilar pneumonia. 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 Cardiolipin ab negative PLAN: Labs to include HIV ab, HBV: Hbsag, AbsAb, HbcAb, AFP testing Monitor CBC Transfuse 1 dose of plts whenever plt <20 Laboratory Last Values WBC 2.0 K/mm3 (4.5-11.0) L 02/02/22 05:33 Hgb 9.0 gm/dl (11.8-15.2) L 02/02/22 05:33 Hct 27.2 % (35.5-45.6) L 02/02/22 05:33 MCV 97 fl (84-94) H 02/02/22 05:33 Plt Count 33 K/mm3 (140-440) L 02/02/22 05:33 Lymph % (Auto) 10.0 % (13.4-35.0) L 01/31/22 05:04 [place] % (Auto) 3.6 % (0.0-7.3) 01/31/22 05:04 Eos % (Auto) 1.0 % (0.0-4.3) 01/31/22 05:04 Baso % (Auto) 0.3 % (0.0-1.8) 01/31/22 05:04 Lymph # (Auto) 0.3 K/mm3 (1.2-5.4) L 01/31/22 05:04 [place] # (Auto) 0.1 K/mm3 (0.0-0.8) 01/31/22 05:04 Eos # (Auto) 0.0 K/mm3 (0.0-0.4) 01/31/22 05:04 Baso # (Auto) 0.0 K/mm3 (0.0-0.1) 01/31/22 05:04 Add Manual Diff Complete 02/02/22 05:33 Total Counted 100 02/02/22 05:33 Seg Neutrophils % 85.1 % (40.0-70.0) H 01/31/22 05:04 Seg Neuts % (Manual) 85.0 % (40.0-70.0) H 02/02/22 05:33 Band Neutrophils % 4.0 % 02/02/22 05:33 Lymphocytes % (Manual) 4.0 % (13.4-35.0) L 02/02/22 05:33 Reactive Lymphs % (Man) 0 % 02/02/22 05:33 Monocytes % (Manual) 5.0 % (0.0-7.3) 02/02/22 05:33 Eosinophils % (Manual) 2.0 % (0.0-4.3) 02/02/22 05:33 Basophils % (Manual) 0 % (0.0-1.8) 02/02/22 05:33 Metamyelocytes % 0 % 02/02/22 05:33 Myelocytes % 0 % 02/02/22 05:33 Promyelocytes % 0 % 02/02/22 05:33 Blast Cells % 0 % 02/02/22 05:33 Nucleated RBC % Not Reportable 02/02/22 05:33 Seg Neutrophils # 2.2 K/mm3 (1.8-7.7) 01/31/22 05:04 Seg Neutrophils # Man 1.7 K/mm3 (1.8-7.7) L 02/02/22 05:33 Band Neutrophils # 0.1 K/mm3 02/02/22 05:33 Lymphocytes # (Manual) 0.1 K/mm3 (1.2-5.4) L 02/02/22 05:33 Abs React Lymphs (Man) 0.0 K/mm3 02/02/22 05:33 Monocytes # (Manual) 0.1 K/mm3 (0.0-0.8) 02/02/22 05:33 Eosinophils # (Manual) 0.0 K/mm3 (0.0-0.4) 02/02/22 05:33 Basophils # (Manual) 0.0 K/mm3 (0.0-0.1) 02/02/22 05:33 Metamyelocytes # 0.0 K/mm3 02/02/22 05:33 Myelocytes # 0.0 K/mm3 02/02/22 05:33 Promyelocytes # 0.0 K/mm3 02/02/22 05:33 Blast Cells # 0.0 K/mm3 02/02/22 05:33 WBC Morphology Not Reportable 02/02/22 05:33 Hypersegmented Neuts Not Reportable 02/02/22 05:33 Hyposegmented Neuts Not Reportable 02/02/22 05:33 Hypogranular Neuts Not Reportable 02/02/22 05:33 Smudge Cells Not Reportable 02/02/22 05:33 Toxic Granulation Not Reportable 02/02/22 05:33 Toxic Vacuolation Not Reportable 02/02/22 05:33 Dohle Bodies Not Reportable 02/02/22 05:33 Pelger-Huet Anomaly Not Reportable 02/02/22 05:33 Giovana Rods Not Reportable 02/02/22 05:33 Platelet Estimate Appears decreased 02/02/22 05:33 Clumped Platelets Not Reportable 02/02/22 05:33 Plt Clumps, EDTA Not Reportable 02/02/22 05:33 Large Platelets Not Reportable 02/02/22 05:33 Giant Platelets Not Reportable 02/02/22 05:33 Platelet Satelliting Not Reportable 02/02/22 05:33 Plt Morphology Comment Not Reportable 02/02/22 05:33 RBC Morphology Not Reportable 02/02/22 05:33 Dimorphic RBCs Not Reportable 02/02/22 05:33 Polychromasia Not Reportable 02/02/22 05:33 Hypochromasia Not Reportable 02/02/22 05:33 Poikilocytosis Not Reportable 02/02/22 05:33 Anisocytosis Not Reportable 02/02/22 05:33 Microcytosis Not Reportable 02/02/22 05:33 Macrocytosis Not Reportable 02/02/22 05:33 Spherocytes Not Reportable 02/02/22 05:33 Pappenheimer Bodies Not Reportable 02/02/22 05:33 Sickle Cells Not Reportable 02/02/22 05:33 Target Cells Not Reportable 02/02/22 05:33 Tear Drop Cells Not Reportable 02/02/22 05:33 Ovalocytes Not Reportable 02/02/22 05:33 Helmet Cells Not Reportable 02/02/22 05:33 [place] Bodies Not Reportable 02/02/22 05:33 [place] Rings Not Reportable 02/02/22 05:33 [place] Cells 1+ 02/02/22 05:33 Bite Cells Not Reportable 02/02/22 05:33 Crenated Cell Not Reportable 02/02/22 05:33 Elliptocytes Not Reportable 02/02/22 05:33 Acanthocytes (Spur) Few 02/02/22 05:33 Rouleaux Not Reportable 02/02/22 05:33 Hemoglobin C Crystals Not Reportable 02/02/22 05:33 Schistocytes Not Reportable 02/02/22 05:33 Malaria parasites Not Reportable 02/02/22 05:33 Percent Retic 0.22 % (0.78-2.58) L 01/26/22 14:35 Kana Bodies Not Reportable 02/02/22 05:33 Hem Pathologist Commnt No 02/02/22 05:33 PT Cancelled 01/28/22 14:27 INR 0.94 (0.87-1.13) 01/25/22 20:12 INR Cancelled 01/28/22 14:27 APTT 34.4 Sec. (24.2-36.6) 01/28/22 14:27 PT Patient/Control Mix Cancelled 01/28/22 14:27 PT Pat/Norm 1:1 5 min Cancelled 01/28/22 14:27 PT Pat/Norm 1:1 1 Hr Cancelled 01/28/22 14:27 Thrombin Time 17.5 Sec. (15.1-19.6) 01/25/22 20:12 Fibrinogen 665 mg/dl (211-480) H 01/26/22 14:35 Heparin Anti-Xa, Unfract Negative (Negative) 01/26/22 14:35 Creatinine 2.2 mg/dL (0.8-1.3) H 02/02/22 05:33 Iron 127 ug/dL (49-181) 01/26/22 14:35 TIBC 147 mcg/dL (250-450) L 01/26/22 14:35 Ferritin 943.7 ng/mL (30.0-300.0) H 01/26/22 07:44 Total Bilirubin 0.30 mg/dL (0.1-1.2) 02/02/22 05:33 Direct Bilirubin < 0.2 mg/dL (0-0.2) 01/27/22 05:46 Indirect Bilirubin 0.1 mg/dL 01/27/22 05:46 AST 287 units/L (5-40) H 02/02/22 05:33 ALT 290 units/L (7-56) H 02/02/22 05:33 Alkaline Phosphatase 231 units/L (35-129) H 02/02/22 05:33 Ammonia 20.0 umol/L (25-60) L 01/30/22 10:54 Lactate Dehydrogenase 529 units/L (91-180) H 01/26/22 14:35 Total Creatine Kinase 242 units/L (55-170) H 01/25/22 20:12 CK-MB (CK-2) 10.0 ng/mL (0.0-4.0) H 01/25/22 20:12 CK-MB (CK-2) Rel Index 4.1 (0-4) H 01/25/22 20:12 Troponin T 0.094 ng/mL (0.00-0.029) H 01/25/22 20:12 Serum Total Protein 5.1 g/dL (6.1-8.1) L 01/26/22 14:35 Total Protein 5.5 g/dL (6.3-8.2) L 02/02/22 05:33 Albumin 2.4 g/dL (3.9-5) L 02/02/22 05:33 Albumin/Globulin Ratio 0.8 % 02/02/22 05:33 Vpgna-2-Yexvosnvk 0.4 g/dL (0.2-0.3) H 01/26/22 14:35 Nrtow-1-Ffkhbneaf 0.8 g/dL (0.5-0.9) 01/26/22 14:35 Beta Globulins 0.3 g/dL (0.2-0.5) 01/26/22 14:35 Gamma Globulins 0.8 g/dL (0.8-1.7) 01/26/22 14:35 Abnorm Protein Band 1 see below 01/26/22 14:35 PEP Interpretation see below H 01/26/22 14:35 Vitamin B12 > 2000 pg/mL (211-911) H 01/26/22 14:35 Folate 4.90 ng/mL (7.3-26.0) L 01/26/22 14:35 TSH 2.670 mlU/mL (0.270-4.200) 01/26/22 07:44 Salicylates < 0.3 mg/dL (2.8-20.0) L 01/25/22 20:12 Acetaminophen 5.0 ug/mL (10.0-30.0) L 01/25/22 20:12 Plasma/Serum Alcohol < 0.01 % (0-0.07) 01/25/22 20:12 Immunofix Electrophor see below 01/26/22 14:35 TWIN Screen Negative (Negative) 01/26/22 07:44 Heparin-induced Plt Ab Negative (Negative) 01/26/22 14:35 UF Heparin High Dose 0 % Release 01/26/22 14:35 ARUNA UFH Low Dose 0.1 0 % Release 01/26/22 14:35 ARUNA UFH Low Dose 0.5 0 % Release 01/26/22 14:35 Cardiolipid IgG Ab <2.0 GPL-U/mL (<20.0) 01/28/22 Unknown Cardiolipid IgA Ab <2.0 APL-U/mL (<20.0) 01/28/22 Unknown Cardiolipid IgM Ab <2.0 MPL-U/mL (<20.0) 01/28/22 Unknown Objective - Constitutional Vitals: Last Vital Signs Temp 97.1 F L 02/02/22 11:29 Pulse 57 L 02/02/22 11:29 Resp 16 02/02/22 11:29 BP 132/82 02/02/22 11:29 Pulse Ox 100 02/02/22 11:29 - Labs Lab Results: Laboratory Results - last 24 hr 01/26/22 02/01/22 02/01/22 14:35 14:20 18:02 WBC RBC Hgb Hct MCV MCH MCHC RDW Plt Count Add Manual Diff Total Counted Seg Neuts % (Manual) Band Neutrophils % Lymphocytes % (Manual) Reactive Lymphs % (Man) Monocytes % (Manual) Eosinophils % (Manual) Basophils % (Manual) Metamyelocytes % Myelocytes % Promyelocytes % Blast Cells % Nucleated RBC % Seg Neutrophils # Man Band Neutrophils # Lymphocytes # (Manual) Abs React Lymphs (Man) Monocytes # (Manual) Eosinophils # (Manual) Basophils # (Manual) Metamyelocytes # Myelocytes # Promyelocytes # Blast Cells # WBC Morphology Hypersegmented Neuts Hyposegmented Neuts Hypogranular Neuts Smudge Cells Toxic Granulation Toxic Vacuolation Dohle Bodies Pelger-Huet Anomaly Giovana Rods Platelet Estimate Clumped Platelets Plt Clumps, EDTA Large Platelets Giant Platelets Platelet Satelliting Plt Morphology Comment RBC Morphology Dimorphic RBCs Polychromasia Hypochromasia Poikilocytosis Anisocytosis Microcytosis Macrocytosis Spherocytes Pappenheimer Bodies Sickle Cells Target Cells Tear Drop Cells Ovalocytes Helmet Cells [place] Bodies [place] Rings [place] Cells Bite Cells Crenated Cell Elliptocytes Acanthocytes (Spur) Rouleaux Hemoglobin C Crystals Schistocytes Malaria parasites Kana Bodies Hem Pathologist Commnt Sodium Potassium Chloride Carbon Dioxide Anion Gap BUN Creatinine Estimated GFR BUN/Creatinine Ratio Glucose POC Glucose 99 114 H Calcium Total Bilirubin AST ALT Alkaline Phosphatase Total Protein Albumin Albumin/Globulin Ratio Immunofix Electrophor see below 02/01/22 02/02/22 02/02/22 21:42 02:50 04:21 WBC RBC Hgb Hct MCV MCH MCHC RDW Plt Count Add Manual Diff Total Counted Seg Neuts % (Manual) Band Neutrophils % Lymphocytes % (Manual) Reactive Lymphs % (Man) Monocytes % (Manual) Eosinophils % (Manual) Basophils % (Manual) Metamyelocytes % Myelocytes % Promyelocytes % Blast Cells % Nucleated RBC % Seg Neutrophils # Man Band Neutrophils # Lymphocytes # (Manual) Abs React Lymphs (Man) Monocytes # (Manual) Eosinophils # (Manual) Basophils # (Manual) Metamyelocytes # Myelocytes # Promyelocytes # Blast Cells # WBC Morphology Hypersegmented Neuts Hyposegmented Neuts Hypogranular Neuts Smudge Cells Toxic Granulation Toxic Vacuolation Dohle Bodies Pelger-Huet Anomaly Giovana Rods Platelet Estimate Clumped Platelets Plt Clumps, EDTA Large Platelets Giant Platelets Platelet Satelliting Plt Morphology Comment RBC Morphology Dimorphic RBCs Polychromasia Hypochromasia Poikilocytosis Anisocytosis Microcytosis Macrocytosis Spherocytes Pappenheimer Bodies Sickle Cells Target Cells Tear Drop Cells Ovalocytes Helmet Cells [place] Bodies [place] Rings Zenaida Cells Bite Cells Crenated Cell Elliptocytes Acanthocytes (Spur) Rouleaux Hemoglobin C Crystals Schistocytes Malaria parasites Kana Bodies Hem Pathologist Commnt Sodium Potassium Chloride Carbon Dioxide Anion Gap BUN Creatinine Estimated GFR BUN/Creatinine Ratio Glucose POC Glucose 79 69 L 158 H Calcium Total Bilirubin AST ALT Alkaline Phosphatase Total Protein Albumin Albumin/Globulin Ratio Immunofix Electrophor 02/02/22 02/02/22 05:33 05:33 WBC 2.0 L RBC 2.80 L Hgb 9.0 L Hct 27.2 L MCV 97 H MCH 32 MCHC 33 RDW 14.9 Plt Count 33 L Add Manual Diff Complete Total Counted 100 Seg Neuts % (Manual) 85.0 H Band Neutrophils % 4.0 Lymphocytes % (Manual) 4.0 L Reactive Lymphs % (Man) 0 Monocytes % (Manual) 5.0 Eosinophils % (Manual) 2.0 Basophils % (Manual) 0 Metamyelocytes % 0 Myelocytes % 0 Promyelocytes % 0 Blast Cells % 0 Nucleated RBC % Not Reportable Seg Neutrophils # Man 1.7 L Band Neutrophils # 0.1 Lymphocytes # (Manual) 0.1 L Abs React Lymphs (Man) 0.0 Monocytes # (Manual) 0.1 Eosinophils # (Manual) 0.0 Basophils # (Manual) 0.0 Metamyelocytes # 0.0 Myelocytes # 0.0 Promyelocytes # 0.0 Blast Cells # 0.0 WBC Morphology Not Reportable Hypersegmented Neuts Not Reportable Hyposegmented Neuts Not Reportable Hypogranular Neuts Not Reportable Smudge Cells Not Reportable Toxic Granulation Not Reportable Toxic Vacuolation Not Reportable Dohle Bodies Not Reportable Pelger-Huet Anomaly Not Reportable Giovana Rods Not Reportable Platelet Estimate Appears decreased Clumped Platelets Not Reportable Plt Clumps, EDTA Not Reportable Large Platelets Not Reportable Giant Platelets Not Reportable Platelet Satelliting Not Reportable Plt Morphology Comment Not Reportable RBC Morphology Not Reportable Dimorphic RBCs Not Reportable Polychromasia Not Reportable Hypochromasia Not Reportable Poikilocytosis Not Reportable Anisocytosis Not Reportable Microcytosis Not Reportable Macrocytosis Not Reportable Spherocytes Not Reportable Pappenheimer Bodies Not Reportable Sickle Cells Not Reportable Target Cells Not Reportable Tear Drop Cells Not Reportable Ovalocytes Not Reportable Helmet Cells Not Reportable [place] Bodies Not Reportable [place] Rings Not Reportable Zenaida Cells 1+ Bite Cells Not Reportable Crenated Cell Not Reportable Elliptocytes Not Reportable Acanthocytes (Spur) Few Rouleaux Not Reportable Hemoglobin C Crystals Not Reportable Schistocytes Not Reportable Malaria parasites Not Reportable Kana Bodies Not Reportable Hem Pathologist Commnt No Sodium 143 Potassium 4.5 Chloride 111.5 H Carbon Dioxide 21 L Anion Gap 15 BUN 15 Creatinine 2.2 H Estimated GFR 35 BUN/Creatinine Ratio 7 Glucose 140 H POC Glucose Calcium 8.6 Total Bilirubin 0.30 AST 287 H ALT 290 H Alkaline Phosphatase 231 H Total Protein 5.5 L Albumin 2.4 L Albumin/Globulin Ratio 0.8 Immunofix Electrophor Medications & Allergies - Medications Allergies/Adverse Reactions: Allergies No Known Allergies Allergy (Unverified 01/20/22 10:47) Home Medications: Home Medications Medication Instructions Recorded Confirmed Last Taken Type Sodium Bicarbonate 1,300 mg PO TID #90 tablet 01/25/22 01/26/22 Unknown Rx Tamsulosin [Flomax] 0.4 mg PO QDAY #30 capsule 01/25/22 01/26/22 Unknown Rx amLODIPine 10 mg PO QDAY #30 tablet 01/25/22 01/26/22 Unknown Rx Active Medications: Generic Name Dose Route Start Last Admin Trade Name Freq PRN Reason Stop Dose Admin Acetaminophen 650 mg 01/25/22 23:53 Acetaminophen 325 Mg Tab PO Q4H PRN Pain MILD(1-3)/Fever >100.5/STODDARD Amlodipine Besylate 10 mg 01/27/22 11:00 02/01/22 10:00 Amlodipine 10 Mg Tab PO Not Given QDAY MARLON Dextrose 75 ml 01/25/22 20:36 01/29/22 22:55 Dextrose 10% *Hypoglycemia IV 75 ml PRN PRN Administration Hypoglycemia Folic Acid 1 mg 01/27/22 11:00 02/01/22 10:00 Folic Acid 1 Mg Tab PO Not Given QDAY ON LICENSE OF [facility] Hydralazine HCl 50 mg 01/31/22 09:00 02/02/22 05:24 Hydralazine 25 Mg Tab PO Not Given Q8HR ON LICENSE OF [facility] Morphine Sulfate 2 mg 01/25/22 23:53 Morphine 2 Mg/1 Ml Inj IV Q4H PRN Pain, Moderate (4-6) Morphine Sulfate 4 mg 01/25/22 23:53 Morphine 4 Mg/1 Ml Inj IV Q4H PRN Pain , Severe (7-10) Ondansetron HCl 4 mg 01/25/22 23:53 Ondansetron 4 Mg/2 Ml Inj IV Q8H PRN Nausea And Vomiting Sodium Bicarbonate 1,300 mg 01/27/22 14:00 02/01/22 21:14 Sodium Bicarbonate 650 Mg Tab PO Not Given TID MARLON Sodium Chloride 10 ml 01/26/22 10:00 02/01/22 21:14 Sodium Chloride 0.9% 10 Ml Flush Syringe IV 10 ml BID MARLON Administration Sodium Chloride 10 ml 01/25/22 23:53 Sodium Chloride 0.9% 10 Ml Flush Syringe IV PRN PRN LINE FLUSH Tamsulosin HCl 0.4 mg 01/27/22 11:00 02/01/22 10:00 Tamsulosin 0.4 Mg Cap PO Not Given QDAY ON LICENSE OF [facility]
[2022-02-02] MEDS: SODIUM BICARBONATE 650 MG TAB PO SCH ×3 (15:18→21:27)
--- NOTE | 2022-02-02 18:01 | Progress Note ---
Subjective - Reason for Consult Consult date: 02/02/22 Reason for consult: Delirium - Chief Complaint Chief complaint: The patient was seen today. He reports doing well. He states sleep was rough last night when asked why, he states " I have some problems." The patient is clearer today however, he continues to be confused. When asked about depression he states " I left my shoes in the locker." Unable to assess si/hi/avhs. ROS: MENTAL STATUS EXAMINATION General Appearance: Dressed appropriately. Behavior: Calm and cooperative. Good eye contact. Mood: calm Affect:congruent to stated mood Speech:soft and delayed Thought Process: circumstantial Thought Content:confused Suicidal Ideation:unable to assess Homicidal Ideation: unable to assess Hallucinations: unable to assess Delusions: yes Insight and Judgment: poor Memory/Cognition: poor Assessment and Plan (1)Unspecified mood disorder Treatment Plan Risks, benefits and alternatives of medications discussed with the patient, questions answered and consent obtained from patient. PSYCHOTHERAPY: Supportive psychotherapy provided MEDICAL: Per primary team DELIRIUM PRECAUTIONS: Please re-orient patient frequently, keep lights on during the day, and minimize benzodiazepines and opiates as these medications could worsen patient's confusion. MULT AU MATIC OPERATOR: Per primary DISPOSITION: Do not recommend acute inpatient psychiatric hospitalization at this time. The patient seem to have medical problems than psych. Will sign off. Thank you for the consult. Please contact with any questions and/or concerns. Case discussed with Dr. Roger who agrees with current disposition Mental Status Exam - Vital signs Last Vital Signs Temp 98.2 F 02/02/22 16:22 Pulse 57 L 02/02/22 11:29 Resp 16 02/02/22 11:29 BP 122/71 02/02/22 16:22 Pulse Ox 100 02/02/22 11:29
[2022-02-02] MEDS: DEXTROSE 10% *Hypoglycemia IV PRN (20:58)
[2022-02-03] MEDS: hydrALAZINE 25 MG TAB PO SCH ×3 (05:16→21:46)
[2022-02-03] MEDS: DEXTROSE 10% *Hypoglycemia IV PRN (06:34)
[2022-02-03 08:09] LABS: Basophils % (Auto) 0.6 % (0.0-1.8); Eosinophils % (Auto) 0.7 % (0.0-4.3); Hematocrit 27.7 % (35.5-45.6); Hemoglobin 9.3 gm/dl (11.8-15.2); Lymphocytes # (Auto) 0.2 K/mm3 (1.2-5.4); Lymphocytes % (Auto) 5.7 % (13.4-35.0); Mean Corpuscular HGB Conc 34 % (32-34); Mean Corpuscular Volume 97 fl (84-94); Monocytes # (Auto) 0.1 K/mm3 (0.0-0.8); Monocytes % (Auto) 3.2 % (0.0-7.3); Red Blood Count 2.85 M/mm3 (3.65-5.03); Red Cell Distribution Width 15.2 % (13.2-15.2)
[2022-02-03 08:21] LABS: Platelet Count 52 K/mm3 (140-440)
[2022-02-03 08:33] LABS: Albumin 2.8 g/dL (3.9-5); Calcium 9.3 mg/dL (8.4-10.2)
[2022-02-03 08:44] LABS: Hemoglobin A2 Prime SEE SCANNED RESULT; Hemoglobin Barts SEE SCANNED RESULT; Hemoglobin E SEE SCANNED RESULT; Hemoglobin G SEE SCANNED RESULT; Hemoglobin Lepore SEE SCANNED RESULT; Hemoglobin O-Arab SEE SCANNED RESULT; IEF Confirm SEE SCANNED RESULT; Interpretation SEE SCANNED RESULT; Sickle Solubility Test SEE SCANNED RESULT
[2022-02-03] MEDS: amLODIPine 10 MG TAB PO SCH (09:27)
[2022-02-03] MEDS: SODIUM BICARBONATE 650 MG TAB PO SCH ×3 (09:27→21:48)
[2022-02-03] MEDS: TAMSULOSIN 0.4 MG CAP PO SCH (09:28)
[2022-02-03] MEDS: FOLIC ACID 1 MG TAB PO SCH (09:28)
--- NOTE | 2022-02-03 09:41 | Progress Note ---
Subjective Date of service: 02/03/22 Interval history: Impression: * Altered mental status * acute kidney injury secondary to obstructive uropathy/urinary retention * Urinary retention * Azotemia * Hyperkalemia, mild * Metabolic acidosis * Anemia * Hypertension * Pancytopenia * Proteinuria * Abnormal LFT Plan: * Renal function is stable . Serum creatinine seems to be plateauing . No evidence of contrast nephropathy at this time * Continue NaBicarb * Blood pressure is under control. Continue current antihypertensive medica tions * Continue current management * Dose medications for renal function * Avoid potential nephrotoxins * Continue Leal catheter for now. Continue tamsulosin. Further plan as per urology services * Work-up for pancytopenia as per primary team * Okay to discontinue IV fluid if patient has adequate oral intake * Hematology consultation appreciated. * His urine shows 2+ dipstick protein and a few red cells and white cells. Urine protein creatinine ratio is approximately 0.5 g/g. Hold off on adding MAXI or ARB at this time until his renal function stabilizes * Ammonia level is normal at 25. GI consultation appreciated * ok to dc from renal standpoint Subjective resting in bed . Comfortable . Denies SOB Objective - General Appearance General appearance: well-developed, well-nourished, appears stated age EENT: PERRL, mucous membranes moist Neck: no JVD, no thyromegaly, no carotid bruit, supple Respiratory: Present: Clear to Ascultation Cardiology: regular, normal heart rate Gastrointestinal: normal, normoactive bowel sounds Integumentary: no rash, other (1+ edema ) Objective - Vital Signs Vital signs: Vital Signs - 12hr 02/02/22 02/02/22 02/03/22 22:00 23:42 02:41 Temperature 98.0 F Pulse Rate 71 78 Respiratory 18 Rate Blood Pressure 119/75 O2 Sat by Pulse 78 L 100 Oximetry 02/03/22 02/03/22 03:48 08:57 Temperature 97.7 F Pulse Rate 75 Respiratory 18 Rate Blood Pressure 133/89 O2 Sat by Pulse 100 100 Oximetry - Lab 02/03/22 07:01 02/03/22 07:01 Most recent lab results Calcium 9.3 mg/dL (8.4-10.2) 02/03/22 07:01 Magnesium 1.80 mg/dL (1.7-2.3) 01/25/22 20:12 Urine Creatinine 49.1 mg/dL (0.1-20.0) H 01/26/22 09:17 Urine Total Protein 24 mg/dL (5-11.8) H 01/26/22 09:17 Medications & Allergies - Medications Allergies/Adverse Reactions: Allergies No Known Allergies Allergy (Unverified 01/20/22 10:47) Home Medications: Home Medications Medication Instructions Recorded Confirmed Last Taken Type Sodium Bicarbonate 1,300 mg PO TID #90 tablet 01/25/22 01/26/22 Unknown Rx Tamsulosin [Flomax] 0.4 mg PO QDAY #30 capsule 01/25/22 01/26/22 Unknown Rx amLODIPine 10 mg PO QDAY #30 tablet 01/25/22 01/26/22 Unknown Rx Active Medications: Generic Name Dose Route Start Last Admin Trade Name Freq PRN Reason Stop Dose Admin Acetaminophen 650 mg 01/25/22 23:53 Acetaminophen 325 Mg Tab PO Q4H PRN Pain MILD(1-3)/Fever >100.5/STODDARD Amlodipine Besylate 10 mg 01/27/22 11:00 02/03/22 09:27 Amlodipine 10 Mg Tab PO 10 mg QDAY MARLON Administration Dextrose 75 ml 01/25/22 20:36 02/03/22 06:34 Dextrose 10% *Hypoglycemia IV 75 ml PRN PRN Administration Hypoglycemia Folic Acid 1 mg 01/27/22 11:00 02/03/22 09:28 Folic Acid 1 Mg Tab PO 1 mg QDAY MARLON Administration Hydralazine HCl 50 mg 01/31/22 09:00 02/03/22 05:16 Hydralazine 25 Mg Tab PO 50 mg Q8HR MARLON Administration Morphine Sulfate 2 mg 01/25/22 23:53 Morphine 2 Mg/1 Ml Inj IV Q4H PRN Pain, Moderate (4-6) Morphine Sulfate 4 mg 01/25/22 23:53 Morphine 4 Mg/1 Ml Inj IV Q4H PRN Pain , Severe (7-10) Ondansetron HCl 4 mg 01/25/22 23:53 Ondansetron 4 Mg/2 Ml Inj IV Q8H PRN Nausea And Vomiting Sodium Bicarbonate 1,300 mg 01/27/22 14:00 02/03/22 09:27 Sodium Bicarbonate 650 Mg Tab PO 1,300 mg TID MARLON Administration Sodium Chloride 10 ml 01/26/22 10:00 02/03/22 09:28 Sodium Chloride 0.9% 10 Ml Flush Syringe IV 10 ml BID MARLON Administration Sodium Chloride 10 ml 01/25/22 23:53 Sodium Chloride 0.9% 10 Ml Flush Syringe IV PRN PRN LINE FLUSH Tamsulosin HCl 0.4 mg 01/27/22 11:00 02/03/22 09:28 Tamsulosin 0.4 Mg Cap PO 0.4 mg QDAY MARLON Administration
--- NOTE | 2022-02-03 12:41 | Progress Note ---
Assessment and Plan Assessment and plan: 76-year-old -Citizen Of [place] male with known history of obstructive uropathy, urinary retention, metabolic acidosis, anemia with thrombocytopenia and leukopenia who was discharge sometime in the afternoon but later brought back to the emergency room same day because of changes in mental status. Patient was accompanied by his roommate who indicates that patient has had change in his mental status and was not able to communicate well since discharge from the hospital.Patient was evaluated by the teleneurologist and was not deemed to be a TPA candidate. Work-up in the emergency room reveals thrombocytopenia of 32, BUN of 40 and creatinine of 2.3. Elevated AST and ALT of 565 and 379 respectively. Alkaline phos of 246 and creatinine kinase of 242. Troponin was elevated at 0.094. Urinalysis showed trace bacteria and trace leukocyte esterase. CTA head and neck did not show any significant findings. Chest x-ray shows possible persistent bibasilar pneumonia. Patient was admitted for further evaluation management #Acute metabolic encephalopathy-resolved #Acute cerebral infarct/CVA -CT scan of the head, CTA head and neck were nonspecific. -Repeat CT head noncontrast (02/01/2022) due to marked encephalopathy with decreased response. CT head unremarkable. 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 Neurology consulted; pending recs. It will be difficult to medically manage patient with aspirin (+/-) or Plavix as the patient has significant thrombocytopenia (platelets today 33). Will look to neurology and heme/oncology for recommendations. TTE (02/03/2022) revealing EF 55-60% with normal LV size, normal LV systolic function, and mild concentric LVH. No PFO was documented. Possibly iatrogenic etiologyrecently started on Zyprexa last night. Discontinued Zyprexa. Will continue to monitor #Pulmonary infiltrate/possible aspiration pneumoniaresolved -Completing 7-day course of Rocephin 2 g daily today. #JESSIKA on possible CKD-stable -Discontinue IV fluid -Nephrology consulted; appreciate recs #Thrombocytopeniaimproving #Leukopeniaimproved -Heme/oncology consulted; appreciate recs -Bone marrow biopsy is unremarkable for hemolytic malignancy -The following labs are unremarkable: TWIN, heparin-induced platelet antibody, cardiolipin IgG, IgA, and IgM antibodies -Pending spep with MORAIMA, pf4 ab, hgep, soheila -Transfuse 1 unit whenever hct <23 -Transfuse 1 dose of plts whenever plt <20 #Elevated transaminasesimproving - likely secondary to shock liver We will continue to monitor LFTs. Gastroenterology consulted; appreciate recs. No intervention at this time. #Advanced care planning -Disease education conducted, care plan discussed, diagnoses discussed, prognosis discussed, and patient acknowledges understanding with care plan -Time: +30 min Disposition: Medically not stable for discharge 01/26: Patient remains confused, continue antibiotics. follow renal function, follow LFT., Wait for consultants recommendation. 01/27: Creatinine slightly improved, patient mental status improving, tolerating diet. Hematology nephrology and GI following. Hematology recommended bone marrow biopsy for leukopenia and thrombocytopenia. 01/28: s/p bone marrow biopsy today, follow am labs. Cr still elevated, speech recommended pureed diet. If renal function continues to improve possible DC soon. 01/29: patient restraint overnight, today appears to be very confused. Will order repeat LFT, ammonia level. Continue to monitor renal function. 01/30: LFT trending down, ammonia level lower than normal. Patient continued to be confused and restrained. Will consult psych. Order for repeat CT head Continue to follow clinically. 01/31: discussed plan of care with significant other. pending BM biopsy, autoimmune workup panel. Remains confused, psych following. initiated zyprexa at bedtime. 02/01: CT head noncontrast unremarkable for acute hemorrhagic stroke. Pending MRI brain. Discontinued Zyprexa due to possible iatrogenic etiology for worsened metabolic encephalopathy. Continue to monitor. 02/02: MRI brain unremarkable for acute ischemic infarct along the medial left frontal cortex. Neurology consulted. Pending TTE to evaluate for PFO. 02/03: Reversal of encephalopathy with patient being conversant and cooperative at bedside. TTE unremarkable for PFO. Pending PT/OT recs. Pending neurology recommendations concerning antiplatelet therapy. Disposition Plan: Continue medical management Total Time Spent with Patient (Minutes): 45 minutes History Interval history: Have the patient is currently alert and conversant and responsive to prompting. Hospitalist Physical - Constitutional Vitals: Temp Pulse Resp BP Pulse Ox 98.6 F 75 18 104/58 99 02/03/22 11:21 02/03/22 11:21 02/03/22 11:21 02/03/22 11:21 02/03/22 11:21 General appearance: Present: no acute distress, cachectic - EENT Eyes: Present: PERRL, EOM intact ENT: hearing intact, clear oral mucosa, dentition normal - Neck Neck: Present: supple, normal ROM - Respiratory Respiratory effort: normal Respiratory: bilateral: CTA - Cardiovascular Rhythm: regular Heart Sounds: Present: S1 & S2 - Extremities Extremities: no ischemia, pulses intact, pulses symmetrical, No edema, normal temperature, normal color Peripheral Pulses: within normal limits - Abdominal General gastrointestinal: soft, non-tender, non-distended, normal bowel sounds - Integumentary Integumentary: Present: clear, warm, dry - Psychiatric Psychiatric: appropriate mood/affect, cooperative - Neurologic Neurologic: CNII-XII intact, moves all extremities - Allied Health Allied health notes reviewed: nursing HEART Score - HEART Score Troponin: Troponin T 0.094 ng/mL (0.00-0.029) H 01/25/22 20:12 Results - Labs CBC & Chem 7: 02/03/22 07:01 02/03/22 07:01 Labs: Laboratory Last Values WBC 3.0 K/mm3 (4.5-11.0) L 02/03/22 07:01 RBC 2.85 M/mm3 (3.65-5.03) L 02/03/22 07:01 Hgb 9.3 gm/dl (11.8-15.2) L 02/03/22 07:01 Hgb Comment See scanned result 01/26/22 14:35 Hct 27.7 % (35.5-45.6) L 02/03/22 07:01 MCV 97 fl (84-94) H 02/03/22 07:01 MCH 33 pg (28-32) H 02/03/22 07:01 MCHC 34 % (32-34) 02/03/22 07:01 RDW 15.2 % (13.2-15.2) 02/03/22 07:01 Plt Count 52 K/mm3 (140-440) L 02/03/22 07:01 Lymph % (Auto) 5.7 % (13.4-35.0) L 02/03/22 07:01 [place] % (Auto) 3.2 % (0.0-7.3) 02/03/22 07:01 Eos % (Auto) 0.7 % (0.0-4.3) 02/03/22 07:01 Baso % (Auto) 0.6 % (0.0-1.8) 02/03/22 07:01 Lymph # (Auto) 0.2 K/mm3 (1.2-5.4) L 02/03/22 07:01 [place] # (Auto) 0.1 K/mm3 (0.0-0.8) 02/03/22 07:01 Eos # (Auto) 0.0 K/mm3 (0.0-0.4) 02/03/22 07:01 Baso # (Auto) 0.0 K/mm3 (0.0-0.1) 02/03/22 07:01 Add Manual Diff Complete 02/02/22 05:33 Total Counted 100 02/02/22 05:33 Seg Neutrophils % 89.8 % (40.0-70.0) H 02/03/22 07:01 Seg Neuts % (Manual) 85.0 % (40.0-70.0) H 02/02/22 05:33 Band Neutrophils % 4.0 % 02/02/22 05:33 Lymphocytes % (Manual) 4.0 % (13.4-35.0) L 02/02/22 05:33 Reactive Lymphs % (Man) 0 % 02/02/22 05:33 Monocytes % (Manual) 5.0 % (0.0-7.3) 02/02/22 05:33 Eosinophils % (Manual) 2.0 % (0.0-4.3) 02/02/22 05:33 Basophils % (Manual) 0 % (0.0-1.8) 02/02/22 05:33 Metamyelocytes % 0 % 02/02/22 05:33 Myelocytes % 0 % 02/02/22 05:33 Promyelocytes % 0 % 02/02/22 05:33 Blast Cells % 0 % 02/02/22 05:33 Nucleated RBC % Not Reportable 02/02/22 05:33 Seg Neutrophils # 2.7 K/mm3 (1.8-7.7) 02/03/22 07:01 Seg Neutrophils # Man 1.7 K/mm3 (1.8-7.7) L 02/02/22 05:33 Band Neutrophils # 0.1 K/mm3 02/02/22 05:33 Lymphocytes # (Manual) 0.1 K/mm3 (1.2-5.4) L 02/02/22 05:33 Abs React Lymphs (Man) 0.0 K/mm3 02/02/22 05:33 Monocytes # (Manual) 0.1 K/mm3 (0.0-0.8) 02/02/22 05:33 Eosinophils # (Manual) 0.0 K/mm3 (0.0-0.4) 02/02/22 05:33 Basophils # (Manual) 0.0 K/mm3 (0.0-0.1) 02/02/22 05:33 Metamyelocytes # 0.0 K/mm3 02/02/22 05:33 Myelocytes # 0.0 K/mm3 02/02/22 05:33 Promyelocytes # 0.0 K/mm3 02/02/22 05:33 Blast Cells # 0.0 K/mm3 02/02/22 05:33 WBC Morphology Not Reportable 02/02/22 05:33 Hypersegmented Neuts Not Reportable 02/02/22 05:33 Hyposegmented Neuts Not Reportable 02/02/22 05:33 Hypogranular Neuts Not Reportable 02/02/22 05:33 Smudge Cells Not Reportable 02/02/22 05:33 Toxic Granulation Not Reportable 02/02/22 05:33 Toxic Vacuolation Not Reportable 02/02/22 05:33 Dohle Bodies Not Reportable 02/02/22 05:33 Pelger-Huet Anomaly Not Reportable 02/02/22 05:33 Giovana Rods Not Reportable 02/02/22 05:33 Platelet Estimate Appears decreased 02/02/22 05:33 Clumped Platelets Not Reportable 02/02/22 05:33 Plt Clumps, EDTA Not Reportable 02/02/22 05:33 Large Platelets Not Reportable 02/02/22 05:33 Giant Platelets Not Reportable 02/02/22 05:33 Platelet Satelliting Not Reportable 02/02/22 05:33 Plt Morphology Comment Not Reportable 02/02/22 05:33 RBC Morphology Not Reportable 02/02/22 05:33 Dimorphic RBCs Not Reportable 02/02/22 05:33 Polychromasia Not Reportable 02/02/22 05:33 Hypochromasia Not Reportable 02/02/22 05:33 Poikilocytosis Not Reportable 02/02/22 05:33 Anisocytosis Not Reportable 02/02/22 05:33 Microcytosis Not Reportable 02/02/22 05:33 Macrocytosis Not Reportable 02/02/22 05:33 Spherocytes Not Reportable 02/02/22 05:33 Pappenheimer Bodies Not Reportable 02/02/22 05:33 Sickle Cells Not Reportable 02/02/22 05:33 Target Cells Not Reportable 02/02/22 05:33 Tear Drop Cells Not Reportable 02/02/22 05:33 Ovalocytes Not Reportable 02/02/22 05:33 Helmet Cells Not Reportable 02/02/22 05:33 [place] Bodies Not Reportable 02/02/22 05:33 [place] Rings Not Reportable 02/02/22 05:33 Zenaida Cells 1+ 02/02/22 05:33 Bite Cells Not Reportable 02/02/22 05:33 Crenated Cell Not Reportable 02/02/22 05:33 Elliptocytes Not Reportable 02/02/22 05:33 Acanthocytes (Spur) Few 02/02/22 05:33 Rouleaux Not Reportable 02/02/22 05:33 Hemoglobin C Crystals Not Reportable 02/02/22 05:33 Schistocytes Not Reportable 02/02/22 05:33 Malaria parasites Not Reportable 02/02/22 05:33 Percent Retic 0.22 % (0.78-2.58) L 01/26/22 14:35 Sickle Cell Solubility See scanned result 01/26/22 14:35 Hemoglobin A See scanned result 01/26/22 14:35 Hemoglobin A2 See scanned result 01/26/22 14:35 Hemoglobin A2 Prime See scanned result 01/26/22 14:35 Hemoglobin C See scanned result 01/26/22 14:35 Hemoglobin D See scanned result 01/26/22 14:35 Hemoglobin E See scanned result 01/26/22 14:35 Hgb F Diffential Stain See scanned result 01/26/22 14:35 Hemoglobin F Quant See scanned result 01/26/22 14:35 Hemoglobin G See scanned result 01/26/22 14:35 Hemoglobin S See scanned result 01/26/22 14:35 Hemoglobin O-[place] See scanned result 01/26/22 14:35 Hemoglobin [place] See scanned result 01/26/22 14:35 Hemoglobin Olga See scanned result 01/26/22 14:35 Variant Hemoglobin See scanned result 01/26/22 14:35 Abnorm Hgb IEF Confirm See scanned result 01/26/22 14:35 Hemoglobin Interpret See scanned result 01/26/22 14:35 Hemoglobinopathy Note See scanned result 01/26/22 14:35 Kana Bodies Not Reportable 02/02/22 05:33 Hem Pathologist Commnt No 02/02/22 05:33 PT Cancelled 01/28/22 14:27 INR 0.94 (0.87-1.13) 01/25/22 20:12 INR Cancelled 01/28/22 14:27 APTT 34.4 Sec. (24.2-36.6) 01/28/22 14:27 PT Patient/Control Mix Cancelled 01/28/22 14:27 PT Pat/Norm 1:1 5 min Cancelled 01/28/22 14:27 PT Pat/Norm 1:1 1 Hr Cancelled 01/28/22 14:27 Thrombin Time 17.5 Sec. (15.1-19.6) 01/25/22 20:12 Fibrinogen 665 mg/dl (211-480) H 01/26/22 14:35 Heparin Anti-Xa, Unfract Negative (Negative) 01/26/22 14:35 Sodium 141 mmol/L (137-145) 02/03/22 07:01 Potassium 4.7 mmol/L (3.6-5.0) 02/03/22 07:01 Chloride 108.9 mmol/L (98-107) H 02/03/22 07:01 Carbon Dioxide 22 mmol/L (22-30) 02/03/22 07:01 Anion Gap 15 mmol/L 02/03/22 07:01 BUN 19 mg/dL (9-20) 02/03/22 07:01 Creatinine 2.0 mg/dL (0.8-1.3) H 02/03/22 07:01 Estimated GFR 40 ml/min 02/03/22 07:01 BUN/Creatinine Ratio 10 % 02/03/22 07:01 Glucose 87 mg/dL (75-100) 02/03/22 07:01 POC Glucose 101 mg/dL (70-105) 02/03/22 11:15 Uric Acid 7.1 mg/dL (3.5-7.6) 01/28/22 08:08 Calcium 9.3 mg/dL (8.4-10.2) 02/03/22 07:01 Magnesium 1.80 mg/dL (1.7-2.3) 01/25/22 20:12 Iron 127 ug/dL (49-181) 01/26/22 14:35 TIBC 147 mcg/dL (250-450) L 01/26/22 14:35 Ferritin 943.7 ng/mL (30.0-300.0) H 01/26/22 07:44 Total Bilirubin 0.30 mg/dL (0.1-1.2) 02/03/22 07:01 Direct Bilirubin < 0.2 mg/dL (0-0.2) 01/27/22 05:46 Indirect Bilirubin 0.1 mg/dL 01/27/22 05:46 AST 490 units/L (5-40) H 02/03/22 07:01 ALT 407 units/L (7-56) H 02/03/22 07:01 Alkaline Phosphatase 261 units/L (35-129) H 02/03/22 07:01 Ammonia 20.0 umol/L (25-60) L 01/30/22 10:54 Lactate Dehydrogenase 529 units/L (91-180) H 01/26/22 14:35 Total Creatine Kinase 242 units/L (55-170) H 01/25/22 20:12 CK-MB (CK-2) 10.0 ng/mL (0.0-4.0) H 01/25/22 20:12 CK-MB (CK-2) Rel Index 4.1 (0-4) H 01/25/22 20:12 Troponin T 0.094 ng/mL (0.00-0.029) H 01/25/22 20:12 Serum Total Protein 5.1 g/dL (6.1-8.1) L 01/26/22 14:35 Total Protein 5.8 g/dL (6.3-8.2) L 02/03/22 07:01 Albumin 2.8 g/dL (3.9-5) L 02/03/22 07:01 Albumin/Globulin Ratio 0.9 % 02/03/22 07:01 Bpmui-9-Sopfpjxha 0.4 g/dL (0.2-0.3) H 01/26/22 14:35 Gckdu-9-Ortjqckvs 0.8 g/dL (0.5-0.9) 01/26/22 14:35 Beta Globulins 0.3 g/dL (0.2-0.5) 01/26/22 14:35 Gamma Globulins 0.8 g/dL (0.8-1.7) 01/26/22 14:35 Abnorm Protein Band 1 see below 01/26/22 14:35 PEP Interpretation see below H 01/26/22 14:35 Serotonin Release Assay See scanned result 01/26/22 14:35 Vitamin B12 > 2000 pg/mL (211-911) H 01/26/22 14:35 Folate 4.90 ng/mL (7.3-26.0) L 01/26/22 14:35 TSH 2.670 mlU/mL (0.270-4.200) 01/26/22 07:44 Urine Color Yellow (Yellow) 01/25/22 21:26 Urine Turbidity Slightly-cloudy (Clear) 01/25/22 21: Urine pH 5.0 (5.0-7.0) 01/25/22 21: Ur Specific [place] 1.028 (1.003-1.030) 01/25/22 21:26 Urine Protein 100 mg/dl mg/dL (Negative) 01/25/22 21:26 Urine Glucose (UA) Neg mg/dL (Negative) 01/25/22 21: Urine Ketones Neg mg/dL (Negative) 01/25/22 21:26 Urine Blood Mod (Negative) 01/25/22 21: Urine Nitrite Neg (Negative) 01/25/22 21: Urine Bilirubin Neg (Negative) 01/25/22 21: Urine Urobilinogen < 2.0 mg/dL (<2.0) 01/25/22 21:26 Ur Leukocyte Esterase Tr (Negative) 01/25/22 21: Urine WBC (Auto) 4.0 /HPF (0.0-6.0) 01/25/22 21:26 Urine RBC (Auto) 5.0 /HPF (0.0-6.0) 01/25/22 21:26 U Epithel Cells (Auto) < 1.0 /HPF (0-13.0) 01/25/22 21:26 Urine Bacteria (Auto) 1+ /HPF (Negative) 01/25/22 21:26 Urine Mucus Few /HPF 01/25/22 21:26 Urine Yeast (Budding) 1+ /HPF 01/25/22 21:26 Urine Creatinine 49.1 mg/dL (0.1-20.0) H 01/26/22 09:17 Protein/Creatinin Ratio 0.49 01/26/22 09:17 Urine Total Protein 24 mg/dL (5-11.8) H 01/26/22 09:17 Salicylates < 0.3 mg/dL (2.8-20.0) L 01/25/22 20:12 Acetaminophen 5.0 ug/mL (10.0-30.0) L 01/25/22 20:12 Plasma/Serum Alcohol < 0.01 % (0-0.07) 01/25/22 20:12 Immunofix Electrophor see below 01/26/22 14:35 TWIN Screen Negative (Negative) 01/26/22 07:44 Heparin-induced Plt Ab Negative (Negative) 01/26/22 14:35 UF Heparin High Dose 0 % Release 01/26/22 14:35 ARUNA UFH Low Dose 0.1 0 % Release 01/26/22 14:35 ARUNA UFH Low Dose 0.5 0 % Release 01/26/22 14:35 Cardiolipid IgG Ab <2.0 GPL-U/mL (<20.0) 01/28/22 Unknown Cardiolipid IgA Ab <2.0 APL-U/mL (<20.0) 01/28/22 Unknown Cardiolipid IgM Ab <2.0 MPL-U/mL (<20.0) 01/28/22 Unknown Hep Bs Antigen Non-reactive (Negative) 02/02/22 17:16 Leal/IV: Voiding Method Indwelling Catheter Active Medications - Current Medications Current Medications: Generic Name Dose Route Start Last Admin Trade Name Freq PRN Reason Stop Dose Admin Acetaminophen 650 mg 01/25/22 23:53 Acetaminophen 325 Mg Tab PO Q4H PRN Pain MILD(1-3)/Fever >100.5/STODDARD Amlodipine Besylate 10 mg 01/27/22 11:00 02/03/22 09:27 Amlodipine 10 Mg Tab PO 10 mg QDAY MARLON Administration Dextrose 75 ml 01/25/22 20:36 02/03/22 06:34 Dextrose 10% *Hypoglycemia IV 75 ml PRN PRN Administration Hypoglycemia Folic Acid 1 mg 01/27/22 11:00 02/03/22 09:28 Folic Acid 1 Mg Tab PO 1 mg QDAY MARLON Administration Hydralazine HCl 50 mg 01/31/22 09:00 02/03/22 05:16 Hydralazine 25 Mg Tab PO 50 mg Q8HR MARLON Administration Morphine Sulfate 2 mg 01/25/22 23:53 Morphine 2 Mg/1 Ml Inj IV Q4H PRN Pain, Moderate (4-6) Morphine Sulfate 4 mg 01/25/22 23:53 Morphine 4 Mg/1 Ml Inj IV Q4H PRN Pain , Severe (7-10) Ondansetron HCl 4 mg 01/25/22 23:53 Ondansetron 4 Mg/2 Ml Inj IV Q8H PRN Nausea And Vomiting Sodium Bicarbonate 1,300 mg 01/27/22 14:00 02/03/22 09:27 Sodium Bicarbonate 650 Mg Tab PO 1,300 mg TID MARLON Administration Sodium Chloride 10 ml 01/26/22 10:00 02/03/22 09:28 Sodium Chloride 0.9% 10 Ml Flush Syringe IV 10 ml BID MARLON Administration Sodium Chloride 10 ml 01/25/22 23:53 Sodium Chloride 0.9% 10 Ml Flush Syringe IV PRN PRN LINE FLUSH Tamsulosin HCl 0.4 mg 01/27/22 11:00 02/03/22 09:28 Tamsulosin 0.4 Mg Cap PO 0.4 mg QDAY MARLON Administration Nutrition/Malnutrition Assess - Dietary Evaluation Nutrition/Malnutrition Findings: Nutrition Notes Start: 01/26/22 17:13 Freq: Status: Active Protocol: Document 01/31/22 14:08 MARNI (Rec: 01/31/22 14:30 MARNI [id number]) Nutrition Notes Initial or Follow up Brief Note Current Diagnosis Acute Kidney Injury, Hypertension Other Pertinent Diagnosis AMS, Urinary retention, Metabolic Acidosis, Pancytopenia, Anemia, Azotemia . Current Diet Pureed Diet (since D 01/28). Labs/Tests 01/31: Cl 107.9, CO2 21, Crea 1.9, Glu 57. Pertinent Medications 01/31: Folic Acid, D10w 1000 ml @ 100 ml/hr, others nutritionally unremarkable. Height 6 ft Weight 64.3 kg [place] Body Weight (kg) 80.90 BMI 19.2 Weight change and time frame No body weight change reported in 5 days. Weight Status Appropriate Subjective/Other Information RD consult for routine F/U on dietary advancement. Diet advanced to PO modified. No reports available on Pt's PO intake of meals at the time , will assess at F'U. SENIOR GRADUATE ADVISOR note on 01/28/22 14:09: Swallowing function has been assessed. Patient demonstrates significantly prolonged oral transit with semi solids. Therefore, a pureed diet with thins are recommended. Will follow for 1 week to ensure continued safety. Informed Nurse Mary. Discharge pending on renal stabilization, according to Progress notes. Percent of energy/protein needs met: Prescribed Pureed Diet provides for energy/protein needs (1,804 Kcal/77 g) during LOS. Is patient on ventilator? No Is Patient Ambulatory and/or Out of Bed No REE-([facility]-confined to bed) 1699.728 Kcal/Kg value to use for calculation 31 Approximate Energy Requirements Using 1993 kcal/Kg Calculation Used for Recommendations Kcal/kg Additional Notes Protein: 0.8-1.2 g/Kg IBW; 65- 97 g/day. Fluids: 1 ml/Kcal, or as per MD. Nutrition Intervention Follow-Up By: 02/03/22 Additional Comments Continue monitoring food tolerance, %PO intake of meals , and BM.
--- NOTE | 2022-02-03 12:52 | Event Note ---
Date: 02/03/22 Attempt was made at having peer to peer; however, the number in the chart is incorrect. Case management has been notified.
--- NOTE | 2022-02-03 15:58 | Consultation ---
History of Present Illness Consult date: 02/03/22 Reason for Consult: AMS History of present illness: The patient has shown improvement in the Mental Status, is able to move upper and lower extremity . Consult for evaluation of confusion . Past History Past Medical History: other (Unable to obtain) Past Surgical History: Other (Unable to obtain) Social history: other (Unable to obtain) Family history: other (Unable to obtain) Medications and Allergies Allergies Allergy/AdvReac Type Severity Reaction Status Date / Time No Known Allergies Allergy Unverified 01/20/22 10:47 Home Medications Medication Instructions Recorded Confirmed Last Taken Type Sodium Bicarbonate 1,300 mg PO TID #90 tablet 01/25/22 01/26/22 Unknown Rx Tamsulosin [Flomax] 0.4 mg PO QDAY #30 capsule 01/25/22 01/26/22 Unknown Rx amLODIPine 10 mg PO QDAY #30 tablet 01/25/22 01/26/22 Unknown Rx Active Meds: Active Medications Acetaminophen (Acetaminophen 325 Mg Tab) 650 mg PO Q4H PRN PRN Reason: Pain MILD(1-3)/Fever >100.5/STODDARD Amlodipine Besylate (Amlodipine 10 Mg Tab) 10 mg PO QDAY [facility] Last Admin: 02/03/22 09:27 Dose: 10 mg Dextrose (Dextrose 10% *Hypoglycemia) 75 ml IV PRN PRN PRN Reason: Hypoglycemia Last Admin: 02/03/22 06:34 Dose: 75 ml Folic Acid (Folic Acid 1 Mg Tab) 1 mg PO QDAY [facility] Last Admin: 02/03/22 09:28 Dose: 1 mg Hydralazine HCl (Hydralazine 25 Mg Tab) 50 mg PO Q8HR [facility] Last Admin: 02/03/22 14:32 Dose: Not Given Morphine Sulfate (Morphine 2 Mg/1 Ml Inj) 2 mg IV Q4H PRN PRN Reason: Pain, Moderate (4-6) Morphine Sulfate (Morphine 4 Mg/1 Ml Inj) 4 mg IV Q4H PRN PRN Reason: Pain , Severe (7-10) Ondansetron HCl (Ondansetron 4 Mg/2 Ml Inj) 4 mg IV Q8H PRN PRN Reason: Nausea And Vomiting Sodium Bicarbonate (Sodium Bicarbonate 650 Mg Tab) 1,300 mg PO TID [facility] Last Admin: 02/03/22 14:32 Dose: 1,300 mg Sodium Chloride (Sodium Chloride 0.9% 10 Ml Flush Syringe) 10 ml IV BID [facility] Last Admin: 02/03/22 09:28 Dose: 10 ml Sodium Chloride (Sodium Chloride 0.9% 10 Ml Flush Syringe) 10 ml IV PRN PRN PRN Reason: LINE FLUSH Tamsulosin HCl (Tamsulosin 0.4 Mg Cap) 0.4 mg PO QDAY [facility] Last Admin: 02/03/22 09:28 Dose: 0.4 mg Physical Examination - Vital Signs Vital Signs: Vital Signs Temp 97.9 F 01/25/22 20:34 - Physical Exam Narrative exam: The patient is alert , moves all 4 extremity , Gait not tested . Results - Laboratory Findings CBC and BMP: 02/03/22 07:01 02/03/22 07:01 Abnormal Lab Findings: Abnormal Labs 01/25/22 01/25/22 01/25/22 19:53 20:12 20:12 WBC 2.0 L RBC 2.72 L Hgb 8.7 L Hct 26.5 L MCV 98 H MCH MCHC RDW 15.3 H Plt Count 32 L Lymph % (Auto) Lymph # (Auto) Seg Neutrophils % Seg Neuts % (Manual) 84.0 H Lymphocytes % (Manual) Nucleated RBC % 3.0 H Seg Neutrophils # Man 1.7 L Lymphocytes # (Manual) 0.3 L Percent Retic APTT 41.1 H Fibrinogen Chloride Carbon Dioxide BUN Creatinine Glucose POC Glucose 125 H TIBC Ferritin AST ALT Alkaline Phosphatase Ammonia Lactate Dehydrogenase Total Creatine Kinase CK-MB (CK-2) CK-MB (CK-2) Rel Index Troponin T Serum Total Protein Total Protein Albumin Ehxzo-1-Neyabjmqz PEP Interpretation Vitamin B12 Folate Urine Creatinine Urine Total Protein Salicylates Acetaminophen 01/25/22 01/25/22 01/25/22 20:12 20:12 20:12 WBC RBC Hgb Hct MCV MCH MCHC RDW Plt Count Lymph % (Auto) Lymph # (Auto) Seg Neutrophils % Seg Neuts % (Manual) Lymphocytes % (Manual) Nucleated RBC % Seg Neutrophils # Man Lymphocytes # (Manual) Percent Retic APTT Fibrinogen Chloride 113.0 H Carbon Dioxide 18 L BUN 40 H Creatinine 2.3 H Glucose 113 H POC Glucose TIBC Ferritin AST 565 H ALT 379 H Alkaline Phosphatase 246 H Ammonia Lactate Dehydrogenase Total Creatine Kinase 242 H CK-MB (CK-2) 10.0 H CK-MB (CK-2) Rel Index 4.1 H Troponin T 0.094 H Serum Total Protein Total Protein 5.6 L Albumin 2.6 L Bfqlw-9-Gylogjvfc PEP Interpretation Vitamin B12 Folate Urine Creatinine Urine Total Protein Salicylates < 0.3 L Acetaminophen 5.0 L 01/26/22 01/26/22 01/26/22 02:09 04:45 04:45 WBC 1.7 L* RBC 2.39 L Hgb 7.9 L Hct 23.1 L MCV 96 H MCH 33 H MCHC RDW 15.5 H Plt Count 27 L Lymph % (Auto) Lymph # (Auto) Seg Neutrophils % Seg Neuts % (Manual) 95.0 H Lymphocytes % (Manual) 4.0 L Nucleated RBC % 1.0 H Seg Neutrophils # Man 1.6 L Lymphocytes # (Manual) 0.1 L Percent Retic APTT Fibrinogen Chloride 116.0 H Carbon Dioxide 20 L BUN 38 H Creatinine 2.2 H Glucose 73 L POC Glucose 69 L TIBC Ferritin AST ALT Alkaline Phosphatase Ammonia Lactate Dehydrogenase Total Creatine Kinase CK-MB (CK-2) CK-MB (CK-2) Rel Index Troponin T Serum Total Protein Total Protein Albumin Lbipx-9-Lkzbxbkeb PEP Interpretation Vitamin B12 Folate Urine Creatinine Urine Total Protein Salicylates Acetaminophen 01/26/22 01/26/22 01/26/22 06:03 07:44 09:17 WBC RBC Hgb Hct MCV MCH MCHC RDW Plt Count Lymph % (Auto) Lymph # (Auto) Seg Neutrophils % Seg Neuts % (Manual) Lymphocytes % (Manual) Nucleated RBC % Seg Neutrophils # Man Lymphocytes # (Manual) Percent Retic APTT Fibrinogen Chloride Carbon Dioxide BUN Creatinine Glucose POC Glucose 66 L TIBC Ferritin 943.7 H AST ALT Alkaline Phosphatase Ammonia Lactate Dehydrogenase Total Creatine Kinase CK-MB (CK-2) CK-MB (CK-2) Rel Index Troponin T Serum Total Protein Total Protein Albumin Ygrtu-7-Hokbfyaao PEP Interpretation Vitamin B12 Folate Urine Creatinine 49.1 H Urine Total Protein 24 H Salicylates Acetaminophen 01/26/22 01/26/22 01/26/22 14:35 14:35 14:35 WBC RBC Hgb Hct MCV MCH MCHC RDW Plt Count Lymph % (Auto) Lymph # (Auto) Seg Neutrophils % Seg Neuts % (Manual) Lymphocytes % (Manual) Nucleated RBC % Seg Neutrophils # Man Lymphocytes # (Manual) Percent Retic 0.22 L APTT Fibrinogen 665 H Chloride Carbon Dioxide BUN Creatinine Glucose POC Glucose TIBC 147 L Ferritin AST ALT Alkaline Phosphatase Ammonia Lactate Dehydrogenase 529 H Total Creatine Kinase CK-MB (CK-2) CK-MB (CK-2) Rel Index Troponin T Serum Total Protein Total Protein Albumin Bppxx-6-Cglanuomk PEP Interpretation Vitamin B12 Folate Urine Creatinine Urine Total Protein Salicylates Acetaminophen 01/26/22 01/26/22 01/26/22 14:35 14:35 14:35 WBC RBC Hgb Hct MCV MCH MCHC RDW Plt Count Lymph % (Auto) Lymph # (Auto) Seg Neutrophils % Seg Neuts % (Manual) Lymphocytes % (Manual) Nucleated RBC % Seg Neutrophils # Man Lymphocytes # (Manual) Percent Retic APTT Fibrinogen Chloride Carbon Dioxide BUN Creatinine Glucose POC Glucose TIBC Ferritin AST ALT Alkaline Phosphatase Ammonia Lactate Dehydrogenase Total Creatine Kinase CK-MB (CK-2) CK-MB (CK-2) Rel Index Troponin T Serum Total Protein 5.1 L Total Protein Albumin 2.5 L Droyj-8-Sftmomdkd 0.4 H PEP Interpretation see below H Vitamin B12 > 2000 H Folate 4.90 L Urine Creatinine Urine Total Protein Salicylates Acetaminophen 01/26/22 01/27/22 01/27/22 20:32 05:46 05:46 WBC RBC Hgb Hct MCV MCH MCHC RDW Plt Count Lymph % (Auto) Lymph # (Auto) Seg Neutrophils % Seg Neuts % (Manual) Lymphocytes % (Manual) Nucleated RBC % Seg Neutrophils # Man Lymphocytes # (Manual) Percent Retic APTT Fibrinogen Chloride 114.2 H Carbon Dioxide 19 L BUN 30 H Creatinine 1.8 H Glucose 103 H POC Glucose 68 L TIBC Ferritin AST 560 H ALT 400 H Alkaline Phosphatase 226 H Ammonia Lactate Dehydrogenase Total Creatine Kinase CK-MB (CK-2) CK-MB (CK-2) Rel Index Troponin T Serum Total Protein Total Protein 5.2 L Albumin 2.4 L Kgbtg-2-Jegeiecow PEP Interpretation Vitamin B12 Folate Urine Creatinine Urine Total Protein Salicylates Acetaminophen 01/27/22 01/28/22 01/28/22 09:52 08:08 08:08 WBC 2.1 L 2.2 L RBC 2.91 L 2.75 L Hgb 9.5 L 9.0 L Hct 28.1 L 26.5 L MCV 97 H 96 H MCH 33 H 33 H MCHC RDW Plt Count 29 L 33 L Lymph % (Auto) Lymph # (Auto) Seg Neutrophils % Seg Neuts % (Manual) 92.0 H 86.0 H Lymphocytes % (Manual) 1.0 L 4.0 L Nucleated RBC % 2.0 H 4.0 H Seg Neutrophils # Man Lymphocytes # (Manual) 0.0 L 0.1 L Percent Retic APTT Fibrinogen Chloride 114.4 H Carbon Dioxide 20 L BUN 27 H Creatinine 2.0 H Glucose POC Glucose TIBC Ferritin AST 472 H ALT 375 H Alkaline Phosphatase 239 H Ammonia Lactate Dehydrogenase Total Creatine Kinase CK-MB (CK-2) CK-MB (CK-2) Rel Index Troponin T Serum Total Protein Total Protein 5.3 L Albumin 2.6 L Unixf-5-Jmdouklcz PEP Interpretation Vitamin B12 Folate Urine Creatinine Urine Total Protein Salicylates Acetaminophen 01/28/22 01/29/22 01/29/22 11:57 08:36 08:36 WBC 2.9 L RBC 2.65 L Hgb 8.7 L Hct 25.5 L MCV 96 H MCH 33 H MCHC RDW Plt Count 33 L Lymph % (Auto) Lymph # (Auto) Seg Neutrophils % Seg Neuts % (Manual) Lymphocytes % (Manual) Nucleated RBC % Seg Neutrophils # Man Lymphocytes # (Manual) Percent Retic APTT Fibrinogen Chloride 113.2 H Carbon Dioxide 21 L BUN 25 H Creatinine 2.1 H Glucose 71 L POC Glucose 116 H TIBC Ferritin AST 594 H ALT 448 H Alkaline Phosphatase 248 H Ammonia Lactate Dehydrogenase Total Creatine Kinase CK-MB (CK-2) CK-MB (CK-2) Rel Index Troponin T Serum Total Protein Total Protein 5.7 L Albumin 2.8 L Dqvhm-8-Zyxisyjok PEP Interpretation Vitamin B12 Folate Urine Creatinine Urine Total Protein Salicylates Acetaminophen 01/29/22 01/30/22 01/30/22 21:37 10:54 10:54 WBC 1.4 L* RBC 2.38 L Hgb 7.9 L Hct 23.2 L MCV 97 H MCH 33 H MCHC RDW Plt Count 24 L Lymph % (Auto) Lymph # (Auto) Seg Neutrophils % Seg Neuts % (Manual) Lymphocytes % (Manual) Nucleated RBC % Seg Neutrophils # Man Lymphocytes # (Manual) Percent Retic APTT Fibrinogen Chloride 110.9 H Carbon Dioxide 21 L BUN Creatinine 1.9 H Glucose POC Glucose 55 L TIBC Ferritin AST ALT Alkaline Phosphatase Ammonia Lactate Dehydrogenase Total Creatine Kinase CK-MB (CK-2) CK-MB (CK-2) Rel Index Troponin T Serum Total Protein Total Protein Albumin Udlvf-3-Jrlsqcxna PEP Interpretation Vitamin B12 Folate Urine Creatinine Urine Total Protein Salicylates Acetaminophen 01/30/22 01/31/22 01/31/22 10:54 05:04 05:04 WBC 2.6 L RBC 2.53 L Hgb 8.4 L Hct 24.4 L MCV 96 H MCH 33 H MCHC 35 H RDW Plt Count 24 L Lymph % (Auto) 10.0 L Lymph # (Auto) 0.3 L Seg Neutrophils % 85.1 H Seg Neuts % (Manual) Lymphocytes % (Manual) Nucleated RBC % Seg Neutrophils # Man Lymphocytes # (Manual) Percent Retic APTT Fibrinogen Chloride 107.9 H Carbon Dioxide 21 L BUN Creatinine 1.9 H Glucose 57 L POC Glucose TIBC Ferritin AST 404 H ALT 362 H Alkaline Phosphatase 228 H Ammonia 20.0 L Lactate Dehydrogenase Total Creatine Kinase CK-MB (CK-2) CK-MB (CK-2) Rel Index Troponin T Serum Total Protein Total Protein 5.3 L Albumin 2.4 L Itrfj-4-Dsxeyjzxz PEP Interpretation Vitamin B12 Folate Urine Creatinine Urine Total Protein Salicylates Acetaminophen 01/31/22 01/31/22 02/01/22 08:03 11:15 04:59 WBC RBC Hgb Hct MCV MCH MCHC RDW Plt Count Lymph % (Auto) Lymph # (Auto) Seg Neutrophils % Seg Neuts % (Manual) Lymphocytes % (Manual) Nucleated RBC % Seg Neutrophils # Man Lymphocytes # (Manual) Percent Retic APTT Fibrinogen Chloride Carbon Dioxide BUN Creatinine Glucose POC Glucose 60 L 68 L 111 H TIBC Ferritin AST ALT Alkaline Phosphatase Ammonia Lactate Dehydrogenase Total Creatine Kinase CK-MB (CK-2) CK-MB (CK-2) Rel Index Troponin T Serum Total Protein Total Protein Albumin Uwsan-3-Ryptfuzvt PEP Interpretation Vitamin B12 Folate Urine Creatinine Urine Total Protein Salicylates Acetaminophen 02/01/22 02/01/22 02/01/22 07:54 07:54 18:02 WBC 2.2 L RBC 2.69 L Hgb 8.5 L Hct 26.1 L MCV 97 H MCH MCHC RDW Plt Count 33 L Lymph % (Auto) Lymph # (Auto) Seg Neutrophils % Seg Neuts % (Manual) Lymphocytes % (Manual) Nucleated RBC % Seg Neutrophils # Man Lymphocytes # (Manual) Percent Retic APTT Fibrinogen Chloride 109.3 H Carbon Dioxide BUN Creatinine 2.2 H Glucose 109 H POC Glucose 114 H TIBC Ferritin AST 291 H ALT 300 H Alkaline Phosphatase 215 H Ammonia Lactate Dehydrogenase Total Creatine Kinase CK-MB (CK-2) CK-MB (CK-2) Rel Index Troponin T Serum Total Protein Total Protein 5.2 L Albumin 2.4 L Rgovg-5-Ijicibqoe PEP Interpretation Vitamin B12 Folate Urine Creatinine Urine Total Protein Salicylates Acetaminophen 02/02/22 02/02/22 02/02/22 02:50 04:21 05:33 WBC 2.0 L RBC 2.80 L Hgb 9.0 L Hct 27.2 L MCV 97 H MCH MCHC RDW Plt Count 33 L Lymph % (Auto) Lymph # (Auto) Seg Neutrophils % Seg Neuts % (Manual) 85.0 H Lymphocytes % (Manual) 4.0 L Nucleated RBC % Seg Neutrophils # Man 1.7 L Lymphocytes # (Manual) 0.1 L Percent Retic APTT Fibrinogen Chloride Carbon Dioxide BUN Creatinine Glucose POC Glucose 69 L 158 H TIBC Ferritin AST ALT Alkaline Phosphatase Ammonia Lactate Dehydrogenase Total Creatine Kinase CK-MB (CK-2) CK-MB (CK-2) Rel Index Troponin T Serum Total Protein Total Protein Albumin Nxmpy-3-Mzgigcwed PEP Interpretation Vitamin B12 Folate Urine Creatinine Urine Total Protein Salicylates Acetaminophen 02/02/22 02/02/22 02/03/22 05:33 20:41 06:31 WBC RBC Hgb Hct MCV MCH MCHC RDW Plt Count Lymph % (Auto) Lymph # (Auto) Seg Neutrophils % Seg Neuts % (Manual) Lymphocytes % (Manual) Nucleated RBC % Seg Neutrophils # Man Lymphocytes # (Manual) Percent Retic APTT Fibrinogen Chloride 111.5 H Carbon Dioxide 21 L BUN Creatinine 2.2 H Glucose 140 H POC Glucose 48 L 54 L TIBC Ferritin AST 287 H ALT 290 H Alkaline Phosphatase 231 H Ammonia Lactate Dehydrogenase Total Creatine Kinase CK-MB (CK-2) CK-MB (CK-2) Rel Index Troponin T Serum Total Protein Total Protein 5.5 L Albumin 2.4 L Oubuf-4-Ddvsrhvky PEP Interpretation Vitamin B12 Folate Urine Creatinine Urine Total Protein Salicylates Acetaminophen 02/03/22 02/03/22 07:01 07:01 WBC 3.0 L RBC 2.85 L Hgb 9.3 L Hct 27.7 L MCV 97 H MCH 33 H MCHC RDW Plt Count 52 L Lymph % (Auto) 5.7 L Lymph # (Auto) 0.2 L Seg Neutrophils % 89.8 H Seg Neuts % (Manual) Lymphocytes % (Manual) Nucleated RBC % Seg Neutrophils # Man Lymphocytes # (Manual) Percent Retic APTT Fibrinogen Chloride 108.9 H Carbon Dioxide BUN Creatinine 2.0 H Glucose POC Glucose TIBC Ferritin AST 490 H ALT 407 H Alkaline Phosphatase 261 H Ammonia Lactate Dehydrogenase Total Creatine Kinase CK-MB (CK-2) CK-MB (CK-2) Rel Index Troponin T Serum Total Protein Total Protein 5.8 L Albumin 2.8 L Lwapm-3-Qyiwddxxk PEP Interpretation Vitamin B12 Folate Urine Creatinine Urine Total Protein Salicylates Acetaminophen Assessment and Plan 1. Improving Encephalopathy . 2. Continue All Home Medications . 3. Reviewed Prior Workup ( Reviewed MRI Brain ) 4. Consider EEG if there is worsening in confusion . Call Back with Questions . Dr. Pereira
[2022-02-04] MEDS: D5W/0.45% NACL 1,000 ML IV SCH (03:17)
[2022-02-04] MEDS: DEXTROSE 50% IN WATER (25GM) 50 ML SYRINGE IV PRN (03:21)
[2022-02-04] MEDS: hydrALAZINE 25 MG TAB PO SCH ×3 (06:03→21:31)
[2022-02-04 06:08] LABS: Basophils % (Auto) 0.5 % (0.0-1.8); Eosinophils % (Auto) 1.2 % (0.0-4.3); Hemoglobin 7.6 gm/dl (11.8-15.2); Lymphocytes # (Auto) 0.2 K/mm3 (1.2-5.4); Lymphocytes % (Auto) 7.9 % (13.4-35.0); Mean Corpuscular HGB Conc 33 % (32-34); Mean Corpuscular Volume 97 fl (84-94); Monocytes # (Auto) 0.2 K/mm3 (0.0-0.8); Monocytes % (Auto) 5.6 % (0.0-7.3); Red Blood Count 2.36 M/mm3 (3.65-5.03); Red Cell Distribution Width 14.9 % (13.2-15.2)
[2022-02-04 06:10] LABS: Platelet Count 57 K/mm3 (140-440)
[2022-02-04 06:18] LABS: Albumin 2.3 g/dL (3.9-5); Calcium 8.6 mg/dL (8.4-10.2)
[2022-02-04] MEDS: SODIUM BICARBONATE 650 MG TAB PO SCH ×3 (09:07→21:30)
--- NOTE | 2022-02-04 09:35 | Hem/Onc Progress Note ---
Subjective Date of service: 02/04/22 Interval history: Heme progress note Televisit via [facility] CPT 70112 Dx Pancytopenia This is a 76yo AA male with known history of obstructive uropathy, urinary retention, metabolic acidosis, anemia with thrombocytopenia and leukopenia Recent admission to [facility] and discharged 01/25/22; brought back to the ER because of changes in mental status Teleneurologist following. CTA head and neck did not show any significant findings. Chest x-ray shows possible persistent bibasilar pneumonia. Hematology following for pancytopenia. 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 DATA REVIEWED BELOW retic 0.22 ldh 529 IMP: Pancytopenia, with retic 0.22 ldh 529 - Flow cytometry negative for heme malignancy - spep w MORAIMA negative, acute phase inflammatory process, no m-spike detected - hgep negative - TWIN negative Thrombocytopenia likely related to liver dysfunction/cirrhosis and/or ITP Cardiolipin ab negative Chronic anemia, likely CKD PLAN: Follow-up abd/pel CT CBC, LDH, retic in AM Transfuse 1 unit RBC whenever hct <23 Laboratory Last Values WBC 3.0 K/mm3 (4.5-11.0) L 02/04/22 05:06 Hgb 7.6 gm/dl (11.8-15.2) L 02/04/22 05:06 Hgb Comment See scanned result 01/26/22 14:35 Hct 23.0 % (35.5-45.6) L 02/04/22 05:06 MCV 97 fl (84-94) H 02/04/22 05:06 Plt Count 57 K/mm3 (140-440) L 02/04/22 05:06 Percent Retic 0.22 % (0.78-2.58) L 01/26/22 14:35 Sickle Cell Solubility See scanned result 01/26/22 14:35 Hemoglobin A See scanned result 01/26/22 14:35 Hemoglobin A2 See scanned result 01/26/22 14:35 Hemoglobin A2 Prime See scanned result 01/26/22 14:35 Hemoglobin C See scanned result 01/26/22 14:35 Hemoglobin D See scanned result 01/26/22 14:35 Hemoglobin E See scanned result 01/26/22 14:35 Hgb F Diffential Stain See scanned result 01/26/22 14:35 Hemoglobin F Quant See scanned result 01/26/22 14:35 Hemoglobin G See scanned result 01/26/22 14:35 Hemoglobin S See scanned result 01/26/22 14:35 Hemoglobin [place] See scanned result 01/26/22 14:35 Hemoglobin [place] See scanned result 01/26/22 14:35 Hemoglobin [place] See scanned result 01/26/22 14:35 Variant Hemoglobin See scanned result 01/26/22 14:35 Abnorm Hgb IEF Confirm See scanned result 01/26/22 14:35 Hemoglobin Interpret See scanned result 01/26/22 14:35 Hemoglobinopathy Note See scanned result 01/26/22 14:35 Kana Bodies Not Reportable 02/02/22 05:33 Hem Pathologist Commnt No 02/02/22 05:33 PT Cancelled 01/28/22 14:27 INR 0.94 (0.87-1.13) 01/25/22 20:12 INR Cancelled 01/28/22 14:27 APTT 34.4 Sec. (24.2-36.6) 01/28/22 14:27 PT Patient/Control Mix Cancelled 01/28/22 14:27 PT Pat/Norm 1:1 5 min Cancelled 01/28/22 14:27 PT Pat/Norm 1:1 1 Hr Cancelled 01/28/22 14:27 Thrombin Time 17.5 Sec. (15.1-19.6) 01/25/22 20:12 Fibrinogen 665 mg/dl (211-480) H 01/26/22 14:35 Heparin Anti-Xa, Unfract Negative (Negative) 01/26/22 14:35 Creatinine 2.4 mg/dL (0.8-1.3) H 02/04/22 05:06 Iron 127 ug/dL (49-181) 01/26/22 14:35 TIBC 147 mcg/dL (250-450) L 01/26/22 14:35 Ferritin 943.7 ng/mL (30.0-300.0) H 01/26/22 07:44 Total Bilirubin 0.30 mg/dL (0.1-1.2) 02/04/22 05:06 Direct Bilirubin < 0.2 mg/dL (0-0.2) 01/27/22 05:46 Indirect Bilirubin 0.1 mg/dL 01/27/22 05:46 AST 264 units/L (5-40) H 02/04/22 05:06 ALT 273 units/L (7-56) H 02/04/22 05:06 Alkaline Phosphatase 224 units/L (35-129) H 02/04/22 05:06 Ammonia 20.0 umol/L (25-60) L 01/30/22 10:54 Lactate Dehydrogenase 529 units/L (91-180) H 01/26/22 14:35 Total Creatine Kinase 242 units/L (55-170) H 01/25/22 20:12 CK-MB (CK-2) 10.0 ng/mL (0.0-4.0) H 01/25/22 20:12 CK-MB (CK-2) Rel Index 4.1 (0-4) H 01/25/22 20:12 Troponin T 0.094 ng/mL (0.00-0.029) H 01/25/22 20:12 Serum Total Protein 5.1 g/dL (6.1-8.1) L 01/26/22 14:35 Total Protein 5.2 g/dL (6.3-8.2) L 02/04/22 05:06 Albumin 2.3 g/dL (3.9-5) L 02/04/22 05:06 Albumin/Globulin Ratio 0.8 % 02/04/22 05:06 Jcjou-9-Ufdaeqovi 0.4 g/dL (0.2-0.3) H 01/26/22 14:35 Bypql-7-Pitanvyqp 0.8 g/dL (0.5-0.9) 01/26/22 14:35 Beta Globulins 0.3 g/dL (0.2-0.5) 01/26/22 14:35 Gamma Globulins 0.8 g/dL (0.8-1.7) 01/26/22 14:35 Abnorm Protein Band 1 see below 01/26/22 14:35 PEP Interpretation see below H 01/26/22 14:35 Serotonin Release Assay See scanned result 01/26/22 14:35 Vitamin B12 > 2000 pg/mL (211-911) H 01/26/22 14:35 Folate 4.90 ng/mL (7.3-26.0) L 01/26/22 14:35 TSH 2.670 mlU/mL (0.270-4.200) 01/26/22 07:44 Immunofix Electrophor see below 01/26/22 14:35 TWIN Screen Negative (Negative) 01/26/22 07:44 Heparin-induced Plt Ab Negative (Negative) 01/26/22 14:35 UF Heparin High Dose 0 % Release 01/26/22 14:35 ARUNA UFH Low Dose 0.1 0 % Release 01/26/22 14:35 ARUNA UFH Low Dose 0.5 0 % Release 01/26/22 14:35 Cardiolipid IgG Ab <2.0 GPL-U/mL (<20.0) 01/28/22 Unknown Cardiolipid IgA Ab <2.0 APL-U/mL (<20.0) 01/28/22 Unknown Cardiolipid IgM Ab <2.0 MPL-U/mL (<20.0) 01/28/22 Unknown Hep Bs Antigen Non-reactive (Negative) 02/02/22 17:16 Objective - Constitutional Vitals: Last Vital Signs Temp 98.4 F 02/04/22 07:21 Pulse 70 02/04/22 07:21 Resp 18 02/04/22 07:21 BP 115/71 02/04/22 07:21 Pulse Ox 100 02/04/22 07:21 - Labs Lab Results: Laboratory Results - last 24 hr 02/03/22 02/03/22 02/03/22 11:15 16:08 22:01 WBC RBC Hgb Hct MCV MCH MCHC RDW Plt Count Lymph % (Auto) [place] % (Auto) Eos % (Auto) Baso % (Auto) Lymph # (Auto) [place] # (Auto) Eos # (Auto) Baso # (Auto) Seg Neutrophils % Seg Neutrophils # Sodium Potassium Chloride Carbon Dioxide Anion Gap BUN Creatinine Estimated GFR BUN/Creatinine Ratio Glucose POC Glucose 101 75 86 Calcium Total Bilirubin AST ALT Alkaline Phosphatase Total Protein Albumin Albumin/Globulin Ratio 02/04/22 02/04/22 02/04/22 02:56 03:49 05:06 WBC 3.0 L RBC 2.36 L Hgb 7.6 L Hct 23.0 L MCV 97 H MCH 32 MCHC 33 RDW 14.9 Plt Count 57 L Lymph % (Auto) 7.9 L [place] % (Auto) 5.6 Eos % (Auto) 1.2 Baso % (Auto) 0.5 Lymph # (Auto) 0.2 L [place] # (Auto) 0.2 Eos # (Auto) 0.0 Baso # (Auto) 0.0 Seg Neutrophils % 84.8 H Seg Neutrophils # 2.5 Sodium Potassium Chloride Carbon Dioxide Anion Gap BUN Creatinine Estimated GFR BUN/Creatinine Ratio Glucose POC Glucose 44 L 130 H Calcium Total Bilirubin AST ALT Alkaline Phosphatase Total Protein Albumin Albumin/Globulin Ratio 02/04/22 02/04/22 05:06 06:21 WBC RBC Hgb Hct MCV MCH MCHC RDW Plt Count Lymph % (Auto) [place] % (Auto) Eos % (Auto) Baso % (Auto) Lymph # (Auto) [place] # (Auto) Eos # (Auto) Baso # (Auto) Seg Neutrophils % Seg Neutrophils # Sodium 142 Potassium 4.3 Chloride 111.7 H Carbon Dioxide 23 Anion Gap 12 BUN 20 Creatinine 2.4 H Estimated GFR 32 BUN/Creatinine Ratio 8 Glucose 105 H POC Glucose 80 Calcium 8.6 Total Bilirubin 0.30 AST 264 H ALT 273 H Alkaline Phosphatase 224 H Total Protein 5.2 L Albumin 2.3 L Albumin/Globulin Ratio 0.8 Medications & Allergies - Medications Allergies/Adverse Reactions: Allergies No Known Allergies Allergy (Unverified 01/20/22 10:47) Home Medications: Home Medications Medication Instructions Recorded Confirmed Last Taken Type Sodium Bicarbonate 1,300 mg PO TID #90 tablet 01/25/22 01/26/22 Unknown Rx Tamsulosin [Flomax] 0.4 mg PO QDAY #30 capsule 01/25/22 01/26/22 Unknown Rx amLODIPine 10 mg PO QDAY #30 tablet 01/25/22 01/26/22 Unknown Rx Active Medications: Generic Name Dose Route Start Last Admin Trade Name Freq PRN Reason Stop Dose Admin Acetaminophen 650 mg 01/25/22 23:53 Acetaminophen 325 Mg Tab PO Q4H PRN Pain MILD(1-3)/Fever >100.5/STODDARD Amlodipine Besylate 10 mg 01/27/22 11:00 02/03/22 09:27 Amlodipine 10 Mg Tab PO 10 mg QDAY MARLON Administration Dextrose 50 ml 02/04/22 03:04 02/04/22 03:21 Dextrose 50% In Water (25gm) 50 Ml Syringe IV 50 ml PRN PRN Administration Hypoglycemia Protocol Folic Acid 1 mg 01/27/22 11:00 02/03/22 09:28 Folic Acid 1 Mg Tab PO 1 mg QDAY MARLON Administration Hydralazine HCl 50 mg 01/31/22 09:00 02/04/22 06:03 Hydralazine 25 Mg Tab PO Not Given Q8HR MARLON Dextrose/Sodium Chloride 1,000 mls @ 100 mls/hr 02/04/22 04:00 02/04/22 03:17 D5/0.45ns IV 100 mls/hr DIRECT MARLON Administration Morphine Sulfate 2 mg 01/25/22 23:53 Morphine 2 Mg/1 Ml Inj IV Q4H PRN Pain, Moderate (4-6) Morphine Sulfate 4 mg 01/25/22 23:53 Morphine 4 Mg/1 Ml Inj IV Q4H PRN Pain , Severe (7-10) Ondansetron HCl 4 mg 01/25/22 23:53 Ondansetron 4 Mg/2 Ml Inj IV Q8H PRN Nausea And Vomiting Sodium Bicarbonate 1,300 mg 01/27/22 14:00 02/03/22 21:48 Sodium Bicarbonate 650 Mg Tab PO 1,300 mg TID MARLON Administration Sodium Chloride 10 ml 01/26/22 10:00 02/03/22 21:48 Sodium Chloride 0.9% 10 Ml Flush Syringe IV 10 ml BID MARLON Administration Sodium Chloride 10 ml 01/25/22 23:53 Sodium Chloride 0.9% 10 Ml Flush Syringe IV PRN PRN LINE FLUSH Tamsulosin HCl 0.4 mg 01/27/22 11:00 02/03/22 09:28 Tamsulosin 0.4 Mg Cap PO 0.4 mg QDAY MARLON Administration
--- NOTE | 2022-02-04 09:39 | Progress Note ---
Subjective Date of service: 02/04/22 Interval history: Impression: * Altered mental status * acute kidney injury secondary to obstructive uropathy/urinary retention * Urinary retention * Azotemia * Hyperkalemia, mild * Metabolic acidosis * Anemia * Hypertension * Pancytopenia * Proteinuria * Abnormal LFT Plan: * Renal function is stable * Continue NaBicarb * Blood pressure is under control. Continue current antihypertensive medications * Continue current management * Dose medications for renal function * Avoid potential nephrotoxins * Continue Leal catheter for now. Continue tamsulosin. Further plan as per urology services * Work-up for pancytopenia as per primary team * Hematology consultation appreciated. * stable from renal standpoint Subjective resting in bed . Comfortable . Denies SOB Objective - General Appearance General appearance: well-developed, well-nourished, appears stated age EENT: PERRL, mucous membranes moist Neck: no JVD, no thyromegaly, no carotid bruit, supple Respiratory: Present: Clear to Ascultation Cardiology: regular, normal heart rate Gastrointestinal: normal, normoactive bowel sounds Integumentary: no rash, other (1+ edema ) Objective - Vital Signs Vital signs: Vital Signs - 12hr 02/03/22 02/04/22 02/04/22 23:19 04:17 07:21 Temperature 97.2 F L 97.8 F 98.4 F Pulse Rate 77 70 Respiratory 16 16 18 Rate Blood Pressure 142/83 119/68 115/71 O2 Sat by Pulse 100 100 Oximetry - Lab 02/04/22 05:06 02/04/22 05:06 Most recent lab results Calcium 8.6 mg/dL (8.4-10.2) 02/04/22 05:06 Magnesium 1.80 mg/dL (1.7-2.3) 01/25/22 20:12 Urine Creatinine 49.1 mg/dL (0.1-20.0) H 01/26/22 09:17 Urine Total Protein 24 mg/dL (5-11.8) H 01/26/22 09:17 Medications & Allergies - Medications Allergies/Adverse Reactions: Allergies No Known Allergies Allergy (Unverified 01/20/22 10:47) Home Medications: Home Medications Medication Instructions Recorded Confirmed Last Taken Type Sodium Bicarbonate 1,300 mg PO TID #90 tablet 01/25/22 01/26/22 Unknown Rx Tamsulosin [Flomax] 0.4 mg PO QDAY #30 capsule 01/25/22 01/26/22 Unknown Rx amLODIPine 10 mg PO QDAY #30 tablet 01/25/22 01/26/22 Unknown Rx Active Medications: Generic Name Dose Route Start Last Admin Trade Name Freq PRN Reason Stop Dose Admin Acetaminophen 650 mg 01/25/22 23:53 Acetaminophen 325 Mg Tab PO Q4H PRN Pain MILD(1-3)/Fever >100.5/STODDARD Amlodipine Besylate 10 mg 01/27/22 11:00 02/03/22 09:27 Amlodipine 10 Mg Tab PO 10 mg QDAY MARLON Administration Dextrose 50 ml 02/04/22 03:04 02/04/22 03:21 Dextrose 50% In Water (25gm) 50 Ml Syringe IV 50 ml PRN PRN Administration Hypoglycemia Protocol Folic Acid 1 mg 01/27/22 11:00 02/03/22 09:28 Folic Acid 1 Mg Tab PO 1 mg QDAY MARLON Administration Hydralazine HCl 50 mg 01/31/22 09:00 02/04/22 06:03 Hydralazine 25 Mg Tab PO Not Given Q8HR MARLON Dextrose/Sodium Chloride 1,000 mls @ 100 mls/hr 02/04/22 04:00 02/04/22 03:17 D5/0.45ns IV 100 mls/hr DIRECT MARLON Administration Morphine Sulfate 2 mg 01/25/22 23:53 Morphine 2 Mg/1 Ml Inj IV Q4H PRN Pain, Moderate (4-6) Morphine Sulfate 4 mg 01/25/22 23:53 Morphine 4 Mg/1 Ml Inj IV Q4H PRN Pain , Severe (7-10) Ondansetron HCl 4 mg 01/25/22 23:53 Ondansetron 4 Mg/2 Ml Inj IV Q8H PRN Nausea And Vomiting Sodium Bicarbonate 1,300 mg 01/27/22 14:00 02/03/22 21:48 Sodium Bicarbonate 650 Mg Tab PO 1,300 mg TID MARLON Administration Sodium Chloride 10 ml 01/26/22 10:00 02/03/22 21:48 Sodium Chloride 0.9% 10 Ml Flush Syringe IV 10 ml BID MARLON Administration Sodium Chloride 10 ml 01/25/22 23:53 Sodium Chloride 0.9% 10 Ml Flush Syringe IV PRN PRN LINE FLUSH Tamsulosin HCl 0.4 mg 01/27/22 11:00 02/03/22 09:28 Tamsulosin 0.4 Mg Cap PO 0.4 mg QDAY MARLON Administration
[2022-02-04] MEDS: FOLIC ACID 1 MG TAB PO SCH (10:26)
[2022-02-04] MEDS: TAMSULOSIN 0.4 MG CAP PO SCH (11:08)
[2022-02-04] MEDS: amLODIPine 10 MG TAB PO SCH (11:08)
--- NOTE | 2022-02-04 11:18 | Progress Note ---
Subjective - Reason for Consult Consult date: 02/04/22 Reason for consult: med management - Chief Complaint Chief complaint: The patient was seen today. He is in restraints, but appears comfortable. He greets me and asks me how was I doing. He is confused. He says he slept good. The patient denies SI/HI. He also denies hallucinations. The nurse note states the patient has been getting out of bed without direction, and is high fall risk. ROS: MENTAL STATUS EXAMINATION General Appearance: Dressed appropriately. Behavior: Calm and cooperative. Good eye contact. Mood: calm Affect:congruent to stated mood Speech:soft and delayed Thought Process: circumstantial Thought Content:confused Suicidal Ideation:unable to assess Homicidal Ideation: unable to assess Hallucinations: unable to assess Delusions: yes Insight and Judgment: poor Memory/Cognition: poor Assessment and Plan (1)Unspecified mood disorder Treatment Plan Start Lorazepam 0.5mg po q6h prn agitation Risks, benefits and alternatives of medications discussed with the patient, questions answered and consent obtained from patient. PSYCHOTHERAPY: Supportive psychotherapy provided MEDICAL: Per primary team DELIRIUM PRECAUTIONS: Please re-orient patient frequently, keep lights on during the day, and minimize benzodiazepines and opiates as these medications could worsen patient's confusion. DOCK GUARD: Per primary DISPOSITION: Do not recommend acute inpatient psychiatric hospitalization at this time. The patient seem to have medical problems than psych. Will follow. Thank you for the consult. Please contact with any questions and/or concerns. Case discussed with Dr. Roger who agrees with current disposition Mental Status Exam - Vital signs Last Vital Signs Temp 98.4 F 02/04/22 07:21 Pulse 70 02/04/22 07:21 Resp 18 02/04/22 07:21 BP 115/71 02/04/22 07:21 Pulse Ox 100 02/04/22 07:21
--- NOTE | 2022-02-04 11:23 | Cat Scan Report ---
CT ABDOMEN AND PELVIS WITHOUT IV CONTRAST INDICATION: Evaluate for lymphadenopathy or bleed.. COMPARISON: CT 01/20/2022 TECHNIQUE: All CT scans at this facility use dose modulation, automated exposure control, iterative reconstructi on or weight based dosing, when appropriate, to reduce radiation dose to as low as reasonably achieva ble. FINDINGS: Lung Bases: There are small bilateral pleural effusions. Adjacent bibasilar airspace disease may be d ue to compressive atelectasis. There is trace pericardial fluid. Skeletal System: No acute abnormality. ABDOMEN: Liver: Incidental cysts. No acute finding. Gallbladder: Mild gallbladder wall thickening is again noted. The gallbladder is hyperdense with prob able punctate stones dependently, unchanged. Bile Ducts: No significant abnormality. Adrenals: No significant abnormality. Right Kidney: Stable cysts. No acute finding. Left Kidney: Stable cysts, no acute finding. Pancreas: No significant abnormality. Spleen: No significant abnormality. Upper GI tract: No significant abnormality. Lymph Nodes: No significant adenopathy. Aorta: No significant abnormality. Additional Findings: No significant abnormality. PELVIS: Colon: No acute abnormality. There is a large amount of fecal material at the rectum. Proximal to th is there is diffuse constipation. Urinary Bladder and Distal Ureters: Bladder is decompressed around a Leal catheter. Bladder stone is again noted. Appendix: No significant abnormality. Lymph Nodes: No significant adenopathy. Additional Findings: None. IMPRESSION: 1. Within the limitations of non contrast technique, no acute process in the abdomen or pelvis. No l ymphadenopathy or hematoma. 2. Previously seen hydronephrosis has resolved after Leal catheter placement/bladder pressure. 3. Constipation with probable rectal fecal impaction. 4. Additional findings as above. Signer Name: Rodrigo Fry MD Signed: 02/04/2022 11:18 AM Workstation Name: [id number]
--- NOTE | 2022-02-04 11:56 | Event Note ---
Date: 02/04/22 Attempted to reach physician for peer to peer was unsuccessful. [employer] stated they will have their physician call our physician.
--- NOTE | 2022-02-04 19:07 | Progress Note ---
Assessment and Plan Assessment and plan: 76-year-old -Thai male with known history of obstructive uropathy, urinary retention, metabolic acidosis, anemia with thrombocytopenia and leukopenia who was discharge sometime in the afternoon but later brought back to the emergency room same day because of changes in mental status. Patient was accompanied by his roommate who indicates that patient has had change in his mental status and was not able to communicate well since discharge from the hospital.Patient was evaluated by the teleneurologist and was not deemed to be a TPA candidate. Work-up in the emergency room reveals thrombocytopenia of 32, BUN of 40 and creatinine of 2.3. Elevated AST and ALT of 565 and 379 respectively. Alkaline phos of 246 and creatinine kinase of 242. Troponin was elevated at 0.094. Urinalysis showed trace bacteria and trace leukocyte esterase. CTA head and neck did not show any significant findings. Chest x-ray shows possible persistent bibasilar pneumonia. Patient was admitted for further evaluation management #Acute metabolic encephalopathy-resolved #Acute cerebral infarct/CVA -CT scan of the head, CTA head and neck were nonspecific. -Repeat CT head noncontrast (02/01/2022) due to marked encephalopathy with decreased response. CT head unremarkable. 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 Neurology consulted; appreciate recs. It will be difficult to medically manage patient with aspirin (+/-) or Plavix as the patient has significant thrombocy topenia (platelets today 57). TTE (02/03/2022) revealing EF 55-60% with normal LV size, normal LV systolic function, and mild concentric LVH. No PFO was documented. Possibly iatrogenic etiologyrecently started on Zyprexa last night. Discontinued Zyprexa. Will continue to monitor #Pulmonary infiltrate/possible aspiration pneumoniaresolved -Completing 7-day course of Rocephin 2 g daily today. #JESSIKA on possible CKD-stable -Discontinue IV fluid; encouraging increase p.o. intake -Nephrology consulted; appreciate recs #Thrombocytopeniaimproving #Leukopeniaimproving -Heme/oncology consulted; appreciate recs -Bone marrow biopsy is unremarkable for hemolytic malignancy -The following labs are unremarkable: TWIN, heparin-induced platelet antibody, cardiolipin IgG, IgA, and IgM antibodies -Pending spep with MORAIMA, pf4 ab, hgep, soheila -Transfuse 1 unit whenever hct <23 -Transfuse 1 dose of plts whenever plt <20 #Elevated transaminasesimproving - likely secondary to shock liver We will continue to monitor LFTs. Gastroenterology consulted; appreciate recs. No intervention at this time. #Advanced care planning -Disease education conducted, care plan discussed, diagnoses discussed, prognosis discussed, and patient acknowledges understanding with care plan -Time: +30 min #Discharge planning - Patient is pending SNF placement - Case management has been made aware. - Discharge is tentatively 3 to 4 days Disposition: Medically not stable for discharge 01/26: Patient remains confused, continue antibiotics. follow renal function, follow LFT., Wait for consultants recommendation. 01/27: Creatinine slightly improved, patient mental status improving, tolerating diet. Hematology nephrology and GI following. Hematology recommended bone marrow biopsy for leukopenia and thrombocytopenia. 01/28: s/p bone marrow biopsy today, follow am labs. Cr still elevated, speech recommended pureed diet. If renal function continues to improve possible DC soon. 01/29: patient restraint overnight, today appears to be very confused. Will order repeat LFT, ammonia level. Continue to monitor renal function. 01/30: LFT trending down, ammonia level lower than normal. Patient continued to be confused and restrained. Will consult psych. Order for repeat CT head Continue to follow clinically. 01/31: discussed plan of care with significant other. pending BM biopsy, autoimmune workup panel. Remains confused, psych following. initiated zyprexa at bedtime. 02/01: CT head noncontrast unremarkable for acute hemorrhagic stroke. Pending MRI brain. Discontinued Zyprexa due to possible iatrogenic etiology for worsened metabolic encephalopathy. Continue to monitor. 02/02: MRI brain unremarkable for acute ischemic infarct along the medial left frontal cortex. Neurology consulted. Pending TTE to evaluate for PFO. 02/03: Reversal of encephalopathy with patient being conversant and cooperative at bedside. TTE unremarkable for PFO. Pending PT/OT recs. Pending neurology recommendations concerning antiplatelet therapy. 02/04: Patient remains conversant and following those prompts. PT evaluated patient and recommended subacute rehab. [id number] discussion had with Addis, and updated PT notes are being faxed. Disposition Plan: Continue medical management Total Time Spent with Patient (Minutes): 45 min History Interval history: No acute events overnight. Hospitalist Physical - Constitutional Vitals: Temp Pulse Resp BP Pulse Ox 98.6 F 66 16 112/71 100 02/04/22 15:42 02/04/22 15:42 02/04/22 15:42 02/04/22 15:42 02/04/22 15:42 General appearance: Present: no acute distress, cachectic - EENT Eyes: Present: PERRL, EOM intact ENT: hearing intact, clear oral mucosa, dentition normal - Neck Neck: Present: supple, normal ROM - Respiratory Respiratory effort: normal Respiratory: bilateral: CTA - Cardiovascular Rhythm: regular Heart Sounds: Present: S1 & S2 - Extremities Extremities: no ischemia, pulses intact, pulses symmetrical, No edema, normal temperature, normal color Peripheral Pulses: within normal limits - Abdominal General gastrointestinal: soft, non-tender, non-distended, normal bowel sounds - Integumentary Integumentary: Present: clear, warm, dry - Psychiatric Psychiatric: appropriate mood/affect - Neurologic Neurologic: CNII-XII intact - Allied Health Allied health notes reviewed: nursing HEART Score - HEART Score Troponin: Troponin T 0.094 ng/mL (0.00-0.029) H 01/25/22 20:12 Results - Labs CBC & Chem 7: 02/04/22 05:06 02/04/22 05:06 Labs: Laboratory Last Values WBC 3.0 K/mm3 (4.5-11.0) L 02/04/22 05:06 RBC 2.36 M/mm3 (3.65-5.03) L 02/04/22 05:06 Hgb 7.6 gm/dl (11.8-15.2) L 02/04/22 05:06 Hgb Comment See scanned result 01/26/22 14:35 Hct 23.0 % (35.5-45.6) L 02/04/22 05:06 MCV 97 fl (84-94) H 02/04/22 05:06 MCH 32 pg (28-32) 02/04/22 05:06 MCHC 33 % (32-34) 02/04/22 05:06 RDW 14.9 % (13.2-15.2) 02/04/22 05:06 Plt Count 57 K/mm3 (140-440) L 02/04/22 05:06 Lymph % (Auto) 7.9 % (13.4-35.0) L 02/04/22 05:06 Crisp % (Auto) 5.6 % (0.0-7.3) 02/04/22 05:06 Eos % (Auto) 1.2 % (0.0-4.3) 02/04/22 05:06 Baso % (Auto) 0.5 % (0.0-1.8) 02/04/22 05:06 Lymph # (Auto) 0.2 K/mm3 (1.2-5.4) L 02/04/22 05:06 Crisp # (Auto) 0.2 K/mm3 (0.0-0.8) 02/04/22 05:06 Eos # (Auto) 0.0 K/mm3 (0.0-0.4) 02/04/22 05:06 Baso # (Auto) 0.0 K/mm3 (0.0-0.1) 02/04/22 05:06 Add Manual Diff Complete 02/02/22 05:33 Total Counted 100 02/02/22 05:33 Seg Neutrophils % 84.8 % (40.0-70.0) H 02/04/22 05:06 Seg Neuts % (Manual) 85.0 % (40.0-70.0) H 02/02/22 05:33 Band Neutrophils % 4.0 % 02/02/22 05:33 Lymphocytes % (Manual) 4.0 % (13.4-35.0) L 02/02/22 05:33 Reactive Lymphs % (Man) 0 % 02/02/22 05:33 Monocytes % (Manual) 5.0 % (0.0-7.3) 02/02/22 05:33 Eosinophils % (Manual) 2.0 % (0.0-4.3) 02/02/22 05:33 Basophils % (Manual) 0 % (0.0-1.8) 02/02/22 05:33 Metamyelocytes % 0 % 02/02/22 05:33 Myelocytes % 0 % 02/02/22 05:33 Promyelocytes % 0 % 02/02/22 05:33 Blast Cells % 0 % 02/02/22 05:33 Nucleated RBC % Not Reportable 02/02/22 05:33 Seg Neutrophils # 2.5 K/mm3 (1.8-7.7) 02/04/22 05:06 Seg Neutrophils # Man 1.7 K/mm3 (1.8-7.7) L 02/02/22 05:33 Band Neutrophils # 0.1 K/mm3 02/02/22 05:33 Lymphocytes # (Manual) 0.1 K/mm3 (1.2-5.4) L 02/02/22 05:33 Abs React Lymphs (Man) 0.0 K/mm3 02/02/22 05:33 Monocytes # (Manual) 0.1 K/mm3 (0.0-0.8) 02/02/22 05:33 Eosinophils # (Manual) 0.0 K/mm3 (0.0-0.4) 02/02/22 05:33 Basophils # (Manual) 0.0 K/mm3 (0.0-0.1) 02/02/22 05:33 Metamyelocytes # 0.0 K/mm3 02/02/22 05:33 Myelocytes # 0.0 K/mm3 02/02/22 05:33 Promyelocytes # 0.0 K/mm3 02/02/22 05:33 Blast Cells # 0.0 K/mm3 02/02/22 05:33 WBC Morphology Not Reportable 02/02/22 05:33 Hypersegmented Neuts Not Reportable 02/02/22 05:33 Hyposegmented Neuts Not Reportable 02/02/22 05:33 Hypogranular Neuts Not Reportable 02/02/22 05:33 Smudge Cells Not Reportable 02/02/22 05:33 Toxic Granulation Not Reportable 02/02/22 05:33 Toxic Vacuolation Not Reportable 02/02/22 05:33 Dohle Bodies Not Reportable 02/02/22 05:33 Pelger-Huet Anomaly Not Reportable 02/02/22 05:33 Giovana Rods Not Reportable 02/02/22 05:33 Platelet Estimate Appears decreased 02/02/22 05:33 Clumped Platelets Not Reportable 02/02/22 05:33 Plt Clumps, EDTA Not Reportable 02/02/22 05:33 Large Platelets Not Reportable 02/02/22 05:33 Giant Platelets Not Reportable 02/02/22 05:33 Platelet Satelliting Not Reportable 02/02/22 05:33 Plt Morphology Comment Not Reportable 02/02/22 05:33 RBC Morphology Not Reportable 02/02/22 05:33 Dimorphic RBCs Not Reportable 02/02/22 05:33 Polychromasia Not Reportable 02/02/22 05:33 Hypochromasia Not Reportable 02/02/22 05:33 Poikilocytosis Not Reportable 02/02/22 05:33 Anisocytosis Not Reportable 02/02/22 05:33 Microcytosis Not Reportable 02/02/22 05:33 Macrocytosis Not Reportable 02/02/22 05:33 Spherocytes Not Reportable 02/02/22 05:33 Pappenheimer Bodies Not Reportable 02/02/22 05:33 Sickle Cells Not Reportable 02/02/22 05:33 Target Cells Not Reportable 02/02/22 05:33 Tear Drop Cells Not Reportable 02/02/22 05:33 Ovalocytes Not Reportable 02/02/22 05:33 Helmet Cells Not Reportable 02/02/22 05:33 [place] Bodies Not Reportable 02/02/22 05:33 [place] Rings Not Reportable 02/02/22 05:33 [place] Cells 1+ 02/02/22 05:33 Bite Cells Not Reportable 02/02/22 05:33 Crenated Cell Not Reportable 02/02/22 05:33 Elliptocytes Not Reportable 02/02/22 05:33 Acanthocytes (Spur) Few 02/02/22 05:33 Rouleaux Not Reportable 02/02/22 05:33 Hemoglobin C Crystals Not Reportable 02/02/22 05:33 Schistocytes Not Reportable 02/02/22 05:33 Malaria parasites Not Reportable 02/02/22 05:33 Percent Retic 0.22 % (0.78-2.58) L 01/26/22 14:35 Sickle Cell Solubility See scanned result 01/26/22 14:35 Hemoglobin A See scanned result 01/26/22 14:35 Hemoglobin A2 See scanned result 01/26/22 14:35 Hemoglobin A2 Prime See scanned result 01/26/22 14:35 Hemoglobin C See scanned result 01/26/22 14:35 Hemoglobin D See scanned result 01/26/22 14:35 Hemoglobin E See scanned result 01/26/22 14:35 Hgb F Diffential Stain See scanned result 01/26/22 14:35 Hemoglobin F Quant See scanned result 01/26/22 14:35 Hemoglobin G See scanned result 01/26/22 14:35 Hemoglobin S See scanned result 01/26/22 14:35 Hemoglobin [place] See scanned result 01/26/22 14:35 Hemoglobin [place] See scanned result 01/26/22 14:35 Hemoglobin Olga See scanned result 01/26/22 14:35 Variant Hemoglobin See scanned result 01/26/22 14:35 Abnorm Hgb IEF Confirm See scanned result 01/26/22 14:35 Hemoglobin Interpret See scanned result 01/26/22 14:35 Hemoglobinopathy Note See scanned result 01/26/22 14:35 Kana Bodies Not Reportable 02/02/22 05:33 Hem Pathologist Commnt No 02/02/22 05:33 PT Cancelled 01/28/22 14:27 INR 0.94 (0.87-1.13) 01/25/22 20:12 INR Cancelled 01/28/22 14:27 APTT 34.4 Sec. (24.2-36.6) 01/28/22 14:27 PT Patient/Control Mix Cancelled 01/28/22 14:27 PT Pat/Norm 1:1 5 min Cancelled 01/28/22 14:27 PT Pat/Norm 1:1 1 Hr Cancelled 01/28/22 14:27 Thrombin Time 17.5 Sec. (15.1-19.6) 01/25/22 20:12 Fibrinogen 665 mg/dl (211-480) H 01/26/22 14:35 Heparin Anti-Xa, Unfract Negative (Negative) 01/26/22 14:35 Sodium 142 mmol/L (137-145) 02/04/22 05:06 Potassium 4.3 mmol/L (3.6-5.0) 02/04/22 05:06 Chloride 111.7 mmol/L (98-107) H 02/04/22 05:06 Carbon Dioxide 23 mmol/L (22-30) 02/04/22 05:06 Anion Gap 12 mmol/L 02/04/22 05:06 BUN 20 mg/dL (9-20) 02/04/22 05:06 Creatinine 2.4 mg/dL (0.8-1.3) H 02/04/22 05:06 Estimated GFR 32 ml/min 02/04/22 05:06 BUN/Creatinine Ratio 8 % 02/04/22 05:06 Glucose 105 mg/dL (75-100) H 02/04/22 05:06 POC Glucose 72 mg/dL (70-105) 02/04/22 15:36 Uric Acid 7.1 mg/dL (3.5-7.6) 01/28/22 08:08 Calcium 8.6 mg/dL (8.4-10.2) 02/04/22 05:06 Magnesium 1.80 mg/dL (1.7-2.3) 01/25/22 20:12 Iron 127 ug/dL (49-181) 01/26/22 14:35 TIBC 147 mcg/dL (250-450) L 01/26/22 14:35 Ferritin 943.7 ng/mL (30.0-300.0) H 01/26/22 07:44 Total Bilirubin 0.30 mg/dL (0.1-1.2) 02/04/22 05:06 Direct Bilirubin < 0.2 mg/dL (0-0.2) 01/27/22 05:46 Indirect Bilirubin 0.1 mg/dL 01/27/22 05:46 AST 264 units/L (5-40) H 02/04/22 05:06 ALT 273 units/L (7-56) H 02/04/22 05:06 Alkaline Phosphatase 224 units/L (35-129) H 02/04/22 05:06 Ammonia 20.0 umol/L (25-60) L 01/30/22 10:54 Lactate Dehydrogenase 529 units/L (91-180) H 01/26/22 14:35 Total Creatine Kinase 242 units/L (55-170) H 01/25/22 20:12 CK-MB (CK-2) 10.0 ng/mL (0.0-4.0) H 01/25/22 20:12 CK-MB (CK-2) Rel Index 4.1 (0-4) H 01/25/22 20:12 Troponin T 0.094 ng/mL (0.00-0.029) H 01/25/22 20:12 Serum Total Protein 5.1 g/dL (6.1-8.1) L 01/26/22 14:35 Total Protein 5.2 g/dL (6.3-8.2) L 02/04/22 05:06 Albumin 2.3 g/dL (3.9-5) L 02/04/22 05:06 Albumin/Globulin Ratio 0.8 % 02/04/22 05:06 Wjtdk-6-Tqugyvhdw 0.4 g/dL (0.2-0.3) H 01/26/22 14:35 Klvbo-3-Wqrbkispt 0.8 g/dL (0.5-0.9) 01/26/22 14:35 Beta Globulins 0.3 g/dL (0.2-0.5) 01/26/22 14:35 Gamma Globulins 0.8 g/dL (0.8-1.7) 01/26/22 14:35 Abnorm Protein Band 1 see below 01/26/22 14:35 PEP Interpretation see below H 01/26/22 14:35 Serotonin Release Assay See scanned result 01/26/22 14:35 Vitamin B12 > 2000 pg/mL (211-911) H 01/26/22 14:35 Folate 4.90 ng/mL (7.3-26.0) L 01/26/22 14:35 TSH 2.670 mlU/mL (0.270-4.200) 01/26/22 07:44 Urine Color Yellow (Yellow) 01/25/22 21:26 Urine Turbidity Slightly-cloudy (Clear) 01/25/22 21:26 Urine pH 5.0 (5.0-7.0) 01/25/22 21:26 Ur Specific [place] 1.028 (1.003-1.030) 01/25/22 21:26 Urine Protein 100 mg/dl mg/dL (Negative) 01/25/22 21:26 Urine Glucose (UA) Neg mg/dL (Negative) 01/25/22 21: Urine Ketones Neg mg/dL (Negative) 01/25/22 21:26 Urine Blood Mod (Negative) 01/25/22 21: Urine Nitrite Neg (Negative) 01/25/22 21: Urine Bilirubin Neg (Negative) 01/25/22 21: Urine Urobilinogen < 2.0 mg/dL (<2.0) 01/25/22 21:26 Ur Leukocyte Esterase Tr (Negative) 01/25/22 21:26 Urine WBC (Auto) 4.0 /HPF (0.0-6.0) 01/25/22 21: Urine RBC (Auto) 5.0 /HPF (0.0-6.0) 01/25/22 21:26 U Epithel Cells (Auto) < 1.0 /HPF (0-13.0) 01/25/22 21: Urine Bacteria (Auto) 1+ /HPF (Negative) 01/25/22 21: Urine Mucus Few /HPF 01/25/22 21: Urine Yeast (Budding) 1+ /HPF 01/25/22 21: Urine Creatinine 49.1 mg/dL (0.1-20.0) H 01/26/22 09:17 Protein/Creatinin Ratio 0.49 01/26/22 09:17 Urine Total Protein 24 mg/dL (5-11.8) H 01/26/22 09:17 Salicylates < 0.3 mg/dL (2.8-20.0) L 01/25/22 20:12 Acetaminophen 5.0 ug/mL (10.0-30.0) L 01/25/22 20:12 Plasma/Serum Alcohol < 0.01 % (0-0.07) 01/25/22 20:12 Immunofix Electrophor see below 01/26/22 14:35 TWIN Screen Negative (Negative) 01/26/22 07:44 Heparin-induced Plt Ab Negative (Negative) 01/26/22 14:35 UF Heparin High Dose 0 % Release 01/26/22 14:35 ARUNA UFH Low Dose 0.1 0 % Release 01/26/22 14:35 ARUNA UFH Low Dose 0.5 0 % Release 01/26/22 14:35 Cardiolipid IgG Ab <2.0 GPL-U/mL (<20.0) 01/28/22 Unknown Cardiolipid IgA Ab <2.0 APL-U/mL (<20.0) 01/28/22 Unknown Cardiolipid IgM Ab <2.0 MPL-U/mL (<20.0) 01/28/22 Unknown Hep Bs Antigen Non-reactive (Negative) 02/02/22 17:16 Leal/IV: Voiding Method Indwelling Catheter Active Medications - Current Medications Current Medications: Generic Name Dose Route Start Last Admin Trade Name Freq PRN Reason Stop Dose Admin Acetaminophen 650 mg 01/25/22 23:53 Acetaminophen 325 Mg Tab PO Q4H PRN Pain MILD(1-3)/Fever >100.5/STODDARD Amlodipine Besylate 10 mg 01/27/22 11:00 02/04/22 11:08 Amlodipine 10 Mg Tab PO 10 mg QDAY MALRON Administration Dextrose 50 ml 02/04/22 03:04 02/04/22 03:21 Dextrose 50% In Water (25gm) 50 Ml Syringe IV 50 ml PRN PRN Administration Hypoglycemia Protocol Folic Acid 1 mg 01/27/22 11:00 02/03/22 09:28 Folic Acid 1 Mg Tab PO 1 mg QDAY MARLON Administration Hydralazine HCl 50 mg 01/31/22 09:00 02/04/22 06:03 Hydralazine 25 Mg Tab PO Not Given Q8HR MARLON Dextrose/Sodium Chloride 1,000 mls @ 100 mls/hr 02/04/22 04:00 02/04/22 03:17 D5/0.45ns IV 100 mls/hr DIRECT MARLON Administration Lorazepam 0.5 mg 02/04/22 11:21 Lorazepam 0.5 Mg Tab PO Q6H PRN Agitation Morphine Sulfate 2 mg 01/25/22 23:53 Morphine 2 Mg/1 Ml Inj IV Q4H PRN Pain, Moderate (4-6) Morphine Sulfate 4 mg 01/25/22 23:53 Morphine 4 Mg/1 Ml Inj IV Q4H PRN Pain , Severe (7-10) Ondansetron HCl 4 mg 01/25/22 23:53 Ondansetron 4 Mg/2 Ml Inj IV Q8H PRN Nausea And Vomiting Sodium Bicarbonate 1,300 mg 01/27/22 14:00 02/04/22 09:07 Sodium Bicarbonate 650 Mg Tab PO 1,300 mg TID MARLON Administration Sodium Chloride 10 ml 01/26/22 10:00 02/03/22 21:48 Sodium Chloride 0.9% 10 Ml Flush Syringe IV 10 ml BID MARLON Administration Sodium Chloride 10 ml 01/25/22 23:53 Sodium Chloride 0.9% 10 Ml Flush Syringe IV PRN PRN LINE FLUSH Tamsulosin HCl 0.4 mg 01/27/22 11:00 02/04/22 11:08 Tamsulosin 0.4 Mg Cap PO 0.4 mg QDAY MARLON Administration Nutrition/Malnutrition Assess - Dietary Evaluation Nutrition/Malnutrition Findings: Nutrition Notes Start: 01/26/22 17:13 Freq: Status: Active Protocol: Document 02/03/22 14:05 MARNI (Rec: 02/03/22 14:39 MARNI [id number]) Nutrition Notes Initial or Follow up Reassessment Current Diagnosis Acute Kidney Injury,CKD(stage I-IV),Hypertension,Stroke Other Pertinent Diagnosis AMS, Pancytopenia, Elevated Transaminases. Current Diet Pureed Diet (since D 01/28). Labs/Tests 02/03: Cl 108.9, Crea 2.0. Pertinent Medications 02/03: Folic Acid, others nutritionally unremarkable. Height 6 ft Weight 70.1 kg [place] Body Weight (kg) 80.90 BMI 20.9 Weight change and time frame Discrepancy of 5.8 Kg body weight gain in 3 days reported . Likely a mistake. Weight Status Appropriate Subjective/Other Information RD consult for routine F/U on dietary advancement. PO diet continues as prescribed, but no reports available on Pt's PO intake of meals at the time, will assess at F/U. Pt on Room Air, O2 saturation @ 100%, according to Physical Assessment History notes. Pt presents a R-knee abrasion, according to Physical Assessment History notes. Pt now renaly stable, conversant, alert and responsive to prompting; but clinically not cleared for discharge, according to Progress notes. Percent of energy/protein needs met: Prescribed Pureed Diet provides for energy/protein needs (1,804 Kcal/77 g) during LOS. Burn Absent Trauma Absent GI Symptoms None Difficulty In Swallowing,Chewing Food Allergy No Skin Integrity/Comment R-Knee Abrasion. Minimum of two criteria No Is patient on ventilator? No Is Patient Ambulatory and/or Out of Bed No REE-([facility]-confined to bed) 1769.256 Kcal/Kg value to use for calculation 30 Approximate Energy Requirements Using 2103 kcal/Kg Calculation Used for Recommendations Kcal/kg Additional Notes Protein: 0.8-1.2 g/Kg IBW; 65- 97 g/day. Fluids: 1 ml/Kcal, or as per MD. Nutrition Intervention Follow-Up By: 02/10/22 Additional Comments Continue monitoring food tolerance, %PO intake of meals , and BM.
--- NOTE | 2022-02-04 19:09 | Progress Note ---
Assessment and Plan Assessment and plan: 76-year-old -[place] African male with known history of obstructive uropathy, urinary retention, metabolic acidosis, anemia with thrombocytopenia and leukopenia who was discharge sometime in the afternoon but later brought back to the emergency room same day because of changes in mental status. Patient was accompanied by his roommate who indicates that patient has had change in his mental status and was not able to communicate well since discharge from the hospital.Patient was evaluated by the teleneurologist and was not deemed to be a TPA candidate. Work-up in the emergency room reveals thrombocytopenia of 32, BUN of 40 and creatinine of 2.3. Elevated AST and ALT of 565 and 379 respectively. Alkaline phos of 246 and creatinine kinase of 242. Troponin was elevated at 0.094. Urinalysis showed trace bacteria and trace leukocyte esterase. CTA head and neck did not show any significant findings. Chest x-ray shows possible persistent bibasilar pneumonia. Patient was admitted for further evaluation management #Acute metabolic encephalopathy-resolved #Acute cerebral infarct/CVA -CT scan of the head, CTA head and neck were nonspecific. -Repeat CT head noncontrast (02/01/2022) due to marked encephalopathy with decreased response. CT head unremarkable. 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 Neurology consulted; appreciate recs. It will be difficult to medically manage patient with aspirin (+/-) or Plavix as the patient has significant thromboc ytopenia (platelets today 57). TTE (02/03/2022) revealing EF 55-60% with normal LV size, normal LV systolic function, and mild concentric LVH. No PFO was documented. Possibly iatrogenic etiologyrecently started on Zyprexa last night. Discontinued Zyprexa. Will continue to monitor #Pulmonary infiltrate/possible aspiration pneumoniaresolved -Completing 7-day course of Rocephin 2 g daily today. #JESSIKA on possible CKD-stable -Discontinue IV fluid; encouraging increase p.o. intake -Nephrology consulted; appreciate recs #Thrombocytopeniaimproving #Leukopeniaimproving -Heme/oncology consulted; appreciate recs -Bone marrow biopsy is unremarkable for hemolytic malignancy -The following labs are unremarkable: TWIN, heparin-induced platelet antibody, cardiolipin IgG, IgA, and IgM antibodies -Pending spep with MORAIMA, pf4 ab, hgep, soheila -Transfuse 1 unit whenever hct <23 -Transfuse 1 dose of plts whenever plt <20 #Elevated transaminasesimproving - likely secondary to shock liver We will continue to monitor LFTs. Gastroenterology consulted; appreciate recs. No intervention at this time. #Advanced care planning -Disease education conducted, care plan discussed, diagnoses discussed, prognosis discussed, and patient acknowledges understanding with care plan -Time: +30 min #Discharge planning - Patient is pending SNF placement - Case management has been made aware. - Discharge is tentatively 3 to 4 days Disposition: Medically not stable for discharge 01/26: Patient remains confused, continue antibiotics. follow renal function, follow LFT., Wait for consultants recommendation. 01/27: Creatinine slightly improved, patient mental status improving, tolerating diet. Hematology nephrology and GI following. Hematology recommended bone marrow biopsy for leukopenia and thrombocytopenia. 01/28: s/p bone marrow biopsy today, follow am labs. Cr still elevated, speech recommended pureed diet. If renal function continues to improve possible DC soon. 01/29: patient restraint overnight, today appears to be very confused. Will order repeat LFT, ammonia level. Continue to monitor renal function. 01/30: LFT trending down, ammonia level lower than normal. Patient continued to be confused and restrained. Will consult psych. Order for repeat CT head Continue to follow clinically. 01/31: discussed plan of care with significant other. pending BM biopsy, autoimmune workup panel. Remains confused, psych following. initiated zyprexa at bedtime. 02/01: CT head noncontrast unremarkable for acute hemorrhagic stroke. Pending MRI brain. Discontinued Zyprexa due to possible iatrogenic etiology for worsened metabolic encephalopathy. Continue to monitor. 02/02: MRI brain unremarkable for acute ischemic infarct along the medial left frontal cortex. Neurology consulted. Pending TTE to evaluate for PFO. 02/03: Reversal of encephalopathy with patient being conversant and cooperative at bedside. TTE unremarkable for PFO. Pending PT/OT recs. Pending neurology recommendations concerning antiplatelet therapy. 02/04: Patient remains conversant and following those prompts. PT evaluated patient and recommended subacute rehab. [id number] discussion had with Addis, and updated PT notes are being faxed. 02/05: Currently pending SNF placement. Disposition Plan: Pending SNF placement Total Time Spent with Patient (Minutes): 30 min History Interval history: No acute events overnight. Hospitalist Physical - Constitutional Vitals: Temp Pulse Resp BP Pulse Ox 98.6 F 66 16 112/71 100 02/04/22 15:42 02/04/22 15:42 02/04/22 15:42 02/04/22 15:42 02/04/22 15:42 General appearance: Present: no acute distress, cachectic - EENT Eyes: Present: PERRL, EOM intact ENT: hearing intact, clear oral mucosa, dentition normal - Neck Neck: Present: supple, normal ROM - Respiratory Respiratory effort: normal Respiratory: bilateral: CTA - Cardiovascular Rhythm: regular Heart Sounds: Present: S1 & S2 - Extremities Extremities: no ischemia, pulses intact, pulses symmetrical, No edema, normal temperature, normal color Peripheral Pulses: within normal limits - Abdominal General gastrointestinal: soft, non-tender, non-distended, normal bowel sounds - Integumentary Integumentary: Present: clear, warm, dry - Psychiatric Psychiatric: appropriate mood/affect, cooperative - Neurologic Neurologic: CNII-XII intact - Allied Health Allied health notes reviewed: nursing HEART Score - HEART Score Troponin: Troponin T 0.094 ng/mL (0.00-0.029) H 01/25/22 20:12 Results - Labs CBC & Chem 7: 02/05/22 05:24 02/04/22 05:06 Labs: Laboratory Last Values WBC 3.0 K/mm3 (4.5-11.0) L 02/04/22 05:06 RBC 2.36 M/mm3 (3.65-5.03) L 02/04/22 05:06 Hgb 7.6 gm/dl (11.8-15.2) L 02/04/22 05:06 Hgb Comment See scanned result 01/26/22 14:35 Hct 23.0 % (35.5-45.6) L 02/04/22 05:06 MCV 97 fl (84-94) H 02/04/22 05:06 MCH 32 pg (28-32) 02/04/22 05:06 MCHC 33 % (32-34) 02/04/22 05:06 RDW 14.9 % (13.2-15.2) 02/04/22 05:06 Plt Count 57 K/mm3 (140-440) L 02/04/22 05:06 Lymph % (Auto) 7.9 % (13.4-35.0) L 02/04/22 05:06 [place] % (Auto) 5.6 % (0.0-7.3) 02/04/22 05:06 Eos % (Auto) 1.2 % (0.0-4.3) 02/04/22 05:06 Baso % (Auto) 0.5 % (0.0-1.8) 02/04/22 05:06 Lymph # (Auto) 0.2 K/mm3 (1.2-5.4) L 02/04/22 05:06 [place] # (Auto) 0.2 K/mm3 (0.0-0.8) 02/04/22 05:06 Eos # (Auto) 0.0 K/mm3 (0.0-0.4) 02/04/22 05:06 Baso # (Auto) 0.0 K/mm3 (0.0-0.1) 02/04/22 05:06 Add Manual Diff Complete 02/02/22 05:33 Total Counted 100 02/02/22 05:33 Seg Neutrophils % 84.8 % (40.0-70.0) H 02/04/22 05:06 Seg Neuts % (Manual) 85.0 % (40.0-70.0) H 02/02/22 05:33 Band Neutrophils % 4.0 % 02/02/22 05:33 Lymphocytes % (Manual) 4.0 % (13.4-35.0) L 02/02/22 05:33 Reactive Lymphs % (Man) 0 % 02/02/22 05:33 Monocytes % (Manual) 5.0 % (0.0-7.3) 02/02/22 05:33 Eosinophils % (Manual) 2.0 % (0.0-4.3) 02/02/22 05:33 Basophils % (Manual) 0 % (0.0-1.8) 02/02/22 05:33 Metamyelocytes % 0 % 02/02/22 05:33 Myelocytes % 0 % 02/02/22 05:33 Promyelocytes % 0 % 02/02/22 05:33 Blast Cells % 0 % 02/02/22 05:33 Nucleated RBC % Not Reportable 02/02/22 05:33 Seg Neutrophils # 2.5 K/mm3 (1.8-7.7) 02/04/22 05:06 Seg Neutrophils # Man 1.7 K/mm3 (1.8-7.7) L 02/02/22 05:33 Band Neutrophils # 0.1 K/mm3 02/02/22 05:33 Lymphocytes # (Manual) 0.1 K/mm3 (1.2-5.4) L 02/02/22 05:33 Abs React Lymphs (Man) 0.0 K/mm3 02/02/22 05:33 Monocytes # (Manual) 0.1 K/mm3 (0.0-0.8) 02/02/22 05:33 Eosinophils # (Manual) 0.0 K/mm3 (0.0-0.4) 02/02/22 05:33 Basophils # (Manual) 0.0 K/mm3 (0.0-0.1) 02/02/22 05:33 Metamyelocytes # 0.0 K/mm3 02/02/22 05:33 Myelocytes # 0.0 K/mm3 02/02/22 05:33 Promyelocytes # 0.0 K/mm3 02/02/22 05:33 Blast Cells # 0.0 K/mm3 02/02/22 05:33 WBC Morphology Not Reportable 02/02/22 05:33 Hypersegmented Neuts Not Reportable 02/02/22 05:33 Hyposegmented Neuts Not Reportable 02/02/22 05:33 Hypogranular Neuts Not Reportable 02/02/22 05:33 Smudge Cells Not Reportable 02/02/22 05:33 Toxic Granulation Not Reportable 02/02/22 05:33 Toxic Vacuolation Not Reportable 02/02/22 05:33 Dohle Bodies Not Reportable 02/02/22 05:33 Pelger-Huet Anomaly Not Reportable 02/02/22 05:33 Giovana Rods Not Reportable 02/02/22 05:33 Platelet Estimate Appears decreased 02/02/22 05:33 Clumped Platelets Not Reportable 02/02/22 05:33 Plt Clumps, EDTA Not Reportable 02/02/22 05:33 Large Platelets Not Reportable 02/02/22 05:33 Giant Platelets Not Reportable 02/02/22 05:33 Platelet Satelliting Not Reportable 02/02/22 05:33 Plt Morphology Comment Not Reportable 02/02/22 05:33 RBC Morphology Not Reportable 02/02/22 05:33 Dimorphic RBCs Not Reportable 02/02/22 05:33 Polychromasia Not Reportable 02/02/22 05:33 Hypochromasia Not Reportable 02/02/22 05:33 Poikilocytosis Not Reportable 02/02/22 05:33 Anisocytosis Not Reportable 02/02/22 05:33 Microcytosis Not Reportable 02/02/22 05:33 Macrocytosis Not Reportable 02/02/22 05:33 Spherocytes Not Reportable 02/02/22 05:33 Pappenheimer Bodies Not Reportable 02/02/22 05:33 Sickle Cells Not Reportable 02/02/22 05:33 Target Cells Not Reportable 02/02/22 05:33 Tear Drop Cells Not Reportable 02/02/22 05:33 Ovalocytes Not Reportable 02/02/22 05:33 Helmet Cells Not Reportable 02/02/22 05:33 [place]-Ethel Bodies Not Reportable 02/02/22 05:33 Lutz Rings Not Reportable 02/02/22 05:33 [place] Cells 1+ 02/02/22 05:33 Bite Cells Not Reportable 02/02/22 05:33 Crenated Cell Not Reportable 02/02/22 05:33 Elliptocytes Not Reportable 02/02/22 05:33 Acanthocytes (Spur) Few 02/02/22 05:33 Rouleaux Not Reportable 02/02/22 05:33 Hemoglobin C Crystals Not Reportable 02/02/22 05:33 Schistocytes Not Reportable 02/02/22 05:33 Malaria parasites Not Reportable 02/02/22 05:33 Percent Retic 0.22 % (0.78-2.58) L 01/26/22 14:35 Sickle Cell Solubility See scanned result 01/26/22 14:35 Hemoglobin A See scanned result 01/26/22 14:35 Hemoglobin A2 See scanned result 01/26/22 14:35 Hemoglobin A2 Prime See scanned result 01/26/22 14:35 Hemoglobin C See scanned result 01/26/22 14:35 Hemoglobin D See scanned result 01/26/22 14:35 Hemoglobin E See scanned result 01/26/22 14:35 Hgb F Diffential Stain See scanned result 01/26/22 14:35 Hemoglobin F Quant See scanned result 01/26/22 14:35 Hemoglobin G See scanned result 01/26/22 14:35 Hemoglobin S See scanned result 01/26/22 14:35 Hemoglobin [place] See scanned result 01/26/22 14:35 Hemoglobin [place] See scanned result 01/26/22 14:35 Hemoglobin Olga See scanned result 01/26/22 14:35 Variant Hemoglobin See scanned result 01/26/22 14:35 Abnorm Hgb IEF Confirm See scanned result 01/26/22 14:35 Hemoglobin Interpret See scanned result 01/26/22 14:35 Hemoglobinopathy Note See scanned result 01/26/22 14:35 Kana Bodies Not Reportable 02/02/22 05:33 Hem Pathologist Commnt No 02/02/22 05:33 PT Cancelled 01/28/22 14:27 INR 0.94 (0.87-1.13) 01/25/22 20:12 INR Cancelled 01/28/22 14:27 APTT 34.4 Sec. (24.2-36.6) 01/28/22 14:27 PT Patient/Control Mix Cancelled 01/28/22 14:27 PT Pat/Norm 1:1 5 min Cancelled 01/28/22 14:27 PT Pat/Norm 1:1 1 Hr Cancelled 01/28/22 14:27 Thrombin Time 17.5 Sec. (15.1-19.6) 01/25/22 20:12 Fibrinogen 665 mg/dl (211-480) H 01/26/22 14:35 Heparin Anti-Xa, Unfract Negative (Negative) 01/26/22 14:35 Sodium 142 mmol/L (137-145) 02/04/22 05:06 Potassium 4.3 mmol/L (3.6-5.0) 02/04/22 05:06 Chloride 111.7 mmol/L (98-107) H 02/04/22 05:06 Carbon Dioxide 23 mmol/L (22-30) 02/04/22 05:06 Anion Gap 12 mmol/L 02/04/22 05:06 BUN 20 mg/dL (9-20) 02/04/22 05:06 Creatinine 2.4 mg/dL (0.8-1.3) H 02/04/22 05:06 Estimated GFR 32 ml/min 02/04/22 05:06 BUN/Creatinine Ratio 8 % 02/04/22 05:06 Glucose 105 mg/dL (75-100) H 02/04/22 05:06 POC Glucose 72 mg/dL (70-105) 02/04/22 15:36 Uric Acid 7.1 mg/dL (3.5-7.6) 01/28/22 08:08 Calcium 8.6 mg/dL (8.4-10.2) 02/04/22 05:06 Magnesium 1.80 mg/dL (1.7-2.3) 01/25/22 20:12 Iron 127 ug/dL (49-181) 01/26/22 14:35 TIBC 147 mcg/dL (250-450) L 01/26/22 14:35 Ferritin 943.7 ng/mL (30.0-300.0) H 01/26/22 07:44 Total Bilirubin 0.30 mg/dL (0.1-1.2) 02/04/22 05:06 Direct Bilirubin < 0.2 mg/dL (0-0.2) 01/27/22 05:46 Indirect Bilirubin 0.1 mg/dL 01/27/22 05:46 AST 264 units/L (5-40) H 02/04/22 05:06 ALT 273 units/L (7-56) H 02/04/22 05:06 Alkaline Phosphatase 224 units/L (35-129) H 02/04/22 05:06 Ammonia 20.0 umol/L (25-60) L 01/30/22 10:54 Lactate Dehydrogenase 529 units/L (91-180) H 01/26/22 14:35 Total Creatine Kinase 242 units/L (55-170) H 01/25/22 20:12 CK-MB (CK-2) 10.0 ng/mL (0.0-4.0) H 01/25/22 20:12 CK-MB (CK-2) Rel Index 4.1 (0-4) H 01/25/22 20:12 Troponin T 0.094 ng/mL (0.00-0.029) H 01/25/22 20:12 Serum Total Protein 5.1 g/dL (6.1-8.1) L 01/26/22 14:35 Total Protein 5.2 g/dL (6.3-8.2) L 02/04/22 05:06 Albumin 2.3 g/dL (3.9-5) L 02/04/22 05:06 Albumin/Globulin Ratio 0.8 % 02/04/22 05:06 Tlchq-1-Cmoqnkrvk 0.4 g/dL (0.2-0.3) H 01/26/22 14:35 Ucbdl-3-Yscpbyfqg 0.8 g/dL (0.5-0.9) 01/26/22 14:35 Beta Globulins 0.3 g/dL (0.2-0.5) 01/26/22 14:35 Gamma Globulins 0.8 g/dL (0.8-1.7) 01/26/22 14:35 Abnorm Protein Band 1 see below 01/26/22 14:35 PEP Interpretation see below H 01/26/22 14:35 Serotonin Release Assay See scanned result 01/26/22 14:35 Vitamin B12 > 2000 pg/mL (211-911) H 01/26/22 14:35 Folate 4.90 ng/mL (7.3-26.0) L 01/26/22 14:35 TSH 2.670 mlU/mL (0.270-4.200) 01/26/22 07:44 Urine Color Yellow (Yellow) 01/25/22 21:26 Urine Turbidity Slightly-cloudy (Clear) 01/25/22 21:26 Urine pH 5.0 (5.0-7.0) 01/25/22 21:26 Ur Specific [place] 1.028 (1.003-1.030) 01/25/22 21:26 Urine Protein 100 mg/dl mg/dL (Negative) 01/25/22 21:26 Urine Glucose (UA) Neg mg/dL (Negative) 01/25/22 21:26 Urine Ketones Neg mg/dL (Negative) 01/25/22 21:26 Urine Blood Mod (Negative) 01/25/22 21: Urine Nitrite Neg (Negative) 01/25/22 21: Urine Bilirubin Neg (Negative) 01/25/22 21:26 Urine Urobilinogen < 2.0 mg/dL (<2.0) 01/25/22 21:26 Ur Leukocyte Esterase Tr (Negative) 01/25/22 21:26 Urine WBC (Auto) 4.0 /HPF (0.0-6.0) 01/25/22 21: Urine RBC (Auto) 5.0 /HPF (0.0-6.0) 01/25/22 21: U Epithel Cells (Auto) < 1.0 /HPF (0-13.0) 01/25/22 21: Urine Bacteria (Auto) 1+ /HPF (Negative) 01/25/22 21: Urine Mucus Few /HPF 01/25/22 21: Urine Yeast (Bud[place]) 1+ /HPF 01/25/22 21: Urine Creatinine 49.1 mg/dL (0.1-20.0) H 01/26/22 09:17 Protein/Creatinin Ratio 0.49 01/26/22 09:17 Urine Total Protein 24 mg/dL (5-11.8) H 01/26/22 09:17 Salicylates < 0.3 mg/dL (2.8-20.0) L 01/25/22 20:12 Acetaminophen 5.0 ug/mL (10.0-30.0) L 01/25/22 20:12 Plasma/Serum Alcohol < 0.01 % (0-0.07) 01/25/22 20:12 Immunofix Electrophor see below 01/26/22 14:35 TWIN Screen Negative (Negative) 01/26/22 07:44 Heparin-induced Plt Ab Negative (Negative) 01/26/22 14:35 UF Heparin High Dose 0 % Release 01/26/22 14:35 ARUNA UFH Low Dose 0.1 0 % Release 01/26/22 14:35 ARUNA UFH Low Dose 0.5 0 % Release 01/26/22 14:35 Cardiolipid IgG Ab <2.0 GPL-U/mL (<20.0) 01/28/22 Unknown Cardiolipid IgA Ab <2.0 APL-U/mL (<20.0) 01/28/22 Unknown Cardiolipid IgM Ab <2.0 MPL-U/mL (<20.0) 01/28/22 Unknown Hep Bs Antigen Non-reactive (Negative) 02/02/22 17:16 Leal/IV: Voiding Method Indwelling Catheter Active Medications - Current Medications Current Medications: Generic Name Dose Route Start Last Admin Trade Name Freq PRN Reason Stop Dose Admin Acetaminophen 650 mg 01/25/22 23:53 Acetaminophen 325 Mg Tab PO Q4H PRN Pain MILD(1-3)/Fever >100.5/STODDARD Amlodipine Besylate 10 mg 01/27/22 11:00 02/04/22 11:08 Amlodipine 10 Mg Tab PO 10 mg QDAY MARLON Administration Dextrose 50 ml 02/04/22 03:04 02/04/22 03:21 Dextrose 50% In Water (25gm) 50 Ml Syringe IV 50 ml PRN PRN Administration Hypoglycemia Protocol Folic Acid 1 mg 01/27/22 11:00 02/03/22 09:28 Folic Acid 1 Mg Tab PO 1 mg QDAY MARLON Administration Hydralazine HCl 50 mg 01/31/22 09:00 02/04/22 06:03 Hydralazine 25 Mg Tab PO Not Given Q8HR MARLON Dextrose/Sodium Chloride 1,000 mls @ 100 mls/hr 02/04/22 04:00 02/04/22 03:17 D5/0.45ns IV 100 mls/hr DIRECT MARLON Administration Lorazepam 0.5 mg 02/04/22 11:21 Lorazepam 0.5 Mg Tab PO Q6H PRN Agitation Morphine Sulfate 2 mg 01/25/22 23:53 Morphine 2 Mg/1 Ml Inj IV Q4H PRN Pain, Moderate (4-6) Morphine Sulfate 4 mg 01/25/22 23:53 Morphine 4 Mg/1 Ml Inj IV Q4H PRN Pain , Severe (7-10) Ondansetron HCl 4 mg 01/25/22 23:53 Ondansetron 4 Mg/2 Ml Inj IV Q8H PRN Nausea And Vomiting Sodium Bicarbonate 1,300 mg 01/27/22 14:00 02/04/22 09:07 Sodium Bicarbonate 650 Mg Tab PO 1,300 mg TID MARLON Administration Sodium Chloride 10 ml 01/26/22 10:00 02/03/22 21:48 Sodium Chloride 0.9% 10 Ml Flush Syringe IV 10 ml BID MARLON Administration Sodium Chloride 10 ml 01/25/22 23:53 Sodium Chloride 0.9% 10 Ml Flush Syringe IV PRN PRN LINE FLUSH Tamsulosin HCl 0.4 mg 01/27/22 11:00 02/04/22 11:08 Tamsulosin 0.4 Mg Cap PO 0.4 mg QDAY MARLON Administration Nutrition/Malnutrition Assess - Dietary Evaluation Nutrition/Malnutrition Findings: Nutrition Notes Start: 01/26/22 17:13 Freq: Status: Active Protocol: Document 02/03/22 14:05 MARNI (Rec: 02/03/22 14:39 MARNI [id number]) Nutrition Notes Initial or Follow up Reassessment Current Diagnosis Acute Kidney Injury,CKD(stage I-IV),Hypertension,Stroke Other Pertinent Diagnosis AMS, Pancytopenia, Elevated Transaminases. Current Diet Pureed Diet (since D 01/28). Labs/Tests 02/03: Cl 108.9, Crea 2.0. Pertinent Medications 02/03: Folic Acid, others nutritionally unremarkable. Height 6 ft Weight 70.1 kg [place] Body Weight (kg) 80.90 BMI 20.9 Weight change and time frame Discrepancy of 5.8 Kg body weight gain in 3 days reported . Likely a mistake. Weight Status Appropriate Subjective/Other Information RD consult for routine F/U on dietary advancement. PO diet continues as prescribed, but no reports available on Pt's PO intake of meals at the time, will assess at F/U. Pt on Room Air, O2 saturation @ 100%, according to Physical Assessment History notes. Pt presents a R-knee abrasion, according to Physical Assessment History notes. Pt now renaly stable, conversant, alert and responsive to prompting; but clinically not cleared for discharge, according to Progress notes. Percent of energy/protein needs met: Prescribed Pureed Diet provides for energy/protein needs (1,804 Kcal/77 g) during LOS. Burn Absent Trauma Absent GI Symptoms None Difficulty In Swallowing,Chewing Food Allergy No Skin Integrity/Comment R-Knee Abrasion. Minimum of two criteria No Is patient on ventilator? No Is Patient Ambulatory and/or Out of Bed No REE-([facility]-confined to bed) 1769.256 Kcal/Kg value to use for calculation 30 Approximate Energy Requirements Using 2103 kcal/Kg Calculation Used for Recommendations Kcal/kg Additional Notes Protein: 0.8-1.2 g/Kg IBW; 65- 97 g/day. Fluids: 1 ml/Kcal, or as per MD. Nutrition Intervention Follow-Up By: 02/10/22 Additional Comments Continue monitoring food tolerance, %PO intake of meals , and BM.
[2022-02-05] MEDS: D5W/0.45% NACL 1,000 ML IV SCH ×3 (02:43→21:20)
[2022-02-05] MEDS: hydrALAZINE 25 MG TAB PO SCH ×3 (05:38→21:13)
[2022-02-05 06:18] LABS: Hematocrit 25.1 % (35.5-45.6); Hemoglobin 8.3 gm/dl (11.8-15.2); Mean Corpuscular HGB Conc 33 % (32-34); Mean Corpuscular Volume 98 fl (84-94); Red Blood Count 2.57 M/mm3 (3.65-5.03); Red Cell Distribution Width 15.1 % (13.2-15.2)
[2022-02-05 06:20] LABS: Platelet Count 64 K/mm3 (140-440)
[2022-02-05] MEDS: TAMSULOSIN 0.4 MG CAP PO SCH (09:48)
[2022-02-05] MEDS: amLODIPine 10 MG TAB PO SCH (09:48)
[2022-02-05] MEDS: SODIUM BICARBONATE 650 MG TAB PO SCH ×3 (09:48→21:13)
[2022-02-05] MEDS: FOLIC ACID 1 MG TAB PO SCH (09:50)
[2022-02-05 12:01] LABS: Basophils % (Manual) 0 % (0.0-1.8); Total Cells Counted 100
[2022-02-05 12:02] LABS: Burr Cells Rare
[2022-02-05 12:03] LABS: Large Platelets Few; Platelet Estimate Consistent w Auto
--- NOTE | 2022-02-05 13:41 | Progress Note ---
Subjective Date of service: 02/05/22 Interval history: Impression: * Altered mental status * acute kidney injury secondary to obstructive uropathy/urinary retention * Urinary retention * Azotemia * Hyperkalemia, mild * Metabolic acidosis * Anemia * Hypertension * Pancytopenia * Proteinuria * Abnormal LFT Plan: * Renal function is stable * Continue NaBicarb * Blood pressure is under control. Continue current antihypertensive medications * Continue current management * Dose medications for renal function * Avoid potential nephrotoxins * Continue Leal catheter for now. Continue tamsulosin. Further plan as per urology services * Work-up for pancytopenia as per primary team * Hematology consultation appreciated. * stable from renal standpoint Subjective resting in bed . Comfortable . Denies SOB Objective - General Appearance General appearance: well-developed, well-nourished, appears stated age EENT: PERRL, mucous membranes moist Neck: no JVD, no thyromegaly, no carotid bruit, supple Respiratory: Present: Clear to Ascultation Cardiology: regular, normal heart rate Gastrointestinal: normal, normoactive bowel sounds Integumentary: no rash, other (1+ edema ) Objective - Vital Signs Vital signs: Vital Signs - 12hr 02/05/22 02/05/22 02/05/22 04:24 08:04 08:05 Temperature 97.6 F 98.5 F Pulse Rate 79 86 Respiratory 18 18 Rate Blood Pressure 122/72 153/66 O2 Sat by Pulse 97 94 Oximetry 02/05/22 02/05/22 08:07 11:15 Temperature 98.7 F Pulse Rate 64 Respiratory 18 Rate Blood Pressure 115/91 O2 Sat by Pulse 98 97 Oximetry - Lab 02/05/22 05:24 02/04/22 05:06 Most recent lab results Calcium 8.6 mg/dL (8.4-10.2) 02/04/22 05:06 Magnesium 1.80 mg/dL (1.7-2.3) 01/25/22 20:12 Urine Creatinine 49.1 mg/dL (0.1-20.0) H 01/26/22 09:17 Urine Total Protein 24 mg/dL (5-11.8) H 01/26/22 09:17 Medications & Allergies - Medications Allergies/Adverse Reactions: Allergies No Known Allergies Allergy (Unverified 01/20/22 10:47) Home Medications: Home Medications Medication Instructions Recorded Confirmed Last Taken Type Sodium Bicarbonate 1,300 mg PO TID #90 tablet 01/25/22 01/26/22 Unknown Rx Tamsulosin [Flomax] 0.4 mg PO QDAY #30 capsule 01/25/22 01/26/22 Unknown Rx amLODIPine 10 mg PO QDAY #30 tablet 01/25/22 01/26/22 Unknown Rx Active Medications: Generic Name Dose Route Start Last Admin Trade Name Freq PRN Reason Stop Dose Admin Acetaminophen 650 mg 01/25/22 23:53 Acetaminophen 325 Mg Tab PO Q4H PRN Pain MILD(1-3)/Fever >100.5/STODDARD Amlodipine Besylate 10 mg 01/27/22 11:00 02/05/22 09:48 Amlodipine 10 Mg Tab PO 10 mg QDAY MARLON Administration Dextrose 50 ml 02/04/22 03:04 02/04/22 03:21 Dextrose 50% In Water (25gm) 50 Ml Syringe IV 50 ml PRN PRN Administration Hypoglycemia Protocol Folic Acid 1 mg 01/27/22 11:00 02/05/22 09:50 Folic Acid 1 Mg Tab PO 1 mg QDAY MARLON Administration Hydralazine HCl 50 mg 01/31/22 09:00 02/05/22 13:17 Hydralazine 25 Mg Tab PO Not Given Q8HR MARLON Dextrose/Sodium Chloride 1,000 mls @ 100 mls/hr 02/04/22 04:00 02/05/22 13:17 D5/0.45ns IV 100 mls/hr DIRECT MARLON Administration Lorazepam 0.5 mg 02/04/22 11:21 Lorazepam 0.5 Mg Tab PO Q6H PRN Agitation Morphine Sulfate 2 mg 01/25/22 23:53 Morphine 2 Mg/1 Ml Inj IV Q4H PRN Pain, Moderate (4-6) Morphine Sulfate 4 mg 01/25/22 23:53 Morphine 4 Mg/1 Ml Inj IV Q4H PRN Pain , Severe (7-10) Ondansetron HCl 4 mg 01/25/22 23:53 Ondansetron 4 Mg/2 Ml Inj IV Q8H PRN Nausea And Vomiting Sodium Bicarbonate 1,300 mg 01/27/22 14:00 02/05/22 13:18 Sodium Bicarbonate 650 Mg Tab PO 1,300 mg TID MARLON Administration Sodium Chloride 10 ml 01/26/22 10:00 02/05/22 09:51 Sodium Chloride 0.9% 10 Ml Flush Syringe IV 10 ml BID MARLON Administration Sodium Chloride 10 ml 01/25/22 23:53 Sodium Chloride 0.9% 10 Ml Flush Syringe IV PRN PRN LINE FLUSH Tamsulosin HCl 0.4 mg 01/27/22 11:00 02/05/22 09:48 Tamsulosin 0.4 Mg Cap PO 0.4 mg QDAY MARLON Administration
[2022-02-05] MEDS: LORazepam 0.5 MG TAB PO PRN (19:24)
[2022-02-06] MEDS: D5W/0.45% NACL 1,000 ML IV SCH (05:58)
[2022-02-06] MEDS: hydrALAZINE 25 MG TAB PO SCH ×4 (06:04→23:45)
[2022-02-06 07:13] LABS: Hematocrit 21.8 % (35.5-45.6); Hemoglobin 7.7 gm/dl (11.8-15.2)
[2022-02-06 07:24] LABS: Albumin 2.4 g/dL (3.9-5); Calcium 8.7 mg/dL (8.4-10.2)
[2022-02-06] MEDS: SODIUM BICARBONATE 650 MG TAB PO SCH ×3 (10:02→22:31)
[2022-02-06] MEDS: FOLIC ACID 1 MG TAB PO SCH (10:03)
[2022-02-06] MEDS: amLODIPine 10 MG TAB PO SCH (10:45)
[2022-02-06] MEDS: TAMSULOSIN 0.4 MG CAP PO SCH (10:45)
--- NOTE | 2022-02-06 14:35 | Progress Note ---
Assessment and Plan Assessment and plan: 76-year-old -Sy[place] male with known history of obstructive uropathy, urinary retention, metabolic acidosis, anemia with thrombocytopenia and leukopenia who was discharge sometime in the afternoon but later brought back to the emergency room same day because of changes in mental status. Patient was accompanied by his roommate who indicates that patient has had change in his mental status and was not able to communicate well since discharge from the hospital.Patient was evaluated by the teleneurologist and was not deemed to be a TPA candidate. Work-up in the emergency room reveals thrombocytopenia of 32, BUN of 40 and creatinine of 2.3. Elevated AST and ALT of 565 and 379 respectively. Alkaline phos of 246 and creatinine kinase of 242. Troponin was elevated at 0.094. Urinalysis showed trace bacteria and trace leukocyte esterase. CTA head and neck did not show any significant findings. Chest x-ray shows possible persistent bibasilar pneumonia. Patient was admitted for further evaluation management #Acute metabolic encephalopathy-resolved #Acute cerebral infarct/CVA -CT scan of the head, CTA head and neck were nonspecific. -Repeat CT head noncontrast (02/01/2022) due to marked encephalopathy with decreased response. CT head unremarkable. 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 Neurology consulted; appreciate recs. It will be difficult to medically manage patient with aspirin (+/-) or Plavix as the patient has significant thrombocy topenia (platelets today 57). TTE (02/03/2022) revealing EF 55-60% with normal LV size, normal LV systolic function, and mild concentric LVH. No PFO was documented. Possibly iatrogenic etiologyrecently started on Zyprexa last night. Discontinued Zyprexa. Will continue to monitor #Pulmonary infiltrate/possible aspiration pneumoniaresolved -Completing 7-day course of Rocephin 2 g daily today. #JESSIKA on possible CKD-stable -Discontinue IV fluid; encouraging increase p.o. intake -Nephrology consulted; appreciate recs #Thrombocytopeniaimproving #Leukopeniaimproving -Heme/oncology consulted; appreciate recs -Bone marrow biopsy is unremarkable for hemolytic malignancy -The following labs are unremarkable: TWIN, heparin-induced platelet antibody, cardiolipin IgG, IgA, and IgM antibodies -Pending spep with MORAIMA, pf4 ab, hgep, soheila -Transfuse 1 unit whenever hct <23 -Transfuse 1 dose of plts whenever plt <20 #Elevated transaminasesimproving - likely secondary to shock liver We will continue to monitor LFTs. Gastroenterology consulted; appreciate recs. No intervention at this time. #Advanced care planning -Disease education conducted, care plan discussed, diagnoses discussed, prognosis discussed, and patient acknowledges understanding with care plan -Time: +30 min #Discharge planning - Patient is pending SNF placement - Case management has been made aware. - Discharge is tentatively 3 to 4 days Disposition: Medically not stable for discharge 01/26: Patient remains confused, continue antibiotics. follow renal function, follow LFT., Wait for consultants recommendation. 01/27: Creatinine slightly improved, patient mental status improving, tolerating diet. Hematology nephrology and GI following. Hematology recommended bone marrow biopsy for leukopenia and thrombocytopenia. 01/28: s/p bone marrow biopsy today, follow am labs. Cr still elevated, speech recommended pureed diet. If renal function continues to improve possible DC soon. 01/29: patient restraint overnight, today appears to be very confused. Will order repeat LFT, ammonia level. Continue to monitor renal function. 01/30: LFT trending down, ammonia level lower than normal. Patient continued to be confused and restrained. Will consult psych. Order for repeat CT head Continue to follow clinically. 01/31: discussed plan of care with significant other. pending BM biopsy, autoimmune workup panel. Remains confused, psych following. initiated zyprexa at bedtime. 02/01: CT head noncontrast unremarkable for acute hemorrhagic stroke. Pending MRI brain. Discontinued Zyprexa due to possible iatrogenic etiology for worsened metabolic encephalopathy. Continue to monitor. 02/02: MRI brain unremarkable for acute ischemic infarct along the medial left frontal cortex. Neurology consulted. Pending TTE to evaluate for PFO. 02/03: Reversal of encephalopathy with patient being conversant and cooperative at bedside. TTE unremarkable for PFO. Pending PT/OT recs. Pending neurology recommendations concerning antiplatelet therapy. 02/04: Patient remains conversant and following those prompts. PT evaluated patient and recommended subacute rehab. [id number] discussion had with Addis, and updated PT notes are being faxed. 02/05: Currently pending SNF placement. 02/06: Currently pending SNF placement. Disposition Plan: Continue medical management Total Time Spent with Patient (Minutes): 30 minutes History Interval history: No acute events overnight. Hospitalist Physical - Constitutional Vitals: Temp Pulse Resp BP Pulse Ox 97.5 F L 75 18 132/72 99 02/06/22 07:50 02/06/22 03:50 02/06/22 07:50 02/06/22 07:50 02/06/22 03:50 General appearance: Present: no acute distress, cachectic - EENT Eyes: Present: PERRL, EOM intact ENT: hearing intact, clear oral mucosa, dentition normal - Neck Neck: Present: supple, normal ROM - Respiratory Respiratory effort: normal - Cardiovascular Rhythm: regular Heart Sounds: Present: S1 & S2 - Extremities Extremities: no ischemia, pulses intact, pulses symmetrical, No edema, normal temperature, normal color Peripheral Pulses: within normal limits - Abdominal General gastrointestinal: soft, non-tender, non-distended, normal bowel sounds - Integumentary Integumentary: Present: clear, warm, dry - Psychiatric Psychiatric: appropriate mood/affect, cooperative - Neurologic Neurologic: CNII-XII intact - Allied Health Allied health notes reviewed: nursing HEART Score - HEART Score Troponin: Troponin T 0.094 ng/mL (0.00-0.029) H 01/25/22 20:12 Results - Labs CBC & Chem 7: 02/06/22 06:32 02/06/22 06:32 Labs: Laboratory Last Values WBC 6.0 K/mm3 (4.5-11.0) 02/05/22 05:24 RBC 2.57 M/mm3 (3.65-5.03) L 02/05/22 05:24 Hgb 7.7 gm/dl (11.8-15.2) L 02/06/22 06:32 Hgb Comment See scanned result 01/26/22 14:35 Hct 21.8 % (35.5-45.6) L 02/06/22 06:32 MCV 98 fl (84-94) H 02/05/22 05:24 MCH 32 pg (28-32) 02/05/22 05:24 MCHC 33 % (32-34) 02/05/22 05:24 RDW 15.1 % (13.2-15.2) 02/05/22 05:24 Plt Count 64 K/mm3 (140-440) L 02/05/22 05:24 Lymph % (Auto) 7.9 % (13.4-35.0) L 02/04/22 05:06 [place] % (Auto) 5.6 % (0.0-7.3) 02/04/22 05:06 Eos % (Auto) 1.2 % (0.0-4.3) 02/04/22 05:06 Baso % (Auto) 0.5 % (0.0-1.8) 02/04/22 05:06 Lymph # (Auto) 0.2 K/mm3 (1.2-5.4) L 02/04/22 05:06 [place] # (Auto) 0.2 K/mm3 (0.0-0.8) 02/04/22 05:06 Eos # (Auto) 0.0 K/mm3 (0.0-0.4) 02/04/22 05:06 Baso # (Auto) 0.0 K/mm3 (0.0-0.1) 02/04/22 05:06 Add Manual Diff Complete 02/05/22 05:24 Total Counted 100 02/05/22 05:24 Seg Neutrophils % [place] Operator 02/05/22 05:24 Seg Neuts % (Manual) 97.0 % (40.0-70.0) H 02/05/22 05:24 Band Neutrophils % 0 % 02/05/22 05:24 Lymphocytes % (Manual) 0 % (13.4-35.0) L 02/05/22 05:24 Reactive Lymphs % (Man) 0 % 02/05/22 05:24 Monocytes % (Manual) 2.0 % (0.0-7.3) 02/05/22 05:24 Eosinophils % (Manual) 1.0 % (0.0-4.3) 02/05/22 05:24 Basophils % (Manual) 0 % (0.0-1.8) 02/05/22 05:24 Metamyelocytes % 0 % 02/05/22 05:24 Myelocytes % 0 % 02/05/22 05:24 Promyelocytes % 0 % 02/05/22 05:24 Blast Cells % 0 % 02/05/22 05:24 Nucleated RBC % Not Reportable 02/05/22 05:24 Seg Neutrophils # 2.5 K/mm3 (1.8-7.7) 02/04/22 05:06 Seg Neutrophils # Man 5.8 K/mm3 (1.8-7.7) 02/05/22 05:24 Band Neutrophils # 0.0 K/mm3 02/05/22 05:24 Lymphocytes # (Manual) 0.0 K/mm3 (1.2-5.4) L 02/05/22 05:24 Abs React Lymphs (Man) 0.0 K/mm3 02/05/22 05:24 Monocytes # (Manual) 0.1 K/mm3 (0.0-0.8) 02/05/22 05:24 Eosinophils # (Manual) 0.1 K/mm3 (0.0-0.4) 02/05/22 05:24 Basophils # (Manual) 0.0 K/mm3 (0.0-0.1) 02/05/22 05:24 Metamyelocytes # 0.0 K/mm3 02/05/22 05:24 Myelocytes # 0.0 K/mm3 02/05/22 05:24 Promyelocytes # 0.0 K/mm3 02/05/22 05:24 Blast Cells # 0.0 K/mm3 02/05/22 05:24 WBC Morphology Not Reportable 02/05/22 05:24 Hypersegmented Neuts Not Reportable 02/05/22 05:24 Hyposegmented Neuts Not Reportable 02/05/22 05:24 Hypogranular Neuts Not Reportable 02/05/22 05:24 Smudge Cells Not Reportable 02/05/22 05:24 Toxic Granulation Not Reportable 02/05/22 05:24 Toxic Vacuolation Not Reportable 02/05/22 05:24 Dohle Bodies Not Reportable 02/05/22 05:24 Pelger-Huet Anomaly Not Reportable 02/05/22 05:24 Giovana Rods Not Reportable 02/05/22 05:24 Platelet Estimate Consistent w auto 02/05/22 05:24 Clumped Platelets Not Reportable 02/05/22 05:24 Plt Clumps, EDTA Not Reportable 02/05/22 05:24 Large Platelets Few 02/05/22 05:24 Giant Platelets Not Reportable 02/05/22 05:24 Platelet Satelliting Not Reportable 02/05/22 05:24 Plt Morphology Comment Not Reportable 02/05/22 05:24 RBC Morphology Not Reportable 02/05/22 05:24 Dimorphic RBCs Not Reportable 02/05/22 05:24 Polychromasia Not Reportable 02/05/22 05:24 Hypochromasia Not Reportable 02/05/22 05:24 Poikilocytosis Not Reportable 02/05/22 05:24 Anisocytosis Not Reportable 02/05/22 05:24 Microcytosis Not Reportable 02/05/22 05:24 Macrocytosis Not Reportable 02/05/22 05:24 Spherocytes Not Reportable 02/05/22 05:24 Pappenheimer Bodies Not Reportable 02/05/22 05:24 Sickle Cells Not Reportable 02/05/22 05:24 Target Cells Not Reportable 02/05/22 05:24 Tear Drop Cells Not Reportable 02/05/22 05:24 Ovalocytes Not Reportable 02/05/22 05:24 Helmet Cells Not Reportable 02/05/22 05:24 [place] Bodies Not Reportable 02/05/22 05:24 [place] Rings Not Reportable 02/05/22 05:24 [place] Cells Rare 02/05/22 05:24 Bite Cells Not Reportable 02/05/22 05:24 Crenated Cell Not Reportable 02/05/22 05:24 Elliptocytes Few 02/05/22 05:24 Acanthocytes (Spur) Rare 02/05/22 05:24 Rouleaux Not Reportable 02/05/22 05:24 Hemoglobin C Crystals Not Reportable 02/05/22 05:24 Schistocytes Not Reportable 02/05/22 05:24 Malaria parasites Not Reportable 02/05/22 05:24 Percent Retic 0.94 % (0.78-2.58) 02/05/22 05:24 Sickle Cell Solubility See scanned result 01/26/22 14:35 Hemoglobin A See scanned result 01/26/22 14:35 Hemoglobin A2 See scanned result 01/26/22 14:35 Hemoglobin A2 Prime See scanned result 01/26/22 14:35 Hemoglobin C See scanned result 01/26/22 14:35 Hemoglobin D See scanned result 01/26/22 14:35 Hemoglobin E See scanned result 01/26/22 14:35 Hgb F Diffential Stain See scanned result 01/26/22 14:35 Hemoglobin F Quant See scanned result 01/26/22 14:35 Hemoglobin G See scanned result 01/26/22 14:35 Hemoglobin S See scanned result 01/26/22 14:35 Hemoglobin [place] See scanned result 01/26/22 14:35 Hemoglobin [place] See scanned result 01/26/22 14:35 Hemoglobin Olga See scanned result 01/26/22 14:35 Variant Hemoglobin See scanned result 01/26/22 14:35 Abnorm Hgb IEF Confirm See scanned result 01/26/22 14:35 Hemoglobin Interpret See scanned result 01/26/22 14:35 Hemoglobinopathy Note See scanned result 01/26/22 14:35 Kana Bodies Not Reportable 02/05/22 05:24 Hem Pathologist Commnt No 02/05/22 05:24 PT Cancelled 01/28/22 14:27 INR 0.94 (0.87-1.13) 01/25/22 20:12 INR Cancelled 01/28/22 14:27 APTT 34.4 Sec. (24.2-36.6) 01/28/22 14:27 PT Patient/Control Mix Cancelled 01/28/22 14:27 PT Pat/Norm 1:1 5 min Cancelled 01/28/22 14:27 PT Pat/Norm 1:1 1 Hr Cancelled 01/28/22 14:27 Thrombin Time 17.5 Sec. (15.1-19.6) 01/25/22 20:12 Fibrinogen 665 mg/dl (211-480) H 01/26/22 14:35 Heparin Anti-Xa, Unfract Negative (Negative) 01/26/22 14:35 Sodium 140 mmol/L (137-145) 02/06/22 06:32 Potassium 4.5 mmol/L (3.6-5.0) 02/06/22 06:32 Chloride 110.2 mmol/L (98-107) H 02/06/22 06:32 Carbon Dioxide 22 mmol/L (22-30) 02/06/22 06:32 Anion Gap 12 mmol/L 02/06/22 06:32 BUN 14 mg/dL (9-20) 02/06/22 06:32 Creatinine 2.1 mg/dL (0.8-1.3) H 02/06/22 06:32 Estimated GFR 37 ml/min 02/06/22 06:32 BUN/Creatinine Ratio 7 % 02/06/22 06:32 Glucose 73 mg/dL (75-100) L 02/06/22 06:32 POC Glucose 73 mg/dL (70-105) 02/06/22 11:56 Uric Acid 7.1 mg/dL (3.5-7.6) 01/28/22 08:08 Calcium 8.7 mg/dL (8.4-10.2) 02/06/22 06:32 Magnesium 1.80 mg/dL (1.7-2.3) 01/25/22 20:12 Iron 127 ug/dL (49-181) 01/26/22 14:35 TIBC 147 mcg/dL (250-450) L 01/26/22 14:35 Ferritin 943.7 ng/mL (30.0-300.0) H 01/26/22 07:44 Total Bilirubin 0.40 mg/dL (0.1-1.2) 02/06/22 06:32 Direct Bilirubin < 0.2 mg/dL (0-0.2) 01/27/22 05:46 Indirect Bilirubin 0.1 mg/dL 01/27/22 05:46 AST 134 units/L (5-40) H 02/06/22 06:32 ALT 190 units/L (7-56) H 02/06/22 06:32 Alkaline Phosphatase 209 units/L (35-129) H 02/06/22 06:32 Ammonia 20.0 umol/L (25-60) L 01/30/22 10:54 Lactate Dehydrogenase 282 units/L (91-180) H 02/05/22 05:24 Total Creatine Kinase 242 units/L (55-170) H 01/25/22 20:12 CK-MB (CK-2) 10.0 ng/mL (0.0-4.0) H 01/25/22 20:12 CK-MB (CK-2) Rel Index 4.1 (0-4) H 01/25/22 20:12 Troponin T 0.094 ng/mL (0.00-0.029) H 01/25/22 20:12 Serum Total Protein 5.1 g/dL (6.1-8.1) L 01/26/22 14:35 Total Protein 5.6 g/dL (6.3-8.2) L 02/06/22 06:32 Albumin 2.4 g/dL (3.9-5) L 02/06/22 06:32 Albumin/Globulin Ratio 0.8 % 02/06/22 06:32 Rzorl-3-Mqymcikaj 0.4 g/dL (0.2-0.3) H 01/26/22 14:35 Kpnoh-1-Ixmohpreo 0.8 g/dL (0.5-0.9) 01/26/22 14:35 Beta Globulins 0.3 g/dL (0.2-0.5) 01/26/22 14:35 Gamma Globulins 0.8 g/dL (0.8-1.7) 01/26/22 14:35 Abnorm Protein Band 1 see below 01/26/22 14:35 PEP Interpretation see below H 01/26/22 14:35 Serotonin Release Assay See scanned result 01/26/22 14:35 Vitamin B12 > 2000 pg/mL (211-911) H 01/26/22 14:35 Folate 4.90 ng/mL (7.3-26.0) L 01/26/22 14:35 TSH 2.670 mlU/mL (0.270-4.200) 01/26/22 07:44 Urine Color Yellow (Yellow) 01/25/22 21:26 Urine Turbidity Slightly-cloudy (Clear) 01/25/22 21:26 Urine pH 5.0 (5.0-7.0) 01/25/22 21:26 Ur Specific [place] 1.028 (1.003-1.030) 01/25/22 21:26 Urine Protein 100 mg/dl mg/dL (Negative) 01/25/22 21:26 Urine Glucose (UA) Neg mg/dL (Negative) 01/25/22 21: Urine Ketones Neg mg/dL (Negative) 01/25/22 21:26 Urine Blood Mod (Negative) 01/25/22 21: Urine Nitrite Neg (Negative) 01/25/22 21: Urine Bilirubin Neg (Negative) 01/25/22 21: Urine Urobilinogen < 2.0 mg/dL (<2.0) 01/25/22 21:26 Ur Leukocyte Esterase Tr (Negative) 01/25/22 21:26 Urine WBC (Auto) 4.0 /HPF (0.0-6.0) 01/25/22 21: Urine RBC (Auto) 5.0 /HPF (0.0-6.0) 01/25/22 21:26 U Epithel Cells (Auto) < 1.0 /HPF (0-13.0) 01/25/22 21: Urine Bacteria (Auto) 1+ /HPF (Negative) 01/25/22 21: Urine Mucus Few /HPF 01/25/22 21: Urine Yeast (Budding) 1+ /HPF 01/25/22 21:26 Urine Creatinine 49.1 mg/dL (0.1-20.0) H 01/26/22 09:17 Protein/Creatinin Ratio 0.49 01/26/22 09:17 Urine Total Protein 24 mg/dL (5-11.8) H 01/26/22 09:17 Salicylates < 0.3 mg/dL (2.8-20.0) L 01/25/22 20:12 Acetaminophen 5.0 ug/mL (10.0-30.0) L 01/25/22 20:12 Plasma/Serum Alcohol < 0.01 % (0-0.07) 01/25/22 20:12 Immunofix Electrophor see below 01/26/22 14:35 TWIN Screen Negative (Negative) 01/26/22 07:44 Heparin-induced Plt Ab Negative (Negative) 01/26/22 14:35 UF Heparin High Dose 0 % Release 01/26/22 14:35 ARUNA UFH Low Dose 0.1 0 % Release 01/26/22 14:35 ARUNA UFH Low Dose 0.5 0 % Release 01/26/22 14:35 Cardiolipid IgG Ab <2.0 GPL-U/mL (<20.0) 01/28/22 Unknown Cardiolipid IgA Ab <2.0 APL-U/mL (<20.0) 01/28/22 Unknown Cardiolipid IgM Ab <2.0 MPL-U/mL (<20.0) 01/28/22 Unknown Hep Bs Antigen Non-reactive (Negative) 02/02/22 17:16 Leal/IV: Voiding Method Indwelling Catheter Active Medications - Current Medications Current Medications: Generic Name Dose Route Start Last Admin Trade Name Freq PRN Reason Stop Dose Admin Acetaminophen 650 mg 01/25/22 23:53 Acetaminophen 325 Mg Tab PO Q4H PRN Pain MILD(1-3)/Fever >100.5/STODDARD Amlodipine Besylate 10 mg 01/27/22 11:00 02/05/22 09:48 Amlodipine 10 Mg Tab PO 10 mg QDAY MARLON Administration Dextrose 50 ml 02/04/22 03:04 02/04/22 03:21 Dextrose 50% In Water (25gm) 50 Ml Syringe IV 50 ml PRN PRN Administration Hypoglycemia Protocol Folic Acid 1 mg 01/27/22 11:00 02/05/22 09:50 Folic Acid 1 Mg Tab PO 1 mg QDAY MARLON Administration Hydralazine HCl 50 mg 01/31/22 09:00 02/06/22 06:04 Hydralazine 25 Mg Tab PO 50 mg Q8HR MARLON Administration Dextrose/Sodium Chloride 1,000 mls @ 100 mls/hr 02/04/22 04:00 02/06/22 05:58 D5/0.45ns IV 100 mls/hr DIRECT MARLON Administration Lorazepam 0.5 mg 02/04/22 11:21 02/05/22 19:24 Lorazepam 0.5 Mg Tab PO 0.5 mg Q6H PRN Administration Agitation Morphine Sulfate 2 mg 01/25/22 23:53 02/05/22 19:35 Morphine 2 Mg/1 Ml Inj IV 2 mg Q4H PRN Administration Pain, Moderate (4-6) Morphine Sulfate 4 mg 01/25/22 23:53 Morphine 4 Mg/1 Ml Inj IV Q4H PRN Pain , Severe (7-10) Ondansetron HCl 4 mg 01/25/22 23:53 Ondansetron 4 Mg/2 Ml Inj IV Q8H PRN Nausea And Vomiting Sodium Bicarbonate 1,300 mg 01/27/22 14:00 02/05/22 21:13 Sodium Bicarbonate 650 Mg Tab PO 1,300 mg TID MARLON Administration Sodium Chloride 10 ml 01/26/22 10:00 02/05/22 21:14 Sodium Chloride 0.9% 10 Ml Flush Syringe IV 10 ml BID MARLON Administration Sodium Chloride 10 ml 01/25/22 23:53 Sodium Chloride 0.9% 10 Ml Flush Syringe IV PRN PRN LINE FLUSH Tamsulosin HCl 0.4 mg 01/27/22 11:00 02/05/22 09:48 Tamsulosin 0.4 Mg Cap PO 0.4 mg QDAY MARLON Administration Nutrition/Malnutrition Assess - Dietary Evaluation Nutrition/Malnutrition Findings: Nutrition Notes Start: 01/26/22 17:13 Freq: Status: Active Protocol: Document 02/03/22 14:05 MARNI (Rec: 02/03/22 14:39 MARNI [id number]) Nutrition Notes Initial or Follow up Reassessment Current Diagnosis Acute Kidney Injury,CKD(stage I-IV),Hypertension,Stroke Other Pertinent Diagnosis AMS, Pancytopenia, Elevated Transaminases. Current Diet Pureed Diet (since D 01/28). Labs/Tests 02/03: Cl 108.9, Crea 2.0. Pertinent Medications 02/03: Folic Acid, others nutritionally unremarkable. Height 6 ft Weight 70.1 kg [place] Body Weight (kg) 80.90 BMI 20.9 Weight change and time frame Discrepancy of 5.8 Kg body weight gain in 3 days reported . Likely a mistake. Weight Status Appropriate Subjective/Other Information RD consult for routine F/U on dietary advancement. PO diet continues as prescribed, but no reports available on Pt's PO intake of meals at the time, will assess at F/U. Pt on Room Air, O2 saturation @ 100%, according to Physical Assessment History notes. Pt presents a R-knee abrasion, according to Physical Assessment History notes. Pt now renaly stable, conversant, alert and responsive to prompting; but clinically not cleared for discharge, according to Progress notes. Percent of energy/protein needs met: Prescribed Pureed Diet provides for energy/protein needs (1,804 Kcal/77 g) during LOS. Burn Absent Trauma Absent GI Symptoms None Difficulty In Swallowing,Chewing Food Allergy No Skin Integrity/Comment R-Knee Abrasion. Minimum of two criteria No Is patient on ventilator? No Is Patient Ambulatory and/or Out of Bed No REE-([facility]-confined to bed) 1769.256 Kcal/Kg value to use for calculation 30 Approximate Energy Requirements Using 2103 kcal/Kg Calculation Used for Recommendations Kcal/kg Additional Notes Protein: 0.8-1.2 g/Kg IBW; 65- 97 g/day. Fluids: 1 ml/Kcal, or as per MD. Nutrition Intervention Follow-Up By: 02/10/22 Additional Comments Continue monitoring food tolerance, %PO intake of meals , and BM.
--- NOTE | 2022-02-06 16:14 | Progress Note ---
Subjective Date of service: 02/06/22 Interval history: Impression: * Altered mental status * acute kidney injury secondary to obstructive uropathy/urinary retention * Urinary retention * Azotemia * Hyperkalemia, mild * Metabolic acidosis * Anemia * Hypertension * Pancytopenia * Proteinuria * Abnormal LFT Plan: * Renal function is stable * Continue NaBicarb * Blood pressure is under control. Continue current antihypertensive medications * Continue current management * Dose medications for renal function * Avoid potential nephrotoxins * Continue Leal catheter for now. Continue tamsulosin. Further plan as per urology services * Work-up for pancytopenia as per primary team * Hematology consultation appreciated. * stable from renal standpoint Subjective resting in bed . Comfortable . Denies SOB Objective - General Appearance General appearance: well-developed, well-nourished, appears stated age EENT: PERRL, mucous membranes moist Neck: no JVD, no thyromegaly, no carotid bruit, supple Respiratory: Present: Clear to Ascultation Cardiology: regular, normal heart rate Gastrointestinal: normal, normoactive bowel sounds Integumentary: no rash, other (1+ edema ) Objective - Vital Signs Vital signs: Vital Signs - 12hr 02/06/22 02/06/22 07:50 10:00 Temperature 97.5 F L Respiratory 18 Rate Blood Pressure 132/72 O2 Sat by Pulse 98 Oximetry - Lab 02/06/22 06:32 02/06/22 06:32 Most recent lab results Calcium 8.7 mg/dL (8.4-10.2) 02/06/22 06:32 Magnesium 1.80 mg/dL (1.7-2.3) 01/25/22 20:12 Urine Creatinine 49.1 mg/dL (0.1-20.0) H 01/26/22 09:17 Urine Total Protein 24 mg/dL (5-11.8) H 01/26/22 09:17 Medications & Allergies - Medications Allergies/Adverse Reactions: Allergies No Known Allergies Allergy (Unverified 01/20/22 10:47) Home Medications: Home Medications Medication Instructions Recorded Confirmed Last Taken Type Sodium Bicarbonate 1,300 mg PO TID #90 tablet 01/25/22 02/06/22 01/30/22 Rx Tamsulosin [Flomax] 0.4 mg PO QDAY #30 capsule 01/25/22 02/06/22 02/02/22 Rx amLODIPine 10 mg PO QDAY #30 tablet 01/25/22 02/06/22 02/05/22 Rx Active Medications: Generic Name Dose Route Start Last Admin Trade Name Freq PRN Reason Stop Dose Admin Acetaminophen 650 mg 01/25/22 23:53 Acetaminophen 325 Mg Tab PO Q4H PRN Pain MILD(1-3)/Fever >100.5/STODDARD Amlodipine Besylate 10 mg 01/27/22 11:00 02/05/22 09:48 Amlodipine 10 Mg Tab PO 10 mg QDAY MARLON Administration Dextrose 50 ml 02/04/22 03:04 02/04/22 03:21 Dextrose 50% In Water (25gm) 50 Ml Syringe IV 50 ml PRN PRN Administration Hypoglycemia Protocol Folic Acid 1 mg 01/27/22 11:00 02/05/22 09:50 Folic Acid 1 Mg Tab PO 1 mg QDAY MARLON Administration Hydralazine HCl 50 mg 01/31/22 09:00 02/06/22 06:04 Hydralazine 25 Mg Tab PO 50 mg Q8HR MARLON Administration Dextrose/Sodium Chloride 1,000 mls @ 100 mls/hr 02/04/22 04:00 02/06/22 05:58 D5/0.45ns IV 100 mls/hr DIRECT MARLON Administration Lorazepam 0.5 mg 02/04/22 11:21 02/05/22 19:24 Lorazepam 0.5 Mg Tab PO 0.5 mg Q6H PRN Administration Agitation Morphine Sulfate 2 mg 01/25/22 23:53 02/05/22 19:35 Morphine 2 Mg/1 Ml Inj IV 2 mg Q4H PRN Administration Pain, Moderate (4-6) Morphine Sulfate 4 mg 01/25/22 23:53 Morphine 4 Mg/1 Ml Inj IV Q4H PRN Pain , Severe (7-10) Ondansetron HCl 4 mg 01/25/22 23:53 Ondansetron 4 Mg/2 Ml Inj IV Q8H PRN Nausea And Vomiting Sodium Bicarbonate 1,300 mg 01/27/22 14:00 02/05/22 21:13 Sodium Bicarbonate 650 Mg Tab PO 1,300 mg TID MARLON Administration Sodium Chloride 10 ml 01/26/22 10:00 02/05/22 21:14 Sodium Chloride 0.9% 10 Ml Flush Syringe IV 10 ml BID MARLON Administration Sodium Chloride 10 ml 01/25/22 23:53 Sodium Chloride 0.9% 10 Ml Flush Syringe IV PRN PRN LINE FLUSH Tamsulosin HCl 0.4 mg 01/27/22 11:00 02/05/22 09:48 Tamsulosin 0.4 Mg Cap PO 0.4 mg QDAY MARLON Administration
[2022-02-06] MEDS: LORazepam 0.5 MG TAB PO PRN (18:07)
[2022-02-07] MEDS: DEXTROSE 50% IN WATER (25GM) 50 ML SYRINGE IV PRN (03:59)
[2022-02-07] MEDS: D5W/0.45% NACL 1,000 ML IV SCH (04:40)
[2022-02-07] MEDS: hydrALAZINE 25 MG TAB PO SCH ×2 (06:02→15:43)
[2022-02-07 07:50] LABS: Basophils % (Auto) 0.3 % (0.0-1.8); Eosinophils % (Auto) 0.9 % (0.0-4.3); Hematocrit 23.2 % (35.5-45.6); Hemoglobin 7.6 gm/dl (11.8-15.2); Lymphocytes # (Auto) 0.2 K/mm3 (1.2-5.4); Lymphocytes % (Auto) 6.2 % (13.4-35.0); Mean Corpuscular HGB Conc 33 % (32-34); Mean Corpuscular Volume 98 fl (84-94); Monocytes # (Auto) 0.2 K/mm3 (0.0-0.8); Monocytes % (Auto) 7.3 % (0.0-7.3); Red Blood Count 2.38 M/mm3 (3.65-5.03); Red Cell Distribution Width 14.8 % (13.2-15.2)
[2022-02-07 08:05] LABS: Platelet Count 70 K/mm3 (140-440)
[2022-02-07 08:10] LABS: Calcium 8.4 mg/dL (8.4-10.2)
--- NOTE | 2022-02-07 08:55 | Progress Note ---
Assessment and Plan Impression: * Acute kidney injury secondary to obstructive uropathy/urinary retention * Urinary retention * Pancytopenia * Transaminitis * Hyperkalemia, mild * Metabolic acidosis * Hypertension * Proteinuria * Abnormal LFT Plan: * Renal function is stable - SCr 2.2mg/dL. Continue current management * Continue NaBicarb * Continue current antihypertensive medications * Continue Leal catheter for now. Continue tamsulosin. Further plan as per urology services * Hematology work-up/recommendations re pancytopenia noted * Dose medications for renal function * Avoid potential nephrotoxins * Stable for discharge from renal standpoint Subjective Date of service: 02/07/22 Interval history: Patient working with PT at time of visit. Objective - Exam Narrative Exam: Exam deferred - PT in progress - Vital Signs Vital signs: Vital Signs - 12hr 02/06/22 02/06/22 02/06/22 22:00 23:45 23:51 Temperature 97.8 F Pulse Rate 67 75 Respiratory 16 Rate Blood Pressure 138/73 128/81 O2 Sat by Pulse 100 100 Oximetry 02/07/22 02/07/22 02/07/22 04:12 06:02 07:29 Temperature 97.9 F Pulse Rate 72 78 64 Respiratory 14 Rate Blood Pressure 132/71 132/72 O2 Sat by Pulse 99 Oximetry - Lab 02/07/22 07:09 02/07/22 07:09 Most recent lab results Calcium 8.4 mg/dL (8.4-10.2) 02/07/22 07:09 Magnesium 1.80 mg/dL (1.7-2.3) 01/25/22 20:12 Urine Creatinine 49.1 mg/dL (0.1-20.0) H 01/26/22 09:17 Urine Total Protein 24 mg/dL (5-11.8) H 01/26/22 09:17 Medications & Allergies - Medications Allergies/Adverse Reactions: Allergies No Known Allergies Allergy (Unverified 01/20/22 10:47) Home Medications: Home Medications Medication Instructions Recorded Confirmed Last Taken Type Sodium Bicarbonate 1,300 mg PO TID #90 tablet 01/25/22 02/06/22 01/30/22 Rx Tamsulosin [Flomax] 0.4 mg PO QDAY #30 capsule 01/25/22 02/06/22 02/02/22 Rx amLODIPine 10 mg PO QDAY #30 tablet 01/25/22 02/06/22 02/05/22 Rx Active Medications: Generic Name Dose Route Start Last Admin Trade Name Freq PRN Reason Stop Dose Admin Acetaminophen 650 mg 01/25/22 23:53 Acetaminophen 325 Mg Tab PO Q4H PRN Pain MILD(1-3)/Fever >100.5/STODDARD Amlodipine Besylate 10 mg 01/27/22 11:00 02/06/22 10:45 Amlodipine 10 Mg Tab PO 10 mg QDAY MARLON Administration Dextrose 50 ml 02/04/22 03:04 02/07/22 03:59 Dextrose 50% In Water (25gm) 50 Ml Syringe IV 50 ml PRN PRN Administration Hypoglycemia Protocol Folic Acid 1 mg 01/27/22 11:00 02/06/22 10:03 Folic Acid 1 Mg Tab PO 1 mg QDAY MARLON Administration Hydralazine HCl 50 mg 01/31/22 09:00 02/07/22 06:02 Hydralazine 25 Mg Tab PO 50 mg Q8HR MARLON Administration Dextrose/Sodium Chloride 1,000 mls @ 100 mls/hr 02/04/22 04:00 02/07/22 04:40 D5/0.45ns IV 100 mls/hr DIRECT MARLON Administration Lorazepam 0.5 mg 02/04/22 11:21 02/06/22 18:07 Lorazepam 0.5 Mg Tab PO 0.5 mg Q6H PRN Administration Agitation Morphine Sulfate 2 mg 01/25/22 23:53 02/05/22 19:35 Morphine 2 Mg/1 Ml Inj IV 2 mg Q4H PRN Administration Pain, Moderate (4-6) Morphine Sulfate 4 mg 01/25/22 23:53 Morphine 4 Mg/1 Ml Inj IV Q4H PRN Pain , Severe (7-10) Ondansetron HCl 4 mg 01/25/22 23:53 Ondansetron 4 Mg/2 Ml Inj IV Q8H PRN Nausea And Vomiting Sodium Bicarbonate 1,300 mg 01/27/22 14:00 02/06/22 22:31 Sodium Bicarbonate 650 Mg Tab PO 1,300 mg TID MARLON Administration Sodium Chloride 10 ml 01/26/22 10:00 02/06/22 22:32 Sodium Chloride 0.9% 10 Ml Flush Syringe IV 10 ml BID MARLON Administration Sodium Chloride 10 ml 01/25/22 23:53 Sodium Chloride 0.9% 10 Ml Flush Syringe IV PRN PRN LINE FLUSH Tamsulosin HCl 0.4 mg 01/27/22 11:00 02/06/22 10:45 Tamsulosin 0.4 Mg Cap PO 0.4 mg QDAY MARLON Administration
--- NOTE | 2022-02-07 10:31 | Progress Note ---
Subjective - Reason for Consult Consult date: 02/07/22 Reason for consult: agitation - Chief Complaint Chief complaint: The patient was seen today. He is in restraints, but appears comfortable. He is resting. He arouses minimally but drifts back off. Could not engage him in the evaluation. ROS: MENTAL STATUS EXAMINATION General Appearance: Dressed appropriately. Behavior: Calm, sleeping Mood: calm Affect:congruent to stated mood Speech: unable to assess Thought Process: Unable to assess Thought Content:confused Suicidal Ideation:unable to assess Homicidal Ideation: unable to assess Hallucinations: unable to assess Delusions: yes Insight and Judgment: poor Memory/Cognition: poor Assessment and Plan (1)Unspecified mood disorder Treatment Plan Lorazepam 0.5mg po q6h prn agitation Risks, benefits and alternatives of medications discussed with the patient, questions answered and consent obtained from patient. PSYCHOTHERAPY: Supportive psychotherapy provided MEDICAL: Per primary team DELIRIUM PRECAUTIONS: Please re-orient patient frequently, keep lights on during the day, and minimize benzodiazepines and opiates as these medications could worsen patient's confusion. MACHINE EGG WASHER: Per primary DISPOSITION: Do not recommend acute inpatient psychiatric hospitalization at this time. The patient seem to have medical problems than psych. Will sign off. Thank you for the consult. Please contact with any questions and/or concerns. Case discussed with Dr. Roger who agrees with current disposition Mental Status Exam - Vital signs Last Vital Signs Temp 97.4 F L 02/07/22 07:59 Pulse 69 02/07/22 07:59 Resp 18 02/07/22 07:59 BP 134/99 02/07/22 07:59 Pulse Ox 100 02/07/22 07:59
[2022-02-07] MEDS: SODIUM BICARBONATE 650 MG TAB PO SCH ×2 (10:43→15:23)
--- NOTE | 2022-02-07 11:29 | Discharge Summary ---
Providers - Providers Date of Admission: 01/25/22 23:54 Date of discharge: 02/07/22 Attending physician: ARTEM MCKEON MD 01/25/22 21:47 Consult to Physician [CONS] Urgent Comment: Consulting Provider: YOAN RANDHAWA Physician Instructions: Reason For Exam: ckd 01/26/22 06:06 Consult to Physician [CONS] Routine Comment: Consulting Provider: JOSELUIS DURHAM Physician Instructions: Reason For Exam: Thrombocytopenia, leukopenia 01/26/22 06:09 Consult to Physician [CONS] Routine Comment: Consulting Provider: STELLA REYNA Physician Instructions: Reason For Exam: transaminitis 01/26/22 11:15 Physical Therapy Evaluation and Treat [CONS] Urgent Comment: Reason For Exam: PT to eval and treat 01/26/22 11:16 Occupational Therapy Evaluate and Treat [CONS] Urgent Comment: Reason For Exam: OT to eval and treat 01/27/22 09:55 Consult to Physician [CONS] Routine Comment: Consulting Provider: STELLA REYNA Physician Instructions: Reason For Exam: elevated LFT 01/28/22 09:14 Physical Therapy Evaluation and Treat [CONS] Routine Comment: Reason For Exam: Debility 01/28/22 11:20 Speech Therapy Evaluation and Treat [CONS] Routine Reason For Exam: dificulty swallow 01/30/22 12:36 Consult to Mental Health [CONS] Routine Reason For Exam: delirium 02/02/22 11:47 Consult to Physician [CONS] Routine Comment: Consulting Provider: BLAIR ÁLVAREZ Physician Instructions: Reason For Exam: New acute cerebral infarct on MRI Primary care physician: VICTORINA LEBLANC MD Hospitalization Reason for admission: Acute metabolic stable Condition: Stable Pertinent studies: Reviewed. Procedures: None. Hospital course: 01/26: Patient remains confused, continue antibiotics. follow renal function, follow LFT., Wait for consultants recommendation. 01/27: Creatinine slightly improved, patient mental status improving, tolerating diet. Hematology nephrology and GI following. Hematology recommended bone marrow biopsy for leukopenia and thrombocytopenia. 01/28: s/p bone marrow biopsy today, follow am labs. Cr still elevated, speech recommended pureed diet. If renal function continues to improve possible DC soon. 01/29: patient restraint overnight, today appears to be very confused. Will order repeat LFT, ammonia level. Continue to monitor renal function. 01/30: LFT trending down, ammonia level lower than normal. Patient continued to be confused and restrained. Will consult psych. Order for repeat CT head Continue to follow clinically. 01/31: discussed plan of care with significant other. pending BM biopsy, autoimmune workup panel. Remains confused, psych following. initiated zyprexa at bedtime. 02/01: CT head noncontrast unremarkable for acute hemorrhagic stroke. Pending MRI brain. Discontinued Zyprexa due to possible iatrogenic etiology for worsened metabolic encephalopathy. Continue to monitor. 02/02: MRI brain unremarkable for acute ischemic infarct along the medial left frontal cortex. Neurology consulted. Pending TTE to evaluate for PFO. 02/03: Reversal of encephalopathy with patient being conversant and cooperative at bedside. TTE unremarkable for PFO. Pending PT/OT recs. Pending neurology recommendations concerning antiplatelet therapy. 02/04: Patient remains conversant and following those prompts. PT evaluated patient and recommended subacute rehab. [id number] discussion had with Addis, and updated PT notes are being faxed. 02/05: Currently pending SNF placement. 02/06: Currently pending SNF placement. Disposition: [facility] Final Discharge Diagnosis (Prints w/discharge instructions): Acute metabolic encephalopathy, acute cerebral infarct/CVA, pulmonary infiltrate/possible aspiration pneumonia, JESSIKA on CKD stage III, thrombocytopenia, leukopenia, elevated transaminases Time spent for discharge: 45 min Core Measure Documentation - Palliative Care Palliative Care/ Comfort Measures: Not Applicable - Core Measures Any of the following diagnoses?: none Exam - Constitutional Vitals: Temp Pulse Resp BP Pulse Ox 97.4 F L 69 18 134/99 100 02/07/22 07:59 02/07/22 07:59 02/07/22 07:59 02/07/22 07:59 02/07/22 07:59 General appearance: Present: no acute distress - EENT Eyes: Present: PERRL, EOM intact ENT: hearing intact, clear oral mucosa, dentition normal - Neck Neck: Present: supple, normal ROM - Respiratory Respiratory: bilateral: CTA - Cardiovascular Rhythm: regular Heart Sounds: Present: S1 & S2 - Extremities Extremities: no ischemia, pulses intact, pulses symmetrical, No edema, normal temperature, normal color Peripheral Pulses: within normal limits - Abdominal General gastrointestinal: Present: soft, non-tender, non-distended, normal bowel sounds Male genitourinary: Present: deferred - Rectal Rectal Exam: deferred - Integumentary Integumentary: Present: clear, warm, dry - Musculoskeletal Musculoskeletal: generalized weakness - Psychiatric Psychiatric: appropriate mood/affect, cooperative - Neurologic Neurologic: CNII-XII intact - Allied Health Allied health notes reviewed: nursing Plan Activity: advance as tolerated Diet: regular Additional Instructions: 01/26: Patient remains confused, continue antibiotics. follow renal function, follow LFT., Wait for consultants recommendation. 01/27: Creatinine slightly improved, patient mental status improving, tolerating diet. Hematology nephrology and GI following. Hematology recommended bone marrow biopsy for leukopenia and thrombocytopenia. 01/28: s/p bone marrow biopsy today, follow am labs. Cr still elevated, speech recommended pureed diet. If renal function continues to improve possible DC soon. 01/29: patient restraint overnight, today appears to be very confused. Will order repeat LFT, ammonia level. Continue to monitor renal function. 01/30: LFT trending down, ammonia level lower than normal. Patient continued to be confused and restrained. Will consult psych. Order for repeat CT head. Continue to follow clinically. 01/31: discussed plan of care with significant other. pending BM biopsy, autoimmune workup panel. Remains confused, psych following. initiated zyprexa at bedtime. 02/01: CT head noncontrast unremarkable for acute hemorrhagic stroke. Pending MRI brain. Discontinued Zyprexa due to possible iatrogenic etiology for worsened metabolic encephalopathy. Continue to monitor. 02/02: MRI brain unremarkable for acute ischemic infarct along the medial left frontal cortex. Neurology consulted. Pending TTE to evaluate for PFO. 02/03: Reversal of encephalopathy with patient being conversant and cooperative at bedside. TTE unremarkable for PFO. Pending PT/OT recs. Pending neurology recommendations concerning antiplatelet therapy. 02/04: Patient remains conversant and following those pr ompts. PT evaluated patient and recommended subacute rehab. [id number] discussion had with Addis, and updated PT notes are being faxed. 02/05: Currently pending SNF placement. 02/06: Currently pending SNF placement. Care Plan Goals: Patient is medically clear for discharge Assessment: 01/26: Patient remains confused, continue antibiotics. follow renal function, follow LFT., Wait for consultants recommendation. 01/27: Creatinine slightly improved, patient mental status improving, tolerating diet. Hematology nephrology and GI following. Hematology recommended bone marrow biopsy for leukopenia and thrombocytopenia. 01/28: s/p bone marrow biopsy today, follow am labs. Cr still elevated, speech recommended pureed diet. If renal function continues to improve possible DC soon. 01/29: patient restraint overnight, today appears to be very confused. Will order repeat LFT, ammonia level. Continue to monitor renal function. 01/30: LFT trending down, ammonia level lower than normal. Patient continued to be confused and restrained. Will consult psych. Order for repeat CT head Continue to follow clinically. 01/31: discussed plan of care with significant other. pending BM biopsy, autoimmune workup panel. Remains confused, psych following. initiated zyprexa at bedtime. 02/01: CT head noncontrast unremarkable for acute hemorrhagic stroke. Pending MRI brain. Discontinued Zyprexa due to possible iatrogenic etiology for worsened metabolic encephalopathy. Continue to monitor. 02/02: MRI brain unremarkable for acute ischemic infarct along the medial left frontal cortex. Neurology consulted. Pending TTE to evaluate for PFO. 02/03: Reversal of encephalopathy with patient being conversant and cooperative at bedside. TTE unremarkable for PFO. Pending PT/OT recs. Pending neurology recommendations concerning antiplatelet therapy. 02/04: Patient remains conversant and following those prompts. PT evaluated patient and recommended subacute rehab. [id number] discussion had with Addis, and updated PT notes are being faxed. 02/05: Currently pending SNF placement. 02/06: Currently pending SNF placement. Follow up with: VICTORINA LEBLANC MD [Primary Care Provider] - 3-5 Days SABRINA GOETZ MD [Staff Physician] - 7 Days
[2022-02-07] MEDS: TAMSULOSIN 0.4 MG CAP PO SCH (11:30)
[2022-02-07] MEDS: amLODIPine 10 MG TAB PO SCH (11:30)
[2022-02-07] MEDS: FOLIC ACID 1 MG TAB PO SCH (15:43)
[2022-02-07 17:02] VITALS: BP 124/59
== END 2022-02-07 16:45 | DRG 64 ==
LOC: ED 19:48 → 4A 23:54 → UNDODISIN 01-27 21:15
PROVIDERS: ADMIT Internal Medicine Geriatric Medicine; ATTEND Student in an Organized Health Care Education/Training Program
DX: I63.9 Cerebral infarction, unspecified (principal); J69.0 Pneumonitis due to inhalation of food and vomit; G93.41 Metabolic encephalopathy; N17.9 Acute kidney failure, unspecified; E87.2 Acidosis; D61.818 Other pancytopenia; Z20.822 Contact with and (suspected) exposure to COVID-19; N13.9 Obstructive and reflux uropathy, unspecified; R91.8 Other nonspecific abnormal finding of lung field; D69.6 Thrombocytopenia, unspecified; R33.8 Other retention of urine; E87.5 Hyperkalemia; R79.89 Other specified abnormal findings of blood chemistry; F39 Unspecified mood [affective] disorder; N18.30 Chronic kidney disease, stage 3 unspecified; I12.9 Hypertensive chronic kidney disease with stage 1 through stage 4 chronic kidney disease, or unspecified chronic kidney disease
CPT/HCPCS: 36415; 38222; 70450; 70496; 70498; 70551; 71045; 74176; 76705; 80048; 80053; 80076; 80320; 81001; 82106; 82140; 82550; 82553; 82570; 82607; 82728; 82747; 82962; 83550; 83615; 83735; 84156; 84165; 84443; 84484; 84550; 85007; 85014; 85018; 85025; 85027; 85045; 85097; 85384; 85610; 85670; 85730; 86022; 86038; 86147; 86334; 86705; 86706; 87040; 87086; 87517; 87535; 88161; 88305; 88311; 88313; 88333; 93005; 93306; G0378; J3490; J7070; C8929; G0480; J0456; J0696; J1170; J2060; J2270; J2405; J7030; J7040; Q9967; U0003